=== PATIENT | female | born 2000 | race Caucasian/White ===

== ENCOUNTER 2021-09-07 11:59 | Inpatient (IN) | payer OTHER, SELFPAY ==
--- NOTE | ~2021-09-07 | US_ITS ---
EXAMINATION: US ABDOMEN LIMITED CLINICAL INFORMATION: Right upper quadrant tenderness and leukocytosis.. COMPARISON: None TECHNIQUE: Real-time imaging of the right upper quadrant abdominal viscera. FINDINGS: PANCREAS: Normal. LIVER: Normal. The liver is normal in size. The liver contour is normal. Parenchymal echogenicity is normal. No focal hepatic lesion. There is no intrahepatic biliary duct dilatation seen. GALLBLADDER: There are echogenic gallstone measuring 2.1 x 1.9 cm. No additional echogenic stones seen. There is no gallbladder wall thickening. COMMON BILE DUCT: Normal in caliber measuring 0.42 cm in diameter. RIGHT KIDNEY: Normal. No hydronephrosis. No renal calculi or focal parenchymal lesions. The kidney measures 10.5 cm in maximum dimension. FREE FLUID: None. US/US abdomen limited IMPRESSION: 2 cm gallstone without wall thickening. Unremarkable liver, right kidney, pancreas and CBD.
--- NOTE | ~2021-09-07 | CT_ITS ---
EXAMINATION: CT ABDOMEN AND PELVIS WITH CONTRAST CLINICAL INFORMATION: Ruptured appendicitis. Post abscess drainage. COMPARISON: Previous CT of the abdomen and pelvis 09/07/2020 TECHNIQUE: Multidetector volumetric images were obtained from the superior aspect of the liver through the pubic symphysis following administration 85 mL of Omnipaque 350 intravenous contrast. Sagittal and coronal reformatted images were obtained on the technologist's workstation. Oral contrast: Yes This CT examination was performed using dose optimization techniques as appropriate, variously including the following: *Automated exposure control *Adjustment of mA and/or kV according to patient size (this includes techniques or standardized protocols for targeted exams where dose is matched to indication/reason for exam; i.e. extremities or head) *Use of iterative reconstruction technique DLP: 841 mGy-cm FINDINGS: LUNG BASES: There is atelectasis of the right lung base. LIVER, GALLBLADDER, AND BILIARY TREE: The liver is normal in size, shape, and attenuation. No focal hepatic lesion or biliary ductal dilatation is present. The gallbladder is unremarkable with no evidence of radiopaque gallstones, gallbladder wall thickening, or obvious pericholecystic inflammatory changes. PANCREAS: Unremarkable. SPLEEN: The spleen is upper normal in size measuring 12.6 cm in length. ADRENAL GLANDS: Unremarkable. KIDNEYS AND URETERS: The kidneys are normal in size, shape, and attenuation. No hydronephrosis, hydroureter, or calculi seen. No perinephric stranding. BLADDER: Bladder is not optimally tendon. Bladder wall may be mildly thickened. GASTROINTESTINAL TRACT: There is a new surgical drainage catheter seen in the right lateral paracolic gutter. The right colon is dilated and fluid and contrast filled suggestive of an ileus. The appendix has been removed. There is a small fluid collection adjacent to the appendectomy site/surgical clips measuring 1 x 1 x 2 cm. There is a small amount fluid along the right lateral paracolic gutter adjacent to the drain. Maximum 1 cm in transverse dimension and 3 cm in AP dimension and extends over a length of 7 cm. There is overall interval decrease in fluid and inflammatory changes in the right lower quadrant compared to prior exam 09/07/2020. There is an increasing fluid collection in the pelvis in the posterior cul-de-sac that may have a defined enhancing wall. This measures 3.3 x 4.6 cm in transverse dimension and is questionable for developing abscess. No free air is. Small and large bowel is otherwise unremarkable. The stomach is unremarkable. There is a small amount of fluid in the lateral renal space and in the presacral space and ABDOMINAL WALL: No significant hernia is appreciated. There is edema over the right right lateral abdominal wall. LYMPH NODES: There is small bowel mesentery and retroperitoneal lymphadenopathy. This is similar to recent exam VASCULAR: Unremarkable. PELVIC VISCERA: Unremarkable. OSSEOUS STRUCTURES: Unremarkable. CT/CT abdomen pelvis w con IMPRESSION: Overall interval decrease in inflammatory changes and fluid in the right lower quadrant. There is a small 1 x 1 x 2 cm fluid collection at the appendectomy site. There is a small amount of fluid in the right lateral paracolic gutter adjacent to the surgical drain. There is question of developing abscess in the pelvis/ posterior cul-de-sac measuring 3.3 x 4.6 cm in AP and transverse dimension. Mild diffuse wall thickening of the bladder. Right colon ileus. Fleischner guidelines were followed.
--- NOTE | ~2021-09-07 | XR_ITS ---
EXAMINATION: XR CHEST CLINICAL INFORMATION: Right lower lobe pain. COMPARISON: None TECHNIQUE: Frontal view of the chest was obtained. FINDINGS: The lungs are fairly well-expanded and clear. The heart size and pulmonary vascularity is normal. No gross bony abnormality seen. XR/XR chest 1V IMPRESSION: Unremarkable chest exam.
--- NOTE | ~2021-09-07 | CT_ITS ---
EXAMINATION: CT ABDOMEN AND PELVIS WITH CONTRAST CLINICAL INFORMATION: Right upper quadrant pain, elevated white blood cells COMPARISON: Right upper quadrant ultrasound TECHNIQUE: Multidetector volumetric images were obtained from the superior aspect of the liver through the pubic symphysis following administration 85 mL of Omnipaque 350 intravenous contrast. Sagittal and coronal reformatted images were obtained on the technologist's workstation. Oral contrast: No This CT examination was performed using dose optimization techniques as appropriate, variously including the following: *Automated exposure control *Adjustment of mA and/or kV according to patient size (this includes techniques or standardized protocols for targeted exams where dose is matched to indication/reason for exam; i.e. extremities or head) *Use of iterative reconstruction technique DLP: 717 mGy-cm FINDINGS: LUNG BASES: The visualized lung bases are unremarkable. LIVER, GALLBLADDER, AND BILIARY TREE: The liver is normal in size, shape, and attenuation. No focal hepatic lesion or biliary ductal dilatation is present. The gallbladder is unremarkable with no evidence of radiopaque gallstones, gallbladder wall thickening, or obvious pericholecystic inflammatory changes. PANCREAS: Unremarkable. SPLEEN: Spleen is enlarged measured 16.7 cm. ADRENAL GLANDS: Unremarkable. KIDNEYS AND URETERS: The kidneys are normal in size, shape, and attenuation. No hydronephrosis, hydroureter, or calculi seen. No perinephric stranding. BLADDER: Unremarkable. GASTROINTESTINAL TRACT: There are extensive inflammatory changes in the right lower quadrant surrounding abnormal cecum and ascending colon. There are multiple lymph nodes and fluid, as well as trace of extraluminal air. There is most likely abscess in the appendix with ill-defined margins and there is reactive colonic wall thickening. The appendix not clearly seen being replaced by tubular structure, inflammatory reaction and lymphadenopathy, possibly abscess. ABDOMINAL WALL: No significant hernia is appreciated. LYMPH NODES: There are multiple lymph nodes in the mesentery surrounding abnormal loops of bowel. VASCULAR: Unremarkable. PELVIC VISCERA: There is fluid in the pelvis surrounding otherwise unremarkable uterus left adnexa is prominent with multiple follicles. Right adnexa revealed a deflated 1.8 cm cyst. OSSEOUS STRUCTURES: Unremarkable. CT/CT abdomen pelvis w con IMPRESSION: 1. Most likely perforated appendicitis with abscess formation and extensive inflammatory reaction. 2. Fluid in the pelvis most likely from ruptured ovarian follicle. 3. Splenomegaly This critical result was discussed with Adrianna Guo at 9:15 PM on September 07 and it was ascertained that the content and urgency of the report was understood at the time of direct communication. Fleischner guidelines were followed.
[2021-09-07 12:08] VITALS: BP 156/92; PULSE 130; RESP 18; TEMP 37.3; O2SAT 97; BMI 32.9
--- NOTE | 2021-09-07 13:36 | ED_ITS ---
HPI - Abdominal Pain General Chief Complaint: Abdominal Pain Stated Complaint: Abd pain Time Seen by Provider: 09/07/21 13:34 Source: patient Mode of arrival: ambulatory Limitations: no limitations History of Present Illness HPI narrative: 21 yo female with history of anxiety and recently diagnosed COVID-19 (09/02 - unvaccinated) who presents to the ER with right sided abdominal pain that has been going on since she was diagnosed with COVID. She reports going to [facility] on 09/02 c/o epigastric/RUQ pain, nausea, dizziness. She was diagnosed with COVID and sent home with PO antiemetics. She reports over the last 4 days she has developed increased urinary frequency/urgency, dark colored urine with worsening RUQ pain. RUQ pain is worse with food. She reports vomiting stopped 2 days ago but she has had diarrhea every day this week. She denies fevers, chest pain or SOB. MD elicited complaint: abdominal pain Pertinent past history: none Onset (ago): day(s) (5) Pain Consistency: constant Location: RUQ Severity: mild Pain scale (0-10): 3 Quality: stabbing Radiation: epigastric and R flank Exacerbating factors: eating Relieving factors: nothing Associated symptoms: nausea, vomiting, diarrhea and other (urinary frequency and urgency) Related Data Home Medications Medication Instructions Recorded Confirmed No Known Home Meds 09/07/21 09/07/21 Allergies Allergy/AdvReac Type Severity Reaction Status Date / Time No Known Allergies Allergy Verified 09/07/21 12:15 Review of Systems Review of Systems Constitutional: No Fever, + Chills ENT/Mouth: No sore throat, No Rhinorrhea, No Swallowing Difficulty Cardiovascular: No Chest Pain, No SOB Respiratory: No Cough, No Sputum, No Wheezing, No dyspnea Gastrointestinal: + Nausea, + Vomiting, + Diarrhea, + abdominal Pain, No Hematochezia, No Melena Genitourinary: No Dysuria, + Urinary Frequency/Urgency, No Hematuria Musculoskeletal: No joint pain, No Myalgias Skin: No Skin Lesions, No rash Neuro: No Weakness, No Numbness, No Dizziness, No Headache Psych: + Anxiety/Panic, No Depression Heme/Lymph: No Bruising, No Lymphadenopathy Endocrine: No Polyuria, No Polydipsia Physical Exam Vital Signs: Vital Signs: Last Vital Signs Temp 98.8 F 09/07/21 20:53 Pulse 111 H 09/07/21 20:53 Resp 17 09/07/21 20:53 BP 133/92 H 09/07/21 20:53 Pulse Ox 98 09/07/21 20:53 BMI result Body Mass Index 32.9 Appearance: Alert. Oriented X3. Anxious. Eyes: Pupils equal, round and reactive to light. ENT: Pharynx normal. Neck: Normal inspection. Neck supple. CVS: Tachycardic, regular rhythm, heart rate 130.Pulses normal. Respiratory: No respiratory distress. Breath sounds normal. Abdomen: Soft, Right upper quadrant tenderness with guarding. +BS x4 Skin: Skin warm and dry. Normal skin color. Normal skin turgor. No rashes. Extremities: No lower extremity edema. Neuro: Oriented X 3. No motor deficit. No sensory deficit. Course Course Course Narrative: 21-year-old female with history of anxiety and recent COVID- 19 diagnosis presents to the ER with worsening right upper quadrant pain along with urinary symptoms for the last 4 days. On arrival to the ER she is anxious, tachycardic to the 130s. She is afebrile and no respiratory distress. Her exam reveals a tender right upper quadrant with some guarding. she reports pain 3/10 at this time, declining need for pain medication. Will get lab workup and urinalysis. IV fluids ordered, her urine is tea-colored likely due to dehydration. Reevaluation(s) Reevaluation #1: Lab workup showing white blood cell count 23.8 With left shift and lymphopenia. Lymphopenia could be due to COVID-19. Her leukocytosis could be due to nausea, vomiting and reactive in nature. However given concern for possible urinary source with urinary symptoms will cover with IV Rocephin now. Her LFTs are within normal limits aside from very minimally elevated alk- phos. Will get right upper quadrant ultrasound to assess for cholecystitis. Doubt cholangitis. She is non-toxic appearing. Reevaluation #2: Urinalysis is negative for infection. Right upper quadrant ultrasound showing a 2 cm gallstone without any wall thickening. She could be experiencing biliary colic given her pain is after eating. Given her significant leukocytosis will get CT abd to make sure we aren't missing something. Case d/w Dr. Mueller. Reevaluation #3: Received critical result from Radiology - CT scan showing ruptured appendicitis with extensive inflammatory changes. Dr. Zarate TT who will admit. NPO possbile OR tomorrow. Patient updated on plan of care. Consultations Consultation #1: General Surgery - Dr. Zarate MDM - Abdominal Pain Lab Data Result diagrams: 09/07/21 13:53 09/07/21 13:53 Labs: Lab Results 09/07/21 09/07/21 09/07/21 Range/Units 13:53 13:53 13:53 WBC 23.8 H (4.8-10.8) X10*3/uL RBC 4.84 (4.20-5.50) X10*6/uL Hgb 14.5 (12.0-16.0) g/dl Hct 42.8 (37.0-47.0) % MCV 88.4 (80.0-98.0) fL MCH 30.0 (27.0-33.0) pg MCHC 33.9 (31.0-35.0) g/dl RDW 12.3 (11.0-16.0) % Plt Count 369 (160-400) X10*3/uL MPV 10.1 (9.4-12.3) fL Immature Gran % (Auto) 0.7 H (0.0-0.4) % Neut % (Auto) 82.0 H (45-73) % Lymph % (Auto) 10.3 L (20-40) % Ashley % (Auto) 6.5 (2-11) % Eos % (Auto) 0.3 (0-4) % Baso % (Auto) 0.2 (0-2) % Lymph # (Auto) 2.4 (1.2-4.9) X10*3/uL Ashley # (Auto) 1.6 H (0.1-1.2) X10*3/uL Eos # (Auto) 0.1 (0.0-0.4) X10*3/uL Baso # (Auto) 0.1 (0.0-0.2) X10*3/uL Abs Immat Gran (auto) 0.16 H (0.00-0.03) X10*3/uL Absolute Neuts (auto) 19.5 H (2.0-8.3) x10*3/uL Absolute Nucleated RBC 0.000 (0.0-0.012) X10*3/uL Nucleated RBC % (auto) 0.0 (0.0-0.2) /100WBC Smear Tech's Comments VERIFIED Sodium 140 (135-145) mmol/L Potassium 3.6 (3.3-5.1) mmol/L Chloride 105 (96-108) mmol/L Carbon Dioxide 21 L (22-29) mmol/L Anion Gap 18 (12-20) BUN 6 L (9-16) mg/dL Creatinine 0.66 (0.5-1.4) mg/dL Estim Creat Clear Calc 131.2 Estimated GFR > 60 Random Glucose 94 (60-115) mg/dL Lactic Acid (0.5-2.0) mmol/L Calcium 9.4 (8.4-10.2) mg/dL Magnesium 2.3 (1.6-2.6) mg/dL Total Bilirubin 0.6 (0.0-1.0) mg/dL Direct Bilirubin 0.3 (0.0-0.5) mg/dL AST 21 (5-31) U/L ALT 27 (0-31) U/L Alkaline Phosphatase 121 H (39-117) U/L Total Protein 7.8 (6.5-8.0) g/dL Albumin 4.1 (3.5-5.0) g/dL Lipase 7 L (8-78) U/L Urine Color Urine Appearance Urine pH (5.0-8.0) Ur Specific [place] (1.005-1.025) Urine Protein (NEG-TRACE) MG/DL Urine Glucose (UA) (NEG) MG/DL Urine Ketones (NEG) MG/DL Urine Blood (NEG) Urine Nitrite (NEG) Ur Leukocyte Esterase (NEG) Urine Test (NEGATIVE) COVID-19 (ERWIN) Negative (Negative) COVID-19 Clin Com See Note 09/07/21 09/07/21 09/07/21 Range/Units 13:53 13:53 15:37 WBC (4.8-10.8) X10*3/uL RBC (4.20-5.50) X10*6/uL Hgb (12.0-16.0) g/dl Hct (37.0-47.0) % MCV (80.0-98.0) fL MCH (27.0-33.0) pg MCHC (31.0-35.0) g/dl RDW (11.0-16.0) % Plt Count (160-400) X10*3/uL MPV (9.4-12.3) fL Immature Gran % (Auto) (0.0-0.4) % Neut % (Auto) (45-73) % Lymph % (Auto) (20-40) % Ashley % (Auto) (2-11) % Eos % (Auto) (0-4) % Baso % (Auto) (0-2) % Lymph # (Auto) (1.2-4.9) X10*3/uL Ashley # (Auto) (0.1-1.2) X10*3/uL Eos # (Auto) (0.0-0.4) X10*3/uL Baso # (Auto) (0.0-0.2) X10*3/uL Abs Immat Gran (auto) (0.00-0.03) X10*3/uL Absolute Neuts (auto) (2.0-8.3) x10*3/uL Absolute Nucleated RBC (0.0-0.012) X10*3/uL Nucleated RBC % (auto) (0.0-0.2) /100WBC Smear Tech's Comments Sodium (135-145) mmol/L Potassium (3.3-5.1) mmol/L Chloride (96-108) mmol/L Carbon Dioxide (22-29) mmol/L Anion Gap (12-20) BUN (9-16) mg/dL Creatinine (0.5-1.4) mg/dL Estim Creat Clear Calc Estimated GFR Random Glucose (60-115) mg/dL Lactic Acid 0.9 (0.5-2.0) mmol/L Calcium (8.4-10.2) mg/dL Magnesium (1.6-2.6) mg/dL Total Bilirubin (0.0-1.0) mg/dL Direct Bilirubin (0.0-0.5) mg/dL AST (5-31) U/L ALT (0-31) U/L Alkaline Phosphatase (39-117) U/L Total Protein (6.5-8.0) g/dL Albumin (3.5-5.0) g/dL Lipase (8-78) U/L Urine Color YELLOW Urine Appearance HAZY Urine pH 6.5 (5.0-8.0) Ur Specific [place] 1.020 (1.005-1.025) Urine Protein TRACE (NEG-TRACE) MG/DL Urine Glucose (UA) NEG (NEG) MG/DL Urine Ketones >=80 (NEG) MG/DL Urine Blood NEG (NEG) Urine Nitrite NEG (NEG) Ur Leukocyte Esterase NEG (NEG) Urine Test NEGATIVE (NEGATIVE) COVID-19 (ERWIN) (Negative) COVID-19 Clin Com Critical Care Time Critical Care Time Critical Care Time: Yes Total Critical Care Time: 42 Attestation: I have personally provided critical care time exclusive of time sp ent on separately billable procedures. Time includes review of lab data, radiology results, discussion with consultants, and monitoring for potential decompensation. Intervention performed as documented. Discharge Plan Discharge Clinical Impression: Ruptured appendicitis Sepsis Qualifiers: Sepsis type: sepsis due to unspecified organism Sepsis acute organ dysfunction status: without acute organ dysfunction Qualified Code(s): A41.9 - Sepsis, unspecified organism Patient Disposition: Admitted As Inpatient [facility] Past Medical History Medical History (Updated 09/07/21 @ 21:37 by JOSELYN Barbosa) Anxiety Depression Lactose intolerance Vaginal delivery Surgical History (Updated 09/07/21 @ 12:12 by Maia [place]) No pertinent past surgical history Social History Social History Advance Directives: Yes Advance Directives Information Provided: Yes Advance Directives on File: No Patient : No
[2021-09-07 14:16] LABS: Appearance Urine HAZY; Basophils Absolute Auto 0.1 X10*3/uL (0.0-0.2); Basophils Percent Auto 0.2 % (0-2); Color Urine YELLOW; Eosinophils Absolute Auto 0.1 X10*3/uL (0.0-0.4); Eosinophils Percent Auto 0.3 % (0-4); Glucose Urine UA NEG (NEG); Hematocrit 42.8 % (37.0-47.0); Hemoglobin 14.5 g/dl (12.0-16.0); Imm Gran Abs Auto 0.16 X10*3/uL (0.00-0.03); Imm Gran Pct Auto 0.7 % (0.0-0.4); Leukocyte Esterase Urine NEG (NEG); Lymphocytes Absolute Auto 2.4 X10*3/uL (1.2-4.9); Lymphocytes Percent Auto 10.3 % (20-40); MANUAL DIFF FLAG SCAN; Mean Corpuscular HGB Conc 33.9 g/dl (31.0-35.0); Mean Corpuscular Volume 88.4 fL (80.0-98.0); Mean Platelet Volume 10.1 fL (9.4-12.3); Monocytes Absolute Auto 1.6 X10*3/uL (0.1-1.2); Monocytes Percent Auto 6.5 % (2-11); Neutrophils Absolute Auto 19.5 x10*3/uL (2.0-8.3); Nitrite Urine NEG (NEG); PH 6.5 (5.0-8.0); Platelet Count 369 X10*3/uL (160-400); Red Blood Count 4.84 X10*6/uL (4.20-5.50); Red Cell Distribution Width 12.3 % (11.0-16.0); SCAN SMEAR FLAG 1; Urine Blood NEG (NEG); Urine Ketones >=80 MG/DL (NEG); Urine Protein TRACE MG/DL (NEG-TRACE); White Blood Count 23.8 X10*3/uL (4.8-10.8)
[2021-09-07 14:23] LABS: UPreg QC Valid YES; Urine Pregnancy NEGATIVE (NEGATIVE)
[2021-09-07 14:27] LABS: COVID-19 Test Negative (Negative)
[2021-09-07 14:29] LABS: Alanine Aminotransferase 27 U/L (0-31); Albumin Level 4.1 g/dL (3.5-5.0); Alkaline Phosphatase 121 U/L (39-117); Anion Gap 18 (12-20); Aspartate Amino Transferase 21 U/L (5-31); Bilirubin Direct 0.3 mg/dL (0.0-0.5); Bilirubin Total 0.6 mg/dL (0.0-1.0); Blood Urea Nitrogen 6 mg/dL (9-16); Calcium 9.4 mg/dL (8.4-10.2); Carbon Dioxide 21 mmol/L (22-29); Chloride 105 mmol/L (96-108); Creatinine Clr Calc Pharmacy 131.2; Estimated Glomerular Filt Rate > 60; Glucose Random 94 mg/dL (60-115); Lipase 7 U/L (8-78); Magnesium 2.3 mg/dL (1.6-2.6); Potassium 3.6 mmol/L (3.3-5.1); Sodium 140 mmol/L (135-145); Total Protein 7.8 g/dL (6.5-8.0)
[2021-09-07 14:34] LABS: SLIDE REVIEW VERIFIED
[2021-09-07 15:57] LABS: Lactic Acid 0.9 mmol/L (0.5-2.0)
[2021-09-07 16:00] VITALS: BP 116/68; PULSE 114; RESP 18; TEMP 37.1; O2SAT 99
[2021-09-07] MEDS: 0.9 % Sodium Chloride 1,000 ML 999 ML IVCONT ×2 (16:16→18:33)
[2021-09-07] MEDS: cefTRIAXone sodium 1 GM in 0.9 % Sodium Chloride 50 ML IV (16:16)
[2021-09-07 18:38] VITALS: BP 125/76; PULSE 114; RESP 16; TEMP 37.2; O2SAT 98
--- NOTE | 2021-09-07 18:54 | PC.NURSE ---
Pt resting on stretcher in NAD, breathing with ease on RA, VSS with tachycardia. Pt aaox4, reports pain 2/10, endorses intermittent nausea, denies other complaints at this time. Pt awaiting CT scan of abd, pt is aware and agreeable. Stretcher in lowest locked position, rail raised, call lucio within reach.
[2021-09-07] MEDS: iohexoL 350 MG/ML 100 ML INFUS..BTL IV (19:32)
[2021-09-07 20:53] VITALS: BP 133/92; PULSE 111; RESP 17; TEMP 37.1; O2SAT 98
--- NOTE | 2021-09-07 20:57 | PC.NURSE ---
Pt c/o nausea, Adrianna ALVES aware and to order zofran for nausea and ativan for pt's persistent reports of anxiety.
[2021-09-07] MEDS: LORazepam 2 MG/ML VIAL 1 MG IVPUSH (21:00)
[2021-09-07] MEDS: ondansetron HCL 4 MG/2 ML VIAL IVPUSH (21:00)
--- NOTE | 2021-09-07 21:20 | PC.NURSE ---
Adrianna ALVES at bedside disccussing CT results with pt regarding ruptured appendix. Pt agreeable to plan for admission, fluids, abx.
[2021-09-07 22:00] VITALS: BP 132/88; PULSE 120; RESP 17; TEMP 38; O2SAT 97
[2021-09-07] MEDS: Acetaminophen 325 MG TABLET 650 MG PO (22:17)
[2021-09-07] MEDS: Piperacillin Sodium/Tazobactam 3.375 GM in 0.9 % Sodium Chloride 50 ML IV (22:17)
[2021-09-07] MEDS: Dextrose 5 % and Lactated Ring 1,000 ML 125 ML IVCONT (22:18)
--- NOTE | 2021-09-07 22:20 | PC.NURSE ---
pt reports improvement in anxiety and nausea. pt reports minimal pain at this time. pt medicated per OCT.
[2021-09-07 23:52] VITALS: BP 126/69; PULSE 94; RESP 18; TEMP 37; O2SAT 98
[2021-09-08] VITALS (10 sets, daily range): BP systolic 108–130; BP diastolic 55–82; PULSE 95–111; RESP 16–20; TEMP 36.1–37.8; O2SAT 92–100; BMI 32.9
[2021-09-08] MEDS: Piperacillin Sodium/Tazobactam 3.375 GM in 0.9 % Sodium Chloride 50 ML IV ×3 (06:20→22:51)
[2021-09-08] MEDS: Dextrose 5 % and Lactated Ring 1,000 ML 125 ML IVCONT ×3 (06:20→22:52)
[2021-09-08 06:21] LABS: Basophils Percent Auto 0.2 % (0-2); Eosinophils Percent Auto 0.1 % (0-4); Hematocrit 36.3 % (37.0-47.0); Hemoglobin 12.3 g/dl (12.0-16.0); Imm Gran Abs Auto 0.19 X10*3/uL (0.00-0.03); Imm Gran Pct Auto 0.9 % (0.0-0.4); Lymphocytes Absolute Auto 1.6 X10*3/uL (1.2-4.9); MANUAL DIFF FLAG SCAN; Mean Corpuscular HGB Conc 33.9 g/dl (31.0-35.0); Mean Corpuscular Volume 88.5 fL (80.0-98.0); Mean Platelet Volume 9.7 fL (9.4-12.3); Monocytes Absolute Auto 1.6 X10*3/uL (0.1-1.2); Monocytes Percent Auto 7.3 % (2-11); Neutrophils Absolute Auto 18.8 x10*3/uL (2.0-8.3); Neutrophils Percent Auto 84.5 % (45-73); Red Cell Distribution Width 12.5 % (11.0-16.0); SCAN SMEAR FLAG 1; White Blood Count 22.3 X10*3/uL (4.8-10.8)
[2021-09-08 06:37] LABS: Anion Gap 11 (12-20); Blood Urea Nitrogen 3 mg/dL (9-16); Calcium 8.4 mg/dL (8.4-10.2); Carbon Dioxide 23 mmol/L (22-29); Chloride 108 mmol/L (96-108); Creatinine Clr Calc Pharmacy 131.2; Estimated Glomerular Filt Rate > 60; Glucose Random 123 mg/dL (60-115); Potassium 4.1 mmol/L (3.3-5.1); Sodium 138 mmol/L (135-145)
[2021-09-08 06:52] LABS: SLIDE REVIEW VERIFIED
--- NOTE | 2021-09-08 07:39 | P.HPGS_ITS ---
History of Present Illness History of Present Illness Date of Service: 09/08/21 Chief complaint: Abd pain Narrative: Nikki Gill is a 21 year old female presenting with complaints of right upper quadrant abdominal pain. She was previously evaluated for epigastric and right upper quadrant abdominal pain, nausea, dizziness at [facility] on 09/02/2021 and diagnosed with COVID-19 (patient was under vaccinated). The abdominal pain was felt to be associated with COVID she was subsequently discharged home. Over the next seem to increase more in the lower abdomen and was associated with urinary frequency, dark colored urine, nausea, vomiting, and diarrhea. She denies fever or chills, anorexia but did report that the pain increased after eating. She denies a previous history of similar abdominal pain or of abdominal surgeries. [facility] was noted to have tenderness in the right upper quadrant. Laboratories revealed elevated WBC of 23 K and ultrasound revealed a 2 cm gallstone within the gallbladder without evidence of wall thickening or ductal dilatation. A CT of the abdomen was therefore obtained which reveals extensive inflammatory changes in the right lower quadrant surrounding abnormal cecum and ascending colon. There are multiple lymph nodes and fluid, as well as trace of extraluminal air. There is most likely abscess in the appendix with ill-defined margins and there is reactive colonic wall thickening. The appendix not clearly seen being replaced by tubular structure, inflammatory reaction and lymphadenopathy, possibly abscess. ? Repeat COVID-19 test yesterday was n egative. Review of Systems Constitutional: Constitutional: Denies chills, Denies fever(s), Denies headache(s) and Denies poor appetite ENT: Denies dizziness and Denies headache(s) Cardiovascular: Cardiovascular: Denies chest pain, Denies rapid heart rate, Denies palpitations and Denies slow heart rate Respiratory: Respiratory: Denies chest congestion, Denies cough, Denies pain on inspiration and Denies wheezing Gastrointestinal: Gastrointestinal: Reports abdominal pain, Denies bloating, Reports change in stool character, Denies constipation, Reports diarrhea, Reports nausea, Reports vomiting and Denies hematemesis Genitourinary: Genitourinary: Reports pelvic pain Musculoskeletal: Musculoskeletal: Denies back pain, Denies arthralgias, Denies joint swelling and Denies numbness Integumentary/Breasts: Skin/Breast: Denies change in pigmentation, Denies erythema and Denies rash Neurologic: Denies dizziness, Denies headache(s) and Denies numbness Psychiatric: Psychiatric: Reports anxiety and Reports depression Endocrine: Endocrine: Denies palpitations Hematologic/Lymphatic: Hematologic/Lymphatic: Denies easy bleeding, Denies easy bruising and Denies lymphadenopathy Allergic/Immunologic: Allergic/Immunologic: Denies wheezing PMFSH Past Medical History Medical History (Updated 09/07/21 @ 21:37 by JOSELYN Barbosa) Anxiety Depression Lactose intolerance Vaginal delivery Patient : No Surgical History Surgical History (Updated 09/07/21 @ 12:12 by Maia Colorado) No pertinent past surgical history Social History Social History Advance Directives: Yes Advance Directives Information Provided: Yes Advance Directives on File: No Patient : No Meds Allergies Allergy/AdvReac Type Severity Reaction Status Date / Time No Known Allergies Allergy Verified 09/07/21 12:15 Active Medications: Current Medications Acetaminophen (Acetaminophen 325 Mg Tablet) 650 mg PO Q6H PRN PRN Reason: Pain, Mild (Pain Scale 1-3) Last Admin: 09/07/21 22:17 Dose: 650 mg Documented by: Hydromorphone HCl (Hydromorphone Hcl 0.5 Mg/0.5 Ml Syringe) 0.5 mg IVPUSH Q3H PRN; Protocol PRN Reason: Pain, Severe (Pain Scale 7-10) Dextrose/Lactated Ringer's (D5lr) 1,000 mls @ 125 mls/hr IVCONT .Q8H [facility] Last Admin: 09/08/21 06:20 Dose: 125 mls/hr Documented by: Piperacillin Sod/Tazobactam (Sod 3.375 gm/ Sodium Chloride) 50 mls @ 100 mls/hr IV Q6H [facility] Last Infusion: 09/08/21 07:35 Dose: Infused Documented by: Ondansetron HCl (Ondansetron Hcl 4 Mg/2 Ml Vial) 4 mg IVPUSH Q8H PRN PRN Reason: Nausea and Vomiting Oxycodone HCl (Oxycodone Hcl Immed Release 5 Mg Tablet) 5 mg PO Q6H PRN PRN Reason: Pain, Moderate (Pain Scale 4-6 Pharmacy Consult (Consult Rx Perform Med Rec) 1 each MISCELLANE ONCE PRN PRN Reason: Consult order Sodium Chloride (0.9 % Sodium Chloride Flush 3 Ml Syringe) 3 ml IVFLUSH QSHIFT [facility] Last Admin: 09/07/21 22:31 Dose: Not Given Documented by: Zolpidem Tartrate (Zolpidem Tartrate 5 Mg Tablet) 5 mg PO BEDTIME PRN PRN Reason: Insomnia Home Medications Medication Instructions Recorded Confirmed Last Taken Type No Known Home Meds 09/07/21 09/07/21 Unknown History Physical Exam Vital Signs: Vital Signs: Last Vital Signs Temp 98.6 F 09/07/21 23:52 Pulse 94 09/07/21 23:52 Resp 18 09/07/21 23:52 BP 126/69 09/07/21 23:52 Pulse Ox 98 09/07/21 23:52 BMI result Body Mass Index 32.9 Const: General: cooperative, comfortable, no acute distress and well developed Nutritional Appearance: well nourished Orientation/consciousness: patient oriented x3 Limitations: no limitations HENMT: Head: Yes normocephalic and Yes atraumatic Ears: hearing grossly normal bilaterally Eyes: Sclerae: sclerae normal EOM: EOMs intact bilaterally Neck: Neck: Yes normal visual inspection, Yes trachea midline and Yes supple Resp: Effort & Inspection: normal respiratory effort, no audible wheezes, no cough and no respiratory distress Cardio: Jugular venous distension: no JVD Rate: regular rate Rhythm: regular rhythm Heart sounds: S1 normal heart sound present and S2 normal heart sound present GI: Inspection: Yes normal to inspection Palpation (GI): Soft to palpation, Tenderness to palpation present (GI) in the RLQ, in the RUQ and at McBurney's point; Negative for Hidalgo's sign negative, with no rebound tenderness and Rovsing's sign negative, no guarding, not rigid and No hepatosplenomegaly present Percussion: Yes normal to percussion Auscultation: normal bowel sounds Rectal Exam - Female: deferred Skin: General skin exam: no rashes or lesions noted Neuro: General: patient oriented x3 Extrem: General: Yes normal to inspection, Yes full ROM, Yes capillary refill normal and Yes no clubbing, cyanosis or edema Results Results Labs: Short CBC 09/07/21 09/08/21 Range/Units 13:53 06:11 WBC 23.8 H 22.3 H (4.8-10.8) X10*3/uL Hgb 14.5 12.3 (12.0-16.0) g/dl Hct 42.8 36.3 L (37.0-47.0) % Plt Count 369 Not Reportable (160-400) X10*3/uL BMP 09/07/21 09/08/21 13:53 06:11 Sodium 140 138 Potassium 3.6 4.1 Chloride 105 108 Carbon Dioxide 21 L 23 BUN 6 L 3 L Creatinine 0.66 0.66 Calcium 9.4 8.4 D Liver Function 09/07/21 Range/Units 13:53 Total Bilirubin 0.6 (0.0-1.0) mg/dL Direct Bilirubin 0.3 (0.0-0.5) mg/dL AST 21 (5-31) U/L ALT 27 (0-31) U/L Alkaline Phosphatase 121 H (39-117) U/L Albumin 4.1 (3.5-5.0) g/dL Urine 09/07/21 09/07/21 Range/Units 13:53 13:53 Urine Color YELLOW Urine Appearance HAZY Urine pH 6.5 (5.0-8.0) Ur Specific Elizabeth 1.020 (1.005-1.025) Urine Protein TRACE (NEG-TRACE) MG/DL Urine Glucose (UA) NEG (NEG) MG/DL Urine Test NEGATIVE (NEGATIVE) Assessment and Plan (1) Ruptured appendicitis: Status: Acute 21-year-old female patient presenting with a prolonged history of abdominal pain associated with nausea, vomiting, and diarrhea, as well as a recent COVID-19 history. Patient was found to be tender in the right upper quadrant and right lower quadrant. Workup revealed elevated WBC of 23 K as well as findings suggestive of perforated acute appendicitis with developing abscess. The findings were discussed with the patient in detail. My concern is the prolonged nature of her abdominal symptoms and the lack of visible appendix on CT which may indicate significant amount of inflammation surrounding the appendix with developing abscess. We discussed management with laparoscopic or possible open appendectomy verses continued antibiotics. Patient wishes to proceed with a laparoscopic or possible open appendectomy. After discussion of the procedure, risks, and alternatives, she consents to the surgery. She will be added onto the operative schedule for today. She has been placed on Zosyn which will continue postoperatively if an abscess is encountered. Quality Stroke Does the patient have a stroke diagnosis?: No VTE Prior VTE?: No VTE Risk Level:: Surgical - moderate VTE Device Contraindication: N/A - Device Ordered VTE Drug Contraindication: Treatment Not Indicated Procedures Date of Service Date of Service: 09/08/21
--- NOTE | 2021-09-08 08:48 | P.CONAN_ITS ---
PMF Active Problems Active Problems: All Active Problems (Updated 09/07/21 @ 21:37 by JOSELYN Townsend) Sepsis (Acute) Ruptured appendicitis (Acute) Past Medical History Medical History (Updated 09/07/21 @ 21:37 by JOSELYN Barbosa) Anxiety Depression Lactose intolerance Vaginal delivery Family History Family history of problems with anesthesia: No Surgical History Surgical History (Updated 09/07/21 @ 12:12 by Maia [place]) No pertinent past surgical history History of Problems with Anesthesia: No Social History Social History Advance Directives: Yes Advance Directives Information Provided: Yes Advance Directives on File: No Patient : No Meds Allergies Allergy/AdvReac Type Severity Reaction Status Date / Time No Known Allergies Allergy Verified 09/07/21 12:15 Active Medications: Current Medications Acetaminophen (Acetaminophen 325 Mg Tablet) 650 mg PO Q6H PRN PRN Reason: Pain, Mild (Pain Scale 1-3) Last Admin: 09/07/21 22:17 Dose: 650 mg Documented by: Hydromorphone HCl (Hydromorphone Hcl 0.5 Mg/0.5 Ml Syringe) 0.5 mg IVPUSH Q3H PRN; Protocol PRN Reason: Pain, Severe (Pain Scale 7-10) Dextrose/Lactated Ringer's (D5lr) 1,000 mls @ 125 mls/hr IVCONT .Q8H [facility] Last Admin: 09/08/21 06:20 Dose: 125 mls/hr Documented by: Piperacillin Sod/Tazobactam (Sod 3.375 gm/ Sodium Chloride) 50 mls @ 100 mls/hr IV Q6H [facility] Last Infusion: 09/08/21 07:35 Dose: Infused Documented by: Ondansetron HCl (Ondansetron Hcl 4 Mg/2 Ml Vial) 4 mg IVPUSH Q8H PRN PRN Reason: Nausea and Vomiting Oxycodone HCl (Oxycodone Hcl Immed Release 5 Mg Tablet) 5 mg PO Q6H PRN PRN Reason: Pain, Moderate (Pain Scale 4-6 Pharmacy Consult (Consult Rx Perform Med Rec) 1 each MISCELLANE ONCE PRN PRN Reason: Consult order Sodium Chloride (0.9 % Sodium Chloride Flush 3 Ml Syringe) [facility] Admin: 09/07/21 22:31 Dose: Not Given Documented by: Zolpidem Tartrate (Zolpidem Tartrate 5 Mg Tablet) 5 mg PO BEDTIME PRN PRN Reason: Insomnia Home Medications Medication Instructions Recorded Confirmed Last Taken Type No Known Home Meds 09/07/21 09/07/21 Unknown History Exam Exam Date and Time: September 08, 2021 0848 Height,Weight and Vital Signs: Height 5 ft 2 in Weight 81.647 kg Last Vital Signs Temp 98.6 F 09/07/21 23:52 Pulse 94 09/07/21 23:52 Resp 18 09/07/21 23:52 BP 126/69 09/07/21 23:52 Pulse Ox 98 09/07/21 23:52 Pertinent Lab Results Pertinent Lab Results: Laboratory Tests 09/07/21 09/07/21 09/07/21 13:53 13:53 13:53 WBC 23.8 H RBC 4.84 Hgb 14.5 Hct 42.8 MCV 88.4 MCH 30.0 MCHC 33.9 RDW 12.3 Plt Count 369 MPV 10.1 Immature Gran % (Auto) 0.7 H Neut % (Auto) 82.0 H Lymph % (Auto) 10.3 L Cowley % (Auto) 6.5 Eos % (Auto) 0.3 Baso % (Auto) 0.2 Lymph # (Auto) 2.4 Cowley # (Auto) 1.6 H Eos # (Auto) 0.1 Baso # (Auto) 0.1 Abs Immat Gran (auto) 0.16 H Absolute Neuts (auto) 19.5 H Absolute Nucleated RBC 0.000 Nucleated RBC % (auto) 0.0 Smear Tech's Comments VERIFIED Sodium 140 Potassium 3.6 Chloride 105 Carbon Dioxide 21 L Anion Gap 18 BUN 6 L Creatinine 0.66 Estim Creat Clear Calc 131.2 Estimated GFR > 60 Random Glucose 94 Lactic Acid Calcium 9.4 Magnesium 2.3 Total Bilirubin 0.6 Direct Bilirubin 0.3 AST 21 ALT 27 Alkaline Phosphatase 121 H Total Protein 7.8 Albumin 4.1 Lipase 7 L Urine Color Urine Appearance Urine pH Ur Specific Armstrong Urine Protein Urine Glucose (UA) Urine Ketones Urine Blood Urine Nitrite Ur Leukocyte Esterase Urine Test COVID-19 ([facility]) Negative COVID-19 Clin Com See Note 01/14/22 01/14/22 01/14/22 13:53 13:53 15:37 WBC RBC Hgb Hct MCV MCH MCHC RDW Plt Count MPV Immature Gran % (Auto) Neut % (Auto) Lymph % (Auto) Cowley % (Auto) Eos % (Auto) Baso % (Auto) Lymph # (Auto) Cowley # (Auto) Eos # (Auto) Baso # (Auto) Abs Immat Gran (auto) Absolute Neuts (auto) Absolute Nucleated RBC Nucleated RBC % (auto) Smear Tech's Comments Sodium Potassium Chloride Carbon Dioxide Anion Gap BUN Creatinine Estim Creat Clear Calc Estimated GFR Random Glucose Lactic Acid 0.9 Calcium Magnesium Total Bilirubin Direct Bilirubin AST ALT Alkaline Phosphatase Total Protein Albumin Lipase Urine Color YELLOW Urine Appearance HAZY Urine pH 6.5 Ur Specific Armstrong 1.020 Urine Protein TRACE Urine Glucose (UA) NEG Urine Ketones >=80 Urine Blood NEG Urine Nitrite NEG Ur Leukocyte Esterase NEG Urine Test NEGATIVE COVID-19 ([facility]) COVID-19 Clin Com 09/08/21 09/08/21 06:11 06:11 WBC 22.3 H RBC 4.10 L Hgb 12.3 Hct 36.3 L MCV 88.5 MCH 30.0 MCHC 33.9 RDW 12.5 Plt Count Not Reportable MPV 9.7 Immature Gran % (Auto) 0.9 H Neut % (Auto) 84.5 H Lymph % (Auto) 7.0 L Cowley % (Auto) 7.3 Eos % (Auto) 0.1 Baso % (Auto) 0.2 Lymph # (Auto) 1.6 Cowley # (Auto) 1.6 H Eos # (Auto) 0.0 Baso # (Auto) 0.0 Abs Immat Gran (auto) 0.19 H Absolute Neuts (auto) 18.8 H Absolute Nucleated RBC 0.000 Nucleated RBC % (auto) 0.0 Smear Tech's Comments VERIFIED Sodium 138 Potassium 4.1 Chloride 108 Carbon Dioxide 23 Anion Gap 11 L BUN 3 L Creatinine 0.66 Estim Creat Clear Calc 131.2 Estimated GFR > 60 Random Glucose 123 H Lactic Acid Calcium 8.4 D Magnesium Total Bilirubin Direct Bilirubin AST ALT Alkaline Phosphatase Total Protein Albumin Lipase Urine Color Urine Appearance Urine pH Ur Specific Armstrong Urine Protein Urine Glucose (UA) Urine Ketones Urine Blood Urine Nitrite Ur Leukocyte Esterase Urine Test COVID-19 ([facility]) COVID-19 Clin Com Airway Mallampati Class: I TM Dist: >3cm Neck ROM: Full Loose/Missing/Broken Teeth: No Heart: RRR Lungs: CTA Assessment and Plan Assessment Anesthesia Assessment: Anesthesia Plan Discussed and Chart Reviewed Final Anesthetic Review Family History of Problems with Anesthesia: No History of Problems with Anesthesia: No NPO: Yes ASA Class: I and Emergency Final Preanesthetic Review: No Changes in Pt Med Stat, Meds/Allgs Chart Reviewed, Consent Obtained/Reviewed and Anes Risks/Benef Reviewed Patient Risk: Intermediate Procedure Risk: Intermediate Anesthetic Plan Anesthetic Plan: GA Disposition: Standard PACU
[2021-09-08] MEDS: Acetaminophen 325 MG TABLET 650 MG PO (10:19)
--- NOTE | 2021-09-08 11:00 | PC.NURSE ---
Pt to OR at this time, pain only with ambulation, declines pain medication. Medicated with Tylenol PO for low grade temp.
--- NOTE | 2021-09-08 12:56 | PC.NURSE ---
Melva Gill, patient's mother, phone number [phone]. Requesting call back when patient returns from OR.
--- NOTE | 2021-09-08 14:10 | P.OP_ITS ---
Operative Note Operative Note Date of Service: 09/08/21 Narrative: Preoperative diagnosis: Acute perforated appendicitis Postoperative diagnosis: Acute perforated appendicitis with large abscess in right upper quadrant Procedure: Exploratory laparoscopy, drainage of large appendiceal abscess, debridement of remnants of appendix Surgeon: Chapincito Zarate MD Healthcare Business Analyst: Sharonda Wilcox PA-C Anesthesia: General endotracheal Indications for procedure: 21-year-old female patient with abdominal pain previously evaluated in an outside ED on 09/02/2019 and found to have COVID-19. Patient was subsequently discharged to home however the abdominal pain continued in actually worsened associated with nausea and vomiting. She presented to the emergency departmen on 09/07/2021 and was noted to have pain in the right upper quadrant and right lower quadrant. She also was found to have markedly elevated WBC and marked inflammation on CT with probable developing abscess due to perforated appendicitis. Appendix could not be clearly identified by CT. Operative findings: Large abscess located in the right upper quadrant with inflamed cecum and terminal ileum. The abscess is in the region of the suspected appendix however appendix cannot be identified and may have been com pletely ruptured. A large abscess was drained in the wall debrided. A Edward- Castañeda drain was left in place. Specimen: Wound culture, abscess cavity wall Estimated blood loss: 20 mL Complications: None Procedure details: Patient was brought to the OR placed in a supine position. After administering general anesthesia the patient's abdomen was prepped with ChloraPrep and draped in sterile fashion. A surgical time-out was called the consent confirmed. Venodyne boots were in place in patient was administered antibiotics. The surgical procedure was performed in room 5. Local anesthesia consisting 0.5% Sensorcaine was infiltrated in a periumbilical location. A 5 mm incision was then made with scalpel. Veress needle was then inserted while elevating the abdominal cavity with towel clips. After a positive drop test the abdomen was insufflated to a pressure of 15 mmHg. Veress needle was removed and a 5 mm trocar inserted. The camera was inserted in the abdomen explored. A large amount of serous fluid was noted in the pelvis suggestive of a ruptured ovarian cyst. A 2nd 5 mm trocar was placed in the lower midline and a 12 mm trocar placed in left lower quadrant. The patient was placed in a Trendelenburg position rotated to the left. The fluid in the pelvis was aspirated and appeared to be clear fluid without abscess. The cecum was identified and was found to be densely adherent to the terminal ileum and abdominal sidewall. This was gently dissected off the sidewall. An area of dense inflammation was identified followed by a large abscess cavity containing white foul-smelling pus. The wound culture was sent of the purulence fluid. The abscess was completely evacuated. The region surrounding this abscess cavity was examined carefully which included the wall the cecum and the wall of the terminal ileum. Terminal ileum was mobilized along the abdominal sidewall as was the cecum. Cecum was able to be examined circumferentially and no remnants of the appendix could be identified. A portion of the abscess cavity was debrided and sent as a specimen. The abscess cavity was washed out thoroughly with saline solution. A Edward-Castañeda drain was less the abscess cavity. This was then connected to a bulb suction brought through 1 of the trocar incisions. Wounds were checked for hemostasis. All trocars were then removed and the CO2 evacuated. Drain was secured using a nylon suture and connected to bulb suction. Fascia was closed at the left lower quadrant incision using a 0 Polysorb suture in a [id number] fashion. Skin was closed in all incisions using a subcuticular 4-0 Polysorb suture. Steri-Strips 2 x 2 gauze and Tegaderm were then applied. The patient tolerated the procedure well. Sponge, instrument, and needle counts were reported as correct. The patient was transferred to PACU in stable condition.
[2021-09-08] MEDS: ondansetron HCL 4 MG/2 ML VIAL IVPUSH (14:29)
[2021-09-08] MEDS: HYDROmorphone HCl 0.5 MG/0.5 ML SYRINGE IVPUSH (20:01)
[2021-09-09 00:24] VITALS: BP 120/68; PULSE 115; RESP 16; TEMP 37.3; O2SAT 96
[2021-09-09] MEDS: HYDROmorphone HCl 0.5 MG/0.5 ML SYRINGE IVPUSH ×5 (01:17→23:09)
[2021-09-09] MEDS: Dextrose 5 % and Lactated Ring 1,000 ML 125 ML IVCONT ×3 (05:47→22:45)
[2021-09-09] MEDS: Piperacillin Sodium/Tazobactam 3.375 GM in 0.9 % Sodium Chloride 50 ML IV ×4 (05:47→21:09)
[2021-09-09 06:32] LABS: Basophils Percent Auto 0.1 % (0-2); Hematocrit 34.1 % (37.0-47.0); Hemoglobin 12.1 g/dl (12.0-16.0); Imm Gran Pct Auto 0.8 % (0.0-0.4); Lymphocytes Absolute Auto 1.6 X10*3/uL (1.2-4.9); Lymphocytes Percent Auto 6.4 % (20-40); MANUAL DIFF FLAG SCAN; Mean Corpuscular HGB Conc 35.5 g/dl (31.0-35.0); Mean Corpuscular Hemoglobin 32.4 pg (27.0-33.0); Mean Corpuscular Volume 91.2 fL (80.0-98.0); Mean Platelet Volume 10.3 fL (9.4-12.3); Monocytes Absolute Auto 1.4 X10*3/uL (0.1-1.2); Monocytes Percent Auto 5.8 % (2-11); Neutrophils Absolute Auto 20.9 x10*3/uL (2.0-8.3); Neutrophils Percent Auto 86.9 % (45-73); Platelet Count 409 X10*3/uL (160-400); Red Blood Count 3.74 X10*6/uL (4.20-5.50); Red Cell Distribution Width 12.7 % (11.0-16.0); SCAN SMEAR FLAG 1; White Blood Count 24.1 X10*3/uL (4.8-10.8)
[2021-09-09 06:33] LABS: Anion Gap 15 (12-20); Blood Urea Nitrogen 3 mg/dL (9-16); Calcium 8.3 mg/dL (8.4-10.2); Carbon Dioxide 22 mmol/L (22-29); Chloride 105 mmol/L (96-108); Creatinine Clr Calc Pharmacy 137.4; Estimated Glomerular Filt Rate > 60; Glucose Random 136 mg/dL (60-115); Potassium 4.2 mmol/L (3.3-5.1); Sodium 138 mmol/L (135-145)
[2021-09-09 06:57] LABS: SLIDE REVIEW VERIFIED
[2021-09-09 07:52] VITALS: BP 118/66; PULSE 120; RESP 20; TEMP 37.1; O2SAT 98
--- NOTE | 2021-09-09 09:47 | P.PNGS_ITS ---
Subjective Subjective Date of Service: 09/09/21 Interval history: Reports abdominal pain mainly in the right upper quadrant, denies significant incisional pain. Feels improved after taking pain medication. Tolerated some diet yesterday evening without nausea or vomiting. I discussed the findings at surgery with the patient the patient expressed understanding. Physical Exam Vital Signs: Vital Signs: Last Vital Signs Temp 98.7 F 09/09/21 07:52 Pulse 120 H 09/09/21 07:52 Resp 20 09/09/21 07:52 BP 118/66 09/09/21 07:52 Pulse Ox 98 09/09/21 07:52 BMI result Body Mass Index 32.9 Const: General: no acute distress and well developed Nutritional Appearance: well nourished Orientation/consciousness: patient oriented x3 Limitations: no limitations Eyes: Sclerae: sclerae normal Resp: Other: Shallow respiratory breaths, no respiratory distress, breathing comfortably on room air. Cardio: Rate: tachycardic GI: Other: Trocar incisions are clean, dry, and intact. STACY intact draining mainly serous fluid; no fecal in or purulent output. Tenderness to palpation in the right upper quadrant. No ecchymosis or erythema noted in skin. Skin: Other: Warm, dry, no rash Neuro: General: patient oriented x3 Extrem: General: Yes no pedal edema Objective Data Active Medications Acetaminophen (Acetaminophen 325 Mg Tablet) 650 mg PO Q6H PRN PRN Reason: Pain, Mild (Pain Scale 1-3) Last Admin: 09/08/21 10:19 Dose: 650 mg Documented by: TASIA Hydromorphone HCl (Hydromorphone Hcl 0.5 Mg/0.5 Ml Syringe) 0.5 mg IVPUSH Q3H PRN; Protocol PRN Reason: Pain, Severe (Pain Scale 7-10) Last Admin: 09/09/21 08:37 Dose: 0.5 mg Documented by: EASTON Dextrose/Lactated Ringer's (D5lr) 1,000 mls @ 125 mls/hr IVCONT .Q8H [facility] Last Admin: 09/09/21 05:47 Dose: 125 mls/hr Documented by: SIRENA Piperacillin Sod/Tazobactam (Sod 3.375 gm/ Sodium Chloride) 50 mls @ 100 mls/hr IV Q6H [facility] Last Infusion: 09/09/21 06:22 Dose: 0 mls/hr Documented by: SIRENA Sodium Chloride (Ns) 1,000 mls @ 999 mls/hr IV .Q1H1M ONE Stop: 09/09/21 10:46 Ondansetron HCl (Ondansetron Hcl 4 Mg/2 Ml Vial) 4 mg IVPUSH Q8H PRN PRN Reason: Nausea and Vomiting Oxycodone HCl (Oxycodone Hcl Immed Release 5 Mg Tablet) 5 mg PO Q6H PRN PRN Reason: Pain, Moderate (Pain Scale 4-6 Sodium Chloride (0.9 % Sodium Chloride Flush 3 Ml Syringe) 3 ml IVFLUSH QSHIFT [facility] Last Admin: 09/09/21 08:30 Dose: Not Given Documented by: EASTON Non-Admin Reason: IV Running Zolpidem Tartrate (Zolpidem Tartrate 5 Mg Tablet) 5 mg PO BEDTIME PRN PRN Reason: Insomnia Labs CBC & Chem 7: 09/09/21 04:56 09/09/21 04:56 Labs: Laboratory Results - last 24 hr 09/09/21 09/09/21 04:56 04:56 MCV 91.2 MCH 32.4 MCHC 35.5 H RDW 12.7 Plt Count 409 H MPV 10.3 Immature Gran % (Auto) 0.8 H Neut % (Auto) 86.9 H Lymph % (Auto) 6.4 L [place] % (Auto) 5.8 Eos % (Auto) 0.0 Baso % (Auto) 0.1 Lymph # (Auto) 1.6 [place] # (Auto) 1.4 H Eos # (Auto) 0.0 Baso # (Auto) 0.0 Abs Immat Gran (auto) 0.20 H Absolute Neuts (auto) 20.9 H Absolute Nucleated RBC 0.000 Nucleated RBC % (auto) 0.0 Smear Tech's Comments VERIFIED Anion Gap 15 Estim Creat Clear Calc 137.4 Estimated GFR > 60 Random Glucose 136 H Calcium 8.3 L Microbiology Microbiology Results: Microbiology 09/08/21 12:31 Gram Stain - Final Abscess Intra-abdominal Routine Culture - Preliminary Gram negative king 09/07/21 16:00 Blood Culture - Preliminary Blood - Venous No growth after 24 hours. 01/14/22 15:37 Blood Culture - Preliminary Blood - Venous No growth after 24 hours. Procedures Date of Service Date of Service: 09/09/21 Progress Note: A&P Assessment and plan (1) Ruptured appendicitis: Status: Acute Assessment and Plan: 21-year-old female patient with a ruptured appendicitis with a large abscess presenting approximately 1 week following apparent onset of symptoms. Patient found to have a large abscess in the right upper quadrant with apparent total disruption of appendix. Patient remains tachycardic with elevated WBC. Patient is currently on Zosyn. Wound culture showing Gram-negative king, final results pending. Blood cultures negative to date. Encourage patient to take pain medication to allow deep breathing exercises and ambulation. Bolus 1 L normal saline. Recheck CBC in a.m.. Fall Risk Details Current Medications: Current Medications Acetaminophen (Acetaminophen 325 Mg Tablet) 650 mg PO Q6H PRN PRN Reason: Pain, Mild (Pain Scale 1-3) Last Admin: 09/08/21 10:19 Dose: 650 mg Documented by: Hydromorphone HCl (Hydromorphone Hcl 0.5 Mg/0.5 Ml Syringe) 0.5 mg IVPUSH Q3H PRN; Protocol PRN Reason: Pain, Severe (Pain Scale 7-10) Last Admin: 09/09/21 08:37 Dose: 0.5 mg Documented by: Dextrose/Lactated Ringer's (D5lr) 1,000 mls @ 125 mls/hr IVCONT .Q8H [facility] Last Admin: 09/09/21 05:47 Dose: 125 mls/hr Documented by: Piperacillin Sod/Tazobactam (Sod 3.375 gm/ Sodium Chloride) 50 mls @ 100 mls/hr IV Q6H [facility] Last Infusion: 09/09/21 06:22 Dose: Infused Documented by: Sodium Chloride (Ns) 1,000 mls @ 999 mls/hr IV .Q1H1M ONE Stop: 09/09/21 10:46 Ondansetron HCl (Ondansetron Hcl 4 Mg/2 Ml Vial) 4 mg IVPUSH Q8H PRN PRN Reason: Nausea and Vomiting Oxycodone HCl (Oxycodone Hcl Immed Release 5 Mg Tablet) 5 mg PO Q6H PRN PRN Reason: Pain, Moderate (Pain Scale 4-6 Sodium Chloride (0.9 % Sodium Chloride Flush 3 Ml Syringe) 3 ml IVFLUSH QSHIFT [facility] Last Admin: 09/09/21 08:30 Dose: Not Given Documented by: Zolpidem Tartrate (Zolpidem Tartrate 5 Mg Tablet) 5 mg PO BEDTIME PRN PRN Reason: Insomnia Time Spent With Patient Time: Total time spent is greater than 50% in coordination of care (as documented) at patient's floor/unit and/or counseling patient: Time with patient: 15 - 24 minutes Quality Stroke Does the patient have a stroke diagnosis?: No VTE Prior VTE?: No VTE Risk Level:: Surgical - moderate VTE Device Contraindication: N/A - Device Ordered VTE Drug Contraindication: Treatment Not Indicated
[2021-09-09] MEDS: 0.9 % Sodium Chloride 1,000 ML 999 ML IV (10:02)
--- NOTE | 2021-09-09 11:40 | MHC.CM.PN ---
EMR REVIEWED, PT ADMITTED W/ABD PAIN AND S/P SURGERY FOR RUPTURED APPENDIX, CM MET W/PT WHO IS A&OX4, PT REPORTS SHE LIVES W/BF AND SEVERAL OF HIS FAMILY MEMBERS, PT IS INDEPENDENT W/ALL CARE, NO DME AND NO HOME SERVICES, PT REPORTS SHE WILL STAY WITH HER MOTHER WHEN SHE IS DISCHARGED SO HER MOTHER CAN ASSIST HER IF NEEDED, PT REPORTS SHE AGED OUT OF HER PCP AND HAS NOT SET UP ANOTHER PCP HOWEVER HAS ONE IN MIND AND SHE WILL CALL TO SET UP APPT THIS WEEK, PT COMPLETED HCP NAMING HER MOTHER DAYNA MANZO HER HEALTH CARE AGENT [phone]. D/C PLAN: HOME SELF-CARE W/FOLLOW-UP IN SURGEONS OFFICE, PT WILL CALL FAMILY FOR TRANSPORT.
[2021-09-09 12:00] VITALS: O2SAT 95
[2021-09-09 15:07] VITALS: BP 118/63; PULSE 119; RESP 18; TEMP 36.8; O2SAT 92
--- NOTE | 2021-09-09 18:06 | HO.POSTANES ---
Post Anesthesia Evaluation Post Anesthesia Evaluation Vital Signs: Vital Signs Temp Pulse Resp BP Pulse Ox 09/09/21 15:07 98.3 F 119 H 18 118/63 92 09/09/21 12:00 95 09/09/21 07:52 98.7 F 120 H 20 118/66 98 Anesthesia: General Endotracheal-GETA Mental Status: Awake Pain Control: Satisfactory Nausea/Vomiting: None Hydration: Adequate Anesthesia-Related Issues: No Anes. Related Issues
[2021-09-09] MEDS: ondansetron HCL 4 MG/2 ML VIAL IVPUSH (23:09)
[2021-09-10] VITALS: BP 129/64; PULSE 109; RESP 20; TEMP 37.2; O2SAT 90
[2021-09-10] MEDS: Piperacillin Sodium/Tazobactam 3.375 GM in 0.9 % Sodium Chloride 50 ML IV ×4 (04:31→23:50)
[2021-09-10] MEDS: Dextrose 5 % and Lactated Ring 1,000 ML 125 ML IVCONT ×2 (04:46→14:37)
[2021-09-10 07:09] LABS: MANUAL DIFF FLAG NO
[2021-09-10 07:13] LABS: Basophils Percent Auto 0.2 % (0-2); Eosinophils Absolute Auto 0.1 X10*3/uL (0.0-0.4); Eosinophils Percent Auto 0.5 % (0-4); Hemoglobin 11.5 g/dl (12.0-16.0); Imm Gran Abs Auto 0.13 X10*3/uL (0.00-0.03); Imm Gran Pct Auto 0.7 % (0.0-0.4); Lymphocytes Absolute Auto 1.8 X10*3/uL (1.2-4.9); Lymphocytes Percent Auto 9.1 % (20-40); Mean Corpuscular HGB Conc 33.8 g/dl (31.0-35.0); Mean Corpuscular Hemoglobin 30.3 pg (27.0-33.0); Mean Corpuscular Volume 89.7 fL (80.0-98.0); Mean Platelet Volume 10.2 fL (9.4-12.3); Monocytes Absolute Auto 1.1 X10*3/uL (0.1-1.2); Monocytes Percent Auto 5.8 % (2-11); Neutrophils Absolute Auto 16.3 x10*3/uL (2.0-8.3); Neutrophils Percent Auto 83.7 % (45-73); Platelet Count 441 X10*3/uL (160-400); Red Blood Count 3.79 X10*6/uL (4.20-5.50); Red Cell Distribution Width 12.9 % (11.0-16.0); White Blood Count 19.5 X10*3/uL (4.8-10.8)
[2021-09-10 08:00] VITALS: BP 120/68; PULSE 114; RESP 18; TEMP 36.9; O2SAT 92
[2021-09-10] MEDS: HYDROmorphone HCl 0.5 MG/0.5 ML SYRINGE IVPUSH (10:32)
[2021-09-10 12:00] VITALS: O2SAT 96
[2021-09-10] MEDS: oxyCODONE HCl Immed Release 5 MG TABLET PO ×2 (14:35→20:43)
[2021-09-10 14:39] VITALS: BP 127/73; PULSE 105; RESP 18; O2SAT 96
[2021-09-10 15:50] VITALS: BP 112/71; PULSE 112; RESP 18; TEMP 36.9; O2SAT 99
--- NOTE | 2021-09-10 16:04 | PM.PNGS ---
Subjective Subjective Date of Service: 09/10/21 Interval history: The patient reports feeling improved but still is having abdominal pain especially in the right upper quadrant. She reports working on the incentive spirometry but had not gotten out of bed other than to go to the bedside commode. Physical Exam Vital Signs: Vital Signs: Last Vital Signs Temp 98.4 F 09/10/21 15:50 Pulse 112 H 09/10/21 15:50 Resp 18 09/10/21 15:50 BP 112/71 09/10/21 15:50 Pulse Ox 99 09/10/21 15:50 BMI result Body Mass Index 32.9 Const: General: no acute distress Nutritional Appearance: well nourished Orientation/consciousness: patient oriented x3 Limitations: no limitations Resp: Other: Shallow respirations, no wheezes or cough. GI: Other: Soft but tender in the right upper quadrant. Incisions are clean, dry, and intact. No redness or discharge. Skin: Other: Warm, dry, no rash Neuro: General: patient oriented x3 Extrem: Other: No pedal edema. Objective Data Active Medications Acetaminophen (Acetaminophen 325 Mg Tablet) 650 mg PO Q6H PRN PRN Reason: Pain, Mild (Pain Scale 1-3) Last Admin: 09/08/21 10:19 Dose: 650 mg Documented by: TASIA Hydromorphone HCl (Hydromorphone Hcl 0.5 Mg/0.5 Ml Syringe) 0.5 mg IVPUSH Q3H PRN; Protocol PRN Reason: Pain, Severe (Pain Scale 7-10) Last Admin: 09/10/21 10:32 Dose: 0.5 mg Documented by: ANA Dextrose/Lactated Ringer's (D5lr) 1,000 mls @ 125 mls/hr IVCONT .Q8H [facility] Last Infusion: 09/10/21 14:37 Dose: 0 mls/hr Documented by: ANA Piperacillin Sod/Tazobactam (Sod 3.375 gm/ Sodium Chloride) 50 mls @ 100 mls/hr IV Q6H [facility] Last Infusion: 09/10/21 11:43 Dose: 0 mls/hr Documented by: ANA Ondansetron HCl (Ondansetron Hcl 4 Mg/2 Ml Vial) 4 mg IVPUSH Q8H PRN PRN Reason: Nausea and Vomiting Last Admin: 09/09/21 23:09 Dose: 4 mg Documented by: SIRENA Oxycodone HCl (Oxycodone Hcl Immed Release 5 Mg Tablet) 5 mg PO Q6H PRN PRN Reason: Pain, Moderate (Pain Scale 4-6 Last Admin: 09/10/21 14:35 Dose: 5 mg Documented by: ANA Sodium Chloride (0.9 % Sodium Chloride Flush 3 Ml Syringe) [facility] Last Admin: 09/10/21 07:49 Dose: Not Given Documented by: LUIS Non-Admin Reason: IV Running Zolpidem Tartrate (Zolpidem Tartrate 5 Mg Tablet) 5 mg PO BEDTIME PRN PRN Reason: Insomnia Labs CBC & Chem 7: 09/10/21 06:11 09/09/21 04:56 Labs: Laboratory Results - last 24 hr 09/10/21 06:11 MCV 89.7 MCH 30.3 MCHC 33.8 RDW 12.9 Plt Count 441 H MPV 10.2 Immature Gran % (Auto) 0.7 H Neut % (Auto) 83.7 H Lymph % (Auto) 9.1 L [place] % (Auto) 5.8 Eos % (Auto) 0.5 Baso % (Auto) 0.2 Lymph # (Auto) 1.8 [place] # (Auto) 1.1 Eos # (Auto) 0.1 Baso # (Auto) 0.0 Abs Immat Gran (auto) 0.13 H Absolute Neuts (auto) 16.3 H Absolute Nucleated RBC 0.000 Nucleated RBC % (auto) 0.0 Microbiology Microbiology Results: Microbiology 09/08/21 12:31 Gram Stain - Final Abscess Intra-abdominal Routine Culture - Preliminary Escherichia coli Group F Streptococcus 09/07/21 16:00 Blood Culture - Preliminary Blood - Venous No growth after 48 hours. 09/07/21 15:37 Blood Culture - Preliminary Blood - Venous No growth after 48 hours. Procedures Date of Service Date of Service: 09/10/21 Progress Note: A&P Assessment and plan (1) Ruptured appendicitis: Status: Acute Assessment and Plan: 21-year-old female patient presenting with appendiceal abscess due to perforated appendix status post abscess strain. She continues to have abdominal pain but does improve with the pain medication. He is encouraged to continue incentive spirometry. WBC is slightly improved today compared to yesterday. Labs will be repeated in a.m.. If she continues to have an elevated WBC with abdominal pain I will repeat the CT abdomen and pelvis to evaluate for recurrent abscess. Patient expressed understanding and agrees with the plan. Fall Risk Details Current Medications: Current Medications Acetaminophen (Acetaminophen 325 Mg Tablet) 650 mg PO Q6H PRN PRN Reason: Pain, Mild (Pain Scale 1-3) Last Admin: 09/08/21 10:19 Dose: 650 mg Documented by: Hydromorphone HCl (Hydromorphone Hcl 0.5 Mg/0.5 Ml Syringe) 0.5 mg IVPUSH Q3H PRN; Protocol PRN Reason: Pain, Severe (Pain Scale 7-10) Last Admin: 09/10/21 10:32 Dose: 0.5 mg Documented by: Dextrose/Lactated Ringer's (D5lr) 1,000 mls @ 125 mls/hr IVCONT .Q8H [facility] Last Infusion: 09/10/21 14:37 Dose: 0 mls/hr Documented by: Piperacillin Sod/Tazobactam (Sod 3.375 gm/ Sodium Chloride) 50 mls @ 100 mls/hr IV Q6H [facility] Last Infusion: 09/10/21 11:43 Dose: Infused Documented by: Ondansetron HCl (Ondansetron Hcl 4 Mg/2 Ml Vial) 4 mg IVPUSH Q8H PRN PRN Reason: Nausea and Vomiting Last Admin: 09/09/21 23:09 Dose: 4 mg Documented by: Oxycodone HCl (Oxycodone Hcl Immed Release 5 Mg Tablet) 5 mg PO Q6H PRN PRN Reason: Pain, Moderate (Pain Scale 4-6 Last Admin: 09/10/21 14:35 Dose: 5 mg Documented by: Sodium Chloride (0.9 % Sodium Chloride Flush 3 Ml Syringe) 3 ml IVFLUSH [facility] Last Admin: 09/10/21 07:49 Dose: Not Given Documented by: Zolpidem Tartrate (Zolpidem Tartrate 5 Mg Tablet) 5 mg PO BEDTIME PRN PRN Reason: Insomnia Time Spent With Patient Time: Total time spent is greater than 50% in coordination of care (as documented) at patient's floor/unit and/or counseling patient: Time with patient: 15 - 24 minutes Quality Stroke Does the patient have a stroke diagnosis?: No VTE Prior VTE?: No VTE Risk Level:: Surgical - moderate VTE Device Contraindication: N/A - Device Ordered VTE Drug Contraindication: Treatment Not Indicated
[2021-09-10 23:39] VITALS: BP 113/55; PULSE 109; RESP 17; TEMP 36.8; O2SAT 94
[2021-09-11] MEDS: 0.9 % Sodium Chloride Flush 3 ML SYRINGE IVFLUSH ×2 (00:35→15:43)
[2021-09-11] MEDS: Dextrose 5 % and Lactated Ring 1,000 ML 125 ML IVCONT ×2 (02:49→19:18)
[2021-09-11] MEDS: ondansetron HCL 4 MG/2 ML VIAL IVPUSH (04:26)
[2021-09-11] MEDS: Piperacillin Sodium/Tazobactam 3.375 GM in 0.9 % Sodium Chloride 50 ML IV (05:26)
[2021-09-11 05:49] LABS: MANUAL DIFF FLAG NO
[2021-09-11 06:18] LABS: Basophils Percent Auto 0.1 % (0-2); Eosinophils Absolute Auto 0.2 X10*3/uL (0.0-0.4); Hematocrit 31.5 % (37.0-47.0); Hemoglobin 11.3 g/dl (12.0-16.0); Imm Gran Abs Auto 0.15 X10*3/uL (0.00-0.03); Imm Gran Pct Auto 0.8 % (0.0-0.4); Lymphocytes Absolute Auto 1.8 X10*3/uL (1.2-4.9); Lymphocytes Percent Auto 9.8 % (20-40); Mean Corpuscular HGB Conc 35.9 g/dl (31.0-35.0); Mean Corpuscular Hemoglobin 32.8 pg (27.0-33.0); Mean Corpuscular Volume 91.3 fL (80.0-98.0); Mean Platelet Volume 9.8 fL (9.4-12.3); Monocytes Absolute Auto 0.9 X10*3/uL (0.1-1.2); Monocytes Percent Auto 4.9 % (2-11); Neutrophils Percent Auto 83.4 % (45-73); Platelet Count 433 X10*3/uL (160-400); Red Blood Count 3.45 X10*6/uL (4.20-5.50); Red Cell Distribution Width 12.9 % (11.0-16.0)
[2021-09-11 07:28] VITALS: BP 124/68; PULSE 92; RESP 18; TEMP 36.8; O2SAT 92
--- NOTE | 2021-09-11 08:05 | PM.PNGS ---
Subjective Subjective Date of Service: 09/11/21 Interval history: Nikki reports having difficulty sleeping last night, some discomfort in the right upper quadrant. Was able to get out of bed yesterday. Physical Exam Vital Signs: Vital Signs: Last Vital Signs Temp 98.2 F 09/11/21 07:28 Pulse 92 09/11/21 07:28 Resp 18 09/11/21 07:28 BP 124/68 09/11/21 07:28 Pulse Ox 92 09/11/21 07:28 BMI result Body Mass Index 32.9 Const: General: alert, awake and tired appearing Nutritional Appearance: well nourished Orientation/consciousness: patient oriented x3 Limitations: no limitations Resp: Other: breathing comfortably without distress Effort & Inspection: normal respiratory effort GI: Other: distended, tenderness in the right upper quadrant. No rebound or guarding. Incisions clean. Skin: General skin exam: no rashes or lesions noted Neuro: General: patient oriented x3 Extrem: General: Yes pedal edema Objective Data Active Medications Acetaminophen (Acetaminophen 325 Mg Tablet) 650 mg PO Q6H PRN PRN Reason: Pain, Mild (Pain Scale 1-3) Last Admin: 09/08/21 10:19 Dose: 650 mg Documented by: TASIA Hydromorphone HCl (Hydromorphone Hcl 0.5 Mg/0.5 Ml Syringe) 0.5 mg IVPUSH Q3H PRN; Protocol PRN Reason: Pain, Severe (Pain Scale 7-10) Last Admin: 09/10/21 10:32 Dose: 0.5 mg Documented by: ANA Dextrose/Lactated Ringer's (D5lr) 1,000 mls @ 125 mls/hr IVCONT .Q8H [facility] Last Infusion: 09/11/21 06:04 Dose: 125 mls/hr Documented by: AVNI Piperacillin Sod/Tazobactam (Sod 3.375 gm/ Sodium Chloride) 50 mls @ 100 mls/hr IV Q6H [facility] Last Infusion: 09/11/21 06:04 Dose: 0 mls/hr Documented by: AVNI Ondansetron HCl (Ondansetron Hcl 4 Mg/2 Ml Vial) 4 mg IVPUSH Q8H PRN PRN Reason: Nausea and Vomiting Last Admin: 09/11/21 04:26 Dose: 4 mg Documented by: AVNI Oxycodone HCl (Oxycodone Hcl Immed Release 5 Mg Tablet) 5 mg PO Q6H PRN PRN Reason: Pain, Moderate (Pain Scale 4-6 Last Admin: 09/10/21 20:43 Dose: 5 mg Documented by: ISAIAH Sodium Chloride (0.9 % Sodium Chloride Flush 3 Ml Syringe) 3 ml IVFLUSH QSHIFT [facility] Last Admin: 09/11/21 00:35 Dose: 3 ml Documented by: AVNI Zolpidem Tartrate (Zolpidem Tartrate 5 Mg Tablet) 5 mg PO BEDTIME PRN PRN Reason: Insomnia Labs CBC & Chem 7: 09/11/21 05:23 09/09/21 04:56 Labs: Laboratory Results - last 24 hr 09/11/21 05:23 MCV 91.3 MCH 32.8 MCHC 35.9 H RDW 12.9 Plt Count 433 H MPV 9.8 Immature Gran % (Auto) 0.8 H Neut % (Auto) 83.4 H Lymph % (Auto) 9.8 L [place] % (Auto) 4.9 Eos % (Auto) 1.0 Baso % (Auto) 0.1 Lymph # (Auto) 1.8 [place] # (Auto) 0.9 Eos # (Auto) 0.2 Baso # (Auto) 0.0 Abs Immat Gran (auto) 0.15 H Absolute Neuts (auto) 15.0 H Absolute Nucleated RBC 0.000 Nucleated RBC % (auto) 0.0 Microbiology Microbiology Results: Microbiology 09/08/21 12:31 Gram Stain - Final Abscess Intra-abdominal Routine Culture - Preliminary Escherichia coli Group F Streptococcus Procedures Date of Service Date of Service: 09/11/21 Progress Note: A&P Assessment and plan (1) Ruptured appendicitis: Status: Acute Assessment and Plan: WBC is slowly decreasing but very slowly and she still appears very uncomfortable. I recommended repeating the CT abd and pelvis to evaluate for a recurrent abscess. She expressed understanding and agrees with the plan. Further management based on CT findings. Wound culture results noted. Fall Risk Details Current Medications: Current Medications Acetaminophen (Acetaminophen 325 Mg Tablet) 650 mg PO Q6H PRN PRN Reason: Pain, Mild (Pain Scale 1-3) Last Admin: 09/08/21 10:19 Dose: 650 mg Documented by: Hydromorphone HCl (Hydromorphone Hcl 0.5 Mg/0.5 Ml Syringe) 0.5 mg IVPUSH Q3H PRN; Protocol PRN Reason: Pain, Severe (Pain Scale 7-10) Last Admin: 09/10/21 10:32 Dose: 0.5 mg Documented by: Dextrose/Lactated Ringer's (D5lr) 1,000 mls @ 125 mls/hr IVCONT .Q8H [facility] Last Infusion: 09/11/21 06:04 Dose: 125 mls/hr Documented by: Piperacillin Sod/Tazobactam (Sod 3.375 gm/ Sodium Chloride) 50 mls @ 100 mls/hr IV Q6H [facility] Last Infusion: 09/11/21 06:04 Dose: Infused Documented by: Ondansetron HCl (Ondansetron Hcl 4 Mg/2 Ml Vial) 4 mg IVPUSH Q8H PRN PRN Reason: Nausea and Vomiting Last Admin: 09/11/21 04:26 Dose: 4 mg Documented by: Oxycodone HCl (Oxycodone Hcl Immed Release 5 Mg Tablet) 5 mg PO Q6H PRN PRN Reason: Pain, Moderate (Pain Scale 4-6 Last Admin: 09/10/21 20:43 Dose: 5 mg Documented by: Sodium Chloride (0.9 % Sodium Chloride Flush 3 Ml Syringe) 3 ml IVFSH [facility] Last Admin: 09/11/21 00:35 Dose: 3 ml Documented by: Zolpidem Tartrate (Zolpidem Tartrate 5 Mg Tablet) 5 mg PO BEDTIME PRN PRN Reason: Insomnia Time Spent With Patient Time: Total time spent is greater than 50% in coordination of care (as documented) at patient's floor/unit and/or counseling patient: Time with patient: 15 - 24 minutes Quality Stroke Does the patient have a stroke diagnosis?: No VTE Prior VTE?: No VTE Risk Level:: Surgical - moderate VTE Device Contraindication: N/A - Device Ordered VTE Drug Contraindication: Treatment Not Indicated
[2021-09-11] MEDS: levoFLOXacin/D5W 500 MG/100 ML PIGGYBACK 100 MG IV (09:10)
[2021-09-11] MEDS: oxyCODONE HCl Immed Release 5 MG TABLET PO ×2 (09:25→15:45)
[2021-09-11] MEDS: iohexoL 350 MG/ML 100 ML INFUS..BTL IV (10:41)
[2021-09-11 12:00] VITALS: O2SAT 97
[2021-09-11 15:08] VITALS: BP 130/72; PULSE 105; RESP 18; TEMP 36.6; O2SAT 98
[2021-09-11 23:31] VITALS: BP 114/68; PULSE 104; RESP 16; TEMP 36.9; O2SAT 98
[2021-09-12] MEDS: Dextrose 5 % and Lactated Ring 1,000 ML 125 ML IVCONT (06:13)
[2021-09-12] MEDS: oxyCODONE HCl Immed Release 5 MG TABLET PO ×3 (07:18→23:42)
[2021-09-12 07:47] VITALS: BP 127/76; PULSE 89; RESP 18; TEMP 36.4; O2SAT 96
[2021-09-12 09:38] LABS: Basophils Percent Auto 0.3 % (0-2); Eosinophils Absolute Auto 0.2 X10*3/uL (0.0-0.4); Eosinophils Percent Auto 1.2 % (0-4); Hematocrit 33.7 % (37.0-47.0); Hemoglobin 10.9 g/dl (12.0-16.0); Imm Gran Pct Auto 0.7 % (0.0-0.4); Lymphocytes Absolute Auto 1.6 X10*3/uL (1.2-4.9); Lymphocytes Percent Auto 11.2 % (20-40); MANUAL DIFF FLAG SCAN; Mean Corpuscular HGB Conc 32.3 g/dl (31.0-35.0); Mean Corpuscular Hemoglobin 29.5 pg (27.0-33.0); Mean Corpuscular Volume 91.1 fL (80.0-98.0); Monocytes Absolute Auto 0.7 X10*3/uL (0.1-1.2); Monocytes Percent Auto 4.7 % (2-11); Neutrophils Absolute Auto 11.9 x10*3/uL (2.0-8.3); Neutrophils Percent Auto 81.9 % (45-73); PLT CLUMP 1; Red Cell Distribution Width 12.5 % (11.0-16.0); SCAN SMEAR FLAG 1
[2021-09-12 10:00] LABS: Platelet Count 365 X10*3/uL (160-400)
[2021-09-12 10:01] LABS: White Blood Count 14.5 X10*3/uL (4.8-10.8)
[2021-09-12 10:07] LABS: SLIDE REVIEW VERIFIED
--- NOTE | 2021-09-12 11:48 | P.PNGS_ITS ---
Subjective Subjective Date of Service: 09/12/21 Interval history: Feeling much better this morning. Pain improving. Tolerating diet with some nausea. OOB in room but is going to ambulate halls today. Passing flatus and had BM. Physical Exam Vital Signs: Vital Signs: Last Vital Signs Temp 97.6 F 09/12/21 07:47 Pulse 89 09/12/21 07:47 Resp 18 09/12/21 07:47 BP 127/76 09/12/21 07:47 Pulse Ox 96 09/12/21 07:47 BMI result Body Mass Index 32.9 Const: General: comfortable, no acute distress and alert Orientation/consciousness: patient oriented x3 Resp: Effort & Inspection: normal respiratory effort GI: Other: STACY drain with seropurulent drainage Inspection: No distended and Yes incision (dressings intact) Palpation (GI): Soft to palpation, Tenderness to palpation present (GI) (incisional, RLQ), no guarding and not rigid Percussion: Yes normal to percussion Skin: General skin exam: no rashes or lesions noted Neuro: General: patient oriented x3 Extrem: General: Yes no clubbing, cyanosis or edema Objective Data Active Medications Acetaminophen (Acetaminophen 325 Mg Tablet) 650 mg PO Q6H PRN PRN Reason: Pain, Mild (Pain Scale 1-3) Last Admin: 09/08/21 10:19 Dose: 650 mg Documented by: TASIA Hydromorphone HCl (Hydromorphone Hcl 0.5 Mg/0.5 Ml Syringe) 0.5 mg IVPUSH Q3H PRN; Protocol PRN Reason: Pain, Severe (Pain Scale 7-10) Last Admin: 09/10/21 10:32 Dose: 0.5 mg Documented by: ANA Dextrose/Lactated Ringer's (D5lr) 1,000 mls @ 80 mls/hr IVCONT .[id number] [facility] Last Admin: 09/12/21 06:13 Dose: 125 mls/hr Documented by: CRISTOPHER Levofloxacin (Levaquin) 500 mg in 100 mls @ 100 mls/hr IV Q24H [facility] Last Infusion: 09/11/21 10:15 Dose: 0 mls/hr Documented by: MILAGRO Ondansetron HCl (Ondansetron Hcl 4 Mg/2 Ml Vial) 4 mg IVPUSH Q8H PRN PRN Reason: Nausea and Vomiting Last Admin: 09/11/21 04:26 Dose: 4 mg Documented by: AVNI Oxycodone HCl (Oxycodone Hcl Immed Release 5 Mg Tablet) 5 mg PO Q6H PRN PRN Reason: Pain, Moderate (Pain Scale 4-6 Last Admin: 09/12/21 07:18 Dose: 5 mg Documented by: CRISTOPHER Sodium Chloride (0.9 % Sodium Chloride Flush 3 Ml Syringe) 3 ml IVFLUSH [facility] Last Admin: 09/11/21 19:55 Dose: Not Given Documented by: CRISTOPHER Non-Admin Reason: IV Running Zolpidem Tartrate (Zolpidem Tartrate 5 Mg Tablet) 5 mg PO BEDTIME PRN PRN Reason: Insomnia Labs CBC & Chem 7: 09/12/21 09:18 09/09/21 04:56 Labs: Laboratory Results - last 24 hr 09/12/21 09:18 MCV 91.1 MCH 29.5 MCHC 32.3 RDW 12.5 Plt Count 365 MPV Not Reportable Immature Gran % (Auto) 0.7 H Neut % (Auto) 81.9 H Lymph % (Auto) 11.2 L [place] % (Auto) 4.7 Eos % (Auto) 1.2 Baso % (Auto) 0.3 Lymph # (Auto) 1.6 [place] # (Auto) 0.7 Eos # (Auto) 0.2 Baso # (Auto) 0.0 Abs Immat Gran (auto) 0.10 H Absolute Neuts (auto) 11.9 H Absolute Nucleated RBC 0.000 Nucleated RBC % (auto) 0.0 Smear Tech's Comments VERIFIED Microbiology Microbiology Results: Microbiology 09/08/21 12:31 Gram Stain - Final Abscess Intra-abdominal Routine Culture - Final Escherichia coli Group F Streptococcus Procedures Date of Service Date of Service: 09/12/21 Progress Note: A&P Assessment and plan (1) Sepsis: Status: Acute (2) Ruptured appendicitis: Status: Acute Assessment and Plan: She is more comfortable today. Repeat CT scan yesterday showed no abscess. WBC significantly improved this morning. Cont IV abx, pain control. Likely ready for dc to home tomorrow on course of PO abx. Will remove drain prior. Patient comfortable with plan. Fall Risk Details Current Medications: Current Medications Acetaminophen (Acetaminophen 325 Mg Tablet) 650 mg PO Q6H PRN PRN Reason: Pain, Mild (Pain Scale 1-3) Last Admin: 09/08/21 10:19 Dose: 650 mg Documented by: Hydromorphone HCl (Hydromorphone Hcl 0.5 Mg/0.5 Ml Syringe) 0.5 mg IVPUSH Q3H PRN; Protocol PRN Reason: Pain, Severe (Pain Scale 7-10) Last Admin: 09/10/21 10:32 Dose: 0.5 mg Documented by: Dextrose/Lactated Ringer's (D5lr) 1,000 mls @ 80 mls/hr IVCONT .[id number] [facility] Last Admin: 09/12/21 06:13 Dose: 125 mls/hr Documented by: Levofloxacin (Levaquin) 500 mg in 100 mls @ 100 mls/hr IV Q24H [facility] Last Infusion: 09/11/21 10:15 Dose: Infused Documented by: Ondansetron HCl (Ondansetron Hcl 4 Mg/2 Ml Vial) 4 mg IVPUSH Q8H PRN PRN Reason: Nausea and Vomiting Last Admin: 09/11/21 04:26 Dose: 4 mg Documented by: Oxycodone HCl (Oxycodone Hcl Immed Release 5 Mg Tablet) 5 mg PO Q6H PRN PRN Reason: Pain, Moderate (Pain Scale 4-6 Last Admin: 09/12/21 07:18 Dose: 5 mg Documented by: Sodium Chloride (0.9 % Sodium Chloride Flush 3 Ml Syringe) [facility] Last Admin: 09/11/21 19:55 Dose: Not Given Documented by: Zolpidem Tartrate (Zolpidem Tartrate 5 Mg Tablet) 5 mg PO BEDTIME PRN PRN Reason: Insomnia Time Spent With Patient Time: Total time spent is greater than 50% in coordination of care (as documented) at patient's floor/unit and/or counseling patient: Time with patient: 15 - 24 minutes Quality Stroke Does the patient have a stroke diagnosis?: No VTE Prior VTE?: No VTE Risk Level:: Surgical - moderate VTE Device Contraindication: N/A - Device Ordered VTE Drug Contraindication: Treatment Not Indicated
[2021-09-12 12:00] VITALS: O2SAT 96
--- NOTE | 2021-09-12 12:25 | MHC.CM.PN ---
Per Medical, likely ready for dc tomorrow; CM will follow.
[2021-09-12] MEDS: levoFLOXacin/D5W 500 MG/100 ML PIGGYBACK 100 MG IV (12:28)
[2021-09-12 15:12] VITALS: BP 112/74; PULSE 92; RESP 17; TEMP 36.7; O2SAT 97
[2021-09-12] MEDS: 0.9 % Sodium Chloride Flush 3 ML SYRINGE IVFLUSH (19:58)
[2021-09-12] MEDS: Zolpidem Tartrate 5 MG TABLET PO (23:42)
[2021-09-12 23:59] VITALS: BP 121/65; PULSE 88; RESP 16; TEMP 36.8; O2SAT 97
[2021-09-13 05:37] LABS: MANUAL DIFF FLAG NO
[2021-09-13 05:43] LABS: Basophils Percent Auto 0.2 % (0-2); Eosinophils Absolute Auto 0.2 X10*3/uL (0.0-0.4); Eosinophils Percent Auto 1.9 % (0-4); Hematocrit 32.9 % (37.0-47.0); Hemoglobin 10.8 g/dl (12.0-16.0); Imm Gran Abs Auto 0.08 X10*3/uL (0.00-0.03); Imm Gran Pct Auto 0.6 % (0.0-0.4); Lymphocytes Absolute Auto 2.1 X10*3/uL (1.2-4.9); Lymphocytes Percent Auto 16.5 % (20-40); Mean Corpuscular HGB Conc 32.8 g/dl (31.0-35.0); Mean Corpuscular Hemoglobin 28.5 pg (27.0-33.0); Mean Corpuscular Volume 86.8 fL (80.0-98.0); Monocytes Absolute Auto 0.7 X10*3/uL (0.1-1.2); Neutrophils Absolute Auto 9.3 x10*3/uL (2.0-8.3); Neutrophils Percent Auto 74.8 % (45-73); Platelet Count 421 X10*3/uL (160-400); Red Blood Count 3.79 X10*6/uL (4.20-5.50); Red Cell Distribution Width 12.4 % (11.0-16.0); White Blood Count 12.4 X10*3/uL (4.8-10.8)
[2021-09-13] MEDS: Dextrose 5 % and Lactated Ring 1,000 ML 80 ML IVCONT (06:22)
[2021-09-13 07:25] VITALS: BP 115/69; PULSE 91; TEMP 36.9; O2SAT 95
--- NOTE | 2021-09-13 07:34 | PM.PNGS ---
Subjective Subjective Date of Service: 09/13/21 <Sharonda Wilcox PA-C - Last Filed: 09/13/21 07:37> 09/13/21 <Chapincito Zarate MD - Last Filed: 09/13/21 08:15> Interval history: Continues to feel better this morning. Pain improved. Tolerating diet. Some very mild occasional nausea. Wants to ambulate halls this morning prior to deciding about going home. <Sharonda Wilcox PA-C - Last Filed: 09/13/21 07:37> Physical Exam Vital Signs: Vital Signs: Last Vital Signs Temp 98.4 F 09/13/21 07:25 Pulse 91 09/13/21 07:25 Resp 16 09/12/21 23:59 BP 115/69 09/13/21 07:25 Pulse Ox 95 09/13/21 07:25 BMI result Body Mass Index 32.9 <Sharonda Wilcox PA-C - Last Filed: 09/13/21 07:37> Const: General: comfortable, no acute distress and alert <Sharonda Wilcox PA-C - Last Filed: 09/13/21 07:37> Orientation/consciousness: patient oriented x3 <DEBBI Le Last Filed: 09/13/21 07:37> Resp: Effort & Inspection: normal respiratory effort <Sharonda Wilcox PA-C - Last Filed: 09/13/21 07:37> GI: Other: STACY drain serous drainage <Sharonda Wilcox PA-C - Last Filed: 09/13/21 07:37> Inspection: No distended and Yes incision (clean) <Sharonda Wilcox PA-C - Last Filed: 09/13/21 07:37> Palpation (GI): Soft to palpation and Tenderness to palpation present (GI) (incisional) <DEBBI Le Last Filed: 09/13/21 07:37> Skin: General skin exam: no rashes or lesions noted <DEBBI Le Last Filed: 09/13/21 07:37> Neuro: General: patient oriented x3 <DEBBI Le Last Filed: 09/13/21 07:37> Extrem: General: Yes no clubbing, cyanosis or edema <Sharonda Wilcox PA-C - Last Filed: 09/13/21 07:37> Objective Data Active Medications Acetaminophen (Acetaminophen 325 Mg Tablet) 650 mg PO Q6H PRN PRN Reason: Pain, Mild (Pain Scale 1-3) Last Admin: 09/08/21 10:19 Dose: 650 mg Documented by: TASIA Hydromorphone HCl (Hydromorphone Hcl 0.5 Mg/0.5 Ml Syringe) 0.5 mg IVPUSH Q3H PRN; Protocol PRN Reason: Pain, Severe (Pain Scale 7-10) Last Admin: 09/10/21 10:32 Dose: 0.5 mg Documented by: ANA Dextrose/Lactated Ringer's (D5lr) 1,000 mls @ 80 mls/hr IVCONT .[id number] [facility] Last Admin: 09/13/21 06:22 Dose: 80 mls/hr Documented by: PIOTR Levofloxacin (Levaquin) 500 mg in 100 mls @ 100 mls/hr IV Q24H [facility] Last Infusion: 09/12/21 13:35 Dose: 0 mls/hr Documented by: MILAGRO Ondansetron HCl (Ondansetron Hcl 4 Mg/2 Ml Vial) 4 mg IVPUSH Q8H PRN PRN Reason: Nausea and Vomiting Last Admin: 09/11/21 04:26 Dose: 4 mg Documented by: AVNI Oxycodone HCl (Oxycodone Hcl Immed Release 5 Mg Tablet) 5 mg PO Q6H PRN PRN Reason: Pain, Moderate (Pain Scale 4-6 Last Admin: 09/12/21 23:42 Dose: 5 mg Documented by: PIOTR Sodium Chloride (0.9 % Sodium Chloride Flush 3 Ml Syringe) 3 ml IVFLUSH QSHIFT [facility] Last Admin: 09/12/21 19:58 Dose: 3 ml Documented by: PIOTR Zolpidem Tartrate (Zolpidem Tartrate 5 Mg Tablet) 5 mg PO BEDTIME PRN PRN Reason: Insomnia Last Admin: 09/12/21 23:42 Dose: 5 mg Documented by: PIOTR <Sharonda Wilcox PA-C - Last Filed: 09/13/21 07:37> Labs CBC & Chem 7: : 09/13/21 05:33 09/09/21 04:56 <Sharonda Wilcox PA-C - Last Filed: 09/13/21 07:37> Labs: Laboratory Results - last 24 hr 09/12/21 09/13/21 09:18 05:33 MCV 91.1 86.8 MCH 29.5 28.5 MCHC 32.3 32.8 RDW 12.5 12.4 Plt Count 365 421 H MPV Not Reportable 9.0 L Immature Gran % (Auto) 0.7 H 0.6 H Neut % (Auto) 81.9 H 74.8 H Lymph % (Auto) 11.2 L 16.5 L Maury % (Auto) 4.7 6.0 Eos % (Auto) 1.2 1.9 Baso % (Auto) 0.3 0.2 Lymph # (Auto) 1.6 2.1 Maury # (Auto) 0.7 0.7 Eos # (Auto) 0.2 0.2 Baso # (Auto) 0.0 0.0 Abs Immat Gran (auto) 0.10 H 0.08 H Absolute Neuts (auto) 11.9 H 9.3 H Absolute Nucleated RBC 0.000 0.000 Nucleated RBC % (auto) 0.0 0.0 Smear Tech's Comments VERIFIED <Sharonda Wilcox PA-C - Last Filed: 09/13/21 07:37> Microbiology Microbiology Results: Microbiology 09/07/21 16:00 Blood Culture - Final Blood - Venous No growth after 5 days. 09/07/21 15:37 Blood Culture - Final Blood - Venous No growth after 5 days. <Sharonda Wilcox PA-C - Last Filed: 09/13/21 07:37> Procedures Date of Service Date of Service: 09/13/21 <Sharonda Wilcox PA-C - Last Filed: 09/13/21 07:37> Progress Note: A&P Assessment and plan (1) Sepsis: Status: Acute <DEBBI Le Last Filed: 09/13/21 07:37> (2) Ruptured appendicitis: Status: Acute <Sharonda Wilcox PA-C - Last Filed: 09/13/21 07:37> Assessment and Plan: Doing well. VSS. ABd exam benign with appropriate post op tenderness. Incisions clean. STACY w serous output. WBC significantly improved. Will reassess later today, likely dc on course of PO abx. Will remove drain prior. Patient comfortable with plan. F/u in office with Dr. Zarate. <Sharonda Wilcox PA-C - Last Filed: 09/13/21 07:37> Doing well. VSS. ABd exam benign with appropriate post op tenderness. Incisions clean. STACY w serous output. WBC significantly improved. Will reassess later today, likely dc on course of PO abx. Will remove drain prior. Patient comfortable with plan. F/u in office with Dr. Zarate. Patient is feeling improved under by put cell count is nearly normal. She will continue on her oral antibiotics. Drain has decreased significantly and remains serous. I removed the Edward-Castañeda drain this morning and she is ready for discharge to home. She should follow up my office in approximately 1 week She was instructed to avoid lifting greater than 10 lb for the next 2 weeks. She should call the office for fever, chills, nausea, vomiting, increased abdominal pain, problem with the abdominal incisions. <Chapincito Zarate MD - Last Filed: 09/13/21 08:15> Fall Risk Details Current Medications: Current Medications Acetaminophen (Acetaminophen 325 Mg Tablet) 650 mg PO Q6H PRN PRN Reason: Pain, Mild (Pain Scale 1-3) Last Admin: 09/08/21 10:19 Dose: 650 mg Documented by: Hydromorphone HCl (Hydromorphone Hcl 0.5 Mg/0.5 Ml Syringe) 0.5 mg IVPUSH Q3H PRN; Protocol PRN Reason: Pain, Severe (Pain Scale 7-10) Last Admin: 09/10/21 10:32 Dose: 0.5 mg Documented by: Dextrose/Lactated Ringer's (D5lr) 1,000 mls @ 80 mls/hr IVCONT .[id number] [facility] Last Admin: 09/13/21 06:22 Dose: 80 mls/hr Documented by: Levofloxacin (Levaquin) 500 mg in 100 mls @ 100 mls/hr IV Q24H [facility] Last Infusion: 09/12/21 13:35 Dose: Infused Documented by: Ondansetron HCl (Ondansetron Hcl 4 Mg/2 Ml Vial) 4 mg IVPUSH Q8H PRN PRN Reason: Nausea and Vomiting Last Admin: 09/11/21 04:26 Dose: 4 mg Documented by: Oxycodone HCl (Oxycodone Hcl Immed Release 5 Mg Tablet) 5 mg PO Q6H PRN PRN Reason: Pain, Moderate (Pain Scale 4-6 Last Admin: 09/12/21 23:42 Dose: 5 mg Documented by: Sodium Chloride (0.9 % Sodium Chloride Flush 3 Ml Syringe) [facility] Last Admin: 09/12/21 19:58 Dose: 3 ml Documented by: Zolpidem Tartrate (Zolpidem Tartrate 5 Mg Tablet) 5 mg PO BEDTIME PRN PRN Reason: Insomnia Last Admin: 09/12/21 23:42 Dose: 5 mg Documented by: <Sharonda Wilcox PA-C - Last Filed: 09/13/21 07:37> Time Spent With Patient Time: Total time spent is greater than 50% in coordination of care (as documented) at patient's floor/unit and/or counseling patient: <Sharonda Wilcox PA-C - Last Filed: 09/13/21 07:37> Time with patient: 15 - 24 minutes <DEBBI Le Last Filed: 09/13/21 07:37> Quality Stroke Does the patient have a stroke diagnosis?: No <Sharonda Wilcox PA-C - Last Filed: 09/13/21 07:37> VTE Prior VTE?: No <DEBBI Le Last Filed: 09/13/21 07:37> VTE Risk Level:: Surgical - moderate <DEBBI Le Last Filed: 09/13/21 07:37> VTE Device Contraindication: N/A - Device Ordered <DEBBI Le Last Filed: 09/13/21 07:37> VTE Drug Contraindication: Treatment Not Indicated <Sharonda Wilcox PA-C - Last Filed: 09/13/21 07:37>
[2021-09-13] MEDS: oxyCODONE HCl Immed Release 5 MG TABLET PO (07:39)
--- NOTE | 2021-09-13 08:39 | MHC.CM.PN ---
PT DISCHARGING HOME SELF-CAR W/OUTPT FOLLOW-UP W/SURGEON, PT TO ARRANGE TRANSPORT.
--- NOTE | 2021-09-13 10:35 | P.DS_ITS ---
DS: Providers Provider Date of Service: 09/13/21 Date of admission: 09/07/21 21:34 Primary care physician: Unknown Physician Attending physician on admission: Chapincito Zarate DS: Diagnosis Discharge Diagnosis (1) Sepsis: Status: Acute (2) Ruptured appendicitis: Status: Acute DS: Summary Hospital Course Hospital Course: BRIEF HPI: Nikki Gill is a 21 year old female presenting with complaints of right upper quadrant abdominal pain.? She was previously evaluated for epigastric and right upper quadrant abdominal pain, nausea, dizziness at [facility] on 09/02/2021 and diagnosed with COVID-19 (patient was under vaccinated).? The abdominal pain was felt to be associated with COVID she was subsequently discharged home.? Over the next seem to increase more in the lower abdomen and was associated with urinary frequency, dark colored urine, nausea, vomiting, and diarrhea.? She denies fever or chills, anorexia but did report that the pain increased after eating.? She denies a previous history of similar abdominal pain or of abdominal surgeries.? She subsequently presented to the emergency department he was noted to have tenderness in the right upper quadrant.? Laboratories revealed elevated WBC of 23 K and ultrasound revealed a 2 cm gallstone within the gallbladder without evidence of wall thickening or ductal dilatation.? A CT of the abdomen was therefore obtained which reveals extensive inflammatory changes in the right lower quadrant surrounding abnormal cecum and ascending colon. There are multiple lymph nodes and fluid, as well as trace of extraluminal air. There is most likely abscess in the appendix with ill-defined margins and there is reactive colonic wall thickening. The appendix not clearly seen being replaced by tubular structure, inflammatory reaction and lymphadenopathy, possibly abscess. ???Repeat COVID-19 test yesterday was negative. HOSPITAL COURSE: The patient was admitted to the surgical service for treatment of the perforated acute appendicitis with possible developing abscess. Given the prolonged nature of her abdominal symptoms and the lack of visible appendix on CT, this may indicate a significant amount of inflammation surrounding the appendix with developing abscess.? We discussed management with laparoscopic or possible open appendectomy verses continued antibiotics.? Patient wishes to proceed with a laparoscopic or possible open appendectomy.? She consented to the surgery.? She was added onto the operative schedule for that day.? She was placed on Zosyn. on 09/08/21, a exploratory laparoscopy, drainage of large appendiceal abscess, debridement of remnants of appendix was performed by Dr. Chapincito Zarate without complication. Large abscess located in the right upper quadrant with inflamed cecum and terminal ileum. The abscess in the region of the suspected appendix however appendix was not identified and may have been completely ruptured. A large abscess was drained in the wall and debrided. A Edward-Castañeda drain was left in place. The patient tolerated the procedure well and was admitted post operatively for observation and IV antibiotic therapy. She had a slow recovery course. Her pain improved post operatively but had difficulty with activity and generally appeared uncomfortable with pain in the RUQ still a few days post operatively. Her WBC count also remained elevated. A repeat CT scan was therefore performed to evaluate for a possible recurrent abscess which demonstrated interval decrease in inflammatory changes and fluid in the right lower quadrant with no visible appendix. The intraabdominal cultures came back growing E coli and Group F Streptococcus. She was switched to IV levaquin. Her WBC count significantly improved. Her pain improved and her activity was increased. She was tolerating a solid diet. Her abdomen was benign with incisional tenderness, clean incisions and STACY drain had scanty serous output. This was removed. She felt ready for discharge. She was discharged to home on 09/13/21 in stable condition on a PO course of Augmentin. She is to f/u with Dr. Zarate in office in 1 week for wound check. Status at Discharge Functional status at discharge: independent ambulation Overall status at discharge: patient is progressing back to baseline Time Spent with Patient Time attestation: Total time spent providing and/or coordinating discharge services: Discharge coordination time: Less than 30 minutes Quality: Stroke Does the patient have a stroke diagnosis?: No Physical Exam Vital Signs: Vital Signs: Last Vital Signs Temp 98.4 F 09/13/21 07:25 Pulse 91 09/13/21 07:25 Resp 16 09/12/21 23:59 BP 115/69 09/13/21 07:25 Pulse Ox 95 09/13/21 07:25 BMI result Body Mass Index 32.9 Const: General: comfortable, no acute distress, well developed and alert Orientation/consciousness: patient oriented x3 Resp: Effort & Inspection: normal respiratory effort GI: Other: STACY drain with serous output, removed Inspection: No distended and Yes incision (incisions clean) Palpation (GI): Soft to palpation, Tenderness to palpation present (GI) (mild, incisional), no guarding and not rigid Percussion: Yes normal to percussion Skin: General skin exam: no rashes or lesions noted Neuro: General: patient oriented x3 Extrem: General: Yes no clubbing, cyanosis or edema DS: Data Data Completed and Pending Completed studies during hospitalization [Text1]: 09/08/21 14:04 Surgical [PTH] Routine Soft tissue, intra-abdominal cavity, excision:? Abscess material involving adipose tissue with associated granulation tissue and focal necrosis. Labs on day of discharge: Laboratory Results - last 24 hr 09/13/21 05:33 WBC 12.4 H RBC 3.79 L Hgb 10.8 L Hct 32.9 L MCV 86.8 MCH 28.5 MCHC 32.8 RDW 12.4 Plt Count 421 H MPV 9.0 L Immature Gran % (Auto) 0.6 H Neut % (Auto) 74.8 H Lymph % (Auto) 16.5 L Peach % (Auto) 6.0 Eos % (Auto) 1.9 Baso % (Auto) 0.2 Lymph # (Auto) 2.1 Peach # (Auto) 0.7 Eos # (Auto) 0.2 Baso # (Auto) 0.0 Abs Immat Gran (auto) 0.08 H Absolute Neuts (auto) 9.3 H Absolute Nucleated RBC 0.000 Nucleated RBC % (auto) 0.0 Discharge Plan Discharge Patient Disposition: Home, Self-Care Discharge Diagnosis: acute appendicitis, perforated Referrals: Chapincito Zarate MD [Physician] - 1 Week Physician,Pauly Genao [Primary Care Provider] - 1 Week Discharge Medications: New amoxicillin-pot clavulanate [Augmentin] 500-125 mg tablet 1 tab PO BID Qty: 14 RF: 0 oxycodone-acetaminophen [Endocet] 5-325 mg tablet 1 tab PO Q6H PRN (Reason: pain (scale score 7-10)) Qty: 15 RF: 0 Discharge Orders: Discharge Order (Routine); Ordered 09/13/21 Ordered By: Chapincito Zarate Diet: advance to usual diet Activity on Discharge: No heavy lifting Stand Alone Forms: Patient Portal Discharge page Activity Restrictions/Additional Instructions: If the incision area is tender, you may apply an ice pack for short intervals (No more than 20 minutes on, followed by at least 20 minutes off). Do not apply heat. Do not use creams, lotions, or topical antibiotics unless instructed to do so by your surgeon. These can cause infection or allergic reaction. Ok to shower. Remove clear dressings 3 days following your procedure. You have steri strips (small white cloth strips) covering your incision- these will fall off ~1 week. No heavy lifting (>10lbs)! Follow up in office with Dr. Zarate in 1 week. ([phone]) Call Your Doctor If: -Your temperature exceeds 101.5? F -You experience excessive pain or swelling -You have an unexpected reaction to medication -You have excessive bleeding -You experience continued vomiting/nausea -Your incision begins to separate -Your incision shows signs of infection such as increased redness, swelling , excessive pain, drainage (light blood or clear fluid is normal) or heat Care Plan Goals: Return to baseline health and gradual return to activity following recovery period. Health Concerns: perforated appendicitis Plan of Treatment: s/p appy PO antibiotics F/u in office Assessment: Doing well post op.
== END 2021-09-13 12:35 | disposition home or self-care (01) | DRG 710 ==
LOC: HO.ED 21:37 → HO.EDOVER 21:45 → HO.S3 09-08 13:46
PROVIDERS: Physician Assistant; Physician Assistant Surgical; Admitting Provider Surgery; Emergency Provider Emergency Medicine; Visit Provider Surgery
PROC: 0DTJ4ZZ Resection of Appendix, Percutaneous Endoscopic Approach (ICD-10-PCS; CPT 44970; principal; 2021-09-08 10:00)
DX: A41.9 Sepsis, unspecified organism (principal); K35.33 Acute appendicitis with perforation, localized peritonitis, and gangrene, with abscess; Z20.822 Contact with and (suspected) exposure to COVID-19; Z86.16 Personal history of COVID-19; Z87.891 Personal history of nicotine dependence
CPT/HCPCS: 36415; 71045; 74177; 76705; 80048; 80076; 81003; 81025; 83605; 83690; 83735; 85025; 87040; 87071; 87077; 87147; 87186; 87205; 87635; 88304; 96361; 96374; 96375; 99024; 99285; 99291; J0696; J1100; J1170; J1956; J2060; J2405; J2543; J3010; Q9967

== ENCOUNTER → 2021-09-21 09:25 | Outpatient (BNVA) | payer OTHER, SELFPAY | PROVIDERS: Visit Provider Surgery ==

== ENCOUNTER 2024-10-04 10:15 | Emergency (ER) | payer MEDICAID, SELFPAY ==
--- NOTE | ~2024-10-04 | US_ITS ---
CLINICAL HISTORY: RUQ GB, CBD US abdomen limited Comparison: CT abdomen 09/11/2021 Findings: The common duct is 3.0 mm in diameter. The gallbladder is normal. There is no sonographic Hidalgo sign. IMPRESSION: 1. Normal limited abdominal ultrasound. This document has been electronically signed by: Krishna Beach MD on 10/04/2024 20:15:05
--- NOTE | ~2024-10-04 | XR_ITS ---
CLINICAL HISTORY: pain 1 view abdomen Comparison: US - US ABDOMEN LIMITED - 10/04/24 19:[address]/REG/SR - CT ABDOMEN PELVIS W CON - 09/11/21 10:27 EST Findings: No pneumoperitoneum or pneumatosis. No abnormal calcifications. No acute fractures. IMPRESSION: The bowel gas pattern is normal This document has been electronically signed by: Rasheeda Patton MD on 10/04/2024 22:08:58
[2024-10-04 11:24] VITALS: BP 124/66; PULSE 80; RESP 20; TEMP 36.6; O2SAT 98; BMI 29.2
--- NOTE | 2024-10-04 11:25 | ED.GENADULT ---
HPI - General Adult General Chief complaint: Abdominal Pain Stated complaint: abd pain vomiting Time Seen by Provider: 10/04/24 18:35 Source: patient Limitations: no limitations History of Present Illness ED Provider: Nimo Garrison PA-C HPI narrative: 24-year-old female who is morbidly obese, known cholelithiasis, now status post appendectomy, presents with ongoing right upper quadrant discomfort since the beginning of the month. Patient states every time she tries to eat she has right upper quadrant discomfort which triggers nausea vomiting diarrhea. Patient states she was seen at [facility], they obtained a chest x-ray which was negative. She has not had abdominal imaging. Denies fever. Denies sick contacts with similar symptoms. Related Data Previous Rx's ?Medication ?Instructions ?Recorded amoxicillin 500 mg-potassium 1 tab PO BID #14 tabs 09/12/21 clavulanate 125 mg tablet (Augmentin) oxycodone-acetaminophen 5 mg-325 1 tab PO Q6H PRN pain (scale score 09/13/21 mg tablet (Endocet) 7-10) #15 tabs ondansetron HCl 4 mg tablet 4 mg PO Q8H PRN nausea and 10/04/24 vomiting #10 tabs sucralfate 1 gram tablet (Carafate) 1 g PO Q6H PRN abdominal 10/04/24 discomfort #20 tabs Allergies Allergy/AdvReac Type Severity Reaction Status Date / Time No Known Allergies Allergy Verified 10/04/24 11:30 Review of Systems Review of Systems: Yes all other systems are reviewed and are negative Constitutional: Constitutional: Denies fatigue and Denies fever(s) Cardiovascular: Cardiovascular: Denies chest pain and Denies dyspnea Respiratory: Respiratory: Denies cough and Denies dyspnea Gastrointestinal: Gastrointestinal: Reports abdominal pain, Reports diarrhea, Reports nausea and Reports vomiting Endocrine: Endocrine: Denies fatigue PMFSH Past Medical History Attestation statement: The following information was validated with the patient. Medical History Anxiety Depression Lactose intolerance Vaginal delivery Surgical History History of laparoscopic appendectomy (09/08/21) No pertinent past surgical history Family History Family History Maternal Grandmother Ovarian cancer Maternal Uncle Throat cancer Family/Other Skin cancer Social History Social History Household Members: Significant Other, Family and Children Housing: House Patient Tobacco Use Status: Former Tobacco user e-Cigarette/Vaping Use: Currently Using Advance Directives: Yes Advance Directives on File: Yes Advance Directives Date on File: 09/08/21 Do you have a plan to hurt others: No Plan service: No Current occupational status: unemployed Physical Exam ED Vital Signs: Vital Signs - 24 hr 10/04/24 11:24 10/04/24 21:34 Temperature 97.9 F 98.2 F Pulse Rate 80 76 Respiratory Rate 20 20 Blood Pressure 124/66 133/77 Pulse Oximetry 98 98 Oxygen Delivery Method Room Air Room Air BMI result Body Mass Index 29.2 Const Other: Alert Orientation/consciousness: patient oriented x3 Resp Effort & Inspection: normal respiratory effort Cardio Other: Normal peripheral perfusion GI Other: Abdomen is soft, nondistended, moderate tenderness epigastric and right upper quadrant without any guarding, obese abdomen Skin Other: Warm dry no rash Neuro General: patient oriented x3, gait normal, no focal motor deficits and CN's II-XI intact bilaterally Psych Other: Cooperative Course Course Course Narrative: RME, this is a rapid medical exam performed by Cal Abdi please refer to primary provider for complete H&P- 24-year-old female presents for evaluation of multiple complaints including a cough, vomiting and diarrhea starting 9 days ago. She endorses taking a plan B contraception on 09/08/2024. She reports having had 2 menstrual cycles last month which is abnormal. Explained to her that this was likely due to the Plan B medication. She reports that she went to an emergency room 5 days ago due to loss of motor function which has since resolved. The patient reports persistent vomiting and reports passing out with the day. Plan for labs, EKG and viral swabs. Medications Administered Discontinued Medications Generic Name Dose Route Start Last Admin Trade Name Freq PRN Reason Stop Dose Admin Sodium Chloride 1,000 mls @ 999 mls/hr 10/04/24 19:15 10/04/24 21:27 Ns IV 10/04/24 20:15 Infused .Q1H1M ETHAN Infusion Morphine Sulfate 4 mg 10/04/24 19:11 10/04/24 20:30 Morphine Sulfate 4 Mg/Ml Cartridge IVPUSH 10/04/24 19:12 4 mg ONCE ONE Administration Protocol Ondansetron HCl 4 mg 10/04/24 19:11 10/04/24 20:30 Ondansetron Hcl 4 Mg/2 Ml Vial IVPUSH 10/04/24 19:12 4 mg ONCE ONE Administration Medical Decision Making Medical Decision Making MDM Narrative: 24-year-old female who is morbidly obese, known cholelithiasis, now status post appendectomy, presents with ongoing right upper quadrant discomfort since the beginning of the month. Patient states every time she tries to eat she has right upper quadrant discomfort which triggers nausea vomiting diarrhea. Patient states she was seen at [facility], they obtained a chest x-ray which was negative. She has not had abdominal imaging. Denies fever. Denies sick contacts with similar symptoms. Problem: Known gallstone, obesity History: Per patient I have considered the following differential diagnoses: Biliary colic, cholecystitis, gastritis, pancreatitis, viral gastroenteritis Plan: It is suspicious the patient has been experiencing biliary colic, less likely to be viral gastro given she has no sick contacts with same symptoms and she has had ongoing symptoms for 10 days. Screening labs are in process including LFTs and lipase, we will be obtaining an ultrasound. Giving fluids Zofran and morphine for her discomfort. I have independently reviewed the following tests: Labs: Slight leukocytosis, not anemic, no electrolyte abnormality, LFTs are normal, lipase not elevated, not , viral panel negative Ultrasound right upper quadrant:[address] [address] Ultrasound Report Signed with Addenda Patient: Nikki Gill MR#: [id number] : 2000 Acct:[id number] Age/Sex: 24 / F ADM Date: 10/04/24 Loc: HO.ED Attending Dr: Ordering Physician: Nimo Garrison Date of Service: 10/04/24 Procedure(s): US abdomen limited Accession Number(s): [id number] cc: Nimo Garrison; Branden Talbert MD~ ADDENDUM10/04/2024 20:15:05 ADDENDUM: ADDENDUM: No gallstones are identified. This document has been electronically signed by: Krishna Beach MD on 10/04/2024 21:00:36 Addendum Dictated By: Krishna Beach MD Addendum Signed By: <Electronically signed by Krishna Beach MD in OV> 10/04/242100 Addendum Cosigned By: DD/ /18/2015 TD/TT: 10/04/2406/18/2100 CLINICAL HISTORY: RUQ GB, CBD US abdomen limited Comparison: CT abdomen 09/11/2021 Findings: The common duct is 3.0 mm in diameter. The gallbladder is normal. There is no sonographic Hidalgo sign. IMPRESSION: 1. Normal limited abdominal ultrasound. This document has been electronically signed by: Krishna Beach MD on 10/04/2024 20:15:05 KUB: Some degree constipation and gas, Lab Data 10/04/24 18:17 10/04/24 18:17 Labs: Lab Results 10/04/24 Range/Units 18:17 WBC 11.9 H (4.8-10.8) X10*3/uL RBC 4.61 D (4.20-5.50) X10*6/uL Hgb 14.1 D (12.0-16.0) g/dl Hct 41.0 D (37.0-47.0) % MCV 88.9 (80.0-98.0) fL MCH 30.6 (27.0-33.0) pg MCHC 34.4 (31.0-35.0) g/dl RDW 13.1 (11.0-16.0) % Plt Count 356 (160-400) X10*3/uL MPV 9.2 L (9.4-12.3) fL Immature Gran % (Auto) 0.3 (0.0-0.4) % Neut % (Auto) 71.3 (45-73) % Lymph % (Auto) 21.7 (20-40) % Waller % (Auto) 5.6 (2-11) % Eos % (Auto) 0.8 (0-4) % Baso % (Auto) 0.3 (0-2) % Lymph # (Auto) 2.6 (1.2-4.9) X10*3/uL Waller # (Auto) 0.7 (0.1-1.2) X10*3/uL Eos # (Auto) 0.1 (0.0-0.4) X10*3/uL Baso # (Auto) 0.0 (0.0-0.2) X10*3/uL Abs Immat Gran (auto) 0.04 H (0.00-0.03) X10*3/uL Absolute Neuts (auto) 8.5 H (2.0-8.3) x10*3/uL Absolute Nucleated RBC 0.000 (0.0-0.012) X10*3/uL Nucleated RBC % (auto) 0.0 (0.0-0.2) /100WBC PT 12.0 (10.9-12.4) SEC INR 1.0 (0.9-1.1) Sodium 141 (135-145) mmol/L Potassium 3.9 (3.3-5.1) mmol/L Chloride 109 H (96-108) mmol/L Carbon Dioxide 22 (22-29) mmol/L Anion Gap 14 (12-20) BUN 4 L (9-16) mg/dL Creatinine 0.66 (0.5-1.4) mg/dL Estim Creat Clear Calc 120.2 Estimated GFR > 60 Random Glucose 82 (60-115) mg/dL Calcium 9.2 D (8.4-10.2) mg/dL Magnesium 2.1 (1.6-2.6) mg/dL Total Bilirubin 0.3 (0.0-1.0) mg/dL AST 24 (5-31) U/L ALT 24 (0-31) U/L Alkaline Phosphatase 59 (39-117) U/L Troponin I High Sens < 2.7 (<3.5-17.0) ng/L Total Protein 8.1 H (6.5-8.0) g/dL Albumin 4.4 (3.5-5.0) g/dL Lipase 15 (8-78) U/L Beta HCG, Quant < 2 mIU/mL Influenza Type A (PCR) NEGATIVE (Negative) Influenza Type B (PCR) NEGATIVE (Negative) RSV RNA Qual (PCR) NEGATIVE (Negative) SARS-CoV-2 RNA (RT-PCR) NEGATIVE (Negative) Discharge Plan Discharge Clinical Impression: Constipation, Anxiety, Epigastric abdominal pain Patient Disposition: Home, Self-Care Instructions: Constipation (ED), Gastroesophageal Reflux Disease (ED), Anxiety (ED), Epigastric Pain (ED) Additional Instructions: All of your labs were normal. The ultrasound of your right upper quadrant was normal as well, you no longer have a gallstone. The x-ray revealed some degree of stool burden. See home care instructions for constipation. Given the distribution of your discomfort, it is suspect that you may have poorly controlled acid reflux, or GERD. See home care instructions. Some typical foods that can be bothersome are carbonation, alcohol, caffeine, mint, anything spicy, acidic or greasy. Eating smaller more frequent meals throughout the day can help curb symptoms. Do not eat 3 hours before bed. Use the Carafate before eating, this will help to coat your stomach. Uses Zofran as needed for nausea. I have also provided you with outpatient resources for your anxiety. Follow up with your primary care provider within the next few weeks. Prescriptions: New sucralfate [Carafate] 1 gram tablet 1 g PO Q6H PRN (Reason: abdominal discomfort) Qty: 20 0RF ondansetron HCl 4 mg tablet 4 mg PO Q8H PRN (Reason: nausea and vomiting) Qty: 10 0RF No Action amoxicillin-pot clavulanate [Augmentin] 500-125 mg tablet 1 tab PO BID Qty: 14 0RF oxycodone-acetaminophen [Endocet] 5-325 mg tablet 1 tab PO Q6H PRN (Reason: pain (scale score 7-10)) Qty: 15 0RF Stand Alone Forms: Work/School Release Print Language: Swedish
--- NOTE | 2024-10-04 11:27 | ECG_ITS ---
Test Reason : ABD PAIN Blood Pressure : */* mmHG Vent. Rate : 78 BPM Atrial Rate : 78 BPM P-R Int : 116 ms QRS Dur : 88 ms QT Int : 362 ms P-R-T Axes : 42 57 25 degrees QTcB Int : 412 ms Normal sinus rhythm Normal ECG No previous ECGs available Referred By: Wade Abdi Electronically Signed By: GENESIS MENDEZ MD
[2024-10-04 18:24] LABS: MANUAL DIFF FLAG NO
[2024-10-04 18:25] LABS: Basophils Percent Auto 0.3 % (0-2); Eosinophils Absolute Auto 0.1 X10*3/uL (0.0-0.4); Eosinophils Percent Auto 0.8 % (0-4); Hemoglobin 14.1 g/dl (12.0-16.0); Imm Gran Abs Auto 0.04 X10*3/uL (0.00-0.03); Imm Gran Pct Auto 0.3 % (0.0-0.4); Lymphocytes Absolute Auto 2.6 X10*3/uL (1.2-4.9); Lymphocytes Percent Auto 21.7 % (20-40); Mean Corpuscular HGB Conc 34.4 g/dl (31.0-35.0); Mean Corpuscular Hemoglobin 30.6 pg (27.0-33.0); Mean Corpuscular Volume 88.9 fL (80.0-98.0); Mean Platelet Volume 9.2 fL (9.4-12.3); Monocytes Absolute Auto 0.7 X10*3/uL (0.1-1.2); Monocytes Percent Auto 5.6 % (2-11); Neutrophils Absolute Auto 8.5 x10*3/uL (2.0-8.3); Neutrophils Percent Auto 71.3 % (45-73); Platelet Count 356 X10*3/uL (160-400); Red Blood Count 4.61 X10*6/uL (4.20-5.50); Red Cell Distribution Width 13.1 % (11.0-16.0); White Blood Count 11.9 X10*3/uL (4.8-10.8)
--- OUTSIDE RECORDS SUMMARY | 2024-10-04 18:28 | XMS_ITS ---
Author Organization [facility] Address [address] [address] Care Team Providers Care Strategic Partnership Specialist Name Role Phone Casper Mora Unavailable [phone] REASON FOR VISIT YELLOW FORM DONE) Encounters Encounter Location Date Provider Diagnosis [facility] [employer] [address] [address] 12/11/2023 Mora Shirley Plan Of Treatment No Information Progress Notes * CARINA MAYORGAOB:2000 (24 yo F)Acc No.[id number]:12/11/2023 PROGRESS NOTES Patient:?TIERRATHERESA Adams Appointment Provider:?Mora green M.D. :2000???Age:23 Y???Sex:Female D ate:12/11/2023 Address:[address] [place] [address], [id number] Subjective: * Chief Complaints: * ???1. YELLOW FORM DONE). * Medical History:?Stomach pro blems, Other asthma, Anxiety disorder, unspecified, Amenorrhea, unspecified, Other specified dyspareunia, Calculus of gallbladder without cholecystitis without obstruction. * Onion Tier History:?/ Para?0/0.?Sexual activity?currently sexually active, with men.?Last Pap Smear:?12/20/21, NIL.?LMP and menses?12/10/21.? Control:?condoms.?Gardasil:?series completed @ [facility].? * OB History:?Total pregnancies?0.? Objective: * Vitals:? Assessment: Plan: * Treatment: * Images: Billing Information: * Visit Code:? * Procedure Codes:? * Electronic signature of Brittney Shirley MD on 10/04/2024 at 06:28 PM EST Sign off status: Pending * Appointment Provider:?Mora Shirley M.D. Date:?12/11/2023 Generated for Emelina rodriguez/Kendrick/Renitasmitting on:?10/04/2024 06:28 PM EST
--- OUTSIDE RECORDS SUMMARY | 2024-10-04 18:28 | XMS_ITS | Encounter Summary ---
Author Organization [facility] Address [address] [place] [address] Phone Care Team Providers Care Oil Heater Operator Name Role Phone FloJessica arias KING Primary Care Provider [phone] Reason for Visit * Reason Comments Med Refill Encounter Details Date Type Department Care Team (Late st Contact Info) Description 05/03/2020 Refill [facility] [address] [place] [address] Lorraine Sanchez, DO Anxiety Social History Tobacco Use Types Packs/Day Years Used Date Smoking Tobacco: Never Comments:Never Smoker Alcohol Use Standard Drinks/Week Comments No 0 (1 standard drink = 0.6 oz pur e alcohol) Hunger/Food Answer Date Recorded No 12/23/2018 Stable Housing Answer Date Recorded No 08/26/2019 Transportation Concerns Answer Date Rec orded No 12/23/2018 Hazards in Home Answer Date Recorded No 08/02/2019 Financing Utilities Answer Date Recorde d No 12/23/2018 Safety at Home Answer Date Recorded No 12/23/2018 Outside Support Answer Date Recorded No 08/02/2019 Understanding Health Concerns Answer Da te Recorded No 12/23/2018 Financing Health Concerns Answer Date R ecorded No 12/23/2018 Missing School or Work Answer Date Hema rded No 12/23/2018 Comments Unknown Sex and Gender Information Value Date Recorded Sex Assigned at Not on file Legal Sex Female 6:22 PM EDT Gender Identity Not on file Sexual Orientation Straight 08/02/2019 3: 11 PM EST documented as of this encounter Plan of Treatment Not on file documented as of this encounter Visit Diagnoses Diagnosis Anxiety Anxiety state, unspecified documented in this encounter Care Teams Oil Heater Operator Relationship Specialty Start Date End Date Jessica Kathleen NP [facility] [place] [address] PCP - General Pediatrics 12/08/20 documented as of this encounter
--- OUTSIDE RECORDS SUMMARY | 2024-10-04 18:28 | XMS_ITS | Encounter Summary ---
Author Organization [facility] Address [address] [place] [address] Phone Care Team Providers Care Purchasing Assistant Name Role Phone Jessica Kathleen NP Primary Care Provider [phone] Encounter Details Date Type Department Care Team (Late st Contact Info) Description 04/17/2011 Conversion Encounter [facility] [address] [place] [address] Social History Tobacco Use Types Packs/Day Years Used Date Smoking Tobacco: Never Assessed Comments Unknown Sex and Gender Information Value Date Recorded Sex Assigned at Not on file Legal Sex Female 6:22 PM EDT Gender Identity Not on file Sexual Orientation Straight 08/02/2019 3: 11 PM EST documented as of this encounter Plan of Treatment Not on file documented as of this encounter Visit Diagnoses Not on filedocumented in this encounter Care Teams Purchasing Assistant Relationship Specialty Start Date End Date Jessica Kathlene NP [address] [facility] [place] [address] PCP - General Pediatrics 12/08/20 documented as of this encounter
--- OUTSIDE RECORDS SUMMARY | 2024-10-04 18:28 | XMS_ITS ---
Author Organization [facility] Address [address] [address] Care Team Providers Care Supply Chain Design Manager Name Role Phone Mora Shirley Unavailable [phone] REASON FOR VISIT left ovary pain x 1mo Encounters Encounter Location Date Provider Diagnosis [facility] [address] 05/08/2023 Mora Shirley Plan Of Treatment No Information Progress Notes * PREET MAYORGAANDREWOB:2000 (24 yo F)Acc No.[id number]:05/08/2023 PROGRESS NOTES Patient:?THERESA MAYORGA Appointment Provider:?Mora green M.D. :2000???Age:23 Y???Sex:Female D ate:05/08/2023 Address:[address] [place], [place] [id number] Subjective: * Chief Complaints: * ???1. Left ovary pain x 1mo. * Medical History:? Objective: * Vitals:? Assessment: Plan: * Treatment: * Images: Billing Information: * Visit Code:? * Procedure Codes:? * Electronic signature of Brittney Shirley MD on 10/04/2024 at 06:28 PM EST Sign off status: Pending * Appointment Provider:?Mora Shirley M.D. Date:?05/08/2023 Generated for Printi ng/Faxing/eTransmitting on:?10/04/2024 06:28 PM EST
--- OUTSIDE RECORDS SUMMARY | 2024-10-04 18:28 | XMS_ITS | Encounter Summary ---
Author Organization [facility] Address [address] [place] [address] Phone Care Team Providers Care Control Room Technician Name Role Phone FloJessica arias KING Primary Care Provider [phone] Reason for Visit * Reason Comments Med Refill Encounter Details Date Type Department Care Team (Late st Contact Info) Description 12/25/2019 Refill [facility] [address] [facility] [place] [address] Lorraine Sanchez, DO Anxiety Social History Tobacco [...] PM EST documented as of this encounter Miscellaneous Notes * Telephone Encounter - Brianda Matthews MA - 12/27/2019 8:28 AM EDT Last pe with ALP 08/02/19 MQ documented in this encounter Plan of Treatment Not on file documented as of this encounter Visit Diagnoses Diagnosis Anxiety Anxiety state, unspecified documented in this encounter Care Teams Control Room Technician Relationship Specialty Start Date End Date Jessica Kathleen NP [address] [facility] [place] [address] PCP - General Pediatrics 12/08/20 documented as of this encounter
--- OUTSIDE RECORDS SUMMARY | 2024-10-04 18:29 | XMS_ITS | Encounter Summary ---
Author Organization [facility] Address [phone] [facility] [place] [address] Care Team Providers Care Nursery Nurse Name Role Phone Branden Talbert MD Primary Care Provider [phone] Mora Shirley MD Unavailable + [phone] Reason for Visit * Reason Comments Numbness Nausea Encounter Details Date Type Department Care Team ([facility] Contact Info) Description 09/29/2024 4:31 PM EST - 09/29/2024 9:28 PM EST Emergency [facility] [address] [place] [address] Discharge Disposition: Home or Self Care Social History Tobacco Use Types Packs/Day Years Used Date Smoking Tobacco: Former Cigarettes 0.3 1 0 02/2022 - 03/08/2023 Smokeless Tobacco: Never Comments:4 cigarettes daily Alcohol Use Standard Drinks/Week Comments Never 0 (1 standard drink = 0.6 oz pur e alcohol) Child or Family Care Answer Date Record ed Do you have problems with on e of the following making it difficult for you to work, study, or receive health care? No 01/27/2024 Education Answer Date Recorded Are you interested in help w ith more adult education (for example, completing high school, GED, job training, learning the [place]kin[place] language, technical skills, or developing parenting skills)? No 01/27/2024 Are you concerned about learning? Not on file 01/27/2024 No 01/27/2024 Yes 01/27/2024 Food Answer Date Recorded Within the past 6 months we worried whether our food would run out before we got money to buy more. Never True 01/27/2024 Within the past 6 months the food we bought just didn't last and we didn't have enough money to get more. Never True Residential Stability Answer Date Recor ded What is your housing situation today? I have joseph ortega 01/27/2024 How many times have you moved in the past 12 fri ths? One time 01/27/2024 Paying for Meds Answer Date Recorded Do you have trouble paying for medicines? No 01/27/2024 Paying Utility Bills Answer Date Record ed Do you have trouble paying your heating or elect ricity bill? No 01/27/2024 Transportation Answer Date Recorded Has the lack of transportati on kept you from medical appointments or from getting medications? No 01/27/2024 Unemployment Answer Date Recorded Are you currently unemployed or working on a part-time or temporary basis, and looking for work? No 01/27/2024 Digital Access Answer Date Recorded No 01/27/2024 Yes 01/27/2024 Do you have reliable internet access at home? Ye s 01/27/2024 Do you have a device (e.g., phone, tablet, computer) with a working camera? Yes 01/27/2024 Intimate Partner Violence Answer Date R ecorded Are you denied basic needs s uch as food, clothing, or medical care? No 09/29/2024 In the past 12 months have y ou been in a relationship with a person who hurts, threatens, or tries to control you? No 09/29/2024 Are you denied basic needs s uch as food, clothing, or medical care? No 09/29/2024 In the past 12 months have y ou been in a relationship with a person who hurts, threatens, or tries to control you? No 09/29/2024 Sex and Gender Information Value Date Recorded Sex Assigned at Female 02/01/2022 11:03 AM EDT Gender Identity Female 02/01/2022 11:03 AM EDT Sexual Orientation Straight 02/01/2022 11 :03 AM EDT documented as of this encounter Last Filed Vital Signs Vital Sign Reading Time Taken Comments Blood Pressure 127/83 09/29/2024 9:23 PM EST Pulse 85 09/29/2024 9:23 PM EST Temperature 37 ??C (98.6 ??F) 09/29/2024 9:23 PM EST Respiratory Rate 16 09/29/2024 9:23 PM EST Oxygen Saturation 99% 09/29/2024 9:23 PM EST Inhaled Oxygen Concentration - - Weight 68 kg (150 lb) 09/29/2024 4:07 PM EST Height 157.5 cm (5' 2 ) 09/29/2024 4:07 PM EST Body Mass Index 27.44 09/29/2024 4:07 PM EST documented in this encounter Medications at Time of Discharge Medication Sig Dispensed Refills Start Date End Date LORazepam (ATIVAN) 0.5 MG tablet Take 1 tablet (0.5 mg total) by mouth every 6 (six) hours as needed for anxiety. 5 tablet 09/29/2024 documented as of this encounter ED Notes * Francie Schilling RN - 09/29/2024 9:25 PM EST ED Discharge Nursing Note Pt is a/o, resp even and unlabored, NAD. Pt medicated per OCT. D/C paperwork given and reviewed. Discussed medication management, follow up and s/s that would indicate need to return to ED. Pt verbalized understanding. No further questions at this time. Pt ambulated out of dept with independent steady gait * Sivan Welch RN - 09/29/2024 4:09 PM EST Pt brought in by EMS but during triage patient believed she was brought in by her brother. Patient states when coming home from an interview she started to feel weird and had tingling in both hands. Reports tingling has subsided. Patient able to answer orientation questions appropriately but reports feeling forgetful and off over past few weeks. Vague list of symptoms including nausea w/ vomiting and dizziness. * Su Duran PA-C - 09/29/2024 3:33 PM EST Chief Complaint Chief Complaint Patient presents with Numbness Nausea History of Present Illness 24 y/o F, with a history of anxiety, presents to the emergency department for evaluation of anxiety. The patient states that she was in a job interview today when she started to feel anxious. On the drive home, she felt nauseous, dizzy, and lightheaded, as though she was going to pass out, but did not syncopize. Also describes having shallow breathing, a tingling sensation to both hands, and a pounding right- sided headache. All of these symptoms have resolved. She reports that she vomited last night and several other times over the course of this month. She did have some epigastric pain earlier in the month that resolved. Notes that she has been having diarrhea, which is unusual for her. Hashad some brain fog over the past several weeks. No vertigo, vision changes, ataxia, dysarthria, focal weakness. Unless otherwise specified, I have reviewed and agree with the triage and nursing notes. ROS A ten point review of systems was negative except what was noted in the HPI. Review of Systems Past Medical History Past Medical History: Diagnosis Date Anxiety disorder Depressive disorder Past Surgical History Past Surgical History: Procedure Laterality Date APPENDECTOMY 08/2021 at [facility] Home Medications Prior to Admission medications Medication Sig LORazepam (ATIVAN) 0.5 MG tablet 0.5 mg, Oral, Every 6 hours PRN Allergies No Known Allergies Social and Family History Social History Tobacco Use Smoking status: Former Current packs/day: 0.00 Average packs/day: 0.3 packs/day for 1 year (0.3 ttl pk-yrs) Types: Cigarettes Start date: 02/2022 Quit date: 03/08/2023 Years since quittin.5 Smokeless tobacco: Never Tobacco comments: 4 cigarettes daily Substance Use Topics Alcohol use: Never Social History Substance and Sexual Activity Drug Use Not Currently Frequency: 1.0 times per week Types: Marijuana Comment: 1-2 x year Family History Problem Relation Age of Onset Diabetes Father ADD / ADHD Brother ADD / ADHD Brother Ovarian cancer Maternal Grandmother Melanoma Maternal Grandfather Alzheimer's disease Maternal Grandfather Physical Exam Vital Signs: ED Triage Vitals [09/29/24 1607] Encounter Vitals Group BP (!) 151/94 Systolic BP Percentile Diastolic BP Percentile Heart Rate 96 Respiratory Rate 20 Temperature 36.6 ??C (97.9 ??F) Temp Source Temporal SpO2 96 % Weight 150 lb Height 5' 2 Head Circumference Peak Flow Pain Score Pain Loc Pain Education Exclude from Growth Chart Physical Exam Vitals and nursing note reviewed. Constitutional: General: She is not in acute distress. HENT: Head: Normocephalic. Nose: Nose normal. Mouth/Throat: Pharynx: Oropharynx is clear. Eyes: Extraocular Movements: Extraocular movements intact. Conjunctiva/sclera: Conjunctivae normal. Pupils: Pupils are equal, round, and reactive to light. Cardiovascular: Rate and Rhythm: Normal rate. Heart sounds: Normal heart sounds. Pulmonary: Effort: Pulmonary effort is normal. No respiratory distress. Breath sounds: Normal breath sounds. Abdominal: General: Abdomen is flat. Palpations: Abdomen is soft. Tenderness: There is no abdominal tenderness. Musculoskeletal: General: Normal range of motion. Cervical back: Neck supple. Skin: General: Skin is warm and dry. Neurological: General: No focal deficit present. Mental Status: She is alert and oriented to person, place, and time. Cranial Nerves: Cranial nerves 2-12 are intact. Sensory: Sensation is intact. Motor: Motor function is intact. Coordination: Coordination is intact. Gait: Gait is intact. Laboratory Testing Results for orders placed or performed during the hospital encounter of 09/29/24 Magnesium Result Value Ref Range MAGNESIUM 2.0 1.6 - 2.6 mg/dL Troponin Specimen: Blood Result Value Ref Range Troponin-T, HS Gen5 <6 0 - 9 ng/L Basic metabolic panel Specimen: Blood Result Value Ref Range SODIUM 141 133 - 146 mmol/L CHLORIDE 103 96 - 108 mmol/L POTASSIUM 3.6 3.3 - 5.1 mmol/L CO2 24 21 - 35 mmol/L BUN 7 6 - 19 mg/dL CREATININE 0.60 0.5 - 1.5 mg/dL GLUCOSE 88 70 - 99 mg/dL CALCIUM 9.3 8.4 - 10.3 mg/dL EGFR >120 >59 mL/min/1.73m2 ANION GAP 18 10 - 20 mmol/L CBC and differential Specimen: Blood Result Value Ref Range WBC 11.78 (H) 4.00 - 11.00 K/uL RBC 4.79 4.00 - 5.20 M/uL HGB 14.3 12.0 - 16.0 g/dL HCT 42.2 36.0 - 46.0 % PLT 346 150 - 450 K/uL MCV 88.1 80.0 - 100.0 fL MCH 29.9 27.0 - 31.0 pg MCHC 33.9 32.0 - 36.0 g/dL RDW 13.1 11.5 - 14.5 % MPV 9.5 8.4 - 12.0 fL NRBC 0.00 0.00 /100 WBCs ABSOLUTE NRBC 0.00 0.00 K/uL DIFF METHOD Auto NEUTS 80.7 (H) 48.0 - 76.0 % LYMPHS 13.7 (L) 18.0 - 41.0 % MONOS 4.9 4.0 - 11.0 % EOS 0.1 0.0 - 5.0 % BASOS 0.3 0.0 - 1.5 % Granulocytes, immature (%) 0.3 0.0 - 0.9 % ABSOLUTE NEUTS 9.51 (H) 1.92 - 7.60 K/uL ABSOLUTE LYMPHS 1.61 0.72 - 4.10 K/uL ABSOLUTE MONOS 0.58 0.16 - 1.10 K/uL ABSOLUTE EOS 0.01 0.00 - 0.50 K/uL ABSOLUTE BASOS 0.03 0.00 - 0.15 K/uL Granulocytes, immature 0.04 0.00 - 0.09 K/uL Radiology Testing XR Chest (Results Pending) MDM Assessment and Plan: Patient seen and evaluated, hemodynamically stable, afebrile, presenting with a brief episode of anxiety earlier today with associated lightheadedness, nausea, shallow breathing, and a tingling sensation in her hands. Differential includes anxiety vs panic attack, complex migraine headache. Suspect these symptoms to be related to a panic attack. At this time, her symptoms have resolved. Idoubt this to be a cerebral vascular accident. The patient does not have any apparent risk factors for this and her neurologic exam is normal. In regards to the shortness of breath and sensation of lightheadedness, these symptoms were experienced while feeling anxious along with the other reported symptoms. I feel that these symptoms are also related to a panic attack. I have a low suspicion for an acute cardiopulmonary process, such as acute coronary syndrome, pulmonary embolism. Nonetheless, will obtain EKG, CXR, and troponin. The patient is PERC negative. Hemodynamically stable otherwise. Will give a dose of Ativan. Care will be signed out to my colleague pending workup and final disposition. Category 2 and 3: Independent Interpretation of Tests, Consideration of Tests, or External Discussion of Results: Labs: Laboratory studies were interpreted. Clinical Impressions as of 09/29/241948 Paresthesias Panic attack Clinical Impression Diagnosis Description Comment Final diagnoses Paresthesias Paresthesias -- Panic attack Panic attack -- Disposition: Signed out Su Duran PA-C 09/29/241948 documented in this encounter Plan of Treatment Upcoming Encounters Date Type Department Care Team (Late st Contact Info) Description 01/28/2025 9:00 AM EDT Appointment [facility] Internal Medicine [address] [place] [address] Branden Talbert MD [address] [place] [address] [email or web address] [facility] documented as of this encounter Procedures Procedure Name Priority Date/Time Associated Diagnosis Comments ECG 12-LEAD STAT 09/29/2024 7:44 PM EST TROPONIN STAT 09/29/2024 7:26 PM EST XR CHEST PA AND LATERAL 2 VIEWS Routine 09/29/2024 7:21 PM EST MAGNESIUM Routine 09/29/2024 5:47 PM EST BASIC METABOLIC PANEL STAT 09/29/2024 5:47 PM EST CBC AND DIFFERENTIAL STAT 09/29/2024 4:48 PM EST documented in this encounter Results * ECG 12-LEAD (09/29/2024 7:44 PM EST) Ventricular Rate EKG/MIN 87 BPM [facility] Atrial Rate 87 BPM [facility] RI Interval 120 ms [facility] QRS Duration 84 ms [facility] QT Interval 358 ms [facility] QTC Interval 430 ms [facility] P Odin 47 degrees [facility] R Wave Odin 65 degrees [facility] T Wave Odin 32 degrees [facility] 09/29/2024 7:44 PM EST 09/30/2024 8:15 AM EST Narrative [facility] - 09/30/2024 8:15 AM EST Normal sinus rhythm with sinus arrhythmia Normal ECG No previous ECGs available Confirmed by Alfredo Anderson ([id number]) on 09/30/2024 8:15:14 AM Su Yeimy Rouleau PA-C ECG ORDERABL ES Performing Organization Address City/State/[facility] Co de Phone Number [email or web address] * Troponin (09/29/2024 7:26 PM EST) Troponin-T, HS Gen5 <6 0 - 9 ng/L [facility] Blood 09/29/2024 7:26 PM EST 09/29/2024 7:29 PM EST [facility] LAB BLOOD OR DERABLES Performing Organization Address [facility] Co de Phone Number [address] [address] * XR CHEST PA AND LATERAL 2 VIEWS (09/29/2024 7:21 PM EST) Anatomical Region Laterality Modality Chest Computed Radiogr aphy 09/29/2024 8:15 PM EST Impressions 09/29/2024 8:35 PM EST No acute abnormality. ATTESTATION: I, Reji Santos as teaching physician, have reviewed the images for this case and if necessary edited the report originally created by Mohsen Gonzales MD. Narrative 09/29/2024 8:35 PM EST XR CHEST PA AND LATERAL 2 VIEWS Referring clinician's provided indication for this examination in [facility]: Dyspnea (Shortness of Breath) COMPARISON: None. FINDINGS: Devices/Tubes/Lines: None. Lungs: No focal consolidation or pulmonary edema. Pleura: No pleural effusion or pneumothorax. Heart/Mediastinum: Normal heart and mediastinum. Bones/Soft Tissues: No significant abnormality. Procedure Note Reji Santos MD, PhD - 09/29/2024 XR CHEST PA AND LATERAL 2 VIEWS Referring clinician's provided indication for this examination in Epic:Dyspnea (Shortness of Breath) COMPARISON: None. FINDINGS: Devices/Tubes/Lines: None. Lungs: No focal consolidation or pulmonary edema. Pleura: No pleural effusion or pneumothorax. Heart/Mediastinum: Normal heart and mediastinum. Bones/Soft Tissues: No significant abnormality. IMPRESSION: No acute abnormality. ATTESTATION: IReji as teaching physician, have reviewed theimages for this case and if necessary edited the report originally createdby Mohsen Gonzales MD. Su Duran PA-C IMG XR CHEST * Magnesium (09/29/2024 5:47 PM EST) MAGNESIUM 2.0 1.6 - 2.6 mg/dL [facility] 09/29/2024 5:47 PM EST 09/29/2024 6:07 PM EST Reji Moss PA-C LAB BLOOD ORDERABLES [address] [address] * Basic metabolic panel (09/29/2024 5:47 PM EST) SODIUM 141 133 - 146 mmol/L [facility] CHLORIDE 103 96 - 108 mmol/L [facility] POTASSIUM 3.6 3.3 - 5.1 mmol/L [facility] CO2 24 21 - 35 mmol/L [facility] BUN 7 6 - 19 mg/dL [facility] CREATININE 0.60 0.5 - 1.5 mg/dL [facility] GLUCOSE 88 70 - 99 mg/dL [facility] CALCIUM 9.3 8.4 - 10.3 mg/dL [facility] EGFR >120 >59 mL/min/1.7 3m2 [facility] Comment:Estimated glomerular filtration rate calculated using the CKD-EPI refit equation. ANION GAP 18 10 - 20 mmol/L [facility] Blood 09/29/2024 5:47 PM EST 09/29/2024 6:07 PM EST Reji Moss PA-C LAB BLOOD ORDERABLES [facility] [address] [place] [address] * (ABNORMAL) CBC and differential (09/29/2024 4:48 PM EST) WBC 11.78(H) 4.00 - 11.00 K/uL [facility] RBC 4.79 4.00 - 5.20 M/uL [facility] HGB 14.3 12.0 - 16.0 g/dL [facility] HCT 42.2 36.0 - 46.0 % [facility] PLT 346 150 - 450 K/uL [facility] MCV 88.1 80.0 - 100.0 fL [facility] MCH 29.9 27.0 - 31.0 pg [facility] MCHC 33.9 32.0 - 36.0 g/dL [facility] RDW 13.1 11.5 - 14.5 % [facility] MPV 9.5 8.4 - 12.0 fL [facility] NRBC 0.00 0.00 /100 WBCs [facility] ABSOLUTE NRBC 0.00 0.00 K/uL [facility] DIFF METHOD Auto [facility] NEUTS 80.7(H) 48.0 - 76.0 % [facility] LYMPHS 13.7(L) 18.0 - 41.0 % [facility] MONOS 4.9 4.0 - 11.0 % [facility] EOS 0.1 0.0 - 5.0 % [facility] BASOS 0.3 0.0 - 1.5 % [facility] Granulocytes, immature (%) 0.3 0.0 - 0.9 % [facility] ABSOLUTE NEUTS 9.51(H) 1.92 - 7.60 K/uL [facility] ABSOLUTE LYMPHS 1.61 0.72 - 4.10 K/uL [facility] ABSOLUTE MONOS 0.58 0.16 - 1.10 K/uL [facility] ABSOLUTE EOS 0.01 0.00 - 0.50 K/uL [facility] ABSOLUTE BASOS 0.03 0.00 - 0.15 K/uL [facility] Granulocytes, immature 0.04 0.00 - 0.09 K/uL [facility] Blood 09/29/2024 4:48 PM EST 09/29/2024 4:59 PM EST Reginald Mcdonough MD LAB BLOOD ORDERABLES [facility] [address] [place] [address] documented in this encounter Visit Diagnoses Diagnosis Paresthesias- Primary Disturbance of skin sensation Panic attack Panic disorder without agoraphobia documented in this encounter Administered Medications Inactive Administered Medications - up to 3 most recent administrations Medication Order MAR Action Action Date Dose Rate Site LORazepam (ATIVAN) tablet 0.5 mg 0.5 mg, Oral, Once, On Fri09/29/24 at 2130, For 1 dose Given 09/29/2024 9:20 PM EST 0.5 mg documented in this encounter Active and Recently Administered Medications Times are shown in EST. Scheduled Medication Order 09/27/2024 09/28/2024 09/29/2024 LORazepam (ATIVAN) tablet 0.5 mg (COMPLETED) 0.5 mg, Oral, Once, On Fri09/29/24 at 2130, For 1 dose 0 (Given - Provid er: Francie Schilling RN) documented in this encounter Additional Health Concerns Assessment Noted Time PHQ-9 Depression Total Score: 15 022 2:49 PM EDT PHQ-2 Depression Total Score: 0 01/27/20 24 9:24 AM EDT documented as of this encounter Care Teams Nursery Nurse Relationship Specialty Start Date End Date Branden Talbert MD [address] [place] [address] [email or web address] PCP - General Internal Medicine 09/21/21 Mora Shirley MD [address] [place] [address] Gynecology 12/18/21 documented as of this encounter Additional Source Comments The information contained in this document represents components of the legal health record. It is not the complete legal health record.[facility]
--- OUTSIDE RECORDS SUMMARY | 2024-10-04 18:29 | XMS_ITS ---
Author Organization [facility] Address [address] [address] Care Team Providers Care Veterans' Counselor Name Role Phone Casper Mora Unavailable [phone] REASON FOR VISIT Annual (YELLOW FORM DONE) Encounters Encounter Location Date Provider Diagnosis [facility] [email or web address] [address] [address] 08/07/2023 Mora Shirley Plan Of Treatment No Information Progress Notes * TIERRA, RENANDREWOB:2000 (24 yo F)Acc No.[id number]:08/07/2023 PROGRESS NOTES Patient:?THERESA MAYORGA Appointment Provider:?Mora green M.D. :2000???Age:23 Y???Sex:Female D ate:08/07/2023 Address:[address] [place], [place] [id number] Subjective: * Chief Complaints: * ???1. Annual (YELLOW FORM DO NE). * Medical History:?Stomach pro blems, Other asthma, Anxiety disorder, unspecified, Amenorrhea, unspecified, Other specified dyspareunia, Calculus of gallbladder without cholecystitis without obstruction. * Wringer Operator History:?/ Para?0/0.?Sexual activity?currently sexually active, with men.?Last Pap Smear:?12/20/21, NIL.?LMP and menses?12/10/21.? Control:?condoms.?Gardasil:?series completed @ [facility].? * OB History:?Total pregnancies?0.? Objective: * Vitals:? Assessment: Plan: * Treatment: * Images: Billing Information: * Visit Code:? * Procedure Codes:? * Electronic signature of Brittney Shirley MD on 10/04/2024 at 06:29 PM EST Sign off status: Pending * Appointment Provider:?Mora Shirley M.D. Date:?08/07/2023 Generated for Emelina rodriguez/Kendrick/Serenaitting on:?10/04/2024 06:29 PM EST
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
--- OUTSIDE RECORDS SUMMARY | 2024-10-04 18:29 | XMS_ITS | Encounter Summary ---
Author Organization [facility] Address [address] [place] [address] Phone Care Team Providers Care Rug Inspector Helper Name Role Phone Jessica Kathleen NP Primary Care Provider [phone] Reason for Visit * Reason Comments Med Refill Encounter Details Date Type Department Care Team (Late st Contact Info) Description 11/14/2020 Refill [facility] [address] [place] [address] Lorraine Sanchez, DO Anxiety Social History Tobacco [...] there wasn't enough money for food? No 08/07/2020 Stable Housing Answer Date Recorded Are you worried that in the next 2 months you may not have stable housing? No 08/07/2020 Transportation Concerns Answer Date Rec orded In the last 12 months, have you or your family ever had to go without healthcare because you didn't have a way to get there? No 08/07/2020 Hazards in Home Answer Date Recorded Think about the place you li ve. Do you have problems with any of the following? Pests (mice or roaches), mold, no/not working smoke detectors, water leaks, no window guards. No 2019 Financing Utilities Answer Date Recorde d In the last 12 months, has t he electric, gas, oil, or water company threatened to shut off your services in your home? No 08/07/2020 Safety at Home Answer Date Recorded Are you or your family worried about feeling saf e in your home? No 08/07/2020 Outside Support Answer Date Recorded Do you feel that you need mo re support from other people or programs to help you care for yourself or your family? No 08/07/2020 Understanding Health Concerns Answer Da te Recorded Do you need help understandi ng your or your child's healthcare needs (diagnosis, medications, plan, etc.)? Yes 08/07/2020 Financing Health Concerns Answer Date R ecorded In the last 12 months, was t here a time when your child needed to see a doctor or get medications or supplies but could not because of cost? No 08/07/2020 Missing School or Work Answer Date Hema rded Did you or your child miss s chool or work because of a health problem that could have been avoided? Yes 08/07/2020 Comments Unknown Sex and Gender Information Value Date Recorded Sex Assigned at Not on file Legal Sex Female 6:22 PM EDT Gender Identity Not on file Sexual Orientation Straight 08/02/2019 3: 11 PM EST documented as of this encounter Miscellaneous Notes * Telephone Encounter - Neelima Avila [place] - 11/14/2020 2:48 PM EDT Last [facility] 08/07/2020 Last med ck 10/11/20 documented in this encounter Plan of Treatment Not on file documented as of this encounter Visit Diagnoses Diagnosis Anxiety Anxiety state, unspecified documented in this encounter Care Teams Rug Inspector Helper Relationship Specialty Start Date End Date Jessica Kathleen NP [address] [place] [address] PCP - General Pediatrics 12/08/20 documented as of this encounter
--- OUTSIDE RECORDS SUMMARY | 2024-10-04 18:29 | XMS_ITS | Clinical Summary ---
Author Organization [facility] Address [phone] [facility] [place] [address] Care Team Providers Care Business Development Executive Name Role Phone Branden Talbert MD Primary Care Provider [phone] Mora Shirley MD Unavailable + [phone] Allergies No known active allergies Medications Medication Sig Dispensed Refills Start Date End Date Status LORazepam (ATIVAN) 0.5 MG tablet Take 1 tablet (0.5 mg total) by mouth every 6 (six) hours as needed for anxiety. 5 tablet 09/29/2024 Active Active Problems Problem Noted Date Diagnosed Date Palpitations 04/23/2023 Assessment & Plan (04/23/2023 11:51 AM EDT): EKG showed sinus arrythmia- otherwise normal No evidence of illness will do some labs today to rule that out as contributing factors She is advised to hydrate well, get daily exercise, avoid too much caffeine. If mental health care is desired- to call her insurer for names of providers In network- and contact them. Discussed challenge with getting mental health providers and ways to help get names for her to call. She has Dec follow up and will call us back if s/s persist/ worsen. She will check portal for labs Routine general medical exam ination at a health care facility 02/01/2022 Assessment & Plan (01/27/2024 10:37 AM EDT): Exam is unremarkable, good height to weight ratio and no pathology seen. I could see the patient back in 1 years time for repeat physical. She will have a lipid profile done after the visit. Assessment & Plan (02/01/2022 11:53 AM EDT): Lab work done in advance showing good thyroid function and no prediabetes or diabetes. Exam remarkable for being mildly overweight, mood is stable, assured the patient that the nodule posterior neck was benign appearing. Advised to multivitamin regarding the hair loss which I agree with the patient is stress related. I like to see her back after she had seen the psychiatrist and we will look at his recommendations and take on the recommendations as a shared decision making with the patient. Elevated glucose 12/31/2021 Assessment & Plan (12/31/2021 9:34 PM EDT): Hemoglobin A1c within normal limits at 5% those results just came in, will convey that to her that she does not need to worry about diabetes even if a blood sugar previously was slightly elevated. Paresthesia 12/18/2021 Assessment & Plan (12/18/2021 3:35 PM EDT): Paresthesia could be related to orthostasis, could be related to the calcium levels associated with hyperventilation, could be endocrine associated with thyroid or B12 deficiency. We will obtain blood counts Chem-7 TSH and B12 level to see if we can figure out why she is having the paresthesias of the perioral region and the feet especially in the morning. If she has this she should check her breathing and use a brown paper bag to breathe into maybe 5 or 10 breaths to see if she can reduce symptoms. Follow-up in 2 weeks and also follow-up on the PQ-9 score. Resolved Problems Problem Noted Date Diagnosed Date Resolved Date Anxiety and depression 12/18/202101/26 Assessment & Plan (08/27/2023 4:40 PM EST): Zoloft 25 mg after 8 weeks is working very well at the low-dose to help with her mild anxiety and depression. Lets maintain at 25 mg and follow-up in 5 months with a physical exam. Patient will do labs in advance. Assessment & Plan (06/02/2023 11:38 AM EDT): Depression and anxiety with particular attention to anxiety. Patient would like to go back on Zoloft. Start 25 mg for 7 days then double up to 50 mg and then will maintain at 50 mg until seen in about 8 weeks. She is encouraged to continue on it and do not set expectations to expect success with it within the first 4 weeks. Discussion about yoga as a pathway to help with anxiety with meditation and exercise. Assessment & Plan (05/07/2022 11:28 AM EDT): Zoloft appears to be working well at current dosing. We can follow-up again on her physical exam in 5 months. At that time she will do some labs in advance. So Zoloft maintain and will follow her at least twice a year unless were making adjustments. Patient in agreement. Assessment & Plan (02/01/2022 11:52 AM EDT): Encouraging the patient to continue with Zoloft 50 mg daily and because of the mood swings despite the Zoloft which seems to be helping her anxiety more than this mood swings, referral to [facility] psychiatry to assess for bipolar disorder. This could just be reactive to the patient's parental, monetary situation. Assessment & Plan (12/31/2021 9:34 PM EDT): This is a 15-minute visit taking 17 minutes in total of [id number] time to evaluate for depression anxiety and diabetes. The depression and anxiety appears to be held in check with the moderate dose of the sertraline so we can maintain at the current dose. We will follow-up with her in January. Assessment & Plan (12/18/2021 3:33 PM EDT): Anxiety and depression managed with Zoloft at 50 mg and that probably is adequate. But she is anxious here in the office and having enough to have morbid thoughts. We will maintain the Zoloft at 50 mg and then follow-up with her closely in a couple of weeks for 15-minute visit. The focus problem could be depression related. We might set her at that point up with a psychiatrist. She should call us up if she is starting to have morbid thoughts. Encounters Date Type Department Care Team Description 09/29/2024 4:31 PM EST - 09/29/2024 9:28 PM EST Emergency [facility] [address] [place] [address] Discharge Disposition: Home or Self Care 08/26/2024 Patient Outreach [facility] [address] [place] [address] Lawanda Cristina, RN Administration ([facility] Discharge ) 08/26/2024 Social Work [facility] [address] [place] [address] Janie Limon, [facility] Program Discharge ([facility] Social Work) 07/13/2024 Patient Outreach [facility] [address] [place] [address] Farzaneh Oleary ([facility] ) from Last 3 Months Immunizations Name Administration Dates Next Due Dtap, 5 Pertussis Antigens 03/10/2003,,1998,07/11,1998 HPV,quadrivalent 09/22/2009,06/06/2009, 9 Hepatitis A, Adult 07/21/2017 Hepatitis A, ped/adol, 2 dose 07/13/2015 Hepatitis B 1998,1998,1998 Hib,PRP-T 06/13/1999, 9,1998,05/09 IPV 03/10/2003, 0,1998,05/09 Influenza Quadrivalent Intranasal 07/13/2014,08/2012 Influenza Quadrivalent Prese rvative Free IM 06/02/2023,08/08/2021,08/07/2020,05/25,05/18/2018,07/21/2017,06/16/2015 Influenza Trivalent Preserva tive Free IM 06/06/2012 Influenza Trivalent w/ Preservative IM 1 ,04/18/2011,04/09/2010,05/17 MMR 03/10/2003,03/12/1999 Meningococcal MCV4P 07/13/2014,04/06/2009 Pneumococcal conjugate, PCV 7 09/12/2006 Tdap 05/03/2019,03/25/2019,04/06/2009 Varicella 04/06/2009,03/12/1999 Family History Medical History Relation Comments ADD / ADHD Brother 1 ADD / ADHD Brother 2 Diabetes Father Alzheimer's disease Maternal Grandfather Melanoma Maternal Grandfather Ovarian cancer Maternal Grandmother Relation Status Comments Brother 1 Alive Brother 2 Alive Father Alive Maternal Grandfather Maternal Grandmother Mother Alive Son Alive born in 2019 vag inally Social History Tobacco Use Types Packs/Day Years [...] high school, GED, job training, learning the [place] language, technical skills, or developing parenting skills)? [...] have you moved in the past 12 fri? One time 01/27/2024 Paying for Meds Answer [...] Orientation Straight 02/01/2022 11 :03 AM EDT Last Filed Vital Signs Vital Sign Reading [...] Mass Index 27.44 09/29/2024 4:07 PM EST Plan of Treatment Upcoming Encounters Date Type Department Care Team (Late st Contact Info) Description 01/28/2025 9:00 AM EDT Appointment [facility] [address] [place] [address] Branden Talbert MD [address] [place] [address] [email or web address] Health Maintenance Due Date Last Done Comments HEPATITIS B SCREENING 2016 INFLUENZA VACCINE (#1) 2024 , 08/08/2021, 08/07/2020, Additional history exists COVID-19 VACCINE ( season) 2024 12/29/2021, 10/24/2021 PAP SMEAR 12/20/2024 12/20/2021 DEPRESSION SCREENING 01/26/2025 01/27/2024, 12/19/19 22 SMOKING Hx and SMOKELESS TOBACCO SCREENING 01/26/2025 01/27/2024 Adult Td,Tdap Booster 05/03/2029 05/03/2019 , 03/25/2019, 04/06/2009 HEPATITIS B VACCINES Completed 1998, 1998, 1998 HIB VACCINES Completed 06/13/1999, 08/25, 1998, Additional history exists PNEUMOCOCCAL VACCINES (0-49 years) Aged Out 09/12/2006 No longer eligible based on patient's age to complete this topic HPV VACCINES Completed 09/22/2009, 05/25, 04/06/2009 MENINGOCOCCAL VACCINES (ACWY) Completed 07/13/2014, 04/06/2009 HEPATITIS A VACCINES Completed 07/21/2017, 07/13/20 15 HIV ONE-TIME SCREENING (18-65 YEARS) Completed 12/31/2018 HEPATITIS C SCREENING Completed 12/18/2021 Medical Devices Not on file Procedures Procedure Name Priority Date/Time Associated Diagnosis Comments ECG 12-LEAD STAT 09/29/2024 7:44 PM EST TROPONIN STAT 09/29/2024 7:26 PM EST XR CHEST PA AND LATERAL 2 VIEWS Routine 09/29/2024 7:21 PM EST MAGNESIUM Routine 09/29/2024 5:47 PM EST BASIC METABOLIC PANEL STAT 09/29/2024 5:47 PM EST CBC AND DIFFERENTIAL STAT 09/29/2024 4:48 PM EST HM PAP SMEAR FOR RESULT ENTRY ONLY Routine 12/20/2021 HEPATITIS C ANTIBODY, QUALITATIVE Routine 12/18/2021 3:32 PM EDT Need for hepatitis C screening test OUTSIDE HIV Routine 12/31/2018 from Last 3 Months or Most Recently Relevant to Health Maintenance Results * ECG 12-LEAD (09/29/2024 7:44 PM EST) Ventricular Rate EKG/MIN 87 BPM [facility] Atrial Rate 87 BPM [facility] VT Interval 120 ms [facility] QRS Duration 84 ms [facility] QT Interval 358 ms [facility] QTC Interval 430 ms [facility] P [place] 47 degrees [facility] R Wave [place] 65 degrees [facility] T Wave [place] 32 degrees [facility] 09/29/2024 7:44 PM EST 09/30/2024 8:15 AM EST Narrative [facility] - 09/30/2024 8:15 AM EST Normal sinus rhythm with sinus arrhythmia Normal ECG No previous ECGs available Confirmed by Alfredo Anderson ([id number]) on 09/30/2024 8:15:14 AM Su ALVES-Messi ECG ORDERABL ES Performing Organization Address City/[facility]/ZIP Co de Phone Number [facility] * Troponin (09/29/2024 7:26 PM EST) Troponin-T, HS Gen5 <6 0 - 9 ng/L [facility] Blood 09/29/2024 7:26 PM EST 09/29/2024 7:29 PM EST Su ALVES-C LAB BLOOD OR DERABLES [facility] [address] [place] [address] * XR CHEST PA AND LATERAL 2 VIEWS (09/29/2024 7:21 PM EST) Anatomical Region Laterality Modality Chest Computed Radiogr aphy 09/29/2024 8:15 PM EST Impressions 09/29/2024 8:35 PM EST No acute abnormality. ATTESTATION: Reji Fernandez as teaching physician, have reviewed the images for this case and if necessary edited the report originally created by Mohsen Gonzales MD. Narrative 09/29/2024 8:35 PM EST XR CHEST PA AND LATERAL 2 VIEWS Referring clinician's provided indication for this examination in Epic: Dyspnea (Shortness of Breath) COMPARISON: None. FINDINGS: [...] significant abnormality. IMPRESSION: No acute abnormality. ATTESTATION: Reji Fernandez as teaching physician, have reviewed theimages for this case and if necessary edited the report originally createdby Mohsen Gonzales MD. Su Duran PA-C IMG XR CHEST * Magnesium (09/29/2024 5:47 PM EST) MAGNESIUM 2.0 1.6 - 2.6 mg/dL [facility] 09/29/2024 5:47 PM EST 09/29/2024 6:07 PM EST Reji Moss PA-C LAB BLOOD ORDERABLES [address] [address] * Basic metabolic panel (09/29/2024 5:47 PM EST) SODIUM 141 133 - 146 mmol/L [facility] CHLORIDE 103 96 - 108 mmol/L [facility] POTASSIUM 3.6 3.3 - 5.1 mmol/L [facility] CO2 24 21 - 35 mmol/L [facility] BUN 7 6 - 19 mg/dL [facility] CREATININE 0.60 0.5 - 1.5 mg/dL [facility] GLUCOSE 88 70 - 99 mg/dL [facility] CALCIUM 9.3 8.4 - 10.3 mg/dL [facility] EGFR >120 >59 mL/min/1.7 3m2 [facility] Comment:Estimated glomerular filtration rate calculated using the CKD-EPI refit equation. ANION GAP 18 10 - 20 mmol/L [facility] Blood 09/29/2024 5:47 PM EST 09/29/2024 6:07 PM EST Reji Moss PA-C LAB BLOOD ORDERABLES [address] [address] * (ABNORMAL) CBC and differential (09/29/2024 4:48 PM EST) WBC 11.78(H) 4.00 - 11.00 K/uL [facility] RBC 4.79 4.00 - 5.20 M/uL [facility] HGB 14.3 12.0 - 16.0 g/dL [facility] HCT 42.2 36.0 - 46.0 % [facility] PLT 346 150 - 450 K/uL [facility] MCV 88.1 80.0 - 100.0 fL [facility] MCH 29.9 27.0 - 31.0 pg [facility] MCHC 33.9 32.0 - 36.0 g/dL [facility] RDW 13.1 11.5 - 14.5 % [facility] MPV 9.5 8.4 - 12.0 fL [facility] NRBC 0.00 0.00 /100 WBCs [facility] ABSOLUTE NRBC 0.00 0.00 K/uL [facility] DIFF METHOD Auto [facility] NEUTS 80.7(H) 48.0 - 76.0 % [facility] LYMPHS 13.7(L) 18.0 - 41.0 % [facility] MONOS 4.9 4.0 - 11.0 % [facility] EOS 0.1 0.0 - 5.0 % [facility] BASOS 0.3 0.0 - 1.5 % [facility] Granulocytes, immature (%) 0.3 0.0 - 0.9 % [facility] ABSOLUTE NEUTS 9.51(H) 1.92 - 7.60 K/uL [facility] ABSOLUTE LYMPHS 1.61 0.72 - 4.10 K/uL [facility] ABSOLUTE MONOS 0.58 0.16 - 1.10 K/uL [facility] ABSOLUTE EOS 0.01 0.00 - 0.50 K/uL [facility] ABSOLUTE BASOS 0.03 0.00 - 0.15 K/uL [facility] Granulocytes, immature 0.04 0.00 - 0.09 K/uL [facility] Blood 09/29/2024 4:48 PM EST 09/29/2024 4:59 PM EST Reginald Mcdonough MD LAB BLOOD ORDERABLES Performing Organization Address City/State/[facility] Co de Phone Number [address] [address] * PAP SMEAR FOR RESULT ENTRY ONLY (12/20/2021) HM Pap smear NILM Historical Provider MD BRUNA CONNOLLY E * Hepatitis C antibody, qualitative (12/18/2021 3:32 PM EDT) HCV NON-REACTIV E NON-REACTI VE [facility] Blood 12/18/2021 3:32 PM EDT 12/18/2021 3:34 PM EDT Branden Talbert MD LAB BLOOD ORDERABLES [facility] [address] [place], [place] [id number] * OUTSIDE HIV TEST (12/31/2018) HIV - External Neg Historical Provider LAB BLOOD ORDERAB LES from Last 3 Months or Most Recently Relevant to Health Maintenance Care Teams Business Development Executive Relationship Specialty Start Date End Date Branden Talbert MD [address] [place] [address] [email or web address] PCP - General Internal Medicine 09/21/21 Mora Shirley MD [address] [address] Gynecology 12/18/21 Additional Source Comments The information contained in this document represents components of the legal health record. It is not the complete legal health record.[facility]
--- OUTSIDE RECORDS SUMMARY | 2024-10-04 18:29 | XMS_ITS | Encounter Summary ---
Author Organization [facility] Address [address] [place] [address] Phone Care Team Providers Care Road Inspector Name Role Phone Jessica Kathleen NP Primary Care Provider [phone] Reason for Visit * Reason Comments Med Refill Encounter Details Date Type Department Care Team (Late st Contact Info) Description 10/28/2020 Refill [facility] [address] [facility] [place] [address] Lorraine Sanchez, DO Anxiety Social History Tobacco [...] unspecified documented in this encounter Care Teams Road Inspector Relationship Specialty Start Date End Date Jessica Kathleen NP [facility] [facility] [place] [address] PCP - General Pediatrics 12/08/20 documented as of this encounter
[2024-10-04 18:45] LABS: Alanine Aminotransferase 24 U/L (0-31); Albumin Level 4.4 g/dL (3.5-5.0); Alkaline Phosphatase 59 U/L (39-117); Anion Gap 14 (12-20); Aspartate Amino Transferase 24 U/L (5-31); Bilirubin Total 0.3 mg/dL (0.0-1.0); Blood Urea Nitrogen 4 mg/dL (9-16); Calcium 9.2 mg/dL (8.4-10.2); Carbon Dioxide 22 mmol/L (22-29); Chloride 109 mmol/L (96-108); Creatinine Clr Calc Pharmacy 120.2; Estimated Glomerular Filt Rate > 60; Glucose Random 82 mg/dL (60-115); Lipase 15 U/L (8-78); Magnesium 2.1 mg/dL (1.6-2.6); Potassium 3.9 mmol/L (3.3-5.1); Sodium 141 mmol/L (135-145); Total Protein 8.1 g/dL (6.5-8.0)
[2024-10-04 18:47] LABS: HCG Quantitative < 2 mIU/mL; Troponin-I High Sensitivity < 2.7 ng/L (<3.5-17.0)
[2024-10-04 19:00] LABS: Influenza A PCR NEGATIVE (Negative)
[2024-10-04 19:01] LABS: Influenza B PCR NEGATIVE (Negative); Resp Syncy Virus RNA Qual PCR NEGATIVE (Negative); SARS COV2 PCR INHOUSE NEGATIVE (Negative)
[2024-10-04] MEDS: 0.9 % Sodium Chloride 1,000 ML 999 ML IV (20:30)
[2024-10-04] MEDS: Morphine Sulfate 4 MG/ML CARTRIDGE IVPUSH (20:30)
[2024-10-04] MEDS: ondansetron HCL 4 MG/2 ML VIAL IVPUSH (20:30)
[2024-10-04 21:34] VITALS: BP 133/77; PULSE 76; RESP 20; TEMP 36.8; O2SAT 98
[2024-10-04 22:33] VITALS: BP 133/77; PULSE 76; RESP 20; TEMP 36.8; O2SAT 98
== END 2024-10-04 22:34 | disposition home or self-care (01) ==
PROVIDERS: Physician Assistant; Emergency Provider Emergency Medicine; PCP Internal Medicine
DX: R10.11 Right upper quadrant pain (principal); K59.00 Constipation, unspecified; F41.9 Anxiety disorder, unspecified; R10.13 Epigastric pain; Z03.818 Encounter for observation for suspected exposure to other biological agents ruled out
CPT/HCPCS: 0241U; 36415; 74018; 76705; 80053; 83690; 83735; 84484; 84702; 85025; 85610; 93005; 96361; 96374; 96375; 99284; J2270; J2405

== ENCOUNTER → 2024-10-04 11:27 | Outpatient (BNV) | payer MEDICAID, SELFPAY | PROVIDERS: Emergency Provider Emergency Medicine; PCP Internal Medicine; Visit Provider Internal Medicine Cardiovascular Disease | DX: R10.9 Unspecified abdominal pain (principal) | CPT/HCPCS: 93010 ==

== ENCOUNTER → 2024-10-04 19:11 | Outpatient (BNV) | payer MEDICAID, SELFPAY | PROVIDERS: Emergency Provider Emergency Medicine; PCP Internal Medicine; Visit Provider Specialist | DX: R10.9 Unspecified abdominal pain (principal) | CPT/HCPCS: 74018; 76705 ==

== ENCOUNTER 2024-10-06 13:01 | Emergency (ER) | payer MEDICAID, SELFPAY ==
--- NOTE | 2024-10-06 13:14 | ED.GENADULT ---
HPI - General Adult General Chief complaint: General Medical Stated complaint: weakness, dizziness, NVD, norovirus Time Seen by Provider: 10/06/24 13:13 Source: patient, EMS, RN notes reviewed and old records reviewed Mode of arrival: EMS Limitations: no limitations History of Present Illness ED Provider: Piero CHUNG narrative: Patient is a 24-year-old female with reported history of anxiety presenting to the emergency department with complaint of nausea, vomiting and diarrhea since the beginning of September. Denies fevers, abdominal pain. Emesis has been nonbloody, nonbilious. Approximately 3 loose stools per day, at times exacerbated by specific foods. Denies dysuria, frequency, hematuria or other urinary symptoms. Complains of feeling lightheaded at work. Also reporting that she has been having nightmares, specifically of angels/demons, as well as increased anxiety and self described dissociation. Denies suicidal or homicidal ideation. Has used over the counter Gas-x as well as UTI medication, with some relief. Agreeable to speaking with CARE team. Admits to cannabis use, denies any other drug or alcohol use. MD complaint: nausea, vomiting, diarrhea, visual hallucinations Onset (ago): week(s) Related Data Previous Rx's ?Medication ?Instructions ?Recorded amoxicillin 500 mg-potassium 1 tab PO BID #14 tabs 09/12/21 clavulanate 125 mg tablet (Augmentin) oxycodone-acetaminophen 5 mg-325 1 tab PO Q6H PRN pain (scale score 09/13/21 mg tablet (Endocet) 7-10) #15 tabs ondansetron HCl 4 mg tablet 4 mg PO Q8H PRN nausea and 10/04/24 vomiting #10 tabs sucralfate 1 gram tablet (Carafate) 1 g PO Q6H PRN abdominal 10/04/24 discomfort #20 tabs Allergies Allergy/AdvReac Type Severity Reaction Status Date / Time No Known Allergies Allergy Verified 10/06/24 13:24 Review of Systems Review of Systems: As per HPI Yes all other systems are reviewed and are negative Constitutional: Constitutional: Reports as per HPI [facility] Past Medical History Medical History Anxiety Depression Lactose intolerance Vaginal delivery Surgical History History of laparoscopic appendectomy (09/08/21) No pertinent past surgical history Family History Family History Maternal Grandmother Ovarian cancer Maternal Uncle Throat cancer Family/Other Skin cancer Social History Social History Household Members: Significant Other, Family and Children Housing: House Patient Tobacco Use Status: Former Tobacco user Smoked in Last 30 Days: No e-Cigarette/Vaping Use: Currently Using Use of substances other than those prescribed or required for medical reasons: Yes Substance Use Type: Marijuana Substance Use Frequency: Occasionally Advance Directives: Yes Advance Directives on File: Yes Advance Directives Date on File: 09/08/21 Do you have a plan to hurt others: No Plan Patient : No service: No Current occupational status: unemployed Physical Exam ED Vital Signs: Vital Signs - 24 hr 10/06/24 13:19 10/06/24 13:24 Temperature 98.2 F 98.2 F Pulse Rate 65 65 Respiratory Rate 16 16 Blood Pressure 136/92 H 136/92 H Pulse Oximetry 99 99 Oxygen Delivery Method Room Air Room Air BMI result Body Mass Index 28.1 Vital signs have been reviewed and appear to be correct. Blood pressure normal. Heart rate normal. Respiratory rate normal. Temperature normal. Oxygen saturation normal. Const General: cooperative, healthy appearing and no acute distress Orientation/consciousness: oriented to person, oriented to place, oriented to time and patient oriented x3 Limitations: no limitations [facility] Head: Yes normocephalic and Yes atraumatic Ears: external ears normal General nose exam: Normal external nose present Face and sinus: Yes face symmetric Mouth: oropharynx normal and moist mucous membranes Throat: Yes uvula midline Eyes Pupils: Equal, round and reactive pupils present Neck Neck: Yes normal visual inspection and Yes supple Resp Effort & Inspection: normal respiratory effort and able to speak in complete sentences Auscultation: clear to auscultation bilaterally Cardio Rate: regular rate Rhythm: regular rhythm Heart sounds: S1 normal heart sound present and S2 normal heart sound present GI Palpation (GI): Soft to palpation and nontender Auscultation: normoactive bowel sounds General: Yes no CVA tenderness Back/Spine/Pelvis Back: no CVA tenderness Skin General skin exam: elasticity normal and turgor normal Neuro General: oriented to person, oriented to place, oriented to time, patient oriented x3, moves all extremities, no focal motor deficits and CN's II-XI intact bilaterally Cranial nerves: Yes Equal, round and reactive pupils present Cognition (Neuro): normal cognition Extrem General: Yes full ROM, Yes no pedal edema and Yes no calf tenderness Psych Appearance: grossly normal Mental Status: mental status grossly normal Speech and movement: Pressured speech present Affect: normal affect Attitude: cooperative Thought process: Normal thought process present Thought content: suicidality, no homicidality and Hallucination(s) present visual Medications Administered Discontinued Medications Generic Name Dose Route Start Last Admin Trade Name Freq PRN Reason Stop Dose Admin Sodium Chloride 1,000 mls @ 999 mls/hr 10/06/24 13:15 10/06/24 13:48 Ns IV 10/06/24 14:15 999 mls/hr .Q1H1M ETHAN Administration Medical Decision Making Medical Decision Making [facility] Narrative: Patient is a 24-year-old female with reported history of anxiety presenting to the emergency department with complaint of nausea, vomiting and diarrhea since the beginning of September. On exam patient is awake, A+Ox3, VS WNL, afebrile, normal neurological exam without focal deficits, physical exam findings as above. Given reported symptoms and physical exam findings, initial differential includes but is not limited to viral illness, covid, flu, gastroenteritis, electrolyte abnormality, dehydration, orthostatic intolerance, visual hallucinations, anxiety. Plan for medical clearance then CARE team eval. Labs notable for mild leukocytosis, no significant electrolyte abnormalities, normal transaminases, no evidence of BEBO. Viral serology negative. UA without evidence of infection. Will medically clear patient at this time for CARE team evaluation and place on physician observation. Differential Diagnosis Differential Diagnoses: The differential diagnosis associated with the presentation includes As per [facility] Admission/Observation Consideration of admission/observation: Escalation of care including admission/observation considered Consult Healthcare Provider Management of the patient was discussed with: Behavioral Health Provider Lab Data [facility] Lab Attestation statement: I reviewed the patient's lab results. As per [facility] 10/06/24 13:57 10/06/24 13:57 Labs: Lab Results 10/06/24 Range/Units 13:57 WBC 12.9 H (4.8-10.8) X10*3/uL RBC 4.27 (4.20-5.50) X10*6/uL Hgb 13.2 (12.0-16.0) g/dl Hct 38.0 (37.0-47.0) % MCV 89.0 (80.0-98.0) fL MCH 30.9 (27.0-33.0) pg MCHC 34.7 (31.0-35.0) g/dl RDW 13.1 (11.0-16.0) % Plt Count 378 (160-400) X10*3/uL MPV 9.5 (9.4-12.3) fL Immature Gran % (Auto) 0.3 (0.0-0.4) % Neut % (Auto) 80.4 H (45-73) % Lymph % (Auto) 14.0 L (20-40) % [place] % (Auto) 4.8 (2-11) % Eos % (Auto) 0.2 (0-4) % Baso % (Auto) 0.3 (0-2) % Lymph # (Auto) 1.8 (1.2-4.9) X10*3/uL [place] # (Auto) 0.6 (0.1-1.2) X10*3/uL Eos # (Auto) 0.0 (0.0-0.4) X10*3/uL Baso # (Auto) 0.0 (0.0-0.2) X10*3/uL Abs Immat Gran (auto) 0.04 H (0.00-0.03) X10*3/uL Absolute Neuts (auto) 10.4 H (2.0-8.3) x10*3/uL Absolute Nucleated RBC 0.000 (0.0-0.012) X10*3/uL Nucleated RBC % (auto) 0.0 (0.0-0.2) /100WBC Sodium 139 (135-145) mmol/L Potassium 3.8 (3.3-5.1) mmol/L Chloride 110 H (96-108) mmol/L Carbon Dioxide 23 (22-29) mmol/L Anion Gap 10 L (12-20) BUN 7 L (9-16) mg/dL Creatinine 0.72 (0.5-1.4) mg/dL Estim Creat Clear Calc 108.4 Estimated GFR > 60 Random Glucose 83 (60-115) mg/dL Calcium 8.9 (8.4-10.2) mg/dL Magnesium 2.0 (1.6-2.6) mg/dL Total Bilirubin 0.3 (0.0-1.0) mg/dL AST 24 (5-31) U/L ALT 20 (0-31) U/L Alkaline Phosphatase 54 (39-117) U/L Total Protein 7.5 (6.5-8.0) g/dL Albumin 4.1 (3.5-5.0) g/dL Urine Color Yellow Urine Appearance Clear Urine pH 7.0 (5.0-9.0) Ur Specific [place] <= 1.005 (1.005-1.025) Urine Protein Negative (Neg-Trace) mg/dL Urine Glucose (UA) Negative (Negative) mg/dL Urine Ketones Trace (Negative) mg/dL Urine Blood Negative (Negative) Urine Nitrite Negative (Negative) Ur Leukocyte Esterase Negative (Negative) Urine Opiates Screen Not Detected (Not Detect) Ur Buprenorphine Scrn Not Detected (Not Detect) ng/mL Ur Oxycodone Screen Not Detected (Not Detect) ng/mL Urine Methadone Screen Not Detected (Not Detect) ng/mL Urine Fentanyl Screen Not Detected (Not Detect) Ur Barbiturates Screen Not Detected (Not Detect) Ur Phencyclidine Scrn Not Detected (Not Detect) Ur Amphetamines Screen Not Detected (Not Detect) U Benzodiazepines Scrn Not Detected (Not Detect) Urine Cocaine Screen Not Detected (Not Detect) U Marijuana (THC) Screen POSITIVE H (Not Detect) Ethyl Alcohol < 10 mg/dL Influenza Type A (PCR) NEGATIVE (Negative) Influenza Type B (PCR) NEGATIVE (Negative) RSV RNA Qual (PCR) NEGATIVE (Negative) SARS-CoV-2 RNA (RT-PCR) NEGATIVE (Negative) External Record Review External record reviewed: Inpatient record, Office record and Outpatient record Discharge Plan Discharge Clinical Impression: Nausea, vomiting, and diarrhea, Hallucination, visual Patient Disposition: Still a Patient Prescriptions: No Action amoxicillin-pot clavulanate [Augmentin] 500-125 mg tablet 1 tab PO BID Qty: 14 0RF oxycodone-acetaminophen [Endocet] 5-325 mg tablet 1 tab PO Q6H PRN (Reason: pain (scale score 7-10)) Qty: 15 0RF sucralfate [Carafate] 1 gram tablet 1 g PO Q6H PRN (Reason: abdominal discomfort) Qty: 20 0RF ondansetron HCl 4 mg tablet 4 mg PO Q8H PRN (Reason: nausea and vomiting) Qty: 10 0RF Print Language: Portuguese
[2024-10-06 13:19] VITALS: BP 136/92; BP 145/94; PULSE 65; PULSE 72; RESP 16; TEMP 36.8; O2SAT 99; BMI 28.1
[2024-10-06 13:24] VITALS: BP 136/92; PULSE 65; RESP 16; TEMP 36.8; O2SAT 99
[2024-10-06] MEDS: 0.9 % Sodium Chloride 1,000 ML 999 ML IV (13:48)
[2024-10-06 14:08] LABS: MANUAL DIFF FLAG NO
[2024-10-06 14:11] LABS: Appearance Urine Clear; Color Urine Yellow; Glucose Urine UA Negative (Negative); Leukocyte Esterase Urine Negative (Negative); Nitrite Urine Negative (Negative); Specific Gravity - Urine <= 1.005 (1.005-1.025); Urine Blood Negative (Negative); Urine Ketones Trace mg/dL (Negative); Urine Protein Negative (Neg-Trace)
[2024-10-06 14:19] LABS: Basophils Percent Auto 0.3 % (0-2); Eosinophils Percent Auto 0.2 % (0-4); Hemoglobin 13.2 g/dl (12.0-16.0); Imm Gran Abs Auto 0.04 X10*3/uL (0.00-0.03); Imm Gran Pct Auto 0.3 % (0.0-0.4); Lymphocytes Absolute Auto 1.8 X10*3/uL (1.2-4.9); Mean Corpuscular HGB Conc 34.7 g/dl (31.0-35.0); Mean Corpuscular Hemoglobin 30.9 pg (27.0-33.0); Mean Platelet Volume 9.5 fL (9.4-12.3); Monocytes Absolute Auto 0.6 X10*3/uL (0.1-1.2); Monocytes Percent Auto 4.8 % (2-11); Neutrophils Absolute Auto 10.4 x10*3/uL (2.0-8.3); Neutrophils Percent Auto 80.4 % (45-73); Platelet Count 378 X10*3/uL (160-400); Red Blood Count 4.27 X10*6/uL (4.20-5.50); Red Cell Distribution Width 13.1 % (11.0-16.0); White Blood Count 12.9 X10*3/uL (4.8-10.8)
[2024-10-06 14:24] LABS: Amphetamine Screen Urine Not Detected (Not Detect); Barbiturates, Urine Not Detected (Not Detect); Benzodiazepines Screen Urine Not Detected (Not Detect); Buprenorphine Scr Not Detected (Not Detect); Cannabinoid Screen Urine POSITIVE (Not Detect); Cocaine Screen Urine Not Detected (Not Detect); Fentanyl, urine Not Detected (Not Detect); Methadone Screen, Urine Not Detected (Not Detect); Opiate Screen Urine Not Detected (Not Detect); Oxycodone Screen Urine Not Detected (Not Detect); Phencyclidine Screen Urine Not Detected (Not Detect)
[2024-10-06 14:26] LABS: Alanine Aminotransferase 20 U/L (0-31); Albumin Level 4.1 g/dL (3.5-5.0); Alkaline Phosphatase 54 U/L (39-117); Anion Gap 10 (12-20); Aspartate Amino Transferase 24 U/L (5-31); Bilirubin Total 0.3 mg/dL (0.0-1.0); Blood Urea Nitrogen 7 mg/dL (9-16); Calcium 8.9 mg/dL (8.4-10.2); Carbon Dioxide 23 mmol/L (22-29); Chloride 110 mmol/L (96-108); Creatinine Clr Calc Pharmacy 108.4; Estimated Glomerular Filt Rate > 60; Glucose Random 83 mg/dL (60-115); Potassium 3.8 mmol/L (3.3-5.1); Sodium 139 mmol/L (135-145); Total Protein 7.5 g/dL (6.5-8.0)
[2024-10-06 14:51] LABS: Influenza A PCR NEGATIVE (Negative); Influenza B PCR NEGATIVE (Negative); Resp Syncy Virus RNA Qual PCR NEGATIVE (Negative); SARS COV2 PCR INHOUSE NEGATIVE (Negative)
--- OUTSIDE RECORDS SUMMARY | 2024-10-06 15:00 | XMS_ITS | Encounter Summary ---
Author Organization [facility] Address [address] [place] [address] Phone Care Team Providers Care Associate Drafter Name Role Phone Jessica Kathleen NP Primary Care Provider [phone] Encounter Details Date Type Department Care Team (Late st Contact Info) Description 04/17/2011 Conversion Encounter [facility] [address] [place] [address] Social History Tobacco Use Types Packs/Day Years [...] on filedocumented in this encounter Care Teams Associate Drafter Relationship Specialty Start Date End Date Jessica Kathleen NP [address] [place] [place] [address] PCP - General Pediatrics 12/08/20 documented as of this encounter
--- OUTSIDE RECORDS SUMMARY | 2024-10-06 15:00 | XMS_ITS ---
Author Organization [facility] Address [address] [address] Care Team Providers Care Digital X Ray Service Engineer Name Role Phone Mora Shriley Unavailable [phone] REASON FOR VISIT left ovary pain x 1mo Encounters Encounter Location Date Provider Diagnosis [facility] [address] 05/08/2023 Mora Shirley Plan Of Treatment No Information Progress Notes * PREET MAYORGAANDREWOB:2000 (24 yo F)Acc No.[id number]:05/08/2023 PROGRESS NOTES Patient:?THERESA MAYORGA Appointment Provider:?Mora green M.D. :2000???Age:23 Y???Sex:Female D ate:05/08/2023 Address:[address] [place], [place] [id number] Subjective: * Chief Complaints: * ???1. Left ovary pain x 1mo. * Medical History:? Objective: * Vitals:? Assessment: Plan: * Treatment: * Images: Billing Information: * Visit Code:? * Procedure Codes:? * Electronic signature of Brittney Shirley MD on 10/06/2024 at 03:00 PM EST Sign off status: Pending * Appointment Provider:?Mora Shirley M.D. Date:?05/08/2023 Generated for Printi ng/Fafátimag/eTransmitting on:?10/06/2024 03:00 PM EST
--- OUTSIDE RECORDS SUMMARY | 2024-10-06 15:00 | XMS_ITS ---
Author Organization [facility] Address [address] [address] Care Team Providers Care Business Risk Consultant Name Role Phone Casper Mora Unavailable [phone] REASON FOR VISIT YELLOW FORM DONE) Encounters Encounter Location Date Provider Diagnosis [facility] [email or web address] [address] [address] 12/11/2023 Mora Shirley Plan Of Treatment No Information Progress Notes * CARINA MAYORGAOB:2000 (24 yo F)Acc No.[id number]:12/11/2023 PROGRESS NOTES Patient:?THERESA MAYORGA Appointment Provider:?Mora green M.D. :2000???Age:23 Y???Sex:Female D ate:12/11/2023 Address:[address] [place] [address], [facility] Subjective: * Chief Complaints: * ???1. YELLOW FORM DONE). * Medical History:?Stomach pro blems, Other asthma, Anxiety disorder, unspecified, Amenorrhea, unspecified, Other specified dyspareunia, Calculus of gallbladder without cholecystitis without obstruction. * Residential Energy Auditor History:?/ Para?0/0.?Sexual activity?currently sexually active, with men.?Last [...] Shirley M.D. Date:?12/11/2023 Generated for Emelina rodriguez/Kendrick/Renitasmitting on:?10/06/2024 03:00 PM EST
--- OUTSIDE RECORDS SUMMARY | 2024-10-06 15:00 | XMS_ITS | Encounter Summary ---
Author Organization [facility] Address [address] [place] [address] Phone Care Team Providers Care Front Window Cashier Name Role Phone FloJessica arias KING Primary Care Provider [phone] Reason for Visit * Reason Comments Med Refill Encounter Details Date Type Department Care Team (Late st Contact Info) Description 05/03/2020 Refill [facility] [address] [place] [address] Lorraine Sanchez, DO Anxiety Social History Tobacco [...] unspecified documented in this encounter Care Teams Front Window Cashier Relationship Specialty Start Date End Date Jessica Kathleen NP [facility] [place] [address] PCP - General Pediatrics 12/08/20 documented as of this encounter
--- OUTSIDE RECORDS SUMMARY | 2024-10-06 15:00 | XMS_ITS | Encounter Summary ---
Author Organization [facility] Address [address] [place] [address] Phone Care Team Providers Care Blood Bank Manager Name Role Phone FloJessica arias KING Primary Care Provider [phone] Reason for Visit * Reason Comments Med Refill Encounter Details Date Type Department Care Team (Late st Contact Info) Description 12/25/2019 Refill [facility] [address] [place] [address] Lorraine Sanchez, DO Anxiety Social History Tobacco [...] unspecified documented in this encounter Care Teams Blood Bank Manager Relationship Specialty Start Date End Date Jessica Kathleen NP [address] [place] [address] PCP - General Pediatrics 12/08/20 documented as of this encounter
--- OUTSIDE RECORDS SUMMARY | 2024-10-06 15:00 | XMS_ITS | Clinical Summary ---
Author Organization [facility] Address [phone] [facility] [place] [address] Care Team Providers Care Machine Lay Out Worker Name Role Phone Branden Talbert MD Primary Care Provider [phone] Mora Shirley MD Unavailable [phone] Allergies No known active allergies Medications Medication [...] more than this mood swings, referral to [facility] psychiatry to assess for bipolar disorder. This could just be reactive to the patient's parental, monetary situation. Assessment & Plan (12/31/2021 9:34 PM EDT): This is a 15-minute visit taking 17 minutes in total of mrar-eo-odsa time to evaluate for depression anxiety and [...] Encounters Date Type Department Care Team Description 10/06/2024 Orders Only [facility] Internal Medicine [address] [place] [address] Provider, MD Quentin 09/29/2024 4:31 PM EST - 09/29/2024 9:28 PM EST Emergency [facility] [address] [place] [address] Discharge Disposition: Home or Self Care 08/26/2024 Patient Outreach [facility]GR[facility] C[facility] MANAGEMENT [address] [place] [address] Lawanda Cristina, RN Administration ([facility] Discharge ) 08/26/2024 Social Work [facility]NAGEMENT [address] [place] [address] Janie Limon, [facility] Program Discharge ([facility] Social Work) 07/13/2024 Patient Outreach [facility] INTEGRATED CARE MANAGEMENT [address] [place] [address] Farzaneh Oleary Housing ([facility] ) from Last 3 Months Immunizations [...] high school, GED, job training, learning the Lebanese language, technical skills, or developing parenting skills)? [...] have you moved in the past 12 mon ths? One time 01/27/2024 Paying for Meds [...] Care Team (Late st Contact Info) Description 10/18/2024 4:15 PM EST Appointment [facility] Internal Medicine [address] [place] [address] Branden Talbert MD [address] [place] [address] 01/28/2025 9:00 AM EDT Appointment [facility] [address] [facility] [place] [address] Branden Talbert MD [address] [place] [address] [email or web address] Health Maintenance Due Date Last Done Comments [...] Procedure Name Priority Date/Time Associated Diagnosis Comments OUTSIDE US ABDOMEN REPORT ONLY Routine 10/04/2024 12:30 PM EST OUTSIDE US ABDOMEN REPORT ONLY Routine 10/04/2024 11:24 AM EST ECG 12-LEAD STAT 09/29/2024 7:44 PM EST [...] Recently Relevant to Health Maintenance Results * Outside US Abdomen Report Only (10/04/2024 12:30 PM EST) Historical Provider MD MAI US ABDOMEN * Outside US Abdomen Report Only (10/04/2024 11:24 AM EST) Historical Provider MD MAI US ABDOMEN * ECG 12-LEAD (09/29/2024 7:44 PM EST) Ventricular Rate EKG/MIN 87 BPM [facility] Atrial Rate 87 BPM [facility] ME Interval 120 ms [facility] QRS Duration 84 ms [facility] QT Interval 358 ms [facility] QTC Interval 430 ms [facility] P [place] 47 degrees [facility] R Wave [place] 65 degrees [facility] T Wave [place] 32 degrees [facility] 09/29/2024 7:44 PM EST 09/30/2024 8:15 AM EST Narrative [facility] - 09/30/2024 8:15 AM EST Normal sinus rhythm with sinus arrhythmia Normal ECG No previous ECGs available Confirmed by Alfredo Anderson ([id number]) on 09/30/2024 8:15:14 AM Su Duran PA-C ECG ORDERABL ES [facility] * Troponin (09/29/2024 7:26 PM EST) Troponin-T, HS Gen5 <6 0 - 9 ng/L [facility] Blood 09/29/2024 7:26 PM EST 09/29/2024 7:29 PM EST Su Duran PA-C LAB BLOOD OR DERABLES Performing Organization Address City/Special Care Hospital/ZIP Co de Phone Number [address] [address] * XR CHEST PA AND LATERAL 2 VIEWS (09/29/2024 7:21 PM EST) Anatomical Region Laterality Modality Chest Computed Radiogr aphy 09/29/2024 8:15 PM EST Impressions 09/29/2024 8:35 PM EST No acute abnormality. ATTESTATION: I, Rjei Santos as teaching physician, have reviewed the images for this case and if necessary edited the report originally created by Mohsen Gonzales MD. Narrative 09/29/2024 8:35 PM EST XR CHEST PA AND LATERAL 2 VIEWS Referring clinician's provided indication for this examination in [facility]: Dyspnea (Shortness of Breath) COMPARISON: None. FINDINGS: [...] significant abnormality. IMPRESSION: No acute abnormality. ATTESTATION: I, Reji Santos as teaching physician, have reviewed theimages for this case and if necessary edited the report originally createdby Mohsen Gonzales MD. Su Duran PA-C IMG XR CHEST * Magnesium (09/29/2024 5:47 PM EST) MAGNESIUM 2.0 1.6 - 2.6 mg/dL [facility] 09/29/2024 5:47 PM EST 09/29/2024 6:07 PM EST Reji Moss PA-C LAB BLOOD ORDERABLES [facility] [address] [place] [address] * Basic metabolic panel (09/29/2024 5:47 PM EST) SODIUM 141 133 - 146 mmol/L [facility] CHLORIDE 103 96 - 108 mmol/L [facility] POTASSIUM 3.6 3.3 - 5.1 mmol/L [facility] CO2 24 21 - 35 mmol/L [facility] BUN 7 6 - 19 mg/dL [facility] CREATININE 0.60 0.5 - 1.5 mg/dL [facility] GLUCOSE 88 70 - 99 mg/dL [facility] CALCIUM 9.3 8.4 - 10.3 mg/dL [facility] EGFR >120 >59 mL/min/1.7 3m2 [facility] Comment:Estimated glomerular filtration rate calculated using the CKD-EPI refit equation. ANION GAP 18 10 - 20 mmol/L [facility] Blood 09/29/2024 5:47 PM EST 09/29/2024 6:07 PM EST Reji Moss PA-C LAB BLOOD ORDERABLES [facility] [address] [place] [address] * (ABNORMAL) CBC and differential (09/29/2024 4:48 PM EST) WBC 11.78(H) 4.00 - 11.00 K/uL [facility] RBC 4.79 4.00 - 5.20 M/uL [facility] HGB 14.3 12.0 - 16.0 g/dL [facility] HCT 42.2 36.0 - 46.0 % [facility] PLT 346 150 - 450 K/uL [facility] MCV 88.1 80.0 - 100.0 fL [facility] MCH 29.9 27.0 - 31.0 pg [facility] MCHC 33.9 32.0 - 36.0 g/dL [facility] RDW 13.1 11.5 - 14.5 % [facility] MPV 9.5 8.4 - 12.0 fL [facility] NRBC 0.00 0.00 /100 WBCs [facility] ABSOLUTE NRBC 0.00 0.00 K/uL [facility] DIFF METHOD Auto [facility] NEUTS 80.7(H) 48.0 - 76.0 % [facility] LYMPHS 13.7(L) 18.0 - 41.0 % [facility] MONOS 4.9 4.0 - 11.0 % [facility] EOS 0.1 0.0 - 5.0 % [facility] BASOS 0.3 0.0 - 1.5 % [facility] Granulocytes, immature (%) 0.3 0.0 - 0.9 % [facility] ABSOLUTE NEUTS 9.51(H) 1.92 - 7.60 K/uL [facility] ABSOLUTE LYMPHS 1.61 0.72 - 4.10 K/uL [facility] ABSOLUTE MONOS 0.58 0.16 - 1.10 K/uL [facility] ABSOLUTE EOS 0.01 0.00 - 0.50 K/uL [facility] ABSOLUTE BASOS 0.03 0.00 - 0.15 K/uL [facility] Granulocytes, immature 0.04 0.00 - 0.09 K/uL [facility] Blood 09/29/2024 4:48 PM EST 09/29/2024 4:59 PM EST Reginald Mcdonough MD LAB BLOOD ORDERABLES [address] [address] * HM PAP SMEAR FOR RESULT ENTRY ONLY (12/20/2021) HM Pap smear NILM Historical Provider MD [facility] * Hepatitis C antibody, qualitative (12/18/2021 3:32 PM EDT) HCV NON-REACTIV E NON-REACTI VE [facility] Blood 12/18/2021 3:32 PM EDT 12/18/2021 3:34 PM EDT Branden Talbert MD LAB BLOOD ORDERABLES [address] [address] * OUTSIDE HIV TEST (12/31/2018) HIV - External Neg Historical Provider LAB BLOOD ORDERAB LES from Last 3 Months or Most Recently Relevant to Health Maintenance Care Teams Machine Lay Out Worker Relationship Specialty Start Date End Date Branden Talbert MD [address] [place] [address] [email or web address] PCP - General Internal Medicine 09/21/21 Mora Shirley MD [address] [address] Gynecology 12/18/21 Additional Source Comments The information contained in this document represents components of the legal health record. It is not the complete legal health record.[facility]
--- OUTSIDE RECORDS SUMMARY | 2024-10-06 15:01 | XMS_ITS | Clinical Summary ---
Author Organization [facility] Address [address] [place] [address] Phone Care Team Providers Care Insulation Helper Name Role Phone Jessica Kathleen NP Primary Care Provider [phone] Allergies No known active allergies Medications Multiple [...] PM EST): Discussed concerns regarding weight Reviewed long-term potential health risks associated with obesity Discussed [...] resuming counseling She will reach out to [facility] Will also connect her with Medical Home for housing concerns Assessment & Plan (10/15/2020 4:57 PM EST): Worsening symptoms of anxiety and depression along with overwhelming feeling of not sure what to do with her life. She is also having trouble with focusing and concentration. Our medical school psychometrist met with patient to help her with [...] with anywhere. MQ Procedures * Due to [facility] law, this organization might not be sharing sensitive test results. Procedure Name Priority Date/Time Associated Diagnosis Comments CHLAMYDIA GC AMP PROBE Routine 08/07/2020 10:07 AM EST Well adult exam from Last 3 Months or Most Recently Relevant to Health Maintenance Results * Due to [facility] law, this organization might not be sharing sensitive test results. * CHLAMYDIA GC AMP PROBE (08/07/2020 10:07 AM EST) Chlamydia Trachomatis, Amplified NEGATIVE (NEG) [facility] Comment: No Chlamydia Trachomatis RNA detected in this patient's sample ? (REFERENCE RANGE/NORMAL VALUE: NOT DETECTED) ? Note: This test uses mail carriers supervisor- mediated amplification method to detect rRNA from C. Trachomatis N.GONORRHOEAE AMP PROBE NEGATIVE (NEG) [facility] Comment: No Neisseria Gonorrhoeae RNA detected in this patient's sample ? (REFERENCE RANGE/NORMAL VALUE: NOT DETECTED) ? NOTE: This test uses mail carriers supervisor-mediated amplification method to detect rRNA from N.Gonorrhoeae. [...] without risk of sexual abuse. Consult the [facility] if needed. Contact phone number . Therapeutic failure or success cannot be determined with the Aptima Combo2 assay since nucleic acid may persist following appropriate antimicrobial therapy. The Centers for Disease Control and Prevention (CDC) recommends confirmatory retesting using culture or a different nucleic acid amplification test when positive results occur, if indicated. CHLAM/GC AMP PROBE SPEC TYPE VAGINAL SPECIMEN [facility] Comment: Testing performed or reported by [facility], a Service of [facility], [address] [place] [address] [place] [address] Tevin Bernard MD, Commercial Lending Relationship Manager Swab (Vagina) 08/07/2020 10: 07 AM EST 08/07/2020 9:10 PM EST us Lorraine Sanchez DO LAB [facility]OLOG[facility] - [facility] Final Result [facility] from Last 3 Months or Most Recently Relevant to Health Maintenance Additional Health Concerns Active Problems Noted Date Diagnosed Date Housing is not appropriate for patient/caregiver 10/08/2021 Insurance [facility] COMMERCIAL [facility] COMMERCIAL [facility] Address: [address] [place], [place] [address] [id number] Care Teams Insulation Helper Relationship Specialty Start Date End Date Jessica Kathleen NP [facility] [facility] [place] [address] PCP - General Pediatrics 12/08/20
--- OUTSIDE RECORDS SUMMARY | 2024-10-06 15:01 | XMS_ITS | Encounter Summary ---
Author Organization [facility] Address [address] [place] [address] Phone Care Team Providers Care Information Services Consultant Name Role Phone Jessica Kathleen NP Primary Care Provider [phone] Reason for Visit * Reason Comments Med Refill Encounter Details Date Type Department Care Team (Late st Contact Info) Description 10/28/2020 Refill [facility] [address] [place] [address] Lorraine Sanchez, DO Anxiety Social History Tobacco [...] unspecified documented in this encounter Care Teams Information Services Consultant Relationship Specialty Start Date End Date Jessica Kathleen NP [facility] [place] [address] PCP - General Pediatrics 12/08/20 documented as of this encounter
--- OUTSIDE RECORDS SUMMARY | 2024-10-06 15:01 | XMS_ITS | Encounter Summary ---
Author Organization [facility] Address [phone] [facility] [place] [address] Care Team Providers Care Hook Tender Name Role Phone Branden Talbert MD Primary Care Provider [phone] Mora Shirley MD Unavailable [phone] Encounter Details Date Type Department Care Team (Late st Contact Info) Description 10/06/2024 Orders Only [facility] Internal Medicine [address] [place] [address] Provider, MD Quentin [address] [place], [place] [id number] Social History Tobacco Use Types Packs/Day Years [...] high school, GED, job training, learning the [place] language, technical skills, or developing parenting skills)? [...] AM EDT documented as of this encounter Plan of Treatment Upcoming Encounters Date Type Department Care Team (Late st Contact Info) Description 10/18/2024 4:15 PM EST Appointment [facility] Internal Medicine [address] [facility] [place] [address] Branden Talbert MD [address] [place] [address] 01/28/2025 9:00 AM EDT Appointment [facility] Internal Medicine [address] [place], [place] [phone] Branden Talbert MD [address] [place], [place] documented as of this encounter Procedures Procedure Name Priority Date/Time Associated Diagnosis Comments OUTSIDE US ABDOMEN REPORT ONLY Routine 10/04/2024 12:30 PM EST OUTSIDE US ABDOMEN REPORT ONLY Routine 10/04/2024 11:24 AM EST documented in this encounter Results * Outside US Abdomen Report Only (10/04/2024 12:30 PM EST) Historical Provider MD [facility] US ABDOMEN * Outside US Abdomen Report Only (10/04/2024 11:24 AM EST) Historical Provider MD MAI US ABDOMEN documented in this encounter Visit Diagnoses Not on filedocumented in this encounter Additional Health Concerns Assessment Noted Time PHQ-9 Depression Total Score: 15 022 2:49 PM EDT PHQ-2 Depression Total Score: 0 01/27/20 24 9:24 AM EDT documented as of this encounter Care Teams Hook Tender Relationship Specialty Start Date End Date Branden Talbert MD [address] [place] [address] PCP - General Internal Medicine 09/21/21 Mora Shirley MD [address] [place] [address] Gynecology 12/18/21 documented as of this encounter Additional Source Comments The information contained in this document represents components of the legal health record. It is not the complete legal health record.[facility]
--- OUTSIDE RECORDS SUMMARY | 2024-10-06 15:01 | XMS_ITS ---
Author Organization [facility] Address [address] [address] Care Team Providers Care Pan Greaser Name Role Phone Casper Mora Unavailable [phone] REASON FOR VISIT Annual (YELLOW FORM DONE) Encounters Encounter Location Date Provider Diagnosis [facility] [address] [address] 08/07/2023 Mora Shirley Plan Of Treatment No Information Progress Notes * TIERRA, RENANDREWOB:2000 (24 yo F)Acc No.[id number]:08/07/2023 PROGRESS NOTES Patient:?THERESA MAYORGA Appointment Provider:?Mora green M.D. :2000???Age:23 Y???Sex:Female D ate:08/07/2023 Address:[address] [place], [place] [id number] Subjective: * Chief Complaints: * ???1. Annual (YELLOW FORM DO NE). * Medical History:?Stomach pro blems, Other asthma, Anxiety disorder, unspecified, Amenorrhea, unspecified, Other specified dyspareunia, Calculus of gallbladder without cholecystitis without obstruction. * Group Care Worker History:?/ Para?0/0.?Sexual activity?currently sexually active, with men.?Last Pap Smear:?12/20/21, NIL.?LMP and menses?12/10/21.? Control:?condoms.?Gardasil:?series completed @ [facility].? * OB History:?Total pregnancies?0.? Objective: * Vitals:? Assessment: Plan: * Treatment: * Images: Billing Information: * Visit Code:? * Procedure Codes:? * Electronic signature of Brittney Shirley MD on 10/06/2024 at 03:01 PM EST Sign off status: Pending * Appointment Provider:?Mora Shirley M.D. Date:?08/07/2023 Generated for Emelina rodriguez/Kendrick/Renitasmitting on:?10/06/2024 03:01 PM EST
--- OUTSIDE RECORDS SUMMARY | 2024-10-06 15:02 | XMS_ITS | Encounter Summary ---
Author Organization [facility] Address [address] [place] [address] Phone Care Team Providers Care User Support Specialist Name Role Phone Jessica Kathleen NP Primary Care Provider [phone] Reason for Visit * Reason Comments Med Refill Encounter Details Date Type Department Care Team (Late st Contact Info) Description 11/14/2020 Refill [facility] [address] [place] [address] Lorraine Sanchez, DO Anxiety Social History Tobacco [...] [place] - 11/14/2020 2:48 PM EDT Last [facility] 08/07/2020 Last med ck 10/11/20 documented in this encounter Plan of Treatment Not on file documented as of this encounter Visit Diagnoses Diagnosis Anxiety Anxiety state, unspecified documented in this encounter Care Teams User Support Specialist Relationship Specialty Start Date End Date Jessica Kathleen NP [address] [place] [address] PCP - General Pediatrics 12/08/20 documented as of this encounter
[2024-10-06 15:31] LABS: Ethanol < 10 mg/dL
--- NOTE | 2024-10-06 21:59 | MHC.CARE ---
Plan is for patient to be referred to [facility]. Referral was faxed at 1800 hours. Referral is still currently pending review.
[2024-10-07 06:19] VITALS: BP 103/59; PULSE 69; RESP 16; TEMP 36.4; O2SAT 99
[2024-10-07] MEDS: Nicotine 21 MG PATCH.TD24 TRANSDERMA (11:38)
--- NOTE | 2024-10-07 13:48 | PHA.MEDREC ---
Addendum entered by Savannah Fernando RPh 10/07/24 13:52: Reviewed by [facility] Original Note: Pharmacy Consult ? Medication Reconciliation Pharmacy has reviewed the medication reconciliation done by nursing. No claims.
[2024-10-07 15:24] VITALS: BP 103/59; PULSE 69; RESP 16; TEMP 36.4; O2SAT 99
== END 2024-10-07 15:45 | disposition other institution (70) ==
PROVIDERS: Registered Nurse Emergency; Emergency Provider Emergency Medicine Emergency Medical Services; PCP Internal Medicine
DX: R42 Dizziness and giddiness (principal); R11.2 Nausea with vomiting, unspecified; F41.9 Anxiety disorder, unspecified; R44.1 Visual hallucinations; F12.90 Cannabis use, unspecified, uncomplicated; R19.7 Diarrhea, unspecified; Z87.891 Personal history of nicotine dependence; Z51.81 Encounter for therapeutic drug level monitoring; Z03.818 Encounter for observation for suspected exposure to other biological agents ruled out; Z79.899 Other long term (current) drug therapy
CPT/HCPCS: 0241U; 36415; 80053; 80307; 81003; 83735; 85025; 96360; 96361; 99284; S9485

== ENCOUNTER 2025-02-02 12:53 | Inpatient (IN) | payer MEDICAID, OTHER, SELFPAY ==
[2025-02-02 13:58] VITALS: BP 111/84; PULSE 87; RESP 16; TEMP 36.4; O2SAT 98; BMI 29.6
--- NOTE | 2025-02-02 14:07 | ECG_ITS ---
Test Reason : vomiting,near syncope Blood Pressure : */* mmHG Vent. Rate : 80 BPM Atrial Rate : 80 BPM P-R Int : 126 ms QRS Dur : 82 ms QT Int : 352 ms P-R-T Axes : 33 54 27 degrees QTcB Int : 405 ms Normal sinus rhythm Normal ECG When compared with ECG of 04-Oct-2024 18:12, No significant change was found Referred By: Jorge L Camacho Electronically Signed By: GENESIS MENDEZ MD
--- NOTE | 2025-02-02 14:08 | ED.GENADULT ---
HPI - General Adult General Chief complaint: General Medical Stated complaint: trouble breahting, numbness, feeling faint Time Seen by Provider: 02/02/25 21:51 Source: patient Mode of arrival: ambulatory Limitations: no limitations History of Present Illness ED Provider: HPI narrative: Patient's history of schizophrenia with frequent suicidal ideation with plans but no history of suicidal attempt was admitted as inpatient psych in 11/16 discharged after 4 weeks of stay now patient is staying in his brother's apartment as she does not feel safe and feels suicidal all the time she missed her medication palperidone 6 mg for last 2 days off her own as she thought this medicine making her mind slow till she took her pill in the morning and in the afternoon patient was having anxiety/panic attack with shortness a breath on arrival patient is calm cooperative denies any other symptoms feel like she would like to go to inpatient Related Data Home Medications ?Medication ?Instructions ?Recorded ?Confirmed paliperidone 6 mg tablet,extended 6 mg PO BEDTIME 02/02/25 02/03/25 release 24 hr Allergies Allergy/AdvReac Type Severity Reaction Status Date / Time No Known Allergies Allergy Verified 02/02/25 14:07 Review of Systems Review of Systems: Yes all other systems are reviewed and are negative [facility] Past Medical History Medical History Lactose intolerance Depression Anxiety Vaginal delivery Surgical History History of laparoscopic appendectomy (09/08/21) No pertinent past surgical history Family History Family History Maternal Grandmother Ovarian cancer Maternal Uncle Throat cancer Family/Other Skin cancer Social History Social History Household Members: Family Housing: House Do you presently have visiting nurse or other home services: No Patient Tobacco Use Status: Current everyday Tobacco user Tobacco use type: Cigarette Smoked in Last 30 Days: Yes e-Cigarette/Vaping Use: Currently Using Patient Interested in Nicotine Replacement: Yes Substance Use Type: Marijuana Advance Directives: Yes Advance Directives on File: Yes Advance Directives Date on File: 09/08/21 Do you have a plan to hurt others: No Plan Recently lost weight without trying: No Nutrition Risks: No Nutritional Risk Patient : No : No Poor oral hygiene: No service: No Current occupational status: unemployed Physical Exam ED Vital Signs: Vital Signs - 24 hr 02/02/25 22:37 02/03/25 05:44 Temperature 98.1 F 97.7 F Pulse Rate 69 58 Respiratory Rate 16 16 Blood Pressure 102/71 101/57 L Pulse Oximetry 98 99 Oxygen Delivery Method Room Air Room Air BMI result Body Mass Index 29.6 Appearance: Alert. Oriented X3. No acute distress. Eyes: PERRLA, No Nystagmus ENT: Pharynx normal. Oral Mucosa moist Neck: Normal inspection. Neck supple. CVS: Normal heart rate and rhythm. Pulses normal. Respiratory: No respiratory distress. Equal air entry bilateral, no wheezing/rales/rhonchi Abdomen: Soft and nontender. Bowel sounds are present, no mass palpable, no CVA tenderness Skin: Skin warm and dry. Normal skin color. Normal skin turgor. Extremities: No lower extremity edema. No calf tenderness Psych: Denies any hallucination or delusions feels suicidal without any plan feel depressed Neuro: Oriented X 3. No motor deficit. No sensory deficit.No cerebellar signs , cranial nerves II-XII intact Course Course Course Narrative: RME: 24-year-old female presents to the ED for a syncopal episode, vomiting for couple of days, and numbness. Physical exam negative for any signs of any neuro deficits. NIH score is 0. Labs EKG ordered Reevaluation(s) Reevaluation #1: Time: 07:28 Date: 02/03/25 Provider: Clarisse Reynolds DO Patient in physician observation for psychiatric evaluation.? No acute events reported overnight. No current complaints. VS stable.? Patient is in bed search status.. Will continue to monitor. Reevaluation #2: Time: 15:10 Date: 02/03/25 Provider: Clarisse Reynolds DO Physician observation ended at 1510. Patient to be admitted as inpatient to psychiatry. Medications Administered Generic Name Dose Route Start Last Admin Trade Name Freq PRN Reason Stop Dose Admin Benztropine Mesylate 1 mg 02/03/25 21:00 02/03/25 20:44 Benztropine Mesylate 1 Mg Tablet PO Not Given BEDTIME ETHAN Nicotine 21 mg 02/03/25 14:08 02/03/25 18:04 Nicotine 21 Mg Patch.Td24 TRANSDERMA 21 mg ONCE PRN Administration Nicotine Cravings Nicotine Polacrilex 4 mg 02/03/25 00:20 02/03/25 17:56 Nicotine Polacrilex 2 Mg Gum BUCCAL 4 mg Q2H PRN Administration Nicotine Cravings Paliperidone 6 mg 02/03/25 21:00 02/03/25 20:42 Paliperidone Er 6 Mg Tab.Er.24 PO 6 mg BEDTIME ETHAN Administration Medical Decision Making Medical Decision Making MDM Narrative: Patient's schizophrenia with chronic frequent suicidal ideation wrist with recent admission for similar reasons missed her meds for 2 days comes here for been feeling unsafe and suicidal with plan to jump from the cecilio. Patient never committed any suicidal attempt and been to the hospital multiple times Lab Data MDM Lab Attestation statement: I reviewed the patient's lab results. 02/02/25 14:37 02/02/25 14:36 Labs: Lab Results 02/02/25 02/02/25 Range/Units 14:36 14:37 WBC 13.7 H (4.8-10.8) X10*3/uL RBC 4.92 (4.20-5.50) X10*6/uL Hgb 15.0 (12.0-16.0) g/dl Hct 44.3 (37.0-47.0) % MCV 90.0 (80.0-98.0) fL MCH 30.5 (27.0-33.0) pg MCHC 33.9 (31.0-35.0) g/dl RDW 12.0 (11.0-16.0) % Plt Count 395 (160-400) X10*3/uL MPV 9.0 L (9.4-12.3) fL Immature Gran % (Auto) 0.4 (0.0-0.4) % Neut % (Auto) 81.4 H (45-73) % Lymph % (Auto) 13.0 L (20-40) % [place] % (Auto) 4.9 (2-11) % Eos % (Auto) 0.1 (0-4) % Baso % (Auto) 0.2 (0-2) % Lymph # (Auto) 1.8 (1.2-4.9) X10*3/uL [place] # (Auto) 0.7 (0.1-1.2) X10*3/uL Eos # (Auto) 0.0 (0.0-0.4) X10*3/uL Baso # (Auto) 0.0 (0.0-0.2) X10*3/uL Abs Immat Gran (auto) 0.05 H (0.00-0.03) X10*3/uL Absolute Neuts (auto) 11.2 H (2.0-8.3) x10*3/uL Absolute Nucleated RBC 0.000 (0.0-0.012) X10*3/uL Nucleated RBC % (auto) 0.0 (0.0-0.2) /100WBC Sodium 138 (135-145) mmol/L Potassium 3.9 (3.3-5.1) mmol/L Chloride 104 (96-108) mmol/L Carbon Dioxide 26 (22-29) mmol/L Anion Gap 12 (12-20) BUN 10 (9-16) mg/dL Creatinine 0.70 (0.5-1.4) mg/dL Estim Creat Clear Calc 114.2 Estimated GFR > 60 Random Glucose 83 (60-115) mg/dL Calcium 9.7 D (8.4-10.2) mg/dL Total Bilirubin 0.4 (0.0-1.0) mg/dL AST 22 (5-31) U/L ALT 24 (0-31) U/L Alkaline Phosphatase 77 (39-117) U/L Troponin I High Sens < 2.7 (<3.5-17.0) ng/L Total Protein 8.3 H (6.5-8.0) g/dL Albumin 5.0 (3.5-5.0) g/dL Lipase 16 (8-78) U/L Beta HCG, Quant < 2 mIU/mL Urine Color Yellow Urine Appearance Clear Urine pH 8.0 (5.0-9.0) Ur Specific [place] 1.010 (1.005-1.025) Urine Protein Negative (Neg-Trace) mg/dL Urine Glucose (UA) Negative (Negative) mg/dL Urine Ketones Trace (Negative) mg/dL Urine Blood Negative (Negative) Urine Nitrite Negative (Negative) Ur Leukocyte Esterase Negative (Negative) Urine Test NEGATIVE (NEGATIVE) Urine Opiates Screen Not Detected (Not Detect) Ur Buprenorphine Scrn Not Detected (Not Detect) ng/mL Ur Oxycodone Screen Not Detected (Not Detect) ng/mL Urine Methadone Screen Not Detected (Not Detect) ng/mL Urine Fentanyl Screen Not Detected (Not Detect) Ur Barbiturates Screen Not Detected (Not Detect) Ur Phencyclidine Scrn Not Detected (Not Detect) Ur Amphetamines Screen Not Detected (Not Detect) U Benzodiazepines Scrn Not Detected (Not Detect) Urine Cocaine Screen Not Detected (Not Detect) U Marijuana (THC) Screen Not Detected (Not Detect) Ethyl Alcohol 14 mg/dL Discharge Plan Discharge Clinical Impression: Depression with suicidal ideation Schizophrenia Qualifiers: Schizophrenia type: unspecified Qualified Code(s): F20.9 - Schizophrenia, unspecified Patient Disposition: Admitted As Inpatient Interventions: Admission Worksheet (ED) Last Done: 02/03/25 15:37 Discharge Date/Time: 02/03/25 15:10
[2025-02-02 14:42] LABS: MANUAL DIFF FLAG NO
[2025-02-02 14:43] LABS: Hematocrit 44.3 % (37.0-47.0); Hemoglobin 15.0 g/dl (12.0-16.0); Imm Gran Abs Auto 0.05 X10*3/uL (0.00-0.03); Imm Gran Pct Auto 0.4 % (0.0-0.4); Lymphocytes Absolute Auto 1.8 X10*3/uL (1.2-4.9); Mean Corpuscular HGB Conc 33.9 g/dl (31.0-35.0); Mean Corpuscular Hemoglobin 30.5 pg (27.0-33.0); Mean Corpuscular Volume 90.0 fL (80.0-98.0); NRBC Abs Auto 0.000 X10*3/uL (0.0-0.012); NRBC Pct Auto 0.0 /100WBC (0.0-0.2); Platelet Count 395 X10*3/uL (160-400); Red Blood Count 4.92 X10*6/uL (4.20-5.50); White Blood Count 13.7 X10*3/uL (4.8-10.8)
[2025-02-02 14:44] LABS: UPreg QC Valid YES
[2025-02-02 14:45] LABS: Appearance Urine Clear; Glucose Urine UA Negative (Negative); PH 8.0 (5.0-9.0); Specific Gravity - Urine 1.010 (1.005-1.025)
[2025-02-02 15:08] LABS: Alanine Aminotransferase 24 U/L (0-31); Albumin Level 5.0 g/dL (3.5-5.0); Alkaline Phosphatase 77 U/L (39-117); Anion Gap 12 (12-20); Aspartate Amino Transferase 22 U/L (5-31); Blood Urea Nitrogen 10 mg/dL (9-16); Calcium 9.7 mg/dL (8.4-10.2); Carbon Dioxide 26 mmol/L (22-29); Chloride 104 mmol/L (96-108); Creatinine Clr Calc Pharmacy 114.2; Estimated Glomerular Filt Rate > 60; Lipase 16 U/L (8-78); Potassium 3.9 mmol/L (3.3-5.1); Sodium 138 mmol/L (135-145); Total Protein 8.3 g/dL (6.5-8.0)
[2025-02-02 15:15] LABS: Troponin-I High Sensitivity < 2.7 ng/L (<3.5-17.0)
--- OUTSIDE RECORDS SUMMARY | 2025-02-02 21:45 | XMS_ITS | Patient Health Record ---
Author Organization [facility] Address [address] [place] [address] Care Team Providers Care Block Trader Name Role Phone Mora Shirley Unavailable [phone] Allergies No Known Allergies Reason For Referral No Information Medications Medication SIG (Take, Route, Frequency, Duration) Notes Start Date End Date Status Kariva 0.15-0.02/0.01 MG (12/01) 1 tablet Orally Once a day for 90 days 11/28/2021 Active Inhaler Decongestant as needed Not-Taking Sertraline HCl 100 MG TAKE 1 TABLET BY MOUTH EVERY DAY Orally Once a day Active Social History Tobacco Use: Social History Observation Description Date Details (start date - stop date) Never Smoker NA - NA Tobacco Use/Smoking Question Answer Notes Are you a nonsmoker Alcohol Screen (Audit-C) Question Answer Notes Did you have a drink containing alcohol in the p ast year? No Points 0 Interpretation Negative Sexual History Question Answer Notes Had sex in the past 12 months (vaginal, oral, or anal)? Yes with Men only Problems Problem Type SNOMED Code ICD Code Onset Dates Problem Status W/U Status Risk Notes Problem Encounter for gynecological examination (general) (routine) without abnormal findings (Z01.419) Active confirmed Problem Cholelithiasis without obstruction (57935192) Calculus of gallbladder without cholecystitis without obstruction (K80.20) Active confirmed Problem Dyspareunia (38966999) Other specified dyspareunia (N94.19) Active confirmed Plan Of Treatment Pending Test Test Name Order Date Urinalysis 11/28/2021 Urinalysis 12/20/2021 PELVIC ULTRASOUND W/TRANSVAGINAL 022 Insurance Providers Payer Name Payer Address Payer Phone Subscriber Number Group Number Insured Name Patient Relationship to Insured Coverage Start Date Coverage End Date [facility] [place] [address] [id number] THERESA MAYORGA Self - patient is the insured Medical (General) History Medical History History ICD Code Stomach problems Other asthma J45.998 Anxiety disorder, unspecified F41.9 Amenorrhea, unspecified N91.2 Other specified dyspareunia N94.19 Calculus of gallbladder without cholecys titis without obstruction K80.20 Surgical History Surgery Date(Month/Year) Hospitalization History Reason Date(Month/Year) 02/2018
--- NOTE | 2025-02-02 22:26 | PC.NURSE ---
pt now reporting SI
[2025-02-02 22:37] VITALS: BP 102/71; PULSE 69; RESP 16; TEMP 36.7; O2SAT 98
[2025-02-02 23:05] LABS: Cannabinoid Screen Urine Not Detected (Not Detect)
[2025-02-03 05:44] VITALS: BP 101/57; PULSE 58; RESP 16; TEMP 36.5; O2SAT 99
--- NOTE | 2025-02-03 06:08 | PC.NURSE ---
Pt understands to ask for assistance or if she needs anything. Pt sleeping on couch comfortably. Pt ambulated independently with a steady gait.
--- NOTE | 2025-02-03 11:43 | PHA.MEDREC ---
Pharmacy Consult ? Medication Reconciliation Pharmacy reviewed med rec done by nursing. Spoke with pt and she confirmed she is not taking any nicotine gum at home and vapes everyday; I took that off the med rec. Pt stated she has not been taking Benztropine 1mg tabs anymore and states she has not in months ; claims shows she got it filled with her Paliperidone, [facility] confirmed she picked [facility] the Benztropine and Paliperidone together on 01/12.
--- NOTE | 2025-02-03 11:54 | PHA.MEDREC ---
Addendum entered by Jaswinder Singh RPh 02/03/25 12:22: MED REC REVIEWED BY [facility] Original Note: Pharmacy Consult ? Medication Reconciliation Pharmacy has completed the medication reconciliation. Pharmacy reviewed med rec done by nursing. Spoke with pt and she confirmed she is not taking any nicotine gum at home and vapes everyday; I took that off the med rec. Pt stated she has not been taking Benztropine 1mg tabs anymore and states she has not in months ; claims shows she got it filled with her Paliperidone, [facility] confirmed [facility] Benztropine and Paliperidone together on 01/12. Pt states she usually takes her Paliperidone it at bedtime but last took it yesterday Am due to missing it for 3 days before that.
[2025-02-03 14:59] VITALS: BP 103/67; PULSE 88; RESP 12; TEMP 36.4; O2SAT 95
[2025-02-03 15:25] VITALS: BP 134/72; PULSE 96; RESP 18; TEMP 36.9; O2SAT 96; BMI 30.1
[2025-02-03] MEDS: Nicotine 21 MG PATCH.TD24 TRANSDERMA (18:04)
--- NOTE | 2025-02-03 18:43 | PC.ADMIT ---
Addendum entered by Hyacinth Carpio RN 02/03/25 18:46: reddened area under right breast, not left breast. Original Note: 24 y/o female admitted to on a CV at 1514 from [facility] after self presenting with her brother, to [facility] secondary to syncopal episode, shortness of breath and vomiting. Pt also endorsed SI with a plan to jump off [place]. Pt reported she struggled with depression since 8th grade. Pt lives alone in an apartment, however has recently been staying at her brother?s house due to issues with her landlord. Pt reported worsening depression, and frequent thoughts of SI. Pt reported a recent 4 week admission to [facility] in [place] in October 2024. Pt stated ?I had a psychotic break and wanted to hurt people, which is not like me.? Pt stated she was started on Paliperidone, however stopped taking it several days ago after feeling it was the cause of recent memory loss. Pt stated she then decided to restart the medication, however, after taking it reported she experienced a panic attack, shortness of breath and a syncopal episode, which prompted her brother to bring her in for evaluation. Pt also reported ongoing nausea and vomiting for the past several weeks. Pt stated that she vomited every morning upon waking up, and often after each meal d/t extreme nausea. test negative. Pt denied substance use, other than occasional marijuana use. Utox negative. BAL 14, however pt denied alcohol use. Pt is a heavy nicotine user, and reportedly vapes nicotine throughout the day. Pt requested and received NRT. On arrival to unit pt was nervous but cooperative. Skin check remarkable for small reddened open areas under left breast. Pt was oriented to unit, and signed releases for her brother and mother. Pt denied active plan to harm self, and denied HI/AVH. After dinner pt ? severe nausea and vomited a large amount. Covering provider made aware and stat hospitalist consult ordered. Pt placed on 15 minute checks.
[2025-02-03 20:00] VITALS: BP 106/61; PULSE 75; RESP 16; TEMP 36.9; O2SAT 98
--- NOTE | 2025-02-04 00:33 | PM.EVENT ---
Event Note Date of Service: 02/04/25 Event Note: This telegraphic typewriter mechanic spoke with patient's nurse on M5. Patient is currently sleeping and asymptomatic. This telegraphic typewriter mechanic has asked that the nurse tiger text if patient awakens and is symptomatic. Review of labs indicate stability other than a mild leukocytosis. UA was negative. Patient is currently not based on negative hCG. We will reorder CBC and BMP for the a.m.. Patient's lipase has been normal. According to review of patient's chart patient did have an abdominal abscess back in 2021. Patient is currently afebrile with stable vital signs.. Will hold off on ordering any diagnostic testing until patient is seen. Time Spent With Patient Time: Total time managing care of this patient today ____ minutes.
[2025-02-04 08:00] VITALS: BP 98/65; PULSE 97; RESP 16; TEMP 36.8; O2SAT 100
[2025-02-04 08:24] LABS: MANUAL DIFF FLAG NO
[2025-02-04 08:30] LABS: Hematocrit 40.3 % (37.0-47.0); Hemoglobin 13.6 g/dl (12.0-16.0); Imm Gran Abs Auto 0.02 X10*3/uL (0.00-0.03); Imm Gran Pct Auto 0.2 % (0.0-0.4); Lymphocytes Absolute Auto 1.8 X10*3/uL (1.2-4.9); Mean Corpuscular HGB Conc 33.7 g/dl (31.0-35.0); Mean Corpuscular Hemoglobin 30.4 pg (27.0-33.0); Mean Corpuscular Volume 90.2 fL (80.0-98.0); NRBC Abs Auto 0.000 X10*3/uL (0.0-0.012); NRBC Pct Auto 0.0 /100WBC (0.0-0.2); Platelet Count 343 X10*3/uL (160-400); Red Blood Count 4.47 X10*6/uL (4.20-5.50); White Blood Count 8.0 X10*3/uL (4.8-10.8)
[2025-02-04 08:35] LABS: Hemoglobin A1C 110.5187 umol/L; Total Hemoglobin (HGBA1C) 3609.9044 umol/L
[2025-02-04 08:53] LABS: Alanine Aminotransferase 25 U/L (0-31); Albumin Level 4.1 g/dL (3.5-5.0); Alkaline Phosphatase 62 U/L (39-117); Anion Gap 8 (12-20); Aspartate Amino Transferase 18 U/L (5-31); Blood Urea Nitrogen 12 mg/dL (9-16); Calcium 9.1 mg/dL (8.4-10.2); Carbon Dioxide 28 mmol/L (22-29); Chloride 107 mmol/L (96-108); Cholesterol 183 mg/dL (<200); Creatinine Clr Calc Pharmacy 115.2; Estimated Glomerular Filt Rate > 60; HDL Cholesterol 41 mg/dL (>40); Potassium 4.2 mmol/L (3.3-5.1); Sodium 139 mmol/L (135-145); Total Protein 7.1 g/dL (6.5-8.0); Triglycerides 129 mg/dL (<150)
--- NOTE | 2025-02-04 09:51 | P.HPPS_ITS ---
HPI Date of Service: 02/04/25 Chief Complaint: SI Sources of Information: patient interviewed, chart reviewed and crisis/core team assessment reviewed HPI Subjective Notes: Tolliver Warning, Conditional Voluntary and 3 Day Narrative: Pt seen on 02/04/25 Pt is a 24 yo female with hx of depression, anxiety, who presents for worsening depression with SI to hang herself. Patient reports depression since the 8th grade and explains that she has been chronically dysthymic with severe depressive episodes interspersed, that can last for weeks and during which time patient has to force herself out of bed. Patient reports chronic daily wish, wishing she could just escape from her depression and . Past August 2024, during a particularly challenging depressive episode she started intermittently hearing words such as cunt and . get a job.. In September, seemingly out of nowhere she had thoughts to harm other people and was worried she might stab someone [place] working [place] [employer]; she denies ever having desire or urges to harming anyone at all and just had this thought but it scared her and so she presented to the hospital so she could get locked up so as not to hurt anyone... Patient was started on Invega; while she was there she had a dystonic reaction to a p.r.n. medication. Patient has continued taking paliperidone however she has remained very depressed and this past week her passive SI started becoming active, with thoughts to hang herself or to jump off something high; patient started develop a plan but it did not become intent. Patient denies any discrete history of manic type episodes or behaviors however she was once tried on Prozac which quickly resulted in extreme high irritability, impulsivity even to the point of wanting to jump out of a car, which resolved once poked Truong was discontinued. Denies any drug or alcohol use; minimal cannabis and not for months; denies history of trauma. Denies any current [facility] Past Psychiatric History: October 2024 4 week admission Medical Evaluation Reviewed: Yes [facility] Medical History (Updated 02/04/25 @ 18:55 by Masoud Navas MD) Bipolar disorder, unspecified Lactose intolerance Depression Anxiety Vaginal delivery Surgical History History of laparoscopic appendectomy (09/08/21) No pertinent past surgical history Family History: Brother: Bipolar disorder Maternal aunt bipolar disorder Social History: Primarily grew up with her mother and brother Parents and her father stopped being in her life since the 6th grade Patient graduated high school and has worked various jobs Patient has a 5-year-old son who goes back and forth with her and her ex partner Substance History: Denies Trauma History: Denied Diagnostics Vital Signs (24Hr): Vital Signs - 24 hr 02/03/25 14:59 02/03/25 15:25 02/03/25 20:00 Temperature 97.5 F 98.4 F 98.5 F Pulse Rate 88 96 75 Respiratory Rate 12 18 16 Blood Pressure 103/67 134/72 106/61 Pulse Oximetry 95 96 98 Oxygen Delivery Method Room Air Room Air Room Air BMI result Body Mass Index 30.1 Labs 02/04/25 08:12 02/04/25 08:12 Labs: Laboratory Results - last 48 hr 02/02/25 02/02/25 02/04/25 14:36 14:37 08:12 WBC 13.7 H 8.0 RBC 4.92 4.47 Hgb 15.0 13.6 Hct 44.3 40.3 MCV 90.0 90.2 MCH 30.5 30.4 MCHC 33.9 33.7 RDW 12.0 12.0 Plt Count 395 343 MPV 9.0 L 9.2 L Immature Gran % (Auto) 0.4 0.2 Neut % (Auto) 81.4 H 69.8 Lymph % (Auto) 13.0 L 21.8 [place] % (Auto) 4.9 7.0 Eos % (Auto) 0.1 0.7 Baso % (Auto) 0.2 0.5 Lymph # (Auto) 1.8 1.8 [place] # (Auto) 0.7 0.6 Eos # (Auto) 0.0 0.1 Baso # (Auto) 0.0 0.0 Abs Immat Gran (auto) 0.05 H 0.02 Absolute Neuts (auto) 11.2 H 5.6 Absolute Nucleated RBC 0.000 0.000 Nucleated RBC % (auto) 0.0 0.0 Sodium 138 139 Potassium 3.9 4.2 Chloride 104 107 Carbon Dioxide 26 28 Anion Gap 12 8 L BUN 10 12 Creatinine 0.70 0.70 Estim Creat Clear Calc 114.2 115.2 Estimated GFR > 60 > 60 Random Glucose 83 89 Estimat Average Glucose 97 Hemoglobin A1c % 5.0 Calcium 9.7 D 9.1 D Total Bilirubin 0.4 0.4 AST 22 18 ALT 24 25 Alkaline Phosphatase 77 62 Troponin I High Sens < 2.7 Total Protein 8.3 H 7.1 Albumin 5.0 4.1 Triglycerides 129 Cholesterol 183 LDL Cholesterol, Calc 117 H HDL Cholesterol 41 Lipase 16 TSH 0.80 Beta HCG, Quant < 2 Urine Color Yellow Urine Appearance Clear Urine pH 8.0 Ur Specific Denio 1.010 Urine Protein Negative Urine Glucose (UA) Negative Urine Ketones Trace Urine Blood Negative Urine Nitrite Negative Ur Leukocyte Esterase Negative Urine Test NEGATIVE Urine Opiates Screen Not Detected Ur Buprenorphine Scrn Not Detected Ur Oxycodone Screen Not Detected Urine Methadone Screen Not Detected Urine Fentanyl Screen Not Detected Ur Barbiturates Screen Not Detected Ur Phencyclidine Scrn Not Detected Ur Amphetamines Screen Not Detected U Benzodiazepines Scrn Not Detected Urine Cocaine Screen Not Detected U Marijuana (THC) Screen Not Detected Ethyl Alcohol 14 Meds/Allergies Meds Home Medications ?Medication ?Instructions ?Recorded ?Confirmed ?Type paliperidone 6 mg tablet,extended 6 mg PO BEDTIME 02/02/25 02/03/25 History release 24 hr Allergies Allergies Allergy/AdvReac Type Severity Reaction Status Date / Time No Known Allergies Allergy Verified 02/02/25 14:07 Mental Status Exam Mental Status Exam Narrative: Pt is alert and oriented; behavior is cooperative, calm, quiet; patient is not in distress; dressed in casual attire; unkempt; mood is described as depressed and affect congruent, downcast; eye contact appropriate; Speech is soft and slowed; psychomotor retardation present; thought process is organized and goal directed; Thought content is on struggling with depression; otherwise pertinent to relevant topics and without any delusional content, paranoid ideations or grandiosity; ongoing SI; denies HI; Denies AVH and there is no evidence of perceptual disturbance. Patients insight and judgment impaired Assessment & Plan Assessment & Plan (1) Bipolar disorder, unspecified: Status: Acute Code(s): F31.9 - Bipolar disorder, unspecified Plan HPI: Pt is a 24 yo female with hx of depression, anxiety, who presents for worsening depression with SI to hang herself. Patient reports depression since the 8th grade and explains that she has been chronically dysthymic with severe depressive episodes interspersed, that can last for weeks and during which time patient has to force herself out of bed. Patient reports chronic daily wish, wishing she could just escape from her depression and . Past August 2024, during a particularly challenging depressive episode she started intermittently hearing words such as cunt and . get a job.. In September, seemingly out of nowhere she had thoughts to harm other people and was worried she might stab someone while working at [employer]; she denies ever having desire or urges to harming anyone at all and just had this thought but it scared her and so she presented to the hospital so she could get locked up so as not to hurt anyone... Patient was started on Invega; while she was there she had a dystonic reaction to a p.r.n. medication. Patient has continued taking paliperidone however she has remained very depressed and this past week her passive SI started becoming active, with thoughts to hang herself or to jump off something high; patient started develop a plan but it did not become intent. Patient denies any discrete history of manic type episodes or behaviors however she was once tried on Prozac which quickly resulted in extreme high irritability, impulsivity even to the point of wanting to jump out of a car, which resolved once poked Truong was discontinued. Denies any drug or alcohol use; minimal cannabis and not for months; denies history of trauma. Denies any current AVH Formulation/clinical reasoning: Patient has chronic, debilitating depression which has evolved to include active SI; very limited medication trials, Zoloft 25 mg for a couple of months and then Wellbutrin which she both discontinued at some point. Provisional diagnosis of bipolar disorder: Patient had what sounds like the beginnings of a manic episode when she started Prozac, becoming extremely irritable, impulsive, angry, wanting to jump out of a moving car with symptoms resolving as soon as she stopped taking this medication. Patient's brother has bipolar disorder with significant manic episodes. Discussed medication options and reviewed risks/side effects of lithium which patient understood and would like to try. Bylas chosen since patient has chronic SI, debilitating depression and there remains concern for this being a bipolar depression (MDD with psychotic features as a rule out; schizophrenia seems less likely given that only psychotic symptom was AH and was in the context of depression; thought to harm others seems more of a mood congruent, intrusive thought that was completely dystonic). Of note patient has about an hour of good mood when she takes caffeine and stimulant medication might be helpful as well. -regarding recent psychotic symptoms, it seems very possible that these were mood congruent; patient agrees and for now also agrees to hold Invega Plan: CV Q 15 minute checks Start lithium ER 600 mg q.h.s. Will hold Invega 6 mg q.h.s.; AH was momentary and maybe just mood congruent; will monitor Gather collateral Regarding Bylas, Risks, side-effects and benefits reviewed with pt, including, but not limited to, damage to kidneys and thyroid; pt was educated to stay hydrated, to watch for symptoms of lithium toxicity (also discussed, including but not limited to nausea, tremor, confusion) and the need to stay away from OTC NSAIDs (specifics reviewed) aside from Tylenol. Patient educated on: diagnosis, medication risk/benefits and therapeutic strategies Informed Consent: understands Reason for continued inpatient stay Substantial Risk for: inability to function Statement Statement: I have reviewed the history and physical and performed a pertinent examination on my patient. No changes have occurred unless specified. If the History and Physical was not performed prior to admission, the Hospitalist's service will be consulted for completing the admission physical. Time Spent With Patient Time: Total time managing care of this patient today ____ minutes.
[2025-02-04] MEDS: Nicotine 21 MG PATCH.TD24 TRANSDERMA (11:29)
--- NOTE | 2025-02-04 12:25 | HO.PM.IMCN ---
History of Present Illness Data of Consult Service Date: 02/04/25 Primary Care Provider: Branden Talbert MD [facility] Reason for consult: Medical consult for nausea 24-year-old female with a past medical history of depression with suicidal ideation, schizophrenia who was admitted here after presenting to medical center initially for a syncopal episode shortness of breath and coughing. She also endorsed suicidal ideation. She is seen today for reports of nausea and vomiting. Patient reports that for the past several weeks she has been vomiting when she wakes up, and has nausea with each meal. On exam she is reporting that she did eat breakfast however felt nauseous afterwards. She had a negative test on 02/02, as well as a negative urinalysis, her recent liver enzymes were normal, no leukocytosis. She reports some slight increase in clear vaginal discharge, denies any burning with urination, denies any constipation. Denies any symptoms of reflux. Denies any shortness of breath, chest pain dizziness or any other concerning symptoms Review of Systems Review of Systems: Denies any shortness of breath, chest pain, dizziness, lightheadedness, abdominal pain or discomfort, nausea vomiting or diarrhea PMFSH Medical History Lactose intolerance Depression Anxiety Vaginal delivery Family History Maternal Grandmother Ovarian cancer Maternal Uncle Throat cancer Family/Other Skin cancer Surgical History History of laparoscopic appendectomy (09/08/21) No pertinent past surgical history Social History Household Members: Family Housing: House Do you presently have visiting nurse or other home services: No Patient Tobacco Use Status: Current everyday Tobacco user Tobacco use type: Cigarette Smoked in Last 30 Days: Yes e-Cigarette/Vaping Use: Currently Using Patient Interested in Nicotine Replacement: Yes Substance Use Type: Marijuana Currently Displaying Signs/Symptoms of Drug Intoxication Withdrawal: No Advance Directives: Yes Advance Directives on File: Yes Advance Directives Date on File: 09/08/21 Do you have thoughts of harming others: None Do you have a plan to hurt others: No Plan Recently lost weight without trying: No Nutrition Risks: No Nutritional Risk Patient : No : No Poor oral hygiene: No service: No Current occupational status: unemployed Meds Allergies Allergy/AdvReac Type Severity Reaction Status Date / Time No Known Allergies Allergy Verified 02/02/25 14:07 Active Medications: Current Medications Acetaminophen (Acetaminophen 325 Mg Tablet) 650 mg PO Q6H PRN PRN Reason: Headache/Pain, Scale 1-10 Al Hydroxide/Mg Hydroxide (Magnesium Hydrox/Alum Hydrox 30 Ml Oral.Susp) 30 ml PO Q6H PRN PRN Reason: Heartburn/Nausea Benztropine Mesylate (Benztropine Mesylate 1 Mg Tablet) 1 mg PO BEDTIME [facility] Last Admin: 02/03/25 20:44 Dose: Not Given Hydroxyzine HCl (Hydroxyzine Hcl 25 Mg Tablet) 25 mg PO Q6H PRN PRN Reason: mild anxiety Magnesium Hydroxide (Milk Of Magnesia 30 Ml Oral.Susp) 30 ml PO DAILY PRN PRN Reason: Constipation Nicotine (Nicotine 21 Mg Patch.Td24) 21 mg TRANSDERMA DAILY PRN PRN Reason: smoking cessation Nicotine Polacrilex (Nicotine Polacrilex 2 Mg Gum) 4 mg BUCCAL Q2H PRN PRN Reason: Nicotine Cravings Last Admin: 02/04/25 11:29 Dose: 4 mg Nicotine Polacrilex (Nicotine Polacrilex 2 Mg Gum) 4 mg BUCCAL Q2H PRN PRN Reason: Nicotine Cravings Olanzapine (Olanzapine 5 Mg Tablet) 5 mg PO TID PRN PRN Reason: agitation Ondansetron HCl (Ondansetron Odt 4 Mg Tab.Rapdis) 4 mg TRANSLINGU Q4H PRN PRN Reason: Nausea and Vomiting Paliperidone (Paliperidone Er 6 Mg Tab.Er.24) 6 mg PO BEDTIME [facility] Last Admin: 02/03/25 20:42 Dose: 6 mg Trazodone HCl (Trazodone Hcl 50 Mg Tablet) 50 mg PO BEDTIME MRX1 PRN PRN Reason: Insomnia Home Medications ?Medication ?Instructions ?Recorded ?Confirmed ?Last Taken ?Type paliperidone 6 mg tablet,extended 6 mg PO BEDTIME 02/02/25 02/03/25 02/02/25 09:00 History release 24 hr Physical Exam Vital Signs and Narrative: Vital Signs: Last Vital Signs Temp 98.5 F 02/03/25 20:00 Pulse 75 06/12/25 20:00 Resp 16 02/03/25 20:00 BP 106/61 02/03/25 20:00 Pulse Ox 98 02/03/25 20:00 O2 Del Method Room Air 02/03/25 20:00 BMI result Body Mass Index 30.1 CONST: Alert and oriented, in NAD. Well nourished HEENT: Normocephalic, atraumatic, MMM, Eyes clear, Neck supple RESP: Lungs clear, RRR even and regular HEART:,RRR, S1, S2. No murmur, no edema GI:Abdomen Soft NT, ND. + BS times four. No CVA tenderness, no SP tenderness. :Deferred SKIN: Warm dry and intact, no visible lesions or rashes NEURO:CN II-XII Intact bilaterally, Sensation intact. Speech clear PSYCH: Normal affect Results Labs 02/04/25 08:12 02/04/25 08:12 Labs: Laboratory Results - last 24 hr 02/04/25 08:12 MCV 90.2 MCH 30.4 MCHC 33.7 RDW 12.0 Plt Count 343 MPV 9.2 L Immature Gran % (Auto) 0.2 Neut % (Auto) 69.8 Lymph % (Auto) 21.8 [place] % (Auto) 7.0 Eos % (Auto) 0.7 Baso % (Auto) 0.5 Lymph # (Auto) 1.8 [place] # (Auto) 0.6 Eos # (Auto) 0.1 Baso # (Auto) 0.0 Abs Immat Gran (auto) 0.02 Absolute Neuts (auto) 5.6 Absolute Nucleated RBC 0.000 Nucleated RBC % (auto) 0.0 Anion Gap 8 L Estim Creat Clear Calc 115.2 Estimated GFR > 60 Random Glucose 89 Estimat Average Glucose 97 Hemoglobin A1c % 5.0 Calcium 9.1 D Total Bilirubin 0.4 AST 18 ALT 25 Alkaline Phosphatase 62 Total Protein 7.1 Albumin 4.1 Triglycerides 129 Cholesterol 183 LDL Cholesterol, Calc 117 H HDL Cholesterol 41 TSH 0.80 Assessment and Plan (1) Nausea and vomiting: Status: Acute Plan Depression with suicidal ideation Treatment per psych team Nausea and vomiting Labs unremarkable We will check vaginal swab to rule out BV Due to nausea and vomiting associated with meals we will try Pepcid b.i.d. for 7 days to see if symptoms improve Continue to monitor notify provider if no relief Patient with history of ruptured appendix in 2021- No leukocytosis, abdominal exam benign. Thank you for allowing me to participate in the care of this patient. Signing off at this time. Please reconsult of any acute concerns or issues arise
[2025-02-04 20:00] VITALS: BP 126/87; PULSE 100; RESP 16; TEMP 37.2; O2SAT 99
[2025-02-05] MEDS: Nicotine 21 MG PATCH.TD24 TRANSDERMA (07:50)
[2025-02-05 08:00] VITALS: BP 110/67; PULSE 79; TEMP 37.2; O2SAT 98
--- NOTE | 2025-02-05 09:59 | HO.PSYCHPN ---
Subjective Subjective Date of Service: 02/05/25 Reason For Visit: SI Interim History: met with patient; discussed with team nausea, but no vomitting today depressed, but a little better maybe. No active SI and says she would never end herself but still wish she wer ...and still not hopeful...does not believe she'll get better. Mental Status Exam Mental Status Exam Narrative: Pt is alert and oriented; behavior is cooperative, calm, quiet; patient is not in distress; dressed in casual attire; adequate hygiene/grooming; mood is described as depressed and affect congruent, but a little brighter; eye contact appropriate; Speech is soft and slowed; psychomotor retardation present; thought process is organized and goal directed; Thought content is on struggling with depression; otherwise pertinent to relevant topics and without any delusional content, paranoid ideations or grandiosity; ongoing SI; denies HI; Denies AVH and there is no evidence of perceptual disturbance. Patients insight and judgment impaired Diagnostics Vital Signs (24Hr): Vital Signs - 24 hr 02/04/25 20:00 02/05/25 08:00 Temperature 98.9 F 98.9 F Pulse Rate 100 79 Respiratory Rate 16 Blood Pressure 126/87 110/67 Pulse Oximetry 99 98 Oxygen Delivery Method Room Air Room Air BMI result Body Mass Index 30.1 Labs 02/04/25 08:12 02/04/25 08:12 Labs: Laboratory Results - last 48 hr 02/04/25 08:12 WBC 8.0 RBC 4.47 Hgb 13.6 Hct 40.3 MCV 90.2 MCH 30.4 MCHC 33.7 RDW 12.0 Plt Count 343 MPV 9.2 L Immature Gran % (Auto) 0.2 Neut % (Auto) 69.8 Lymph % (Auto) 21.8 Weld % (Auto) 7.0 Eos % (Auto) 0.7 Baso % (Auto) 0.5 Lymph # (Auto) 1.8 Weld # (Auto) 0.6 Eos # (Auto) 0.1 Baso # (Auto) 0.0 Abs Immat Gran (auto) 0.02 Absolute Neuts (auto) 5.6 Absolute Nucleated RBC 0.000 Nucleated RBC % (auto) 0.0 Sodium 139 Potassium 4.2 Chloride 107 Carbon Dioxide 28 Anion Gap 8 L BUN 12 Creatinine 0.70 Estim Creat Clear Calc 115.2 Estimated GFR > 60 Random Glucose 89 Estimat Average Glucose 97 Hemoglobin A1c % 5.0 Calcium 9.1 D Total Bilirubin 0.4 AST 18 ALT 25 Alkaline Phosphatase 62 Total Protein 7.1 Albumin 4.1 Triglycerides 129 Cholesterol 183 LDL Cholesterol, Calc 117 H HDL Cholesterol 41 TSH 0.80 Medications Medications Current Medications Acetaminophen (Acetaminophen 325 Mg Tablet) 650 mg PO Q6H PRN PRN Reason: Headache/Pain, Scale 1-10 Al Hydroxide/Mg Hydroxide (Magnesium Hydrox/Alum Hydrox 30 Ml Oral.Susp) 30 ml PO Q6H PRN PRN Reason: Heartburn/Nausea Benztropine Mesylate (Benztropine Mesylate 1 Mg Tablet) 1 mg PO BEDTIME ETHAN Last Admin: 02/03/25 20:44 Dose: Not Given Famotidine (Famotidine 20 Mg Tablet) 20 mg PO BID COUNTS INCLUDE 234 BEDS AT THE [facility] Stop: 02/11/25 14:14 Last Admin: 02/05/25 08:38 Dose: 20 mg Hydroxyzine HCl (Hydroxyzine Hcl 25 Mg Tablet) 25 mg PO Q6H PRN PRN Reason: mild anxiety [place] Carbonate ([place] Carbonate Er 300 Mg Tablet.Er) 600 mg PO BEDTIME ETHAN Last Admin: 02/04/25 21:09 Dose: 600 mg Magnesium Hydroxide (Milk Of Magnesia 30 Ml Oral.Susp) 30 ml PO DAILY PRN PRN Reason: Constipation Nicotine (Nicotine 21 Mg Patch.Td24) 21 mg TRANSDERMA DAILY PRN PRN Reason: smoking cessation Last Admin: 02/05/25 07:50 Dose: 21 mg Nicotine Polacrilex (Nicotine Polacrilex 2 Mg Gum) 4 mg BUCCAL Q2H PRN PRN Reason: Nicotine Cravings Last Admin: 02/05/25 07:50 Dose: 4 mg Olanzapine (Olanzapine 5 Mg Tablet) 5 mg PO TID PRN PRN Reason: agitation Ondansetron HCl (Ondansetron Odt 4 Mg Tab.Rapdis) 4 mg TRANSLINGU Q4H PRN PRN Reason: Nausea and Vomiting Last Admin: 02/05/25 07:51 Dose: 4 mg Paliperidone (Paliperidone Er 6 Mg Tab.Er.24) 6 mg PO BEDTIME ETHAN Last Admin: 02/03/25 20:42 Dose: 6 mg Trazodone HCl (Trazodone Hcl 50 Mg Tablet) 50 mg PO BEDTIME MRX1 PRN PRN Reason: Insomnia Last Admin: 02/04/25 21:28 Dose: 50 mg Allergies Allergies Allergy/AdvReac Type Severity Reaction Status Date / Time No Known Allergies Allergy Verified 02/02/25 14:07 Assessment & Plan Assessment & Plan (1) Bipolar disorder, unspecified: Status: Acute Code(s): F31.9 - Bipolar disorder, unspecified Plan HPI: Pt is a 24 yo female with hx of depression, anxiety, who presents for worsening depression with SI to hang herself. Patient reports depression since the 8th grade and explains that she has been chronically dysthymic with severe depressive episodes interspersed, that can last for weeks and during which time patient has to force herself out of bed. Patient reports chronic daily wish, wishing she could just escape from her depression and . Past August 2024, during a particularly challenging depressive episode she started intermittently hearing words such as cunt and . get a job.. In September, seemingly out of nowhere she had thoughts to harm other people and was worried she might stab someone [place] [employer]; she denies ever having desire or urges to harming anyone at all and just had this thought but it scared her and so she presented to the hospital so she could get locked up so as not to hurt anyone... Patient was started on Invega; while she was there she had a dystonic reaction to a p.r.n. medication. Patient has continued taking paliperidone however she has remained very depressed and this past week her passive SI started becoming active, with thoughts to hang herself or to jump off something high; patient started develop a plan but it did not become intent. Patient denies any discrete history of manic type episodes or behaviors however she was once tried on Prozac which quickly resulted in extreme high irritability, impulsivity even to the point of wanting to jump out of a car, which resolved once poked Truong was discontinued. Denies any drug or alcohol use; minimal cannabis and not for months; denies history of trauma. Denies any current AVH Formulation/clinical reasoning: Patient has chronic, debilitating depression which has evolved to include active SI; very limited medication trials, Zoloft 25 mg for a couple of months and then Wellbutrin which she both discontinued at some point. Provisional diagnosis of bipolar disorder: Patient had what sounds like the beginnings of a manic episode when she started Prozac, becoming extremely irritable, impulsive, angry, wanting to jump out of a moving car with symptoms resolving as soon as she stopped taking this medication. Patient's brother has bipolar disorder with significant manic episodes. Discussed medication options and reviewed risks/side effects of lithium which patient understood and would like to try. [place] chosen since patient has chronic SI, debilitating depression and there remains concern for this being a bipolar depression (MDD with psychotic features as a rule out; schizophrenia seems less likely given that only psychotic symptom was AH and was in the context of depression; thought to harm others seems more of a mood congruent, intrusive thought that was completely dystonic). Of note patient has about an hour of good mood when she takes caffeine and stimulant medication might be helpful as well. -regarding recent psychotic symptoms, it seems very possible that these were mood congruent; patient agrees and for now also agrees to hold Invega Hospital course 02/05 depressed, wishing she would be but no active SI; continue tx Plan: 3day Q 15 minute checks lithium ER 600 mg q.h.s. Will hold Invega 6 mg q.h.s.; AH was momentary and maybe just mood congruent; will monitor Gather collateral Regarding [place], Risks, side-effects and benefits reviewed with pt, including, but not limited to, damage to kidneys and thyroid; pt was educated to stay hydrated, to watch for symptoms of lithium toxicity (also discussed, including but not limited to nausea, tremor, confusion) and the need to stay away from OTC NSAIDs (specifics reviewed) aside from Tylenol. Patient educated on: diagnosis and medication risk/benefits Informed Consent: understands and further education needed Reason for continued inpatient stay Substantial Risk for: rapid decompensation Time Spent With Patient Time: Total time managing care of this patient today ____ minutes.
[2025-02-05] MEDS: guanFACINE HCl ER 1 MG TAB.ER.24H PO (12:45)
[2025-02-05 13:00] LABS: Bacterial Vaginosis PCR POSITIVE (Negative); Candida Group PCR NOT DETECTED (Not Detect); Candida glab krusei PCR NOT DETECTED (Not Detect); Trichomonas vaginalis PCR NOT DETECTED (Not Detect)
[2025-02-05 20:00] VITALS: BP 112/69; PULSE 88; RESP 16; TEMP 37.3; O2SAT 97
[2025-02-05] MEDS: metroNIDAZOLE 0.75 % Vaginal Gel 70 GM TUBE VAGINAL (22:04)
[2025-02-06 07:52] VITALS: BP 99/57; PULSE 77; TEMP 36.8; O2SAT 98
--- NOTE | 2025-02-06 08:23 | P.PNPSI_ITS ---
Subjective Subjective Date of Service: 02/06/25 Reason For Visit: SI Interim History: Met with patient; discussed with team Patient remains feeling depressed, wishing she were ; no active SI but continues to feel hopeless. Patient had placed a 3 day notice. Store Detective discussed treatment and she says she is just worried about making enough money for rent, however she agrees that it may be worthwhile staying on the unit longer. Discussed medication and patient denies any side effects from lithium cerebellar slept well last night without trazodone. Agrees to increasing lithium dose Mental Status Exam Mental Status Exam Narrative: Pt is alert and oriented; behavior is cooperative, calm, quiet; patient is not in distress; dressed in casual attire; adequate hygiene/grooming; mood is described as depressed and affect congruent, remains downcast; eye contact appropriate; Speech is soft and slowed; psychomotor retardation present; thought process is organized and goal directed; Thought content is on struggling with depression, hopelessness about getting better; otherwise pertinent to relevant topics and without any delusional content, paranoid ideations or grandiosity; passive wish; no active SI; denies HI; Denies AVH and there is no evidence of perceptual disturbance. Patients insight and judgment impaired Diagnostics Vital Signs (24Hr): Vital Signs - 24 hr 02/05/25 20:00 02/06/25 07:52 Temperature 99.2 F 98.2 F Pulse Rate 88 77 Respiratory Rate 16 Blood Pressure 112/69 99/57 L Pulse Oximetry 97 98 Oxygen Delivery Method Room Air Room Air BMI result Body Mass Index 30.1 Labs 02/04/25 08:12 02/04/25 08:12 Labs: Laboratory Results - last 48 hr 02/04/25 02/05/25 02/05/25 08:12 10:20 11:44 WBC 8.0 RBC 4.47 Hgb 13.6 Hct 40.3 MCV 90.2 MCH 30.4 MCHC 33.7 RDW 12.0 Plt Count 343 MPV 9.2 L Immature Gran % (Auto) 0.2 Neut % (Auto) 69.8 Lymph % (Auto) 21.8 Todd % (Auto) 7.0 Eos % (Auto) 0.7 Baso % (Auto) 0.5 Lymph # (Auto) 1.8 Todd # (Auto) 0.6 Eos # (Auto) 0.1 Baso # (Auto) 0.0 Abs Immat Gran (auto) 0.02 Absolute Neuts (auto) 5.6 Absolute Nucleated RBC 0.000 Nucleated RBC % (auto) 0.0 Sodium 139 Potassium 4.2 Chloride 107 Carbon Dioxide 28 Anion Gap 8 L BUN 12 Creatinine 0.70 Estim Creat Clear Calc 115.2 Estimated GFR > 60 Random Glucose 89 Estimat Average Glucose 97 Hemoglobin A1c % 5.0 Calcium 9.1 D Total Bilirubin 0.4 AST 18 ALT 25 Alkaline Phosphatase 62 Total Protein 7.1 Albumin 4.1 Triglycerides 129 Cholesterol 183 LDL Cholesterol, Calc 117 H HDL Cholesterol 41 TSH 0.80 Beta HCG, Quant < 2 T. vaginalis (PCR) NOT DETECTED Bact vaginosis (PCR) POSITIVE A C. krusei/glabrata (PCR) NOT DETECTED Arelis group (PCR) NOT DETECTED Medications Medications Current Medications Acetaminophen (Acetaminophen 325 Mg Tablet) 650 mg PO Q6H PRN PRN Reason: Headache/Pain, Scale 1-10 Al Hydroxide/Mg Hydroxide (Magnesium Hydrox/Alum Hydrox 30 Ml Oral.Susp) 30 ml PO Q6H PRN PRN Reason: Heartburn/Nausea Benztropine Mesylate (Benztropine Mesylate 1 Mg Tablet) 1 mg PO BEDTIME [facility] Last Admin: 02/03/25 20:44 Dose: Not Given Famotidine (Famotidine 20 Mg Tablet) 20 mg PO BID [facility] Stop: 02/11/25 14:14 Last Admin: 02/05/25 21:41 Dose: 20 mg Guanfacine HCl (Guanfacine Hcl Er 1 Mg Tab.Er.24h) 1 mg PO DAILY ETHAN Hydroxyzine HCl (Hydroxyzine Hcl 25 Mg Tablet) 25 mg PO Q6H PRN PRN Reason: mild anxiety Last Admin: 02/05/25 18:11 Dose: 25 mg [place] Carbonate ([place] Carbonate Er 300 Mg Tablet.Er) 600 mg PO BEDTIME [facility] Last Admin: 02/05/25 21:41 Dose: 600 mg Magnesium Hydroxide (Milk Of Magnesia 30 Ml Oral.Susp) 30 ml PO DAILY PRN PRN Reason: Constipation Metronidazole (Metronidazole 0.75 % Vaginal Gel 70 Gm Tube) 1 gm VAGINAL BEDTIME ETHAN Stop: 02/09/25 21:01 Last Admin: 02/05/25 22:04 Dose: 1 gm Nicotine (Nicotine 21 Mg Patch.Td24) 21 mg TRANSDERMA DAILY PRN PRN Reason: smoking cessation Last Admin: 02/05/25 07:50 Dose: 21 mg Nicotine Polacrilex (Nicotine Polacrilex 2 Mg Gum) 4 mg BUCCAL Q2H PRN PRN Reason: Nicotine Cravings Last Admin: 02/05/25 18:10 Dose: 4 mg Ondansetron HCl (Ondansetron Odt 4 Mg Tab.Rapdis) 4 mg TRANSLINGU Q4H PRN PRN Reason: Nausea and Vomiting Last Admin: 02/05/25 07:51 Dose: 4 mg Paliperidone (Paliperidone Er 6 Mg Tab.Er.24) 6 mg PO BEDTIME ETHAN Last Admin: 02/03/25 20:42 Dose: 6 mg Allergies Allergies Allergy/AdvReac Type Severity Reaction Status Date / Time No Known Allergies Allergy Verified 02/02/25 14:07 Assessment & Plan Assessment & Plan (1) Bipolar disorder, unspecified: Status: Acute Code(s): F31.9 - Bipolar disorder, unspecified Plan HPI: Pt is a 24 yo female with hx of depression, anxiety, who presents for worsening depression with SI to hang herself. Patient reports depression since the 8th grade and explains that she has been chronically dysthymic with severe depressive episodes interspersed, that can last for weeks and during which time patient has to force herself out of bed. Patient reports chronic daily wish, wishing she could just escape from her depression and . Past August 2024, during a particularly challenging depressive episode she started intermittently hearing words such as cunt and . get a job.. In September, seemingly out of nowhere she had thoughts to harm other people and was worried she might stab someone while working [place] [employer]; she denies ever having desire or urges to harming anyone at all and just had this thought but it scared her and so she presented to the hospital so she could get locked up so as not to hurt anyone... Patient was started on Invega; while she was there she had a dystonic reaction to a p.r.n. medication. Patient has continued taking paliperidone however she has remained very depressed and this past week her passive SI started becoming active, with thoughts to hang herself or to jump off something high; patient started develop a plan but it did not become intent. Patient denies any discrete history of manic type episodes or behaviors however she was once tried on Prozac which quickly resulted in extreme high irritability, impulsivity even to the point of wanting to jump out of a car, which resolved once poked Truong was discontinued. Denies any drug or alcohol use; minimal cannabis and not for months; denies history of trauma. Denies any current AVH Formulation/clinical reasoning: Patient has chronic, debilitating depression which has evolved to include active SI; very limited medication trials, Zoloft 25 mg for a couple of months and then Wellbutrin which she both discontinued at some point. Provisional diagnosis of bipolar disorder: Patient had what sounds like the beginnings of a manic episode when she started Prozac, becoming extremely irritable, impulsive, angry, wanting to jump out of a moving car with symptoms resolving as soon as she stopped taking this medication. Patient's brother has bipolar disorder with significant manic episodes. Discussed medication options and reviewed risks/side effects of lithium which patient understood and would like to try. [place] chosen since patient has chronic SI, debilitating depression and there remains concern for this being a bipolar depression (MDD with psychotic features as a rule out; schizophrenia seems less likely given that only psychotic symptom was AH and was in the context of depression; thought to harm others seems more of a mood congruent, intrusive thought that was completely dystonic). Of note patient has about an hour of good mood when she takes caffeine and stimulant medication might be helpful as well. -regarding recent psychotic symptoms, it seems very possible that these were mood congruent; patient agrees and for now also agrees to hold Invega Hospital course 02/05 depressed, wishing she would be but no active SI; continue tx 02/06 remains depressed, hopeless; passive SI, wishing she were however no active SI. Hopeless that she will ever get better. However agrees to continue with treatment. Denies any AVH Positive for BV; treated with Flagyl gel Plan: 3day Q 15 minute checks Increase to lithium ER 900 mg q.h.s. Will hold Invega 6 mg q.h.s.; AH was momentary and maybe just mood congruent; will monitor Gather collateral Regarding [place], Risks, side-effects and benefits reviewed with pt, including, but not limited to, damage to kidneys and thyroid; pt was educated to stay hydrated, to watch for symptoms of lithium toxicity (also discussed, including but not limited to nausea, tremor, confusion) and the need to stay away from OTC NSAIDs (specifics reviewed) aside from Tylenol. Patient educated on: diagnosis, medication risk/benefits and therapeutic strategies Informed Consent: understands and further education needed Reason for continued inpatient stay Substantial Risk for: rapid decompensation Time Spent With Patient Time: Total time managing care of this patient today ____ minutes.
[2025-02-06] MEDS: guanFACINE HCl ER 1 MG TAB.ER.24H PO (08:51)
[2025-02-06] MEDS: Nicotine 21 MG PATCH.TD24 TRANSDERMA (08:51)
[2025-02-06 20:00] VITALS: BP 112/63; PULSE 86; RESP 16; TEMP 37.3; O2SAT 99
[2025-02-06] MEDS: metroNIDAZOLE 0.75 % Vaginal Gel 70 GM TUBE VAGINAL (22:15)
[2025-02-07 07:57] VITALS: BP 134/81; PULSE 95; RESP 18; TEMP 36.6; O2SAT 97
[2025-02-07] MEDS: Nicotine 21 MG PATCH.TD24 TRANSDERMA (09:18)
[2025-02-07] MEDS: guanFACINE HCl ER 1 MG TAB.ER.24H PO (09:18)
--- NOTE | 2025-02-07 09:45 | P.PNPSI_ITS ---
Subjective Subjective Date of Service: 02/07/25 Reason For Visit: SI Interim History: met with patient; discussed with team pt refused lithium last night; she explained she's worried she won't be able to follow up with blood draws in the community, however once she learned that maintenance labs are only 3-6 months. She remains very depressed and wishing she were ...Pt agrees to continue w/ lithium... Mental Status Exam Mental Status Exam Narrative: Pt is alert and oriented; behavior is cooperative, calm, quiet; patient is not in distress; dressed in casual attire; adequate hygiene/grooming; mood is described as depressed and affect congruent, remains downcast; eye contact appropriate; Speech is soft and slowed; psychomotor retardation present; thought process is organized and goal directed; Thought content is on struggling with depression, hopelessness about getting better; otherwise pertinent to relevant topics and without any delusional content, paranoid ideations or grandiosity; passive wish; no active SI; denies HI; Denies AVH and there is no evidence of perceptual disturbance. Patients insight and judgment impaired Diagnostics Vital Signs (24Hr): Vital Signs - 24 hr 02/06/25 20:00 02/07/25 07:57 Temperature 99.1 F 97.8 F Pulse Rate 86 95 Respiratory Rate 16 18 Blood Pressure 112/63 134/81 Pulse Oximetry 99 97 Oxygen Delivery Method Room Air Room Air BMI result Body Mass Index 30.1 Labs 02/04/25 08:12 02/04/25 08:12 Labs: Laboratory Results - last 48 hr 02/05/25 02/05/25 10:20 11:44 Beta HCG, Quant < 2 T. vaginalis (PCR) NOT DETECTED Bact vaginosis (PCR) POSITIVE A C. krusei/glabrata (PCR) NOT DETECTED Arelis group (PCR) NOT DETECTED Medications Medications Current Medications Acetaminophen (Acetaminophen 325 Mg Tablet) 650 mg PO Q6H PRN PRN Reason: Headache/Pain, Scale 1-10 Al Hydroxide/Mg Hydroxide (Magnesium Hydrox/Alum Hydrox 30 Ml Oral.Susp) 30 ml PO Q6H PRN PRN Reason: Heartburn/Nausea Benztropine Mesylate (Benztropine Mesylate 1 Mg Tablet) 1 mg PO BEDTIME [facility] Last Admin: 02/03/25 20:44 Dose: Not Given Famotidine (Famotidine 20 Mg Tablet) 20 mg PO BID [facility] Stop: 02/11/25 14:14 Last Admin: 02/07/25 09:18 Dose: 20 mg Guanfacine HCl (Guanfacine Hcl Er 1 Mg Tab.Er.24h) 1 mg PO DAILY [facility] Last Admin: 02/07/25 09:18 Dose: 1 mg Hydroxyzine HCl (Hydroxyzine Hcl 25 Mg Tablet) 25 mg PO Q6H PRN PRN Reason: mild anxiety Last Admin: 02/06/25 17:49 Dose: 25 mg [place] Carbonate ([place] Carbonate Er 450 Mg Tablet.Er) 900 mg PO BEDTIME [facility] Last Admin: 02/06/25 22:16 Dose: Not Given Magnesium Hydroxide (Milk Of Magnesia 30 Ml Oral.Susp) 30 ml PO DAILY PRN PRN Reason: Constipation Metronidazole (Metronidazole 0.75 % Vaginal Gel 70 Gm Tube) 1 gm VAGINAL BEDTIME [facility] Stop: 02/09/25 21:01 Last Admin: 02/06/25 22:15 Dose: 1 gm Nicotine (Nicotine 21 Mg Patch.Td24) 21 mg TRANSDERMA DAILY PRN PRN Reason: smoking cessation Last Admin: 02/07/25 09:18 Dose: 21 mg Nicotine Polacrilex (Nicotine Polacrilex 2 Mg Gum) 4 mg BUCCAL Q2H PRN PRN Reason: Nicotine Cravings Last Admin: 02/06/25 16:51 Dose: 4 mg Ondansetron HCl (Ondansetron Odt 4 Mg Tab.Rapdis) 4 mg TRANSLINGU Q4H PRN PRN Reason: Nausea and Vomiting Last Admin: 02/06/25 08:52 Dose: 4 mg Paliperidone (Paliperidone Er 6 Mg Tab.Er.24) 6 mg PO BEDTIME [facility] Last Admin: 02/03/25 20:42 Dose: 6 mg Allergies Allergies Allergy/AdvReac Type Severity Reaction Status Date / Time No Known Allergies Allergy Verified 02/02/25 14:07 Assessment & Plan Assessment & Plan (1) Bipolar disorder, unspecified: Status: Acute Code(s): F31.9 - Bipolar disorder, unspecified Plan HPI: Pt is a 24 yo female with hx of depression, anxiety, who presents for worsening depression with SI to hang herself. Patient reports depression since the 8th grade and explains that she has been chronically dysthymic with severe depressive episodes interspersed, that can last for weeks and during which time patient has to force herself out of bed. Patient reports chronic daily wish, wishing she could just escape from her depression and . Past August 2024, during a particularly challenging depressive episode she started intermittently hearing words such as cunt and . get a job.. In September, seemingly out of nowhere she had thoughts to harm other people and was worried she might stab someone [place] working [place] [employer]; she denies ever having desire or urges to harming anyone at all and just had this thought but it scared her and so she presented to the hospital so she could get locked up so as not to hurt anyone... Patient was started on Invega; while she was there she had a dystonic reaction to a p.r.n. medication. Patient has continued taking paliperidone however she has remained very depressed and this past week her passive SI started becoming active, with thoughts to hang herself or to jump off something high; patient started develop a plan but it did not become intent. Patient denies any discrete history of manic type episodes or behaviors however she was once tried on Prozac which quickly resulted in extreme high irritability, impulsivity even to the point of wanting to jump out of a car, which resolved once poked Truong was discontinued. Denies any drug or alcohol use; minimal cannabis and not for months; denies history of trauma. Denies any current AVH Formulation/clinical reasoning: Patient has chronic, debilitating depression which has evolved to include active SI; very limited medication trials, Zoloft 25 mg for a couple of months and then Wellbutrin which she both discontinued at some point. Provisional diagnosis of bipolar disorder: Patient had what sounds like the beginnings of a manic episode when she started Prozac, becoming extremely irritable, impulsive, angry, wanting to jump out of a moving car with symptoms resolving as soon as she stopped taking this medication. Patient's brother has bipolar disorder with significant manic episodes. Discussed medication options and reviewed risks/side effects of lithium which patient understood and would like to try. [place] chosen since patient has chronic SI, debilitating depression and there remains concern for this being a bipolar depression (MDD with psychotic features as a rule out; schizophrenia seems less likely given that only psychotic symptom was AH and was in the context of depression; thought to harm others seems more of a mood congruent, intrusive thought that was completely dystonic). Of note patient has about an hour of good mood when she takes caffeine and stimulant medication might be helpful as well. -regarding recent psychotic symptoms, it seems very possible that these were mood congruent; patient agrees and for now also agrees to hold [facility] Hospital course 02/05 depressed, wishing she would be but no active SI; continue tx 02/06 remains depressed, hopeless; passive SI, wishing she were however no active SI. Hopeless that she will ever get better. However agrees to continue with treatment. Denies any AVH Positive for BV; treated with Flagyl gel 02/07 very depressed; wishing she were and w/ significant psychomotor retardation. Says will continue w/ [place]. -no AVH and will dc In[facility]ga -will try adderall for considerable psychomotor retardation; will dc intuniv Plan: 3day Q 15 minute checks try Adderall ER 10mg daily for considerable psychomotor retardation Continue lithium ER 900 mg q.h.s. DC Invega 6 mg q.h.s.; AH was momentary and maybe just mood congruent; will monitor Gather collateral Zoloft 25mg Helped a little Prozac: caused highly irritable agitated state Wellbutrin: felt like in a bubble, which was helpful Regarding [place], Risks, side-effects and benefits reviewed with pt, including, but not limited to, damage to kidneys and thyroid; pt was educated to stay hydrated, to watch for symptoms of lithium toxicity (also discussed, including but not limited to nausea, tremor, confusion) and the need to stay away from OTC NSAIDs (specifics reviewed) aside from Tylenol. Patient educated on: diagnosis, medication risk/benefits and therapeutic strategies Informed Consent: understands Reason for continued inpatient stay Substantial Risk for: rapid decompensation Time Spent With Patient Time: Total time managing care of this patient today ____ minutes.
[2025-02-07] MEDS: Amphetamine Mixed Salts 10 MG TABLET PO (11:39)
[2025-02-07 20:00] VITALS: BP 111/57; PULSE 86; RESP 16; TEMP 37.3; O2SAT 98
[2025-02-07] MEDS: metroNIDAZOLE 0.75 % Vaginal Gel 70 GM TUBE VAGINAL (20:33)
[2025-02-08 08:00] VITALS: BP 109/65; PULSE 88; RESP 16; TEMP 36.8; O2SAT 96
[2025-02-08] MEDS: guanFACINE HCl ER 1 MG TAB.ER.24H PO (08:48)
[2025-02-08] MEDS: Dextroamphetamine/Amphetamine XR 10 MG CAP.ER.24H PO (08:48)
--- NOTE | 2025-02-08 10:00 | P.PNPSI_ITS ---
Subjective Subjective Date of Service: 02/08/25 Reason For Visit: SI Interim History: met with patient; discusse with team did not sleep last night, just laying in bed thinking...she remains very depressed and she says i feel no different from when i came in... However, no SI at all and she says she knows she would never...She does find Adderall helpful for energy and behavioral activation. Discussed lithium; she hopes it will prove helpful and willing to remain on unit, retract 3 day notice.. -pt needs to get back to work to make rent Mental Status Exam Mental Status Exam Narrative: Pt is alert and oriented; behavior is cooperative, calm, quiet; patient is not in distress; dressed in casual attire; adequate hygiene/grooming; mood is described as depressed and affect congruent, though a little brighter; eye contact appropriate; Speech is normal rate, volume, prosody; less psychomotor retardation present; thought process is organized and goal directed; Thought content is on struggling with depression, tx; worries about housing; otherwise pertinent to relevant topics and without any delusional content, paranoid ideations or grandiosity; passive wish; no active SI; denies HI; Denies AVH and there is no evidence of perceptual disturbance. Patients insight and judgment impaired but improved and adequate. Diagnostics Vital Signs (24Hr): Vital Signs - 24 hr 02/07/25 20:00 02/08/25 08:00 Temperature 99.1 F 98.2 F Pulse Rate 86 88 Respiratory Rate 16 16 Blood Pressure 111/57 L 109/65 Pulse Oximetry 98 96 Oxygen Delivery Method Room Air Room Air BMI result Body Mass Index 30.1 Labs 02/04/25 08:12 02/04/25 08:12 Medications Medications Current Medications Acetaminophen (Acetaminophen 325 Mg Tablet) 650 mg PO Q6H PRN PRN Reason: Headache/Pain, Scale 1-10 Al Hydroxide/Mg Hydroxide (Magnesium Hydrox/Alum Hydrox 30 Ml Oral.Susp) 30 ml PO Q6H PRN PRN Reason: Heartburn/Nausea Amphetamine/Dextroamphetamine (Dextroamphetamine/Amphetamine Xr 10 Mg Cap.Er.24h) 10 mg PO DAILY [facility] Last Admin: 02/08/25 08:48 Dose: 10 mg Famotidine (Famotidine 20 Mg Tablet) 20 mg PO BID [facility] Stop: 02/11/25 14:14 Last Admin: 02/08/25 08:48 Dose: 20 mg Guanfacine HCl (Guanfacine Hcl Er 1 Mg Tab.Er.24h) 1 mg PO DAILY [facility] Last Admin: 02/08/25 08:48 Dose: 1 mg Hydroxyzine HCl (Hydroxyzine Hcl 25 Mg Tablet) 25 mg PO Q6H PRN PRN Reason: mild anxiety Last Admin: 02/07/25 17:46 Dose: 25 mg [place] Carbonate ([place] Carbonate Er 450 Mg Tablet.Er) 900 mg PO BEDTIME [facility] Last Admin: 02/07/25 20:32 Dose: 900 mg Magnesium Hydroxide (Milk Of Magnesia 30 Ml Oral.Susp) 30 ml PO DAILY PRN PRN Reason: Constipation Metronidazole (Metronidazole 0.75 % Vaginal Gel 70 Gm Tube) 1 gm VAGINAL BEDTIME [facility] Stop: 02/09/25 21:01 Last Admin: 02/07/25 20:33 Dose: 1 gm Nicotine (Nicotine 21 Mg Patch.Td24) 21 mg TRANSDERMA DAILY PRN PRN Reason: smoking cessation Last Admin: 02/07/25 09:18 Dose: 21 mg Nicotine Polacrilex (Nicotine Polacrilex 2 Mg Gum) 4 mg BUCCAL Q2H PRN PRN Reason: Nicotine Cravings Last Admin: 02/06/25 16:51 Dose: 4 mg Ondansetron HCl (Ondansetron Odt 4 Mg Tab.Rapdis) 4 mg TRANSLINGU Q4H PRN PRN Reason: Nausea and Vomiting Last Admin: 02/08/25 08:51 Dose: 4 mg Paliperidone (Paliperidone Er 6 Mg Tab.Er.24) 6 mg PO BEDTIME [facility] Last Admin: 02/03/25 20:42 Dose: 6 mg Allergies Allergies Allergy/AdvReac Type Severity Reaction Status Date / Time No Known Allergies Allergy Verified 02/02/25 14:07 Assessment & Plan Assessment & Plan (1) Bipolar disorder, unspecified: Status: Acute Code(s): F31.9 - Bipolar disorder, unspecified Plan HPI: Pt is a 24 yo female with hx of depression, anxiety, who presents for worsening depression with SI to hang herself. Patient reports depression since the 8th grade and explains that she has been chronically dysthymic with severe depressive episodes interspersed, that can last for weeks and during which time patient has to force herself out of bed. Patient reports chronic daily wish, wishing she could just escape from her depression and . Past August 2024, during a particularly challenging depressive episode she started intermittently hearing words such as cunt and . get a job.. In September, seemingly out of nowhere she had thoughts to harm other people and was worried she might stab someone [place] working [place] [employer]; she denies ever having desire or urges to harming anyone at all and just had this thought but it scared her and so she presented to the hospital so she could get locked up so as not to hurt anyone... Patient was started on Invega; while she was there she had a dystonic reaction to a p.r.n. medication. Patient has continued taking paliperidone however she has remained very depressed and this past week her passive SI started becoming active, with thoughts to hang herself or to jump off something high; patient started develop a plan but it did not become intent. Patient denies any discrete history of manic type episodes or behaviors however she was once tried on Prozac which quickly resulted in extreme high irritability, impulsivity even to the point of wanting to jump out of a car, which resolved once poked Truong was discontinued. Denies any drug or alcohol use; minimal cannabis and not for months; denies history of trauma. Denies any current AVH Formulation/clinical reasoning: Patient has chronic, debilitating depression which has evolved to include active SI; very limited medication trials, Zoloft 25 mg for a couple of months and then Wellbutrin which she both discontinued at some point. Provisional diagnosis of bipolar disorder: Patient had what sounds like the beginnings of a manic episode when she started Prozac, becoming extremely irritable, impulsive, angry, wanting to jump out of a moving car with symptoms resolving as soon as she stopped taking this medication. Patient's brother has bipolar disorder with significant manic episodes. Discussed medication options and reviewed risks/side effects of lithium which patient understood and would like to try. [place] chosen since patient has chronic SI, debilitating depression and there remains concern for this being a bipolar depression (MDD with psychotic features as a rule out; schizophrenia seems less likely given that only psychotic symptom was AH and was in the context of depression; thought to harm others seems more of a mood congruent, intrusive thought that was completely dystonic). Of note patient has about an hour of good mood when she takes caffeine and stimulant medication might be helpful as well. -regarding recent psychotic symptoms, it seems very possible that these were mood congruent; patient agrees and for now also agrees to hold [facility] Hospital course 02/05 depressed, wishing she would be but no active SI; continue tx 02/06 remains depressed, hopeless; passive SI, wishing she were however no active SI. Hopeless that she will ever get better. However agrees to continue with treatment. Denies any AVH Positive for BV; treated with Flagyl gel 02/07 very depressed; wishing she were and w/ significant psychomotor retardation. Says will continue w/ [place]. -no AVH and will dc [facility] -will try adderall for considerable psychomotor retardation; will dc intuniv 02/08 did not sleep last night, just laying in bed thinking...she remains very depressed and she says i feel no different from when i came in... However, no SI at all and she says she knows she would never...She does find Adderall helpful for energy and behavioral activation. Discussed lithium; she hopes it will prove helpful and willing to remain on unit, retract 3 day notice.. -casualty underwriter agrees to DC patient on Friday after [place] labs although pt remains depressed but no active SI and she is overall improved. She agrees to remain on unit for continued stabilizing and labs. Health Center Assistant agrees to dc on friday, whether or not [place] has proven effective, as patient will follow up w/ outpt. Plan: CV Q 15 minute checks Adderall ER 20mg daily for considerable psychomotor retardation Continue lithium ER 900 mg q.h.s. DC Invega 6 mg q.h.s.; AH was momentary and maybe just mood congruent; will monitor D[facility] intuniv; not helpful; adderall more effective Gather collateral Past med trials: Zoloft 25mg Helped a little Prozac: caused highly irritable agitated state Wellbutrin: felt like in a bubble, which was helpful Regarding [place], Risks, side-effects and benefits reviewed with pt, including, but not limited to, damage to kidneys and thyroid; pt was educated to stay hydrated, to watch for symptoms of lithium toxicity (also discussed, including but not limited to nausea, tremor, confusion) and the need to stay away from OTC NSAIDs (specifics reviewed) aside from Tylenol. Patient educated on: diagnosis and medication risk/benefits Informed Consent: understands Reason for continued inpatient stay Substantial Risk for: stable for discharge Time Spent With Patient Time: Total time managing care of this patient today ____ minutes.
[2025-02-08] MEDS: Nicotine 21 MG PATCH.TD24 TRANSDERMA (11:20)
[2025-02-08 20:00] VITALS: BP 125/77; PULSE 100; TEMP 37.1; O2SAT 96
[2025-02-08] MEDS: metroNIDAZOLE 0.75 % Vaginal Gel 70 GM TUBE VAGINAL (21:36)
[2025-02-09] MEDS: traZODone HCL 25 MG HALFTAB PO (02:14)
[2025-02-09 08:21] VITALS: BP 124/56; PULSE 70; RESP 16; TEMP 37.3; O2SAT 98
[2025-02-09] MEDS: Dextroamphetamine/Amphetamine XR 10 MG CAP.ER.24H 20 MG PO (08:43)
--- NOTE | 2025-02-09 10:38 | P.PNPSI_ITS ---
Subjective Subjective Date of Service: 02/09/25 Reason For Visit: SI Subjective Notes: 3 Day Healthcare Proxy: No Guardianship: No Medical Problems Affecting Mental Status: No Interim History: Patient states that she is a little better today. Requests to discontinue lithium as she has not experienced any changes. She notes that she is a little bit anxious and requests medication for this. Depression has improved with no depression today. She notes that lithium has no influence with her current improved mood. She denies SI/HI/AH/VH. Medication Compliance: Yes Side effects from medications: No Attending Groups: Intermittent Review of Systems Acute medical concerns: No Review of Systems Review of Systems Yes all other systems are reviewed and are negative Mental Status Exam Mental Status Exam Narrative: Appearance: Casually dressed, adequate hygiene/grooming Behavior: Calm and cooperative throughout the interview. Eye contact is appropriate, and there are no signs of psychomotor agitation or retardation Speech: Normal volume and prosody Thought process logical and goal-directed Thought content: Future oriented no self-harming thoughts Mood: A little better Affect: Constricted SI:denies HI:denies VH/AH:none Delusions: None Insight/judgment: Fair insight and judgment Memory/cog: Alert, oriented x 4. grossly intact to conversational testing Diagnostics Vital Signs (24Hr): Vital Signs - 24 hr 02/08/25 20:00 02/09/25 08:21 Temperature 98.8 F 99.1 F Pulse Rate 100 70 Respiratory Rate 16 Blood Pressure 125/77 124/56 L Pulse Oximetry 96 98 Oxygen Delivery Method Room Air Room Air BMI result Body Mass Index 30.1 Labs 02/04/25 08:12 02/04/25 08:12 Medications Medications Current Medications Acetaminophen (Acetaminophen 325 Mg Tablet) 650 mg PO Q6H PRN PRN Reason: Headache/Pain, Scale 1-10 Al Hydroxide/Mg Hydroxide (Magnesium Hydrox/Alum Hydrox 30 Ml Oral.Susp) 30 ml PO Q6H PRN PRN Reason: Heartburn/Nausea Amphetamine/Dextroamphetamine (Dextroamphetamine/Amphetamine Xr 10 Mg Cap.Er.24h) 20 mg PO DAILY [facility] Last Admin: 02/09/25 08:43 Dose: 20 mg Famotidine (Famotidine 20 Mg Tablet) 20 mg PO BID [facility] Stop: 02/11/25 14:14 Last Admin: 02/09/25 08:16 Dose: 20 mg Hydroxyzine HCl (Hydroxyzine Hcl 25 Mg Tablet) 25 mg PO Q6H PRN PRN Reason: mild anxiety Last Admin: 02/07/25 17:46 Dose: 25 mg [place] Carbonate ([place] Carbonate Er 450 Mg Tablet.Er) 900 mg PO BEDTIME [facility] Last Admin: 02/08/25 21:03 Dose: 900 mg Magnesium Hydroxide (Milk Of Magnesia 30 Ml Oral.Susp) 30 ml PO DAILY PRN PRN Reason: Constipation Metronidazole (Metronidazole 0.75 % Vaginal Gel 70 Gm Tube) 1 gm VAGINAL BEDTIME [facility] Stop: 02/09/25 21:01 Last Admin: 02/08/25 21:36 Dose: 1 gm Nicotine (Nicotine 21 Mg Patch.Td24) 21 mg TRANSDERMA DAILY PRN PRN Reason: smoking cessation Last Admin: 02/08/25 11:20 Dose: 21 mg Nicotine Polacrilex (Nicotine Polacrilex 2 Mg Gum) 4 mg BUCCAL Q2H PRN PRN Reason: Nicotine Cravings Last Admin: 02/08/25 16:59 Dose: 4 mg Ondansetron HCl (Ondansetron Odt 4 Mg Tab.Rapdis) 4 mg TRANSLINGU Q4H PRN PRN Reason: Nausea and Vomiting Last Admin: 02/09/25 08:20 Dose: 4 mg Trazodone HCl (Trazodone Hcl 25 Mg Halftab) 25 mg PO BEDTIME MRX1 PRN PRN Reason: insomnia Last Admin: 02/09/25 02:14 Dose: 25 mg Allergies Allergies Allergy/AdvReac Type Severity Reaction Status Date / Time No Known Allergies Allergy Verified 02/02/25 14:07 Assessment & Plan Assessment & Plan (1) Bipolar disorder, unspecified: Status: Acute Code(s): F31.9 - Bipolar disorder, unspecified Plan HPI: Pt is a 24 yo female with hx of depression, anxiety, who presents for worsening depression with SI to hang herself. Patient reports depression since the 8th grade and explains that she has been chronically dysthymic with severe depressive episodes interspersed, that can last for weeks and during which time patient has to force herself out of bed. Patient reports chronic daily wish, wishing she could just escape from her depression and . Past August 2024, during a particularly challenging depressive episode she started intermittently hearing words such as cunt and . get a job.. In September, seemingly out of nowhere she had thoughts to harm other people and was worried she might stab someone [place] working [place] [employer]; she denies ever having desire or urges to harming anyone at all and just had this thought but it scared her and so she presented to the hospital so she could get locked up so as not to hurt anyone... Patient was started on Invega; while she was there she had a dystonic reaction to a p.r.n. medication. Patient has continued taking paliperidone however she has remained very depressed and this past week her passive SI started becoming active, with thoughts to hang herself or to jump off something high; patient started develop a plan but it did not become intent. Patient denies any discrete history of manic type episodes or behaviors however she was once tried on Prozac which quickly resulted in extreme high irritability, impulsivity even to the point of wanting to jump out of a car, which resolved once poked Truong was discontinued. Denies any drug or alcohol use; minimal cannabis and not for months; denies history of trauma. Denies any current AVH Formulation/clinical reasoning: Patient has chronic, debilitating depression which has evolved to include active SI; very limited medication trials, Zoloft 25 mg for a couple of months and then Wellbutrin which she both discontinued at some point. Provisional diagnosis of bipolar disorder: Patient had what sounds like the beginnings of a manic episode when she started Prozac, becoming extremely irritable, impulsive, angry, wanting to jump out of a moving car with symptoms resolving as soon as she stopped taking this medication. Patient's brother has bipolar disorder with significant manic episodes. Discussed medication options and reviewed risks/side effects of lithium which patient understood and would like to try. [place] chosen since patient has chronic SI, debilitating depression and there remains concern for this being a bipolar depression (MDD with psychotic features as a rule out; schizophrenia seems less likely given that only psychotic symptom was AH and was in the context of depression; thought to harm others seems more of a mood congruent, intrusive thought that was completely dystonic). Of note patient has about an hour of good mood when she takes caffeine and stimulant medication might be helpful as well. -regarding recent psychotic symptoms, it seems very possible that these were mood congruent; patient agrees and for now also agrees to hold [facility] Hospital course 02/05 depressed, wishing she would be but no active SI; continue tx 02/06 remains depressed, hopeless; passive SI, wishing she were however no active SI. Hopeless that she will ever get better. However agrees to continue with treatment. Denies any AVH Positive for BV; treated with Flagyl gel 02/07 very depressed; wishing she were and w/ significant psychomotor retardation. Says will continue w/ [place]. -no AVH and will dc Invega -will try adderall for considerable psychomotor retardation; will dc intuniv 02/08 did not sleep last night, just laying in bed thinking...she remains very depressed and she says i feel no different from when i came in... However, no SI at all and she says she knows she would never...She does find Adderall helpful for energy and behavioral activation. Discussed lithium; she hopes it will prove helpful and willing to remain on unit, retract 3 day notice.. -medical technical writer agrees to DC patient on Friday after [place] labs although pt remains depressed but no active SI and she is overall improved. She agrees to remain on unit for continued stabilizing and labs. Condenser Tube Tender agrees to dc on friday, whether or not [place] has proven effective, as patient will follow up w/ outpt. 02/09: Patient states that she is a little better today. Requests to discontinue lithium as she has not experienced any changes. She notes that she is a little bit anxious and requests medication for this. Depression has improved with no depression today. She notes that lithium has no influence with her current improved mood. She denies SI/HI/AH/VH. Agrees to continue [place] after this medical technical writer informed her that [place] likely contributed to her improved mood. Buspirone 5 mg twice daily ordered for anxiety; instructed on the risks, benefits, and potential adverse reactions of the medication. Plan: CV Q 15 minute checks Adderall ER 20mg daily for considerable psychomotor retardation Continue lithium ER 900 mg q.h.s. Buspirone 5 mg twice daily ordered DC Invega 6 mg q.h.s.; AH was momentary and maybe just mood congruent; will monitor Dc intuniv; not helpful; adderall more effective Gather collateral Past med trials: Zoloft 25mg Helped a little Prozac: caused highly irritable agitated state Wellbutrin: felt like in a bubble, which was helpful Regarding [place], Risks, side-effects and benefits reviewed with pt, including, but not limited to, damage to kidneys and thyroid; pt was educated to stay hydrated, to watch for symptoms of lithium toxicity (also discussed, including but not limited to nausea, tremor, confusion) and the need to stay away from OTC NSAIDs (specifics reviewed) aside from Tylenol. Patient educated on: medication risk/benefits and therapeutic strategies Reason for continued inpatient stay Substantial Risk for: rapid decompensation Time Spent With Patient Time: Total time managing care of this patient today ____ minutes.
[2025-02-09 19:42] VITALS: BP 123/75; PULSE 104; TEMP 37.9; O2SAT 99
[2025-02-09] MEDS: metroNIDAZOLE 0.75 % Vaginal Gel 70 GM TUBE VAGINAL (20:00)
[2025-02-10] MEDS: traZODone HCL 25 MG HALFTAB PO ×2 (01:28→23:37)
[2025-02-10 07:00] VITALS: BMI 30.2
[2025-02-10 08:00] VITALS: BP 108/63; PULSE 100; RESP 18; TEMP 36.9; O2SAT 98
[2025-02-10] MEDS: Dextroamphetamine/Amphetamine XR 10 MG CAP.ER.24H 20 MG PO (08:50)
[2025-02-10] MEDS: Nicotine 21 MG PATCH.TD24 TRANSDERMA (10:15)
--- NOTE | 2025-02-10 11:50 | P.DS_ITS ---
DS: Providers Provider Date of admission: 02/03/25 14:10 Primary care physician: Branden Talbert MD Consults: 02/03/25 18:15 Consult to Hospitalist Stat Comment: [place]ing [place] [facility] [place] [facility] Reason For Exam: nausea and vomiting DS: Diagnosis Discharge Diagnosis (1) Bipolar disorder, unspecified: Status: Acute DS: Medications Discharge Medications Home Medications: Home Medications ?Medication ?Instructions ?Recorded ?Confirmed paliperidone 6 mg tablet,extended 6 mg PO BEDTIME 01/2302/03/25 release 24 hr Data Data Completed and Pending Completed studies during hospitalization [Text1]: 02/04/25 02/05/25 02/05/25 08:12 10:20 11:44 WBC 8.0 RBC 4.47 Hgb 13.6 Hct 40.3 MCV 90.2 MCH 30.4 MCHC 33.7 RDW 12.0 Plt Count 343 MPV 9.2 L Immature Gran % (Auto) 0.2 Neut % (Auto) 69.8 Lymph % (Auto) 21.8 Baker % (Auto) 7.0 Eos % (Auto) 0.7 Baso % (Auto) 0.5 Lymph # (Auto) 1.8 Baker # (Auto) 0.6 Eos # (Auto) 0.1 Baso # (Auto) 0.0 Abs Immat Gran (auto) 0.02 Absolute Neuts (auto) 5.6 Absolute Nucleated RBC 0.000 Nucleated RBC % (auto) 0.0 Sodium 139 Potassium 4.2 Chloride 107 Carbon Dioxide 28 Anion Gap 8 L BUN 12 Creatinine 0.70 Estim Creat Clear Calc 115.2 Estimated GFR > 60 Random Glucose 89 Estimat Average Glucose 97 Hemoglobin A1c % 5.0 Calcium 9.1 D Total Bilirubin 0.4 AST 18 ALT 25 Alkaline Phosphatase 62 Total Protein 7.1 Albumin 4.1 Triglycerides 129 Cholesterol 183 LDL Cholesterol, Calc 117 H HDL Cholesterol 41 TSH 0.80 Beta HCG, Quant < 2 T. vaginalis (PCR) NOT DETECTED Bact vaginosis (PCR) POSITIVE A C. krusei/glabrata (PCR) NOT DETECTED Arelis group (PCR) NOT DETECTED DS: Summary Time Spent with Patient Time attestation: Total time managing care of this patient today ____ minutes. Discharge Plan Discharge Referrals: Branden Talbert MD [Primary Care Provider, Internal Medicine] - 1 Week Discharge Medications: No Action paliperidone 6 mg tablet extended release 24 hr 6 mg PO BEDTIME Print Language: Bulgarian
--- NOTE | 2025-02-10 11:50 | P.PNPSI_ITS ---
Subjective Subjective Date of Service: 02/10/25 Reason For Visit: SI Subjective Notes: Conditional Voluntary and 3 Day Healthcare Proxy: No Guardianship: No Medical Problems Affecting Mental Status: No Interim History: Patient notes that she woke up with panic attack this morning and vomited. Her symptoms improved shortly after taking buspirone. She recalls that her vomiting precedes feeling anxious and having racing thoughts that are foggy. She denies anxiety or depression at this time. She is worried about her current housing situation - she has been living with strangers for the past year and a half. She currently works part-time and intends to get a full-time job so she can moved to her new place. She states that her anxiety is related to external factors, including not been taught how to go about daily life's activities. She refused lithium last night; she thinks the medication is not effective as she does not have bipolar symptoms and also concerned about severe side effects of lithium, that she learned from other patients; she request for lithium to be discontinued. She will like for buspirone to be increased. She currently denies SI/HI/AH/VH. Her 3-day is up on Friday, but notes that she wants to go home tomorrow to resume work. Medication Compliance: Intermittent Side effects from medications: No Attending Groups: Intermittent Review of Systems Acute medical concerns: No Review of Systems Review of Systems Yes all other systems are reviewed and are negative Diagnostics Vital Signs (24Hr): Vital Signs - 24 hr 02/09/25 19:42 02/10/25 08:00 Temperature 100.2 F 98.5 F Pulse Rate 104 H 100 Respiratory Rate 18 Blood Pressure 123/75 108/63 Pulse Oximetry 99 98 Oxygen Delivery Method Room Air Room Air BMI result Body Mass Index 30.2 Labs 02/04/25 08:12 02/04/25 08:12 Medications Medications Current Medications Acetaminophen (Acetaminophen 325 Mg Tablet) 650 mg PO Q6H PRN PRN Reason: Headache/Pain, Scale 1-10 Al Hydroxide/Mg Hydroxide (Magnesium Hydrox/Alum Hydrox 30 Ml Oral.Susp) 30 ml PO Q6H PRN PRN Reason: Heartburn/Nausea Amphetamine/Dextroamphetamine (Dextroamphetamine/Amphetamine Xr 10 Mg Cap.Er.24h) 20 mg PO DAILY [facility] Last Admin: 02/10/25 08:50 Dose: 20 mg Buspirone HCl (Buspirone Hcl 5 Mg Tablet) 5 mg PO BID [facility] Last Admin: 02/10/25 08:51 Dose: 5 mg Famotidine (Famotidine 20 Mg Tablet) 20 mg PO BID [facility] Stop: 02/11/25 14:14 Last Admin: 02/10/25 08:51 Dose: 20 mg Hydroxyzine HCl (Hydroxyzine Hcl 25 Mg Tablet) 25 mg PO Q6H PRN PRN Reason: mild anxiety Last Admin: 02/10/25 01:28 Dose: 25 mg [place] Carbonate ([place] Carbonate Er 450 Mg Tablet.Er) 900 mg PO BEDTIME [facility] Last Admin: 02/09/25 19:45 Dose: Not Given Magnesium Hydroxide (Milk Of Magnesia 30 Ml Oral.Susp) 30 ml PO DAILY PRN PRN Reason: Constipation Nicotine (Nicotine 21 Mg Patch.Td24) 21 mg TRANSDERMA DAILY PRN PRN Reason: smoking cessation Last Admin: 02/10/25 10:15 Dose: 21 mg Nicotine Polacrilex (Nicotine Polacrilex 2 Mg Gum) 4 mg BUCCAL Q2H PRN PRN Reason: Nicotine Cravings Last Admin: 02/09/25 19:10 Dose: 4 mg Ondansetron HCl (Ondansetron Odt 4 Mg Tab.Rapdis) 4 mg TRANSLINGU Q4H PRN PRN Reason: Nausea and Vomiting Last Admin: 02/10/25 08:27 Dose: 4 mg Trazodone HCl (Trazodone Hcl 25 Mg Halftab) 25 mg PO BEDTIME MRX1 PRN PRN Reason: insomnia Last Admin: 02/10/25 01:28 Dose: 25 mg Allergies Allergies Allergy/AdvReac Type Severity Reaction Status Date / Time No Known Allergies Allergy Verified 02/02/25 14:07 Assessment & Plan Assessment & Plan (1) Bipolar disorder, unspecified: Status: Acute Code(s): F31.9 - Bipolar disorder, unspecified Plan HPI: Pt is a 24 yo female with hx of depression, anxiety, who presents for worsening depression with SI to hang herself. Patient reports depression since the 8th grade and explains that she has been chronically dysthymic with severe depressive episodes interspersed, that can last for weeks and during which time patient has to force herself out of bed. Patient reports chronic daily wish, wishing she could just escape from her depression and . Past August 2024, during a particularly challenging depressive episode she started intermittently hearing words such as cunt and . get a job.. In September, seemingly out of nowhere she had thoughts to harm other people and was worried she might stab someone while working [place] [employer]; she denies ever having desire or urges to harming anyone at all and just had this thought but it scared her and so she presented to the hospital so she could get locked up so as not to hurt anyone... Patient was started on Invega; while she was there she had a dystonic reaction to a p.r.n. medication. Patient has continued taking paliperidone however she has remained very depressed and this past week her passive SI started becoming active, with thoughts to hang herself or to jump off something high; patient started develop a plan but it did not become intent. Patient denies any discrete history of manic type episodes or behaviors however she was once tried on Prozac which quickly resulted in extreme high irritability, impulsivity even to the point of wanting to jump out of a car, which resolved once poked Truong was discontinued. Denies any drug or alcohol use; minimal cannabis and not for months; denies history of trauma. Denies any current AVH Formulation/clinical reasoning: Patient has chronic, debilitating depression which has evolved to include active SI; very limited medication trials, Zoloft 25 mg for a couple of months and then Wellbutrin which she both discontinued at some point. Provisional diagnosis of bipolar disorder: Patient had what sounds like the beginnings of a manic episode when she started Prozac, becoming extremely irritable, impulsive, angry, wanting to jump out of a moving car with symptoms resolving as soon as she stopped taking this medication. Patient's brother has bipolar disorder with significant manic episodes. Discussed medication options and reviewed risks/side effects of lithium which patient understood and would like to try. [place] chosen since patient has chronic SI, debilitating depression and there remains concern for this being a bipolar depression (MDD with psychotic features as a rule out; schizophrenia seems less likely given that only psychotic symptom was AH and was in the context of depression; thought to harm others seems more of a mood congruent, intrusive thought that was completely dystonic). Of note patient has about an hour of good mood when she takes caffeine and stimulant medication might be helpful as well. -regarding recent psychotic symptoms, it seems very possible that these were mood congruent; patient agrees and for now also agrees to hold [facility] course 02/05 depressed, wishing she would be but no active SI; continue tx 02/06 remains depressed, hopeless; passive SI, wishing she were however no active SI. Hopeless that she will ever get better. However agrees to continue with treatment. Denies any AVH Positive for BV; treated with Flagyl gel 02/07 very depressed; wishing she were and w/ significant psychomotor retardation. Says will continue w/ [place]. -no AVH and will dc Invega -will try adderall for considerable psychomotor retardation; will dc intuniv 02/08 did not sleep last night, just laying in bed thinking...she remains very depressed and she says i feel no different from when i came in... However, no SI at all and she says she knows she would never...She does find Adderall helpful for energy and behavioral activation. Discussed lithium; she hopes it will prove helpful and willing to remain on unit, retract 3 day notice.. -tech writer agrees to DC patient on Friday after [place] labs although pt remains depressed but no active SI and she is overall improved. She agrees to remain on unit for continued stabilizing and labs. Grocery Deliverer agrees to dc on friday, whether or not [place] has proven effective, as patient will follow up w/ outpt. 02/09: Patient states that she is a little better today. Requests to discontinue lithium as she has not experienced any changes. She notes that she is a little bit anxious and requests medication for this. Depression has improved with no depression today. She notes that lithium has no influence with her current improved mood. She denies SI/HI/AH/VH. Agrees to continue [place] after this tech writer informed her that [place] likely contributed to her improved mood. Buspirone 5 mg twice daily ordered for anxiety; instructed on the risks, benefits, and potential adverse reactions of the medication. 02/10: Patient notes that she woke up with panic attack this morning and vomited. Her symptoms improved shortly after taking buspirone. She recalls that her vomiting precedes feeling anxious and having racing thoughts that are foggy. She denies anxiety or depression at this time. She is worried about her current housing situation - she has been living with strangers for the past year and a half. She currently works part-time and intends to get a full-time job so she can moved to her new place. She states that her anxiety is related to external factors, including not been taught how to go about daily life's activities. She refused lithium last night; she thinks the medication is not effective as she does not have bipolar symptoms and also concerned about severe side effects of lithium, that she learned from other patients; she request for lithium to be discontinued. She will like for buspirone to be increased. She currently denies SI/HI/AH/VH. Her 3-day notice is up on Friday, but notes that she wants to go home tomorrow to resume work. Buspirone increased to 10 mg twice daily. [place] ER 900 mg q.h.s. discontinued. Continue current treatment regimen Plan: CV Q 15 minute checks Adderall ER 20mg daily for considerable psychomotor retardation DC lithium ER 900 mg q.h.s. Buspirone increased to 10 mg twice daily DC Invega 6 mg q.h.s.; AH was momentary and maybe just mood congruent; will monitor Dc intuniv; not helpful; adderall more effective Gather collateral Past med trials: Zoloft 25mg Helped a little Prozac: caused highly irritable agitated state Wellbutrin: felt like in a bubble, which was helpful Regarding [place], Risks, side-effects and benefits reviewed with pt, including, but not limited to, damage to kidneys and thyroid; pt was educated to stay hydrated, to watch for symptoms of lithium toxicity (also discussed, including but not limited to nausea, tremor, confusion) and the need to stay away from OTC NSAIDs (specifics reviewed) aside from Tylenol. Patient educated on: therapeutic strategies Reason for continued inpatient stay Substantial Risk for: rapid decompensation Time Spent With Patient Time: Total time managing care of this patient today ____ minutes.
[2025-02-10 19:54] VITALS: BP 128/86; PULSE 133; RESP 16; TEMP 37.6; O2SAT 97
[2025-02-11 08:00] VITALS: BP 99/62; PULSE 87; RESP 16; TEMP 37.1; O2SAT 99
[2025-02-11 08:39] LABS: Lithium 0.15 mmol/L (0.60-1.20)
[2025-02-11 08:49] LABS: Anion Gap 11 (12-20); Blood Urea Nitrogen 10 mg/dL (9-16); Calcium 9.6 mg/dL (8.4-10.2); Carbon Dioxide 26 mmol/L (22-29); Chloride 106 mmol/L (96-108); Creatinine Clr Calc Pharmacy 93.8; Estimated Glomerular Filt Rate > 60; Potassium 4.4 mmol/L (3.3-5.1); Sodium 139 mmol/L (135-145)
--- NOTE | 2025-02-11 14:28 | HO.PSYCHPN ---
Subjective Subjective Date of Service: 02/11/25 Reason For Visit: SI Subjective Notes: [place] Warning and 3 Day Healthcare Proxy: No Guardianship: No Medical Problems Affecting Mental Status: No Interim History: Medical record and nursing notes reviewed; case discussed during rounds with team, and met with patient for supportive therapy/psychoeducation, as well as medication management. Inherited patient today, per nursing patient refused Adderall this morning. The lithium was stopped 2 days ago the patient request as she does not feel it is effective. However her mood is declining in the past day 2 after stopped taking lithium. She agrees to restart at night 600 mg at bedtime plan to titrate up to 900 meds and get a late lithium level next week. Back and forth between passive and active suicidal thoughts to work different staff. Changed from 15 minute checks to 5 for safety. Staff reports she has very weird/ odd behavior. ? She psychotic, component with borderline personality disorder. This a lot in her my she have a lot of racing thoughts. Deny HI/SIB/AVH. He is on as 3 day notice but she is aware that if she wanted to retract it, she can do. Lots of racing thoughts, severe anxiety and depression. I do think she needs more time and be benefit for beyond next Friday to get mood stabilizer Medication Compliance: No Side effects from medications: No Attending Groups: Intermittent Review of Systems Acute medical concerns: No Medical Review of Systems: unchanged Review of Systems Review of Systems Constitutional: Denies fatigue and Denies fever(s) Cardiovascular: Denies chest pain and Denies dyspnea Respiratory: Denies dyspnea Gastrointestinal: Denies abdominal pain Psychiatric: denies suicidal ideation Endocrine: Denies fatigue Mental Status Exam Mental Status Exam Narrative: Pt is alert and oriented; behavior is cooperative patient is not in distress; dressed in casual attire; adequate hygiene/grooming; mood is described as anxous , she is overwhelmed with racing thoughts, and affect congruent. Mood declined since lithium is not on board; eye contact appropriate; Speech is soft to normal rate, volume, prosody; no psychomotor retardation present; thought process is disorganized and not goal directed; Thought content is on struggling with depression and anixety, tx; worries about housing; otherwise pertinent to relevant topics and without any delusional content, paranoid ideations or grandiosity; passive wish; as some point she says she can not handle this anymore; denies HI; Denies AVH and there is no evidence of perceptual disturbance. ? Psychotic paranoid, with racing thoughts Patients insight and judgment impaired Diagnostics Vital Signs (24Hr): Vital Signs - 24 hr 02/10/25 19:54 02/11/25 08:00 Temperature 99.6 F 98.7 F Pulse Rate 133 H 87 Respiratory Rate 16 16 Blood Pressure 128/86 99/62 Pulse Oximetry 97 99 Oxygen Delivery Method Room Air Room Air BMI result Body Mass Index 30.2 Labs 02/04/25 08:12 02/11/25 07:55 Labs: Laboratory Results - last 48 hr 02/11/25 07:55 Sodium 139 Potassium 4.4 Chloride 106 Carbon Dioxide 26 Anion Gap 11 L BUN 10 Creatinine 0.86 Estim Creat Clear Calc 93.8 Estimated GFR > 60 Random Glucose 92 Calcium 9.6 TSH 1.52 [place] 0.15 L Medications Medications Current Medications Acetaminophen (Acetaminophen 325 Mg Tablet) 650 mg PO Q6H PRN PRN Reason: Headache/Pain, Scale 1-10 Al Hydroxide/Mg Hydroxide (Magnesium Hydrox/Alum Hydrox 30 Ml Oral.Susp) 30 ml PO Q6H PRN PRN Reason: Heartburn/Nausea Amphetamine/Dextroamphetamine (Dextroamphetamine/Amphetamine Xr 10 Mg Cap.Er.24h) 20 mg PO DAILY ETHAN Last Admin: 02/11/25 08:48 Dose: Not Given Buspirone HCl (Buspirone Hcl 10 Mg Tablet) 10 mg PO BID ETHAN Last Admin: 02/11/25 08:26 Dose: 10 mg Hydroxyzine HCl (Hydroxyzine Hcl 50 Mg Tablet) 50 mg PO Q6H PRN PRN Reason: mild anxiety [place] Carbonate ([place] Carbonate 300 Mg Capsule) [address] [facility] Magnesium Hydroxide (Milk Of Magnesia 30 Ml Oral.Susp) 30 ml PO DAILY PRN PRN Reason: Constipation Nicotine (Nicotine 21 Mg Patch.Td24) 21 mg TRANSDERMA DAILY PRN PRN Reason: smoking cessation Last Admin: 02/10/25 10:15 Dose: 21 mg Nicotine Polacrilex (Nicotine Polacrilex 2 Mg Gum) 4 mg BUCCAL Q2H PRN PRN Reason: Nicotine Cravings Last Admin: 02/09/25 19:10 Dose: 4 mg Olanzapine (Olanzapine 5 Mg Tablet) 5 mg PO Q4H PRN PRN Reason: racing thougts Ondansetron HCl (Ondansetron Odt 4 Mg Tab.Rapdis) 4 mg TRANSLINGU Q4H PRN PRN Reason: Nausea and Vomiting Last Admin: 02/11/25 08:31 Dose: 4 mg Trazodone HCl (Trazodone Hcl 25 Mg Halftab) 25 mg PO BEDTIME MRX1 PRN PRN Reason: insomnia Last Admin: 02/10/25 23:37 Dose: 25 mg Allergies Allergies Allergy/AdvReac Type Severity Reaction Status Date / Time No Known Allergies Allergy Verified 02/02/25 14:07 Assessment & Plan Assessment & Plan (1) Bipolar disorder, unspecified: Status: Acute Code(s): F31.9 - Bipolar disorder, unspecified Plan HPI: Pt is a 24 yo female with hx of depression, anxiety, who presents for worsening depression with SI to hang herself. Patient reports depression since the 8th grade and explains that she has been chronically dysthymic with severe depressive episodes interspersed, that can last for weeks and during which time patient has to force herself out of bed. Patient reports chronic daily wish, wishing she could just escape from her depression and . Past August 2024, during a particularly challenging depressive episode she started intermittently hearing words such as cunt and . get a job.. In September, seemingly out of nowhere she had thoughts to harm other people and was worried she might stab someone while working [place] [employer]; she denies ever having desire or urges to harming anyone at all and just had this thought but it scared her and so she presented to the hospital so she could get locked up so as not to hurt anyone... Patient was started on Invega; while she was there she had a dystonic reaction to a p.r.n. medication. Patient has continued taking paliperidone however she has remained very depressed and this past week her passive SI started becoming active, with thoughts to hang herself or to jump off something high; patient started develop a plan but it did not become intent. Patient denies any discrete history of manic type episodes or behaviors however she was once tried on Prozac which quickly resulted in extreme high irritability, impulsivity even to the point of wanting to jump out of a car, which resolved once poked [place] was discontinued. Denies any drug or alcohol use; minimal cannabis and not for months; denies history of trauma. Denies any current AVH Formulation/clinical reasoning: Patient has chronic, debilitating depression which has evolved to include active SI; very limited medication trials, Zoloft 25 mg for a couple of months and then Wellbutrin which she both discontinued at some point. Provisional diagnosis of bipolar disorder: Patient had what sounds like the beginnings of a manic episode when she started Prozac, becoming extremely irritable, impulsive, angry, wanting to jump out of a moving car with symptoms resolving as soon as she stopped taking this medication. Patient's brother has bipolar disorder with significant manic episodes. Discussed medication options and reviewed risks/side effects of lithium which patient understood and would like to try. [place] chosen since patient has chronic SI, debilitating depression and there remains concern for this being a bipolar depression (MDD with psychotic features as a rule out; schizophrenia seems less likely given that only psychotic symptom was AH and was in the context of depression; thought to harm others seems more of a mood congruent, intrusive thought that was completely dystonic). Of note patient has about an hour of good mood when she takes caffeine and stimulant medication might be helpful as well. -regarding recent psychotic symptoms, it seems very possible that these were mood congruent; patient agrees and for now also agrees to hold [facility] course 02/05 depressed, wishing she would be but no active SI; continue tx 02/06 remains depressed, hopeless; passive SI, wishing she were however no active SI. Hopeless that she will ever get better. However agrees to continue with treatment. Denies any AVH Positive for BV; treated with Flagyl gel 02/07 very depressed; wishing she were and w/ significant psychomotor retardation. Says will continue w/ [place]. -no AVH and will dc [facility] -will try adderall for considerable psychomotor retardation; will dc [facility] 02/08 did not sleep last night, just laying in bed thinking...she remains very depressed and she says i feel no different from when i came in... However, no SI at all and she says she knows she would never...She does find Adderall helpful for energy and behavioral activation. Discussed lithium; she hopes it will prove helpful and willing to remain on unit, retract 3 day notice.. -blog writer agrees to DC patient on Friday after [place] labs although pt remains depressed but no active SI and she is overall improved. She agrees to remain on unit for continued stabilizing and labs. [employer] agrees to dc on friday, whether or not [place] has proven effective, as patient will follow up w/ outpt. 02/09: Patient states that she is a little better today. Requests to discontinue lithium as she has not experienced any changes. She notes that she is a little bit anxious and requests medication for this. Depression has improved with no depression today. She notes that lithium has no influence with her current improved mood. She denies SI/HI/AH/VH. Agrees to continue [place] after this blog writer informed her that [place] likely contributed to her improved mood. Buspirone 5 mg twice daily ordered for anxiety; instructed on the risks, benefits, and potential adverse reactions of the medication. 02/10: Patient notes that she woke up with panic attack this morning and vomited. Her symptoms improved shortly after taking buspirone. She recalls that her vomiting precedes feeling anxious and having racing thoughts that are foggy. She denies anxiety or depression at this time. She is worried about her current housing situation - she has been living with strangers for the past year and a half. She currently works part-time and intends to get a full-time job so she can moved to her new place. She states that her anxiety is related to external factors, including not been taught how to go about daily life's activities. She refused lithium last night; she thinks the medication is not effective as she does not have bipolar symptoms and also concerned about severe side effects of lithium, that she learned from other patients; she request for lithium to be discontinued. She will like for buspirone to be increased. She currently denies SI/HI/AH/VH. Her 3-day notice is up on Friday, but notes that she wants to go home tomorrow to resume work. Buspirone increased to 10 mg twice daily. [place] ER 900 mg q.h.s. discontinued. Continue current treatment regimen 02/11/25: Patient refused Adderall this morning, talking to medical student and this provider. Explained the lithium how it works and indication. She agreed that her mood is declined since the lithium is taken away. She has not having lithium for 2 nights. Seem she is having a lot more anxiety, more depressed, with a lot of racing thoughts. She was unsure what she is doing and worry about the future when she gets out from here. She reports passive SI deny plans or intention. However she reports severe suicidal thoughts to the other disciplines. She said she will have plan to like get herself off the bridge after discharge. Therefore I changed it from 15 minute checks 5. Please racing thoughts, ? If she have any psychotic behavior. Deny HI/AVH/SIB. She reports feeling some kind of sedation on PRNs which is incongruent. She is visible in and out of her room to common areas auto long. Due to severe anxiety with unsafe thoughts and racing thoughts eye increase hydroxyzine up to 50 PRNs and Zyprexa 5 mg every 4 hours. Nursing offer medication at this time with pending effect Hydroxyzine 50 mg q.6 hours as needed for anxiety. Zyprexa started 5 mg q.4 hours as needed for racing thoughts. Restart lithium 600 mg at bedtime. If she tolerates well we can increase up to 900 over the weekends and rechecked the lithium level next week. [place] level on the 20 is 0.15 very low after too nice not taking. Plan: CV Change from 15 to 5 minute checks due to between passive and active SI. Adderall ER 20mg daily for considerable psychomotor retardation DC lithium ER 900 mg q.h.s. restart at 600 after to nice refusing. Mood decline after stopped taking lithium. Over the weekend we can go up to 900 if tolerate well. Buspirone increased to 10 mg twice daily DC Invega 6 mg q.h.s.; AH was momentary and maybe just mood congruent; will monitor Dc intuniv; not helpful; adderall more effective [facility] Labs work order yesterday was within normal limit. 02/11/25: [place] level 0.15 Past med trials: Zoloft 25mg Helped a little Prozac: caused highly irritable agitated state Wellbutrin: felt like in a bubble, which was helpful Regarding [place], Risks, side-effects and benefits reviewed with pt, including, but not limited to, damage to kidneys and thyroid; pt was educated to stay hydrated, to watch for symptoms of lithium toxicity (also discussed, including but not limited to nausea, tremor, confusion) and the need to stay away from OTC NSAIDs (specifics reviewed) aside from Tylenol. Continued to reinforce education regarding indication and side effects from lithium. Patient educated on: diagnosis and medication risk/benefits Informed Consent: further education needed Reason for continued inpatient stay Substantial Risk for: harm to self and med/psych decompensation Time Spent With Patient Time: Total time managing care of this patient today ____ minutes.
[2025-02-11 20:00] VITALS: BP 108/67; PULSE 97; RESP 15; TEMP 37.1; O2SAT 97
[2025-02-11] MEDS: traZODone HCL 25 MG HALFTAB PO (21:36)
--- NOTE | 2025-02-12 05:55 | P.PNPSI_ITS ---
Subjective Subjective Date of Service: 02/12/25 Reason For Visit: SI Interim History: Increase in anxiety regarding discharge, finances to support herself and possible med SE, wonders if Adderall is making her more anxious. Discussed with team, checks changed to 5 minutes for added support. Medication Compliance: Yes Side effects from medications: No Attending Groups: Intermittent Review of Systems Acute medical concerns: No Medical Review of Systems: unchanged Review of Systems Review of Systems Yes all other systems are reviewed and are negative Mental Status Exam Mental Status Exam Patient Appearance: Appropriate Patient Orientation: Person, Place, Time and Situation Level of Consciousness: Alert Patient Behavior: Talkative and Good Eye Contact Mood Description: Anxious and Apprehensive Affect Description: Anxious and Apprehensive Patient Cognition Impaired: No Ability to Follow Directions: Good Speech Pattern: Spontaneous Speech Memory Description: Intact Thought Process: Distracted Thought Content: positive for Circumstantial Depressive Symptoms: Increased Anxiety Judgement: Good Diagnostics Vital Signs (24Hr): Vital Signs - 24 hr 02/11/25 08:00 02/11/25 20:00 Temperature 98.7 F 98.8 F Pulse Rate 87 97 Respiratory Rate 16 15 Blood Pressure 99/62 108/67 Pulse Oximetry 99 97 Oxygen Delivery Method Room Air BMI result Body Mass Index 30.2 Labs 02/04/25 08:12 02/11/25 07:55 Labs: Laboratory Results - last 48 hr 02/11/25 07:55 Sodium 139 Potassium 4.4 Chloride 106 Carbon Dioxide 26 Anion Gap 11 L BUN 10 Creatinine 0.86 Estim Creat Clear Calc 93.8 Estimated GFR > 60 Random Glucose 92 Calcium 9.6 TSH 1.52 [place] 0.15 L Medications Medications Current Medications Acetaminophen (Acetaminophen 325 Mg Tablet) 650 mg PO Q6H PRN PRN Reason: Headache/Pain, Scale 1-10 Al Hydroxide/Mg Hydroxide (Magnesium Hydrox/Alum Hydrox 30 Ml Oral.Susp) 30 ml PO Q6H PRN PRN Reason: Heartburn/Nausea Amphetamine/Dextroamphetamine (Dextroamphetamine/Amphetamine Xr 10 Mg Cap.Er.24h) 20 mg PO DAILY [facility] Last Admin: 02/11/25 08:48 Dose: Not Given Buspirone HCl (Buspirone Hcl 10 Mg Tablet) 10 mg PO BID [facility] Last Admin: 02/11/25 21:36 Dose: 10 mg Hydroxyzine HCl (Hydroxyzine Hcl 50 Mg Tablet) 50 mg PO Q6H PRN PRN Reason: mild anxiety Last Admin: 02/11/25 14:36 Dose: 50 mg [place] Carbonate ([place] Carbonate 300 Mg Capsule) 600 mg PO BEDTIME [facility]AN Last Admin: 02/11/25 21:36 Dose: 600 mg Magnesium Hydroxide (Milk Of Magnesia 30 Ml Oral.Susp) 30 ml PO DAILY PRN PRN Reason: Constipation Nicotine (Nicotine 21 Mg Patch.Td24) 21 mg TRANSDERMA DAILY PRN PRN Reason: smoking cessation Last Admin: 02/10/25 10:15 Dose: 21 mg Nicotine Polacrilex (Nicotine Polacrilex 2 Mg Gum) 4 mg BUCCAL Q2H PRN PRN Reason: Nicotine Cravings Last Admin: 02/09/25 19:10 Dose: 4 mg Olanzapine (Olanzapine 5 Mg Tablet) 5 mg PO Q4H PRN PRN Reason: racing thougts Last Admin: 02/11/25 14:36 Dose: 5 mg Ondansetron HCl (Ondansetron Odt 4 Mg Tab.Rapdis) 4 mg TRANSLINGU Q4H PRN PRN Reason: Nausea and Vomiting Last Admin: 02/11/25 08:31 Dose: 4 mg Trazodone HCl (Trazodone Hcl 25 Mg Halftab) 25 mg PO BEDTIME MRX1 PRN PRN Reason: insomnia Last Admin: 02/11/25 21:36 Dose: 25 mg Allergies Allergies Allergy/AdvReac Type Severity Reaction Status Date / Time No Known Allergies Allergy Verified 02/02/25 14:07 Assessment & Plan Assessment & Plan (1) Bipolar disorder, unspecified: Status: Acute Code(s): F31.9 - Bipolar disorder, unspecified Plan HPI: Pt is a 24 yo female with hx of depression, anxiety, who presents for worsening depression with SI to hang herself. Patient reports depression since the 8th grade and explains that she has been chronically dysthymic with severe depressive episodes interspersed, that can last for weeks and during which time patient has to force herself out of bed. Patient reports chronic daily wish, wishing she could just escape from her depression and . Past August 2024, during a particularly challenging depressive episode she started intermittently hearing words such as cunt and . get a job.. In September, seemingly out of nowhere she had thoughts to harm other people and was worried she might stab someone while working at [employer]; she denies ever having desire or urges to harming anyone at all and just had this thought but it scared her and so she presented to the hospital so she could get locked up so as not to hurt anyone... Patient was started on Invega; while she was there she had a dystonic reaction to a p.r.n. medication. Patient has continued taking paliperidone however she has remained very depressed and this past week her passive SI started becoming active, with thoughts to hang herself or to jump off something high; patient started develop a plan but it did not become intent. Patient denies any discrete history of manic type episodes or behaviors however she was once tried on Prozac which quickly resulted in extreme high irritability, impulsivity even to the point of wanting to jump out of a car, which resolved once poked Truong was discontinued. Denies any drug or alcohol use; minimal cannabis and not for months; denies history of trauma. Denies any current AVH Formulation/clinical reasoning: Patient has chronic, debilitating depression which has evolved to include active SI; very limited medication trials, Zoloft 25 mg for a couple of months and then Wellbutrin which she both discontinued at some point. Provisional diagnosis of bipolar disorder: Patient had what sounds like the beginnings of a manic episode when she started Prozac, becoming extremely irritable, impulsive, angry, wanting to jump out of a moving car with symptoms resolving as soon as she stopped taking this medication. Patient's brother has bipolar disorder with significant manic episodes. Discussed medication options and reviewed risks/side effects of lithium which patient understood and would like to try. [place] chosen since patient has chronic SI, debilitating depression and there remains concern for this being a bipolar depression (MDD with psychotic features as a rule out; schizophrenia seems less likely given that only psychotic symptom was AH and was in the context of depression; thought to harm others seems more of a mood congruent, intrusive thought that was completely dystonic). Of note patient has about an hour of good mood when she takes caffeine and stimulant medication might be helpful as well. -regarding recent psychotic symptoms, it seems very possible that these were mood congruent; patient agrees and for now also agrees to hold [facility] Hospital course 02/05 depressed, wishing she would be but no active SI; continue tx 02/06 remains depressed, hopeless; passive SI, wishing she were however no active SI. Hopeless that she will ever get better. However agrees to continue with treatment. Denies any AVH Positive for BV; treated with Flagyl gel 02/07 very depressed; wishing she were and w/ significant psychomotor retardation. Says will continue w/ [place]. -no AVH and will dc Invega -will try adderall for considerable psychomotor retardation; will dc intuniv 02/08 did not sleep last night, just laying in bed thinking...she remains very depressed and she says i feel no different from when i came in... However, no SI at all and she says she knows she would never...She does find Adderall helpful for energy and behavioral activation. Discussed lithium; she hopes it will prove helpful and willing to remain on unit, retract 3 day notice.. -blurb writer agrees to DC patient on Friday after [place] labs although pt remains depressed but no active SI and she is overall improved. She agrees to remain on unit for continued stabilizing and labs. Family Advocate agrees to dc on friday, whether or not [place] has proven effective, as patient will follow up w/ outpt. 02/09: Patient states that she is a little better today. Requests to discontinue lithium as she has not experienced any changes. She notes that she is a little bit anxious and requests medication for this. Depression has improved with no depression today. She notes that lithium has no influence with her current improved mood. She denies SI/HI/AH/VH. Agrees to continue [place] after this blurb writer informed her that [place] likely contributed to her improved mood. Buspirone 5 mg twice daily ordered for anxiety; instructed on the risks, benefits, and potential adverse reactions of the medication. 02/10: Patient notes that she woke up with panic attack this morning and vomited. Her symptoms improved shortly after taking buspirone. She recalls that her vomiting precedes feeling anxious and having racing thoughts that are foggy. She denies anxiety or depression at this time. She is worried about her current housing situation - she has been living with strangers for the past year and a half. She currently works part-time and intends to get a full-time job so she can moved to her new place. She states that her anxiety is related to external factors, including not been taught how to go about daily life's activities. She refused lithium last night; she thinks the medication is not effective as she does not have bipolar symptoms and also concerned about severe side effects of lithium, that she learned from other patients; she request for lithium to be discontinued. She will like for buspirone to be increased. She currently denies SI/HI/AH/VH. Her 3-day notice is up on Friday, but notes that she wants to go home tomorrow to resume work. Buspirone increased to 10 mg twice daily. [place] ER 900 mg q.h.s. discontinued. Continue current treatment regimen 02/11/25: Patient refused Adderall this morning, talking to medical student and this provider. Explained the lithium how it works and indication. She agreed that her mood is declined since the lithium is taken away. She has not having lithium for 2 nights. Seem she is having a lot more anxiety, more depressed, with a lot of racing thoughts. She was unsure what she is doing and worry about the future when she gets out from here. She reports passive SI deny plans or intention. However she reports severe suicidal thoughts to the other disciplines. She said she will have plan to like get herself off the bridge after discharge. Therefore I changed it from 15 minute checks 5. Please racing thoughts, ? If she have any psychotic behavior. Deny HI/AVH/SIB. She reports feeling some kind of sedation on PRNs which is incongruent. She is visible in and out of her room to common areas auto long. Due to severe anxiety with unsafe thoughts and racing thoughts eye increase hydroxyzine up to 50 PRNs and Zyprexa 5 mg every 4 hours. Nursing offer medication at this time with pending effect Hydroxyzine 50 mg q.6 hours as needed for anxiety. Zyprexa started 5 mg q.4 hours as needed for racing thoughts. Restart lithium 600 mg at bedtime. If she tolerates well we can increase up to 900 over the weekends and rechecked the lithium level next week. [place] level on the 20 is 0.15 very low after too nice not taking. 02/12: Continue regime, no changes today, pt is struggling, believes possibly med SE. Plan: CV Change from 15 to 5 minute checks due to between passive and active SI. Adderall ER 20mg daily for considerable psychomotor retardation DC lithium ER 900 mg q.h.s. restart at 600 after to nice refusing. Mood decline after stopped taking lithium. Over the weekend we can go up to 900 if tolerate well. Buspirone increased to 10 mg twice daily DC Invega 6 mg q.h.s.; AH was momentary and maybe just mood congruent; will monitor Dc intuniv; not helpful; adderall more effective [facility] Labs work order yesterday was within normal limit. 02/11/25: [place] level 0.15 Past med trials: Zoloft 25mg Helped a little Prozac: caused highly irritable agitated state Wellbutrin: felt like in a bubble, which was helpful Regarding [place], Risks, side-effects and benefits reviewed with pt, including, but not limited to, damage to kidneys and thyroid; pt was educated to stay hydrated, to watch for symptoms of lithium toxicity (also discussed, including but not limited to nausea, tremor, confusion) and the need to stay away from OTC NSAIDs (specifics reviewed) aside from Tylenol. Continued to reinforce education regarding indication and side effects from lithium. Reason for continued inpatient stay Substantial Risk for: rapid decompensation Time Spent With Patient Time: Total time managing care of this patient today ____ minutes.
[2025-02-12 08:00] VITALS: BP 109/59; PULSE 75; RESP 18; TEMP 37.2; O2SAT 96
[2025-02-12] MEDS: Dextroamphetamine/Amphetamine XR 10 MG CAP.ER.24H 20 MG PO (08:24)
[2025-02-12 19:51] VITALS: BP 154/98; PULSE 112; RESP 15; TEMP 36.9; O2SAT 99
[2025-02-12 20:18] VITALS: BP 110/80
--- NOTE | 2025-02-13 05:35 | HO.PSYCHPN ---
Subjective Subjective Date of Service: 02/13/25 Reason For Visit: SI Subjective Notes: Conditional Voluntary Interim History: Pt with sore throat, URI sx today, not feeling well. Diagnostics are negative. Continues with SI as she fears homelessness upon discharge Medication Compliance: Yes Side effects from medications: No Attending Groups: Intermittent Review of Systems URI, Sore throat Medical Review of Systems: unchanged Review of Systems Review of Systems URI, Sore Throat Mental Status Exam Mental Status Exam Patient Appearance: Appropriate Patient Orientation: Person, Place, Time and Situation Level of Consciousness: Alert Patient Behavior: Talkative and Good Eye Contact Mood Description: Depressed, Anxious and Apprehensive Affect Description: Depressed, Anxious and Apprehensive Patient Cognition Impaired: No Ability to Follow Directions: Good Speech Pattern: Spontaneous Speech Memory Description: Intact Thought Process: Distracted Thought Content: positive for Circumstantial and positive for Suicidal Ideation Depressive Symptoms: Increased Anxiety and Thoughts of /Suicide Judgement: Fair Diagnostics Vital Signs (24Hr): Vital Signs - 24 hr 02/12/25 08:00 02/12/25 19:51 02/12/25 20:18 Temperature 98.9 F 98.4 F Pulse Rate 75 112 H Respiratory Rate 18 15 Blood Pressure 109/59 L 154/98 H 110/80 Pulse Oximetry 96 99 Oxygen Delivery Method Room Air BMI result Body Mass Index 30.2 Labs 02/04/25 08:12 02/11/25 07:55 Labs: Laboratory Results - last 48 hr 02/11/25 07:55 Sodium 139 Potassium 4.4 Chloride 106 Carbon Dioxide 26 Anion Gap 11 L BUN 10 Creatinine 0.86 Estim Creat Clear Calc 93.8 Estimated GFR > 60 Random Glucose 92 Calcium 9.6 TSH 1.52 Bricelyn 0.15 L Medications Medications Current Medications Acetaminophen (Acetaminophen 325 Mg Tablet) 650 mg PO Q6H PRN PRN Reason: Headache/Pain, Scale 1-10 Al Hydroxide/Mg Hydroxide (Magnesium Hydrox/Alum Hydrox 30 Ml Oral.Susp) 30 ml PO Q6H PRN PRN Reason: Heartburn/Nausea Amphetamine/Dextroamphetamine (Dextroamphetamine/Amphetamine Xr 10 Mg Cap.Er.24h) 20 mg PO DAILY [facility] Last Admin: 02/12/25 08:24 Dose: 20 mg Buspirone HCl (Buspirone Hcl 10 Mg Tablet) 10 mg PO BID [facility] Last Admin: 02/12/25 20:51 Dose: 10 mg Hydroxyzine HCl (Hydroxyzine Hcl 50 Mg Tablet) 50 mg PO Q6H PRN PRN Reason: mild anxiety Last Admin: 02/11/25 14:36 Dose: 50 mg Bricelyn Carbonate (Bricelyn Carbonate 300 Mg Capsule) 600 mg PO BEDTIME ETHAN Last Admin: 02/12/25 20:51 Dose: 600 mg Magnesium Hydroxide (Milk Of Magnesia 30 Ml Oral.Susp) 30 ml PO DAILY PRN PRN Reason: Constipation Nicotine (Nicotine 21 Mg Patch.Td24) 21 mg TRANSDERMA DAILY PRN PRN Reason: smoking cessation Last Admin: 02/10/25 10:15 Dose: 21 mg Nicotine Polacrilex (Nicotine Polacrilex 2 Mg Gum) 4 mg BUCCAL Q2H PRN PRN Reason: Nicotine Cravings Last Admin: 02/12/25 16:39 Dose: 4 mg Olanzapine (Olanzapine 5 Mg Tablet) 5 mg PO Q4H PRN PRN Reason: racing thougts Last Admin: 02/11/25 14:36 Dose: 5 mg Ondansetron HCl (Ondansetron Odt 4 Mg Tab.Rapdis) 4 mg TRANSLINGU Q4H PRN PRN Reason: Nausea and Vomiting Last Admin: 02/12/25 08:25 Dose: 4 mg Trazodone HCl (Trazodone Hcl 25 Mg Halftab) 25 mg PO BEDTIME MRX1 PRN PRN Reason: insomnia Last Admin: 02/11/25 21:36 Dose: 25 mg Allergies Allergies Allergy/AdvReac Type Severity Reaction Status Date / Time No Known Allergies Allergy Verified 02/02/25 14:07 Assessment & Plan Assessment & Plan (1) Bipolar disorder, unspecified: Status: Acute Code(s): F31.9 - Bipolar disorder, unspecified Plan HPI: Pt is a 24 yo female with hx of depression, anxiety, who presents for worsening depression with SI to hang herself. Patient reports depression since the 8th grade and explains that she has been chronically dysthymic with severe depressive episodes interspersed, that can last for weeks and during which time patient has to force herself out of bed. Patient reports chronic daily wish, wishing she could just escape from her depression and . Past August 2024, during a particularly challenging depressive episode she started intermittently hearing words such as cunt and . get a job.. In September, seemingly out of nowhere she had thoughts to harm other people and was worried she might stab someone while working [place] [employer]; she denies ever having desire or urges to harming anyone at all and just had this thought but it scared her and so she presented to the hospital so she could get locked up so as not to hurt anyone... Patient was started on Invega; while she was there she had a dystonic reaction to a p.r.n. medication. Patient has continued taking paliperidone however she has remained very depressed and this past week her passive SI started becoming active, with thoughts to hang herself or to jump off something high; patient started develop a plan but it did not become intent. Patient denies any discrete history of manic type episodes or behaviors however she was once tried on Prozac which quickly resulted in extreme high irritability, impulsivity even to the point of wanting to jump out of a car, which resolved once poked Truong was discontinued. Denies any drug or alcohol use; minimal cannabis and not for months; denies history of trauma. Denies any current AVH Formulation/clinical reasoning: Patient has chronic, debilitating depression which has evolved to include active SI; very limited medication trials, Zoloft 25 mg for a couple of months and then Wellbutrin which she both discontinued at some point. Provisional diagnosis of bipolar disorder: Patient had what sounds like the beginnings of a manic episode when she started Prozac, becoming extremely irritable, impulsive, angry, wanting to jump out of a moving car with symptoms resolving as soon as she stopped taking this medication. Patient's brother has bipolar disorder with significant manic episodes. Discussed medication options and reviewed risks/side effects of lithium which patient understood and would like to try. Bricelyn chosen since patient has chronic SI, debilitating depression and there remains concern for this being a bipolar depression (MDD with psychotic features as a rule out; schizophrenia seems less likely given that only psychotic symptom was AH and was in the context of depression; thought to harm others seems more of a mood congruent, intrusive thought that was completely dystonic). Of note patient has about an hour of good mood when she takes caffeine and stimulant medication might be helpful as well. -regarding recent psychotic symptoms, it seems very possible that these were mood congruent; patient agrees and for now also agrees to hold [facility] course 02/05 depressed, wishing she would be but no active SI; continue tx 02/06 remains depressed, hopeless; passive SI, wishing she were however no active SI. Hopeless that she will ever get better. However agrees to continue with treatment. Denies any AVH Positive for BV; treated with Flagyl gel 02/07 very depressed; wishing she were and w/ significant psychomotor retardation. Says will continue w/ Bricelyn. -no AVH and will dc Invega -will try adderall for considerable psychomotor retardation; will dc intuniv 02/08 did not sleep last night, just laying in bed thinking...she remains very depressed and she says i feel no different from when i came in... However, no SI at all and she says she knows she would never...She does find Adderall helpful for energy and behavioral activation. Discussed lithium; she hopes it will prove helpful and willing to remain on unit, retract 3 day notice.. -global technical writer agrees to DC patient on Friday after Bricelyn labs although pt remains depressed but no active SI and she is overall improved. She agrees to remain on unit for continued stabilizing and labs. Aqua Ammonia Operator agrees to dc on friday, whether or not Bricelyn has proven effective, as patient will follow up w/ outpt. 02/09: Patient states that she is a little better today. Requests to discontinue lithium as she has not experienced any changes. She notes that she is a little bit anxious and requests medication for this. Depression has improved with no depression today. She notes that lithium has no influence with her current improved mood. She denies SI/HI/AH/VH. Agrees to continue Bricelyn after this global technical writer informed her that Bricelyn likely contributed to her improved mood. Buspirone 5 mg twice daily ordered for anxiety; instructed on the risks, benefits, and potential adverse reactions of the medication. 02/10: Patient notes that she woke up with panic attack this morning and vomited. Her symptoms improved shortly after taking buspirone. She recalls that her vomiting precedes feeling anxious and having racing thoughts that are foggy. She denies anxiety or depression at this time. She is worried about her current housing situation - she has been living with strangers for the past year and a half. She currently works part-time and intends to get a full-time job so she can moved to her new place. She states that her anxiety is related to external factors, including not been taught how to go about daily life's activities. She refused lithium last night; she thinks the medication is not effective as she does not have bipolar symptoms and also concerned about severe side effects of lithium, that she learned from other patients; she request for lithium to be discontinued. She will like for buspirone to be increased. She currently denies SI/HI/AH/VH. Her 3-day notice is up on Friday, but notes that she wants to go home tomorrow to resume work. Buspirone increased to 10 mg twice daily. Bricelyn ER 900 mg q.h.s. discontinued. Continue current treatment regimen 02/11/25: Patient refused Adderall this morning, talking to medical student and this provider. Explained the lithium how it works and indication. She agreed that her mood is declined since the lithium is taken away. She has not having lithium for 2 nights. Seem she is having a lot more anxiety, more depressed, with a lot of racing thoughts. She was unsure what she is doing and worry about the future when she gets out from here. She reports passive SI deny plans or intention. However she reports severe suicidal thoughts to the other disciplines. She said she will have plan to like get herself off the bridge after discharge. Therefore I changed it from 15 minute checks 5. Please racing thoughts, ? If she have any psychotic behavior. Deny HI/AVH/SIB. She reports feeling some kind of sedation on PRNs which is incongruent. She is visible in and out of her room to common areas auto long. Due to severe anxiety with unsafe thoughts and racing thoughts eye increase hydroxyzine up to 50 PRNs and Zyprexa 5 mg every 4 hours. Nursing offer medication at this time with pending effect Hydroxyzine 50 mg q.6 hours as needed for anxiety. Zyprexa started 5 mg q.4 hours as needed for racing thoughts. Restart lithium 600 mg at bedtime. If she tolerates well we can increase up to 900 over the weekends and rechecked the lithium level next week. Bricelyn level on the 20 is 0.15 very low after too nice not taking. 02/13: Increase Bricelyn to 900 mg HS Plan: CV Change from 15 to 5 minute checks due to between passive and active SI. Adderall ER 20mg daily for considerable psychomotor retardation DC lithium ER 900 mg q.h.s. restart at 600 after to nice refusing. Mood decline after stopped taking lithium. Over the weekend we can go up to 900 if tolerate well. Buspirone increased to 10 mg twice daily DC Invega 6 mg q.h.s.; AH was momentary and maybe just mood congruent; will monitor Dc intuniv; not helpful; adderall more effective [employer] Labs work order yesterday was within normal limit. 02/11/25: Bricelyn level 0.15 Past med trials: Zoloft 25mg Helped a little Prozac: caused highly irritable agitated state Wellbutrin: felt like in a bubble, which was helpful Regarding Bricelyn, Risks, side-effects and benefits reviewed with pt, including, but not limited to, damage to kidneys and thyroid; pt was educated to stay hydrated, to watch for symptoms of lithium toxicity (also discussed, including but not limited to nausea, tremor, confusion) and the need to stay away from OTC NSAIDs (specifics reviewed) aside from Tylenol. Continued to reinforce education regarding indication and side effects from lithium. Reason for continued inpatient stay Substantial Risk for: rapid decompensation Time Spent With Patient Time: Total time managing care of this patient today ____ minutes.
[2025-02-13 08:00] VITALS: BP 114/56; PULSE 86; RESP 18; TEMP 37.2; O2SAT 96
[2025-02-13] MEDS: Dextroamphetamine/Amphetamine XR 10 MG CAP.ER.24H 20 MG PO (08:26)
[2025-02-13 12:27] LABS: IDNOW Serial# 58CA691E
[2025-02-13 12:28] LABS: Strep A Nucleic Acid Negative (Negative)
[2025-02-13] MEDS: Nicotine 21 MG PATCH.TD24 TRANSDERMA (12:35)
[2025-02-13 12:53] LABS: Resp Syncy Virus RNA Qual PCR NEGATIVE (Negative); SARS COV2 PCR INHOUSE NEGATIVE (Negative)
[2025-02-13] MEDS: guaiFENesin DM 600/30 1 TAB TAB.ER.12H PO (18:08)
[2025-02-13 20:00] VITALS: BP 141/72; PULSE 88; RESP 15; TEMP 37.9; O2SAT 96
[2025-02-13] MEDS: traZODone HCL 25 MG HALFTAB PO (22:27)
[2025-02-14 07:54] VITALS: BP 104/63; PULSE 126; TEMP 37.1; O2SAT 99
[2025-02-14] MEDS: Dextroamphetamine/Amphetamine XR 10 MG CAP.ER.24H 20 MG PO (09:28)
[2025-02-14] MEDS: guaiFENesin DM 600/30 1 TAB TAB.ER.12H PO (11:21)
[2025-02-14] MEDS: Nicotine 21 MG PATCH.TD24 TRANSDERMA (11:35)
--- NOTE | 2025-02-14 14:06 | P.PNPSI_ITS ---
Subjective Subjective Date of Service: 02/14/25 Reason For Visit: SI Interim History: Patient reports feeling anxious and depressed ; pt stated, I feel like I want to commit suicide. I don't know how to function outside of here. I feel scare. I can't manage my rent. I'm losing my memory . Pt reports suicidal ideation with no plan. She reports feeling safe on the unit. denies HI/VH/AH. Encouraged to leave room and attend groups. Continue current tx plan. Medication Compliance: Yes Side effects from medications: No Mental Status Exam Mental Status Exam Patient Appearance: Appropriate Patient Orientation: Person, Place, Time and Situation Level of Consciousness: Awake and Alert Patient Behavior: Appropriate and Cooperative Mood Description: Depressed and Anxious Affect Description: Blunted Ability to Follow Directions: Good Speech Pattern: Clear Memory Description: Intact Hallucinations: None Delusions: Not Present Thought Process: Intact Thought Content: positive for Intact Judgement: Poor Diagnostics Vital Signs (24Hr): Vital Signs - 24 hr 02/13/25 20:00 02/14/25 07:54 Temperature 100.3 F 98.7 F Pulse Rate 88 126 H Respiratory Rate 15 Blood Pressure 141/72 H 104/63 Pulse Oximetry 96 99 Oxygen Delivery Method Room Air BMI result Body Mass Index 30.2 Labs 02/04/25 08:12 02/11/25 07:55 Labs: Laboratory Results - last 48 hr 02/13/25 11:59 Influenza Type A (PCR) NEGATIVE Influenza Type B (PCR) NEGATIVE RSV RNA Qual (PCR) NEGATIVE SARS-CoV-2 RNA (RT-PCR) NEGATIVE S. pyogenes GrpA DAIJA Negative Medications Medications Current Medications Acetaminophen (Acetaminophen 325 Mg Tablet) 650 mg PO Q6H PRN PRN Reason: Headache/Pain, Scale 1-10 Last Admin: 02/13/25 18:08 Dose: 650 mg Al Hydroxide/Mg Hydroxide (Magnesium Hydrox/Alum Hydrox 30 Ml Oral.Susp) 30 ml PO Q6H PRN PRN Reason: Heartburn/Nausea Amphetamine/Dextroamphetamine (Dextroamphetamine/Amphetamine Xr 10 Mg Cap.Er.24h) 20 mg PO DAILY [facility] Last Admin: 02/14/25 09:28 Dose: 20 mg Buspirone HCl (Buspirone Hcl 10 Mg Tablet) 10 mg PO BID [facility] Last Admin: 02/14/25 09:29 Dose: 10 mg Guaifenesin/Dextromethorphan (Guaifenesin Dm 600/30 1 Tab Tab.Er.12h) 1 tab PO BID PRN PRN Reason: Cough, congestion Last Admin: 02/14/25 11:21 Dose: 1 tab Hydroxyzine HCl (Hydroxyzine Hcl 50 Mg Tablet) 50 mg PO Q6H PRN PRN Reason: mild anxiety Last Admin: 02/13/25 22:28 Dose: 50 mg [place] Carbonate ([place] Carbonate 300 Mg Capsule) 900 mg PO BEDTIME ETHAN Last Admin: 02/13/25 22:23 Dose: 900 mg Magnesium Hydroxide (Milk Of Magnesia 30 Ml Oral.Susp) 30 ml PO DAILY PRN PRN Reason: Constipation Nicotine (Nicotine 21 Mg Patch.Td24) 21 mg TRANSDERMA DAILY PRN PRN Reason: smoking cessation Last Admin: 02/14/25 11:35 Dose: 21 mg Nicotine Polacrilex (Nicotine Polacrilex 2 Mg Gum) 4 mg BUCCAL Q2H PRN PRN Reason: Nicotine Cravings Last Admin: 02/14/25 13:17 Dose: 4 mg Olanzapine (Olanzapine 5 Mg Tablet) 5 mg PO Q4H PRN PRN Reason: racing thougts Last Admin: 02/11/25 14:36 Dose: 5 mg Ondansetron HCl (Ondansetron Odt 4 Mg Tab.Rapdis) 4 mg TRANSLINGU Q4H PRN PRN Reason: Nausea and Vomiting Last Admin: 02/12/25 08:25 Dose: 4 mg Trazodone HCl (Trazodone Hcl 25 Mg Halftab) 25 mg PO BEDTIME MRX1 PRN PRN Reason: insomnia Last Admin: 02/13/25 22:27 Dose: 25 mg Allergies Allergies Allergy/AdvReac Type Severity Reaction Status Date / Time No Known Allergies Allergy Verified 02/02/25 14:07 Assessment & Plan Assessment & Plan (1) Bipolar disorder, unspecified: Status: Acute Code(s): F31.9 - Bipolar disorder, unspecified Plan HPI: Pt is a 24 yo female with hx of depression, anxiety, who presents for worsening depression with SI to hang herself. Patient reports depression since the 8th grade and explains that she has been chronically dysthymic with severe depressive episodes interspersed, that can last for weeks and during which time patient has to force herself out of bed. Patient reports chronic daily wish, wishing she could just escape from her depression and . Past August 2024, during a particularly challenging depressive episode she started intermittently hearing words such as cunt and . get a job.. In September, seemingly out of nowhere she had thoughts to harm other people and was worried she might stab someone while working at [employer]; she denies ever having desire or urges to harming anyone at all and just had this thought but it scared her and so she presented to the hospital so she could get locked up so as not to hurt anyone... Patient was started on Invega; while she was there she had a dystonic reaction to a p.r.n. medication. Patient has continued taking paliperidone however she has remained very depressed and this past week her passive SI started becoming active, with thoughts to hang herself or to jump off something high; patient started develop a plan but it did not become intent. Patient denies any discrete history of manic type episodes or behaviors however she was once tried on Prozac which quickly resulted in extreme high irritability, impulsivity even to the point of wanting to jump out of a car, which resolved once poked [place] was discontinued. Denies any drug or alcohol use; minimal cannabis and not for months; denies history of trauma. Denies any current AVH Formulation/clinical reasoning: Patient has chronic, debilitating depression which has evolved to include active SI; very limited medication trials, Zoloft 25 mg for a couple of months and then Wellbutrin which she both discontinued at some point. Provisional diagnosis of bipolar disorder: Patient had what sounds like the beginnings of a manic episode when she started Prozac, becoming extremely irritable, impulsive, angry, wanting to jump out of a moving car with symptoms resolving as soon as she stopped taking this medication. Patient's brother has bipolar disorder with significant manic episodes. Discussed medication options and reviewed risks/side effects of lithium which patient understood and would like to try. [place] chosen since patient has chronic SI, debilitating depression and there remains concern for this being a bipolar depression (MDD with psychotic features as a rule out; schizophrenia seems less likely given that only psychotic symptom was AH and was in the context of depression; thought to harm others seems more of a mood congruent, intrusive thought that was completely dystonic). Of note patient has about an hour of good mood when she takes caffeine and stimulant medication might be helpful as well. -regarding recent psychotic symptoms, it seems very possible that these were mood congruent; patient agrees and for now also agrees to hold [facility] 02/05 depressed, wishing she would be but no active SI; continue tx 02/06 remains depressed, hopeless; passive SI, wishing she were however no active SI. Hopeless that she will ever get better. However agrees to continue with treatment. Denies any AVH Positive for BV; treated with Flagyl gel 02/07 very depressed; wishing she were and w/ significant psychomotor retardation. Says will continue w/ [place]. -no AVH and will dc Invega -will try adderall for considerable psychomotor retardation; will dc intuniv 02/08 did not sleep last night, just laying in bed thinking...she remains very depressed and she says i feel no different from when i came in... However, no SI at all and she says she knows she would never...She does find Adderall helpful for energy and behavioral activation. Discussed lithium; she hopes it will prove helpful and willing to remain on unit, retract 3 day notice.. -database report writer agrees to DC patient on Friday after [place] labs although pt remains depressed but no active SI and she is overall improved. She agrees to remain on unit for continued stabilizing and labs. [facility] Drummer agrees to dc on friday, whether or not [place] has proven effective, as patient will follow up w/ outpt. 02/09: Patient states that she is a little better today. Requests to discontinue lithium as she has not experienced any changes. She notes that she is a little bit anxious and requests medication for this. Depression has improved with no depression today. She notes that lithium has no influence with her current improved mood. She denies SI/HI/AH/VH. Agrees to continue [place] after this database report writer informed her that [place] likely contributed to her improved mood. Buspirone 5 mg twice daily ordered for anxiety; instructed on the risks, benefits, and potential adverse reactions of the medication. 02/10: Patient notes that she woke up with panic attack this morning and vomited. Her symptoms improved shortly after taking buspirone. She recalls that her vomiting precedes feeling anxious and having racing thoughts that are foggy. She denies anxiety or depression at this time. She is worried about her current housing situation - she has been living with strangers for the past year and a half. She currently works part-time and intends to get a full-time job so she can moved to her new place. She states that her anxiety is related to external factors, including not been taught how to go about daily life's activities. She refused lithium last night; she thinks the medication is not effective as she does not have bipolar symptoms and also concerned about severe side effects of lithium, that she learned from other patients; she request for lithium to be discontinued. She will like for buspirone to be increased. She currently denies SI/HI/AH/VH. Her 3-day notice is up on Friday, but notes that she wants to go home tomorrow to resume work. Buspirone increased to 10 mg twice daily. [place] ER 900 mg q.h.s. discontinued. Continue current treatment regimen 02/11/25: Patient refused Adderall this morning, talking to medical student and this provider. Explained the lithium how it works and indication. She agreed that her mood is declined since the lithium is taken away. She has not having lithium for 2 nights. Seem she is having a lot more anxiety, more depressed, with a lot of racing thoughts. She was unsure what she is doing and worry about the future when she gets out from here. She reports passive SI deny plans or intention. However she reports severe suicidal thoughts to the other disciplines. She said she will have plan to like get herself off the bridge after discharge. Therefore I changed it from 15 minute checks 5. Please racing thoughts, ? If she have any psychotic behavior. Deny HI/AVH/SIB. She reports feeling some kind of sedation on PRNs which is incongruent. She is visible in and out of her room to common areas auto long. Due to severe anxiety with unsafe thoughts and racing thoughts eye increase hydroxyzine up to 50 PRNs and Zyprexa 5 mg every 4 hours. Nursing offer medication at this time with pending effect Hydroxyzine 50 mg q.6 hours as needed for anxiety. Zyprexa started 5 mg q.4 hours as needed for racing thoughts. Restart lithium 600 mg at bedtime. If she tolerates well we can increase up to 900 over the weekends and rechecked the lithium level next week. [place] level on the 20 is 0.15 very low after too nice not taking. 02/13: Increase [place] to 900 mg HS 02/14: Patient reports feeling anxious and depressed ; pt stated, I feel like I want to commit suicide. I don't know how to function outside of here. I feel scare. I can't manage my rent. I'm losing my memory . Pt reports suicidal ideation with no plan. She reports feeling safe on the unit. denies HI/VH/AH. Encouraged to leave room and attend groups. Continue current tx plan. Plan: CV Change from 15 to 5 minute checks due to between passive and active SI. Adderall ER 20mg daily for considerable psychomotor retardation DC lithium ER 900 mg q.h.s. restart at 600 after to nice refusing. Mood decline after stopped taking lithium. Over the weekend we can go up to 900 if tolerate well. Buspirone increased to 10 mg twice daily DC Invega 6 mg q.h.s.; AH was momentary and maybe just mood congruent; will monitor Dc intuniv; not helpful; adderall more effective [facility] Labs work order yesterday was within normal limit. 02/11/25: [place] level 0.15 Past med trials: Zoloft 25mg Helped a little Prozac: caused highly irritable agitated state Wellbutrin: felt like in a bubble, which was helpful Regarding [place], Risks, side-effects and benefits reviewed with pt, including, but not limited to, damage to kidneys and thyroid; pt was educated to stay hydrated, to watch for symptoms of lithium toxicity (also discussed, including but not limited to nausea, tremor, confusion) and the need to stay away from OTC NSAIDs (specifics reviewed) aside from Tylenol. Continued to reinforce education regarding indication and side effects from lithium. Patient educated on: diagnosis, medication risk/benefits and therapeutic strategies Reason for continued inpatient stay Substantial Risk for: harm to self and med/psych decompensation Time Spent With Patient Time: Total time managing care of this patient today _20___ minutes.
[2025-02-14 19:49] LABS: IDNOW Serial# 55D5AD1C; Strep A Nucleic Acid Negative (Negative)
[2025-02-14 20:00] VITALS: BP 152/90; PULSE 129; RESP 18; TEMP 38.4; O2SAT 97
[2025-02-14] MEDS: traZODone HCL 25 MG HALFTAB PO (23:02)
--- NOTE | 2025-02-15 01:08 | PC.NURSE ---
Patient refused 9pm medications [place] and Buspar, and stated that Lithoum caused her nausea, and she did not need the Buspar.
[2025-02-15 07:56] VITALS: BP 104/56; PULSE 74; TEMP 36.4; O2SAT 98
[2025-02-15] MEDS: Dextroamphetamine/Amphetamine XR 10 MG CAP.ER.24H 20 MG PO (08:32)
[2025-02-15] MEDS: Nicotine 21 MG PATCH.TD24 TRANSDERMA (08:33)
[2025-02-15 09:41] LABS: Chlamydia pneumoniae PCR Not Detected (Not Detect.); Coronavirus 229E PCR Not Detected (Not Detect.); Coronavirus HKU1 PCR Not Detected (Not Detect.); Coronavirus NL63 PCR Not Detected (Not Detect.); Coronavirus OC43 PCR Not Detected (Not Detect.); RSV PCR Not Detected (Not Detect.); Rhino/Enterovirus PCR Detected (Not Detect.)
[2025-02-15 10:14] LABS: Influenza A H1 PCR Not Detected (Not Detect.); Influenza A H1-2009 PCR Not Detected (Not Detect.); Influenza A H3 PCR Not Detected (Not Detect.); SARS-CoV-2 PCR Not Detected (Not Detect.)
[2025-02-15] MEDS: guaiFENesin DM 600/30 1 TAB TAB.ER.12H PO (14:22)
--- NOTE | 2025-02-15 17:55 | HO.PSYCHPN ---
Subjective Subjective Date of Service: 02/15/25 Reason For Visit: SI Subjective Notes: Conditional Voluntary Healthcare Proxy: No Guardianship: No Medical Problems Affecting Mental Status: No Interim History: Medical record and nursing notes reviewed; case discussed during rounds with team, and met with patient for supportive therapy/psychoeducation, as well as medication management. Meet with patient a couple of times a day. She did not take medication last night for lithium and BuSpar. Which she has been doing that back and forth. Planning to take medication today as prescribed. However told the assigned nurse that she will not taking lithium tonight. She appears very overwhelmed and anxious, racing thoughts, with disorganized thoughts. She appears to be paranoid especially on medications. Reports Adderall not working and wanted to go back to guanfacine. She also agrees to with the Zyprexa on both on scheduled tonight. Reports not shower for a period of time and that she is only showers twice since she admitted here. Staff able to get her to shower and she appears to relax after taking Zyprexa and shower as well. Continues reports passive SI with no plan intention why she is in the hospital but will have plan to do harm to herself once she is discharged. She even [place] on suicidal thoughts. Medication Compliance: Intermittent Side effects from medications: No Attending Groups: Yes Review of Systems Acute medical concerns: No Medical Review of Systems: unchanged Review of Systems Review of Systems Constitutional: Denies fatigue and Denies fever(s) Cardiovascular: Denies chest pain and Denies dyspnea Respiratory: Denies dyspnea Gastrointestinal: Denies abdominal pain Psychiatric: denies suicidal ideation Endocrine: Denies fatigue Yes all other systems are reviewed and are negative Mental Status Exam Mental Status Exam Narrative: Pt is alert and oriented; behavior is cooperative patient is not in distress; dressed in casual attire; adequate hygiene/grooming as she showered today mood is described as anxous , she is overwhelmed with racing thoughts, and affect congruent.; eye contact appropriate; Speech is soft to normal rate, volume, prosody; no psychomotor retardation present; thought process is disorganized and not goal directed; Thought content is disoriented, forgetful, tx; worries about housing; worry about not able to function in society, otherwise pertinent to relevant topics and without any delusional content. She does not make paranoid ideations or grandiosity statements ; passive wish; denies HI; Denies AVH and there is no evidence of perceptual disturbance. ? Psychotic paranoid, with racing thoughts. Patients insight and judgment impaired Diagnostics Vital Signs (24Hr): Vital Signs - 24 hr 02/14/25 20:00 02/15/25 07:56 Temperature 101.2 F H 97.6 F Pulse Rate 129 H 74 Respiratory Rate 18 Blood Pressure 152/90 H 104/56 L Pulse Oximetry 97 98 Oxygen Delivery Method Room Air Room Air BMI result Body Mass Index 30.2 Labs 02/04/25 08:12 02/11/25 07:55 Labs: Laboratory Results - last 48 hr 02/14/25 02/14/25 19:10 19:30 Respiratory Panel Stoll See Note Adenovirus (Rapid PCR) Not Detected B.pert (TEM-PCR) Not Detected B.parapertussis DNA PCR Not Detected C. pneumoniae DNA (PCR) Not Detected Coronavirus OC43 (PCR) Not Detected Coronavirus HKU1 (PCR) Not Detected Coronavirus 229E (PCR) Not Detected Coronavirus NL63 (PCR) Not Detected Human Metapneumovir PCR Not Detected Influenza A (RT-PCR) Not Detected Influenza A (H1) PCR Not Detected Influ A (H1/09) PCR Not Detected Influenza A (H3) PCR Not Detected Influenza B (RT-PCR) Not Detected M. pneumoniae (PCR) Not Detected Parainfluenza 1 (PCR) Not Detected Parainfluenza 2 (PCR) Not Detected Parainfluenza 3 (PCR) Not Detected Parainfluenza 4 (PCR) Not Detected RSV (PCR) Not Detected Entero/Rhino (PCR) Detected A SARS-CoV-2 RNA (RT-PCR) Not Detected S. pyogenes GrpA DAIJA Negative Medications Medications Current Medications Acetaminophen (Acetaminophen 325 Mg Tablet) 650 mg PO Q6H PRN PRN Reason: Headache/Pain, Scale 1-10 Last Admin: 02/13/25 18:08 Dose: 650 mg Al Hydroxide/Mg Hydroxide (Magnesium Hydrox/Alum Hydrox 30 Ml Oral.Susp) 30 ml PO Q6H PRN PRN Reason: Heartburn/Nausea Buspirone HCl (Buspirone Hcl 10 Mg Tablet) 10 mg PO BID ETHAN Last Admin: 02/15/25 08:33 Dose: 10 mg Guaifenesin/Dextromethorphan (Guaifenesin Dm 600/30 1 Tab Tab.Er.12h) 1 tab PO BID PRN PRN Reason: Cough, congestion Last Admin: 02/15/25 14:22 Dose: 1 tab Guanfacine HCl (Guanfacine Hcl Er 1 Mg Tab.Er.24h) 1 mg PO BEDTIME ETHAN Hydroxyzine HCl (Hydroxyzine Hcl 50 Mg Tablet) 50 mg PO Q6H PRN PRN Reason: mild anxiety Last Admin: 02/14/25 23:01 Dose: 50 mg [place] Carbonate ([place] Carbonate 300 Mg Capsule) 900 mg PO BEDTIME ETHAN Last Admin: 02/14/25 21:51 Dose: Not Given Magnesium Hydroxide (Milk Of Magnesia 30 Ml Oral.Susp) 30 ml PO DAILY PRN PRN Reason: Constipation Nicotine (Nicotine 21 Mg Patch.Td24) 21 mg TRANSDERMA DAILY PRN PRN Reason: smoking cessation Last Admin: 02/15/25 08:33 Dose: 21 mg Nicotine Polacrilex (Nicotine Polacrilex 2 Mg Gum) 4 mg BUCCAL Q2H PRN PRN Reason: Nicotine Cravings Last Admin: 02/15/25 14:49 Dose: 4 mg Olanzapine (Olanzapine 5 Mg Tablet) 5 mg PO Q4H PRN PRN Reason: racing thougts Last Admin: 02/15/25 14:25 Dose: 5 mg Olanzapine (Olanzapine 5 Mg Tablet) 5 mg PO BEDTIME ETHAN Ondansetron HCl (Ondansetron Odt 4 Mg Tab.Rapdis) 4 mg TRANSLINGU Q4H PRN PRN Reason: Nausea and Vomiting Last Admin: 02/15/25 13:32 Dose: 4 mg Trazodone HCl (Trazodone Hcl 25 Mg Halftab) 25 mg PO BEDTIME MRX1 PRN PRN Reason: insomnia Last Admin: 02/14/25 23:02 Dose: 25 mg Allergies Allergies Allergy/AdvReac Type Severity Reaction Status Date / Time No Known Allergies Allergy Verified 02/02/25 14:07 Assessment & Plan Assessment & Plan (1) Bipolar disorder, unspecified: Status: Acute Code(s): F31.9 - Bipolar disorder, unspecified Plan HPI: Pt is a 24 yo female with hx of depression, anxiety, who presents for worsening depression with SI to hang herself. Patient reports depression since the 8th grade and explains that she has been chronically dysthymic with severe depressive episodes interspersed, that can last for weeks and during which time patient has to force herself out of bed. Patient reports chronic daily wish, wishing she could just escape from her depression and . Past August 2024, during a particularly challenging depressive episode she started intermittently hearing words such as cunt and . get a job.. In September, seemingly out of nowhere she had thoughts to harm other people and was worried she might stab someone while working at [employer]; she denies ever having desire or urges to harming anyone at all and just had this thought but it scared her and so she presented to the hospital so she could get locked up so as not to hurt anyone... Patient was started on Invega; while she was there she had a dystonic reaction to a p.r.n. medication. Patient has continued taking paliperidone however she has remained very depressed and this past week her passive SI started becoming active, with thoughts to hang herself or to jump off something high; patient started develop a plan but it did not become intent. Patient denies any discrete history of manic type episodes or behaviors however she was once tried on Prozac which quickly resulted in extreme high irritability, impulsivity even to the point of wanting to jump out of a car, which resolved once poked Truong was discontinued. Denies any drug or alcohol use; minimal cannabis and not for months; denies history of trauma. Denies any current AVH Formulation/clinical reasoning: Patient has chronic, debilitating depression which has evolved to include active SI; very limited medication trials, Zoloft 25 mg for a couple of months and then Wellbutrin which she both discontinued at some point. Provisional diagnosis of bipolar disorder: Patient had what sounds like the beginnings of a manic episode when she started Prozac, becoming extremely irritable, impulsive, angry, wanting to jump out of a moving car with symptoms resolving as soon as she stopped taking this medication. Patient's brother has bipolar disorder with significant manic episodes. Discussed medication options and reviewed risks/side effects of lithium which patient understood and would like to try. [place] chosen since patient has chronic SI, debilitating depression and there remains concern for this being a bipolar depression (MDD with psychotic features as a rule out; schizophrenia seems less likely given that only psychotic symptom was AH and was in the context of depression; thought to harm others seems more of a mood congruent, intrusive thought that was completely dystonic). Of note patient has about an hour of good mood when she takes caffeine and stimulant medication might be helpful as well. -regarding recent psychotic symptoms, it seems very possible that these were mood congruent; patient agrees and for now also agrees to hold [facility] course 02/05 depressed, wishing she would be but no active SI; continue tx 02/06 remains depressed, hopeless; passive SI, wishing she were however no active SI. Hopeless that she will ever get better. However agrees to continue with treatment. Denies any AVH Positive for BV; treated with Flagyl gel 02/07 very depressed; wishing she were and w/ significant psychomotor retardation. Says will continue w/ [place]. -no AVH and will [facility] -will try adderall for considerable psychomotor retardation; will dc intuniv 02/08 did not sleep last night, just laying in bed thinking...she remains very depressed and she says i feel no different from when i came in... However, no SI at all and she says she knows she would never...She does find Adderall helpful for energy and behavioral activation. Discussed lithium; she hopes it will prove helpful and willing to remain on unit, retract 3 day notice.. -automobile and property underwriter agrees to DC patient on Friday after [place] labs although pt remains depressed but no active SI and she is overall improved. She agrees to remain on unit for continued stabilizing and labs. Order Entry Clerk agrees to dc on friday, whether or not [place] has proven effective, as patient will follow up w/ outpt. 02/09: Patient states that she is a little better today. Requests to discontinue lithium as she has not experienced any changes. She notes that she is a little bit anxious and requests medication for this. Depression has improved with no depression today. She notes that lithium has no influence with her current improved mood. She denies SI/HI/AH/VH. Agrees to continue [place] after this automobile and property underwriter informed her that [place] likely contributed to her improved mood. Buspirone 5 mg twice daily ordered for anxiety; instructed on the risks, benefits, and potential adverse reactions of the medication. 02/10: Patient notes that she woke up with panic attack this morning and vomited. Her symptoms improved shortly after taking buspirone. She recalls that her vomiting precedes feeling anxious and having racing thoughts that are foggy. She denies anxiety or depression at this time. She is worried about her current housing situation - she has been living with strangers for the past year and a half. She currently works part-time and intends to get a full-time job so she can moved to her new place. She states that her anxiety is related to external factors, including not been taught how to go about daily life's activities. She refused lithium last night; she thinks the medication is not effective as she does not have bipolar symptoms and also concerned about severe side effects of lithium, that she learned from other patients; she request for lithium to be discontinued. She will like for buspirone to be increased. She currently denies SI/HI/AH/VH. Her 3-day notice is up on Friday, but notes that she wants to go home tomorrow to resume work. Buspirone increased to 10 mg twice daily. [place] ER 900 mg q.h.s. discontinued. Continue current treatment regimen 02/11/25: Patient refused Adderall this morning, talking to medical student and this provider. Explained the lithium how it works and indication. She agreed that her mood is declined since the lithium is taken away. She has not having lithium for 2 nights. Seem she is having a lot more anxiety, more depressed, with a lot of racing thoughts. She was unsure what she is doing and worry about the future when she gets out from here. She reports passive SI deny plans or intention. However she reports severe suicidal thoughts to the other disciplines. She said she will have plan to like get herself off the bridge after discharge. Therefore I changed it from 15 minute checks 5. Please racing thoughts, ? If she have any psychotic behavior. Deny HI/AVH/SIB. She reports feeling some kind of sedation on PRNs which is incongruent. She is visible in and out of her room to common areas auto long. Due to severe anxiety with unsafe thoughts and racing thoughts eye increase hydroxyzine up to 50 PRNs and Zyprexa 5 mg every 4 hours. Nursing offer medication at this time with pending effect Hydroxyzine 50 mg q.6 hours as needed for anxiety. Zyprexa started 5 mg q.4 hours as needed for racing thoughts. Restart lithium 600 mg at bedtime. If she tolerates well we can increase up to 900 over the weekends and rechecked the lithium level next week. [place] level on the 20 is 0.15 very low after too nice not taking. 02/13: Increase [place] to 900 mg HS. 02/15/25: Resume care. Passive SI. Question about paranoia and racing thoughts. Explained house olanzapine is working and its indication. Lost of education regarding medication compliant inconsistently taking to help with mental health. Patient's go back and for with medication. Hopefully she will taking medication as prescribed tonight and moving forward. Continue with lithium 900 at bedtime for depression and suicidal thoughts. If she consistently taking medication will withdrawal level the end of the week. Schedule Zyprexa 5 mg at bedtime with PRNs for psychosis. Discontinue Adderall which is not helpful. Restart on guanfacine extended release 1 mg daily in the morning. Plan: CV Continue with 5 minute checks due to between passive and active SI. Continue with lithium 900 at bedtime Continue with Buspirone 10 mg twice daily for anxiety. Zyprexa take over the extremely anxiety with the racing thoughts and psychosis I plan to take her off from BuSpar. DC Invega 6 mg q.h.s.; AH was momentary and maybe just mood congruent; will monitor Dc intuniv; not helpful; adderall more effective. We discontinued Adderall and put her back Intuniv 1 mg daily. Labs work order yesterday was within normal limit. 02/11/25: [place] level 0.15 Past med trials: Zoloft 25mg Helped a little Prozac: caused highly irritable agitated state Wellbutrin: felt like in a bubble, which was helpful Regarding [place], Risks, side-effects and benefits reviewed with pt, including, but not limited to, damage to kidneys and thyroid; pt was educated to stay hydrated, to watch for symptoms of lithium toxicity (also discussed, including but not limited to nausea, tremor, confusion) and the need to stay away from OTC NSAIDs (specifics reviewed) aside from Tylenol. Continued to reinforce education regarding indication and side effects from lithium. Patient educated on: medication risk/benefits and therapeutic strategies Informed Consent: further education needed Reason for continued inpatient stay Substantial Risk for: harm to self and med/psych decompensation Time Spent With Patient Time: Total time managing care of this patient today ____ minutes.
[2025-02-15 20:00] VITALS: BP 126/80; PULSE 96; RESP 16; TEMP 37.4; O2SAT 99
[2025-02-16] MEDS: guanFACINE HCl ER 1 MG TAB.ER.24H PO (09:10)
[2025-02-16 09:16] VITALS: BP 95/52; PULSE 66; RESP 16; TEMP 36.7; O2SAT 97
--- NOTE | 2025-02-16 09:27 | P.PNPSI_ITS ---
Subjective Subjective Date of Service: 02/16/25 Reason For Visit: SI Subjective Notes: Conditional Voluntary Healthcare Proxy: No Guardianship: No Medical Problems Affecting Mental Status: No Interim History: Medical record and nursing notes reviewed; case discussed during rounds with team, and met with patient for supportive therapy/psychoeducation, as well as medication management. Patient was medication compliant slept for about 8 hours last night. Meet with her in her room while she is lying down in bed resting. Reports decrease in racing thoughts this morning. Anxiety is pretty low rated 2 to 3/10. Depressions 8/10. Denies suicidal thoughts I do not have 1 now . Denies HI, self-harm thoughts or hallucinations. Assigned nurse reported earlier that patient reports passive SI. Review the medication plans with patient. Confirmed with patient that no medication changes today. Remind patient with grounding technique and focus on present moment. She is more isolated herself in bed. However appeared to be less anxious, less racing thoughts compared to yesterday Medication Compliance: Yes Side effects from medications: Yes Attending Groups: Intermittent Review of Systems Acute medical concerns: No Medical Review of Systems: unchanged Review of Systems Review of Systems Constitutional: Denies fatigue and Denies fever(s) Cardiovascular: Denies chest pain and Denies dyspnea Respiratory: Denies dyspnea Gastrointestinal: Denies abdominal pain Psychiatric: denies suicidal ideation but report to RN she has passive SI Endocrine: Denies fatigue Yes all other systems are reviewed and are negative Mental Status Exam Mental Status Exam Narrative: Pt is alert and oriented; behavior is cooperative patient is not in distress; dressed in casual attire; adequate hygiene/grooming. Mood is not too anxious and no racing thoughts , she is less overwhelmed with less racing thoughts, and affect congruent.; eye contact appropriate; Speech is soft to normal rate, volume, prosody; no psychomotor retardation present; thought process is disorganized and goal directed; Thought content is disoriented, forgetful, ; worries about housing; worry about not able to function in society with less intense, otherwise pertinent to relevant topics and without any delusional content. She does not make paranoid ideations or grandiosity statements ; no SI but can be change any time, denies HI; Denies AVH and there is no evidence of perceptual disturbance. ? Psychotic paranoid/psychotic. Patients insight and judgment impaired Diagnostics Vital Signs (24Hr): Vital Signs - 24 hr 02/15/25 20:00 02/16/25 09:16 Temperature 99.4 F 98.1 F Pulse Rate 96 66 Respiratory Rate 16 16 Blood Pressure 126/80 95/52 L Pulse Oximetry 99 97 Oxygen Delivery Method Room Air Room Air BMI result Body Mass Index 30.2 Labs 02/04/25 08:12 02/11/25 07:55 Labs: Laboratory Results - last 48 hr 02/14/25 02/14/25 19:10 19:30 Respiratory Panel Stoll See Note Adenovirus (Rapid PCR) Not Detected B.pert (TEM-PCR) Not Detected B.parapertussis DNA PCR Not Detected C. pneumoniae DNA (PCR) Not Detected Coronavirus OC43 (PCR) Not Detected Coronavirus HKU1 (PCR) Not Detected Coronavirus 229E (PCR) Not Detected Coronavirus NL63 (PCR) Not Detected Human Metapneumovir PCR Not Detected Influenza A (RT-PCR) Not Detected Influenza A (H1) PCR Not Detected Influ A (H1/09) PCR Not Detected Influenza A (H3) PCR Not Detected Influenza B (RT-PCR) Not Detected M. pneumoniae (PCR) Not Detected Parainfluenza 1 (PCR) Not Detected Parainfluenza 2 (PCR) Not Detected Parainfluenza 3 (PCR) Not Detected Parainfluenza 4 (PCR) Not Detected RSV (PCR) Not Detected Entero/Rhino (PCR) Detected A SARS-CoV-2 RNA (RT-PCR) Not Detected S. pyogenes GrpA DAIJA Negative Medications Medications Current Medications Acetaminophen (Acetaminophen 325 Mg Tablet) 650 mg PO Q6H PRN PRN Reason: Headache/Pain, Scale 1-10 Last Admin: 02/13/25 18:08 Dose: 650 mg Al Hydroxide/Mg Hydroxide (Magnesium Hydrox/Alum Hydrox 30 Ml Oral.Susp) 30 ml PO Q6H PRN PRN Reason: Heartburn/Nausea Buspirone HCl (Buspirone Hcl 10 Mg Tablet) 10 mg PO BID ETHAN Last Admin: 02/16/25 09:10 Dose: 10 mg Guaifenesin/Dextromethorphan (Guaifenesin Dm 600/30 1 Tab Tab.Er.12h) 1 tab PO BID PRN PRN Reason: Cough, congestion Last Admin: 02/15/25 14:22 Dose: 1 tab Guanfacine HCl (Guanfacine Hcl Er 1 Mg Tab.Er.24h) 1 mg PO DAILY ETHAN Last Admin: 02/16/25 09:10 Dose: 1 mg Hydroxyzine HCl (Hydroxyzine Hcl 50 Mg Tablet) 50 mg PO Q6H PRN PRN Reason: mild anxiety Last Admin: 02/14/25 23:01 Dose: 50 mg [place] Carbonate ([place] Carbonate 300 Mg Capsule) 900 mg PO BEDTIME ETHAN Last Admin: 02/15/25 21:01 Dose: 900 mg Magnesium Hydroxide (Milk Of Magnesia 30 Ml Oral.Susp) 30 ml PO DAILY PRN PRN Reason: Constipation Nicotine (Nicotine 21 Mg Patch.Td24) 21 mg TRANSDERMA DAILY PRN PRN Reason: smoking cessation Last Admin: 02/15/25 08:33 Dose: 21 mg Nicotine Polacrilex (Nicotine Polacrilex 2 Mg Gum) 4 mg BUCCAL Q2H PRN PRN Reason: Nicotine Cravings Last Admin: 02/15/25 14:49 Dose: 4 mg Olanzapine (Olanzapine 5 Mg Tablet) 5 mg PO Q4H PRN PRN Reason: racing thougts Last Admin: 02/15/25 14:25 Dose: 5 mg Olanzapine (Olanzapine 5 Mg Tablet) 5 mg PO BEDTIME EHTAN Last Admin: 02/15/25 21:00 Dose: 5 mg Ondansetron HCl (Ondansetron Odt 4 Mg Tab.Rapdis) 4 mg TRANSLINGU Q4H PRN PRN Reason: Nausea and Vomiting Last Admin: 02/16/25 08:32 Dose: 4 mg Trazodone HCl (Trazodone Hcl 25 Mg Halftab) 25 mg PO BEDTIME MRX1 PRN PRN Reason: insomnia Last Admin: 02/14/25 23:02 Dose: 25 mg Allergies Allergies Allergy/AdvReac Type Severity Reaction Status Date / Time No Known Allergies Allergy Verified 02/02/25 14:07 Assessment & Plan Assessment & Plan (1) Bipolar disorder, unspecified: Status: Acute Code(s): F31.9 - Bipolar disorder, unspecified Plan HPI: Pt is a 24 yo female with hx of depression, anxiety, who presents for worsening depression with SI to hang herself. Patient reports depression since the 8th grade and explains that she has been chronically dysthymic with severe depressive episodes interspersed, that can last for weeks and during which time patient has to force herself out of bed. Patient reports chronic daily wish, wishing she could just escape from her depression and . Past August 2024, during a particularly challenging depressive episode she started intermittently hearing words such as cunt and . get a job.. In September, seemingly out of nowhere she had thoughts to harm other people and was worried she might stab someone while working at [employer]; she denies ever having desire or urges to harming anyone at all and just had this thought but it scared her and so she presented to the hospital so she could get locked up so as not to hurt anyone... Patient was started on Invega; while she was there she had a dystonic reaction to a p.r.n. medication. Patient has continued taking paliperidone however she has remained very depressed and this past week her passive SI started becoming active, with thoughts to hang herself or to jump off something high; patient started develop a plan but it did not become intent. Patient denies any discrete history of manic type episodes or behaviors however she was once tried on Prozac which quickly resulted in extreme high irritability, impulsivity even to the point of wanting to jump out of a car, which resolved once poked [place] was discontinued. Denies any drug or alcohol use; minimal cannabis and not for months; denies history of trauma. Denies any current AVH Formulation/clinical reasoning: Patient has chronic, debilitating depression which has evolved to include active SI; very limited medication trials, Zoloft 25 mg for a couple of months and then Wellbutrin which she both discontinued at some point. Provisional diagnosis of bipolar disorder: Patient had what sounds like the beginnings of a manic episode when she started Prozac, becoming extremely irritable, impulsive, angry, wanting to jump out of a moving car with symptoms resolving as soon as she stopped taking this medication. Patient's brother has bipolar disorder with significant manic episodes. Discussed medication options and reviewed risks/side effects of lithium which patient understood and would like to try. [place] chosen since patient has chronic SI, debilitating depression and there remains concern for this being a bipolar depression (MDD with psychotic features as a rule out; schizophrenia seems less likely given that only psychotic symptom was AH and was in the context of depression; thought to harm others seems more of a mood congruent, intrusive thought that was completely dystonic). Of note patient has about an hour of good mood when she takes caffeine and stimulant medication might be helpful as well. -regarding recent psychotic symptoms, it seems very possible that these were mood congruent; patient agrees and for now also agrees to hold [facility] Hospital course 02/05 depressed, wishing she would be but no active SI; continue tx 02/06 remains depressed, hopeless; passive SI, wishing she were however no active SI. Hopeless that she will ever get better. However agrees to continue with treatment. Denies any AVH Positive for BV; treated with Flagyl gel 02/07 very depressed; wishing she were and w/ significant psychomotor retardation. Says will continue w/ [place]. -no AVH and will dc Invega -will try adderall for considerable psychomotor retardation; will dc intuniv 02/08 did not sleep last night, just laying in bed thinking...she remains very depressed and she says i feel no different from when i came in... However, no SI at all and she says she knows she would never...She does find Adderall helpful for energy and behavioral activation. Discussed lithium; she hopes it will prove helpful and willing to remain on unit, retract 3 day notice.. -expert medical writer agrees to DC patient on Friday after [place] labs although pt remains depressed but no active SI and she is overall improved. She agrees to remain on unit for continued stabilizing and labs. Vertical Mill Operator agrees to dc on friday, whether or not [place] has proven effective, as patient will follow up w/ outpt. 02/09: Patient states that she is a little better today. Requests to discontinue lithium as she has not experienced any changes. She notes that she is a little bit anxious and requests medication for this. Depression has improved with no depression today. She notes that lithium has no influence with her current improved mood. She denies SI/HI/AH/VH. Agrees to continue [place] after this expert medical writer informed her that [place] likely contributed to her improved mood. Buspirone 5 mg twice daily ordered for anxiety; instructed on the risks, benefits, and potential adverse reactions of the medication. 02/10: Patient notes that she woke up with panic attack this morning and vomited. Her symptoms improved shortly after taking buspirone. She recalls that her vomiting precedes feeling anxious and having racing thoughts that are foggy. She denies anxiety or depression at this time. She is worried about her current housing situation - she has been living with strangers for the past year and a half. She currently works part-time and intends to get a full-time job so she can moved to her new place. She states that her anxiety is related to external factors, including not been taught how to go about daily life's activities. She refused lithium last night; she thinks the medication is not effective as she does not have bipolar symptoms and also concerned about severe side effects of lithium, that she learned from other patients; she request for lithium to be discontinued. She will like for buspirone to be increased. She currently denies SI/HI/AH/VH. Her 3-day notice is up on Friday, but notes that she wants to go home tomorrow to resume work. Buspirone increased to 10 mg twice daily. [place] ER 900 mg q.h.s. discontinued. Continue current treatment regimen 02/11/25: Patient refused Adderall this morning, talking to medical student and this provider. Explained the lithium how it works and indication. She agreed that her mood is declined since the lithium is taken away. She has not having lithium for 2 nights. Seem she is having a lot more anxiety, more depressed, with a lot of racing thoughts. She was unsure what she is doing and worry about the future when she gets out from here. She reports passive SI deny plans or intention. However she reports severe suicidal thoughts to the other disciplines. She said she will have plan to like get herself off the bridge after discharge. Therefore I changed it from 15 minute checks 5. Please racing thoughts, ? If she have any psychotic behavior. Deny HI/AVH/SIB. She reports feeling some kind of sedation on PRNs which is incongruent. She is visible in and out of her room to common areas auto long. Due to severe anxiety with unsafe thoughts and racing thoughts eye increase hydroxyzine up to 50 PRNs and Zyprexa 5 mg every 4 hours. Nursing offer medication at this time with pending effect Hydroxyzine 50 mg q.6 hours as needed for anxiety. Zyprexa started 5 mg q.4 hours as needed for racing thoughts. Restart lithium 600 mg at bedtime. If she tolerates well we can increase up to 900 over the weekends and rechecked the lithium level next week. [place] level on the 20 is 0.15 very low after too nice not taking. 02/13: Increase [place] to 900 mg HS. 02/15/25: Resume care. Passive SI. Question about paranoia and racing thoughts. Explained house olanzapine is working and its indication. Lost of education regarding medication compliant inconsistently taking to help with mental health. Patient's go back and for with medication. Hopefully she will taking medication as prescribed tonight and moving forward. Continue with lithium 900 at bedtime for depression and suicidal thoughts. If she consistently taking medication will withdrawal level the end of the week. Schedule Zyprexa 5 mg at bedtime with PRNs for psychosis. Discontinue Adderall which is not helpful. Restart on guanfacine extended release 1 mg daily in the morning. 02/16/25: Slightly improved compared to yesterday in mood and racing thoughts. Compliant with medications. Educate patient on grounding technique for anxiety. Focused on the present moment so she does not get too overwhelmed thinking about for future. Review with patient medication changes made yesterday and confirmed that does nothing change today. Continued to encourage patient to compliant with medication. Denies safety concerns however reports that to the nurse that she has passive SI Plan: CV Continue with 5 minute checks due to between passive and active SI. Continue with lithium 900 at bedtime. Possible check the level by Friday Continue with Buspirone 10 mg twice daily for anxiety. Zyprexa take over the extremely anxiety with the racing thoughts and psychosis I plan to take her off from BuSpar. DC Invega 6 mg q.h.s.; AH was momentary and maybe just mood congruent; will monitor Dc intuniv; not helpful; adderall more effective. We discontinued Adderall and put her back Intuniv 1 mg daily. Labs work order yesterday was within normal limit. 02/11/25: [place] level 0.15 Past med trials: Zoloft 25mg Helped a little Prozac: caused highly irritable agitated state Wellbutrin: felt like in a bubble, which was helpful Regarding [place], Risks, side-effects and benefits reviewed with pt, including, but not limited to, damage to kidneys and thyroid; pt was educated to stay hydrated, to watch for symptoms of lithium toxicity (also discussed, including but not limited to nausea, tremor, confusion) and the need to stay away from OTC NSAIDs (specifics reviewed) aside from Tylenol. Continued to reinforce education regarding indication and side effects from lithium. Patient educated on: medication risk/benefits and therapeutic strategies Informed Consent: further education needed Reason for continued inpatient stay Substantial Risk for: med/psych decompensation Time Spent With Patient Time: Total time managing care of this patient today ____ minutes.
[2025-02-16 19:49] VITALS: BP 115/63; PULSE 87; TEMP 37.2; O2SAT 99
[2025-02-17 07:00] VITALS: BMI 30.4
[2025-02-17 08:00] VITALS: BP 101/56; PULSE 60; RESP 16; TEMP 36.8; O2SAT 99
[2025-02-17] MEDS: guanFACINE HCl ER 1 MG TAB.ER.24H PO (09:32)
--- NOTE | 2025-02-17 17:09 | P.PNPSI_ITS ---
Subjective Subjective Date of Service: 02/17/25 Reason For Visit: SI Subjective Notes: Conditional Voluntary Healthcare Proxy: No Guardianship: No Medical Problems Affecting Mental Status: No Interim History: Medical record and nursing notes reviewed; case discussed during rounds with team, and met with patient for supportive therapy/psychoeducation, as well as medication management. Patient slept well no appetite issues. Compliant with medications. Denies side effects but reports feeling sedated on medications. However she has been and reasonable. Attended to groups. Less anxious but reports depressed. Less racing thoughts but also reports empty- no thoughts . Denies homicidal thoughts of hallucination voices, reports passive SI but we will have plan when go outside but not sure what the plan is as I can not even think . On the way walking from her room to the kitchen, she said I pray to God to to let me . I wish I would not here . Remind patient on grounding technique. Focused on the moment and working on paucity thoughts. Remind patient that no medication changes today until her body adapt to changes make the past couple of days. Medication Compliance: Yes Side effects from medications: No (report tired ) Attending Groups: Intermittent Review of Systems Acute medical concerns: No Medical Review of Systems: unchanged Review of Systems Review of Systems Constitutional: Denies fatigue and Denies fever(s) Cardiovascular: Denies chest pain and Denies dyspnea Respiratory: Denies dyspnea Gastrointestinal: Denies abdominal pain Psychiatric: denies suicidal ideation but report to RN she has passive SI Endocrine: Denies fatigue Yes all other systems are reviewed and are negative Mental Status Exam Mental Status Exam Narrative: Pt is alert and oriented; behavior is cooperative patient is not in distress; dressed in casual attire; adequate hygiene/grooming. Mood is less anxious but depressed and no racing thoughts. , she is less overwhelmed with less racing thoughts, and affect congruent.; eye contact appropriate; Speech is soft to normal rate, volume, prosody; no psychomotor retardation present; thought process is disorganized and not goal directed, negative; Thought content is disoriented, forgetful, ; worries about housing; worry about not able to function in society with less intense, otherwise pertinent to relevant topics and without any delusional content. She does not make paranoid ideations or grandiosity statements ; report passive SI :wish I am not here . but can be change any time, denies HI; Denies AVH and there is no evidence of perceptual disturbance. ? Psychotic paranoid/psychotic. Patients insight and judgment impaired Diagnostics Vital Signs (24Hr): Vital Signs - 24 hr 02/16/25 19:49 02/17/25 08:00 Temperature 98.9 F 98.2 F Pulse Rate 87 60 Respiratory Rate 16 Blood Pressure 115/63 101/56 L Pulse Oximetry 99 99 Oxygen Delivery Method Room Air Room Air BMI result Body Mass Index 30.4 Labs 02/04/25 08:12 02/11/25 07:55 Medications Medications Current Medications Acetaminophen (Acetaminophen 325 Mg Tablet) 650 mg PO Q6H PRN PRN Reason: Headache/Pain, Scale 1-10 Last Admin: 02/13/25 18:08 Dose: 650 mg Al Hydroxide/Mg Hydroxide (Magnesium Hydrox/Alum Hydrox 30 Ml Oral.Susp) 30 ml PO Q6H PRN PRN Reason: Heartburn/Nausea Buspirone HCl (Buspirone Hcl 10 Mg Tablet) 10 mg PO BID [facility] Last Admin: 02/17/25 09:31 Dose: 10 mg Guaifenesin/Dextromethorphan (Guaifenesin Dm 600/30 1 Tab Tab.Er.12h) 1 tab PO BID PRN PRN Reason: Cough, congestion Last Admin: 02/15/25 14:22 Dose: 1 tab Guanfacine HCl (Guanfacine Hcl Er 1 Mg Tab.Er.24h) 1 mg PO DAILY [facility] Last Admin: 02/17/25 09:32 Dose: 1 mg Hydroxyzine HCl (Hydroxyzine Hcl 50 Mg Tablet) 50 mg PO Q6H PRN PRN Reason: mild anxiety Last Admin: 02/14/25 23:01 Dose: 50 mg Island Walk Carbonate (Is[place] Walk Carbonate 300 Mg Capsule) 900 mg PO BEDTIME [facility] Last Admin: 02/16/25 21:21 Dose: 900 mg Magnesium Hydroxide (Milk Of Magnesia 30 Ml Oral.Susp) 30 ml PO DAILY PRN PRN Reason: Constipation Nicotine (Nicotine 21 Mg Patch.Td24) 21 mg TRANSDERMA DAILY PRN PRN Reason: smoking cessation Last Admin: 02/15/25 08:33 Dose: 21 mg Nicotine Polacrilex (Nicotine Polacrilex 2 Mg Gum) 4 mg BUCCAL Q2H PRN PRN Reason: Nicotine Cravings Last Admin: 02/17/25 16:37 Dose: 4 mg Olanzapine (Olanzapine 5 Mg Tablet) 5 mg PO Q4H PRN PRN Reason: racing thougts Last Admin: 02/15/25 14:25 Dose: 5 mg Olanzapine (Olanzapine 5 Mg Tablet) 5 mg PO BEDTIME [facility] Last Admin: 02/16/25 21:21 Dose: 5 mg Ondansetron HCl (Ondansetron Odt 4 Mg Tab.Rapdis) 4 mg TRANSLINGU Q4H PRN PRN Reason: Nausea and Vomiting Last Admin: 02/17/25 08:36 Dose: 4 mg Trazodone HCl (Trazodone Hcl 25 Mg Halftab) 25 mg PO BEDTIME MRX1 PRN PRN Reason: insomnia Last Admin: 02/14/25 23:02 Dose: 25 mg Allergies Allergies Allergy/AdvReac Type Severity Reaction Status Date / Time No Known Allergies Allergy Verified 02/02/25 14:07 Assessment & Plan Assessment & Plan (1) Bipolar disorder, unspecified: Status: Acute Code(s): F31.9 - Bipolar disorder, unspecified Plan HPI: Pt is a 24 yo female with hx of depression, anxiety, who presents for worsening depression with SI to hang herself. Patient reports depression since the 8th grade and explains that she has been chronically dysthymic with severe depressive episodes interspersed, that can last for weeks and during which time patient has to force herself out of bed. Patient reports chronic daily wish, wishing she could just escape from her depression and . Past August 2024, during a particularly challenging depressive episode she started intermittently hearing words such as cunt and . get a job.. In September, seemingly out of nowhere she had thoughts to harm other people and was worried she might stab someone while working [place] [employer]; she denies ever having desire or urges to harming anyone at all and just had this thought but it scared her and so she presented to the hospital so she could get locked up so as not to hurt anyone... Patient was started on Invega; while she was there she had a dystonic reaction to a p.r.n. medication. Patient has continued taking paliperidone however she has remained very depressed and this past week her passive SI started becoming active, with thoughts to hang herself or to jump off something high; patient started develop a plan but it did not become intent. Patient denies any discrete history of manic type episodes or behaviors however she was once tried on Prozac which quickly resulted in extreme high irritability, impulsivity even to the point of wanting to jump out of a car, which resolved once poked Truong was discontinued. Denies any drug or alcohol use; minimal cannabis and not for months; denies history of trauma. Denies any current AVH Formulation/clinical reasoning: Patient has chronic, debilitating depression which has evolved to include active SI; very limited medication trials, Zoloft 25 mg for a couple of months and then Wellbutrin which she both discontinued at some point. Provisional diagnosis of bipolar disorder: Patient had what sounds like the beginnings of a manic episode when she started Prozac, becoming extremely irritable, impulsive, angry, wanting to jump out of a moving car with symptoms resolving as soon as she stopped taking this medication. Patient's brother has bipolar disorder with significant manic episodes. Discussed medication options and reviewed risks/side effects of lithium which patient understood and would like to try. Island Walk chosen since patient has chronic SI, debilitating depression and there remains concern for this being a bipolar depression (MDD with psychotic features as a rule out; schizophrenia seems less likely given that only psychotic symptom was AH and was in the context of depression; thought to harm others seems more of a mood congruent, intrusive thought that was completely dystonic). Of note patient has about an hour of good mood when she takes caffeine and stimulant medication might be helpful as well. -regarding recent psychotic symptoms, it seems very possible that these were mood congruent; patient agrees and for now also agrees to hold [facility] course 02/05 depressed, wishing she would be but no active SI; continue tx 02/06 remains depressed, hopeless; passive SI, wishing she were however no active SI. Hopeless that she will ever get better. However agrees to continue with treatment. Denies any AVH Positive for BV; treated with Flagyl gel 02/07 very depressed; wishing she were and w/ significant psychomotor retardation. Says will continue w/ Island Walk. -no AVH and will dc Invega -will try adderall for considerable psychomotor retardation; will dc intuniv 02/08 did not sleep last night, just laying in bed thinking...she remains very depressed and she says i feel no different from when i came in... However, no SI at all and she says she knows she would never...She does find Adderall helpful for energy and behavioral activation. Discussed lithium; she hopes it will prove helpful and willing to remain on unit, retract 3 day notice.. -video game script writer agrees to DC patient on Friday after Island Walk labs although pt remains depressed but no active SI and she is overall improved. She agrees to remain on unit for continued stabilizing and labs. Composite Bond Worker agrees to dc on friday, whether or not Island Walk has proven effective, as patient will follow up w/ outpt. 02/09: Patient states that she is a little better today. Requests to discontinue lithium as she has not experienced any changes. She notes that she is a little bit anxious and requests medication for this. Depression has improved with no depression today. She notes that lithium has no influence with her current improved mood. She denies SI/HI/AH/VH. Agrees to continue Island Walk after this video game script writer informed her that Island Walk likely contributed to her improved mood. Buspirone 5 mg twice daily ordered for anxiety; instructed on the risks, benefits, and potential adverse reactions of the medication. 02/10: Patient notes that she woke up with panic attack this morning and vomited. Her symptoms improved shortly after taking buspirone. She recalls that her vomiting precedes feeling anxious and having racing thoughts that are foggy. She denies anxiety or depression at this time. She is worried about her current housing situation - she has been living with strangers for the past year and a half. She currently works part-time and intends to get a full-time job so she can moved to her new place. She states that her anxiety is related to external factors, including not been taught how to go about daily life's activities. She refused lithium last night; she thinks the medication is not effective as she does not have bipolar symptoms and also concerned about severe side effects of lithium, that she learned from other patients; she request for lithium to be discontinued. She will like for buspirone to be increased. She currently denies SI/HI/AH/VH. Her 3-day notice is up on Friday, but notes that she wants to go home tomorrow to resume work. Buspirone increased to 10 mg twice daily. Island Walk ER 900 mg q.h.s. discontinued. Continue current treatment regimen 02/11/25: Patient refused Adderall this morning, talking to medical student and this provider. Explained the lithium how it works and indication. She agreed that her mood is declined since the lithium is taken away. She has not having lithium for 2 nights. Seem she is having a lot more anxiety, more depressed, with a lot of racing thoughts. She was unsure what she is doing and worry about the future when she gets out from here. She reports passive SI deny plans or intention. However she reports severe suicidal thoughts to the other disciplines. She said she will have plan to like get herself off the bridge after discharge. Therefore I changed it from 15 minute checks 5. Please racing thoughts, ? If she have any psychotic behavior. Deny HI/AVH/SIB. She reports feeling some kind of sedation on PRNs which is incongruent. She is visible in and out of her room to common areas auto long. Due to severe anxiety with unsafe thoughts and racing thoughts eye increase hydroxyzine up to 50 PRNs and Zyprexa 5 mg every 4 hours. Nursing offer medication at this time with pending effect Hydroxyzine 50 mg q.6 hours as needed for anxiety. Zyprexa started 5 mg q.4 hours as needed for racing thoughts. Restart lithium 600 mg at bedtime. If she tolerates well we can increase up to 900 over the weekends and rechecked the lithium level next week. Island Walk level on the 20 is 0.15 very low after too nice not taking. 02/13: Increase Island Walk to 900 mg HS. 02/15/25: Resume care. Passive SI. Question about paranoia and racing thoughts. Explained house olanzapine is working and its indication. Lost of education regarding medication compliant inconsistently taking to help with mental health. Patient's go back and for with medication. Hopefully she will taking medication as prescribed tonight and moving forward. Continue with lithium 900 at bedtime for depression and suicidal thoughts. If she consistently taking medication will withdrawal level the end of the week. Schedule Zyprexa 5 mg at bedtime with PRNs for psychosis. Discontinue Adderall which is not helpful. Restart on guanfacine extended release 1 mg daily in the morning. 02/16/25: Slightly improved compared to yesterday in mood and racing thoughts. Compliant with medications. Educate patient on grounding technique for anxiety. Focused on the present moment so she does not get too overwhelmed thinking about for future. Review with patient medication changes made yesterday and confirmed that does nothing change today. Continued to encourage patient to compliant with medication. Denies safety concerns however reports that to the nurse that she has passive SI. 02/17/25: No sleeping or appetite issues. Compliant with medications. Been compliant with lithium. Could be have level checked on Friday. Reports feeling sedated on medications. However be alert and awake visible at times attempted to groups with less racing thoughts, less anxious, moderate to severe depression. She seems less preoccupied. Zyprexa seems helpful. However I could not going higher dose today as she complained about feeling so tired. Blood pressure running in the low end. Encourage fluids p.o. intake. We will continue to monitor. Plan: CV Continue with 5 minute checks due to between passive and active SI. Continue with lithium 900 at bedtime. Possible check the level by Friday Continue with Buspirone 10 mg twice daily for anxiety. Zyprexa take over the extremely anxiety with the racing thoughts and psychosis I plan to take her off from BuSpar. DC Invega 6 mg q.h.s.; AH was momentary and maybe just mood congruent; will monitor Dc intuniv; not helpful; adderall more effective. We discontinued Adderall and put her back Intuniv 1 mg daily. Labs work order yesterday was within normal limit. 02/11/25: Island Walk level 0.15 Past med trials: Zoloft 25mg Helped a little Prozac: caused highly irritable agitated state Wellbutrin: felt like in a bubble, which was helpful Regarding Island Walk, Risks, side-effects and benefits reviewed with pt, including, but not limited to, damage to kidneys and thyroid; pt was educated to stay hydrated, to watch for symptoms of lithium toxicity (also discussed, including but not limited to nausea, tremor, confusion) and the need to stay away from OTC NSAIDs (specifics reviewed) aside from Tylenol. Continued to reinforce education regarding indication and side effects from lithium. Reason for continued inpatient stay Substantial Risk for: med/psych decompensation Time Spent With Patient Time: Total time managing care of this patient today ____ minutes.
[2025-02-17 20:00] VITALS: BP 112/70; PULSE 89; TEMP 37.7; O2SAT 98
[2025-02-18 08:07] VITALS: BP 95/55; PULSE 60; TEMP 37.2; O2SAT 96
[2025-02-18] MEDS: guanFACINE HCl ER 1 MG TAB.ER.24H PO (09:25)
--- NOTE | 2025-02-18 17:34 | P.PNPSI_ITS ---
Subjective Subjective Date of Service: 02/18/25 Reason For Visit: SI Subjective Notes: Conditional Voluntary Healthcare Proxy: No Guardianship: No Medical Problems Affecting Mental Status: No Interim History: Medical record and nursing notes reviewed; case discussed during rounds with team, and met with patient for supportive therapy/psychoeducation, as well as medication management. Patient slept for 8 hours last night, was medication compliant and intermittently attended to groups. Met with her in the OT room this afternoon, reports anxiety is out , but reports depression, reports less racing thoughts, less preoccupied with tasks that she needs to be done that overwhelmed her usually in the past. She said that she sometimes talk to her son who is 5 years old and have severe autistic that he has not talk. Remind patient that she needs to focus to getting better herself 1st before having other people. Reviewed with patient regarding medication. She states that I feel regret switching back from Guanfacine to Adderall stating that the Adderall is working better. She also saying that Zoloft was helpful in the past as well when she was in high school. Remind patient that we not going back to Adderall as current medication plan is helpful and has been helpful. She agrees to stay with the same plan. Reports suicidal thoughts x1 now when she was in group when other people was talking about paying rent. She feels like why we have to pay rent entire life. Started being negative but redirectable. Denies homicidal thoughts and voices or hallucinations. Continued to remind patient on grounding technique and focused on the moment. Also remind her to shower as she has not shower for couple of days. She is receptive. She also felt that suicidal thoughts has been down less frequency Medication Compliance: Yes Side effects from medications: No (mild sedation observed ) Attending Groups: Yes Review of Systems Acute medical concerns: No Medical Review of Systems: unchanged Review of Systems Review of Systems Constitutional: Denies fatigue and Denies fever(s) Cardiovascular: Denies chest pain and Denies dyspnea Respiratory: Denies dyspnea Gastrointestinal: Denies abdominal pain Psychiatric: Reduce on suicidal thoughts. Have passive SI x1 Endocrine: Denies fatigue Yes all other systems are reviewed and are negative Mental Status Exam Mental Status Exam Narrative: Pt is alert and oriented; behavior is cooperative patient is not in distress; dressed in casual attire; adequate hygiene/grooming. Mood is no anxiety but depressed and no racing thoughts. , she is less overwhelmed with less racing thoughts, and affect congruent.; eye contact appropriate; Speech is soft to normal rate, volume, prosody; no psychomotor retardation present; thought process is disorganized and not goal directed, negative; Thought content is disoriented, forgetful, ; worries about housing; worry about not able to function in society with less intense, otherwise pertinent to relevant topics and without any delusional content. She does not make paranoid ideations or grandiosity statements ; report passive SI x1 only during group. but can be change any time, denies HI; Denies AVH and there is no evidence of perceptual disturbance. ? Psychotic paranoid/psychotic. Patients insight and judgment impaired with some improvement Diagnostics Vital Signs (24Hr): Vital Signs - 24 hr 02/17/25 20:00 02/18/25 08:07 Temperature 100 F 98.9 F Pulse Rate 89 60 Blood Pressure 112/70 95/55 L Pulse Oximetry 98 96 Oxygen Delivery Method Room Air Room Air BMI result Body Mass Index 30.4 Labs 02/04/25 08:12 02/11/25 07:55 Medications Medications Current Medications Acetaminophen (Acetaminophen 325 Mg Tablet) 650 mg PO Q6H PRN PRN Reason: Headache/Pain, Scale 1-10 Last Admin: 02/13/25 18:08 Dose: 650 mg Al Hydroxide/Mg Hydroxide (Magnesium Hydrox/Alum Hydrox 30 Ml Oral.Susp) 30 ml PO Q6H PRN PRN Reason: Heartburn/Nausea Buspirone HCl (Buspirone Hcl 10 Mg Tablet) 10 mg PO BID [facility] Last Admin: 02/18/25 09:25 Dose: 10 mg Guaifenesin/Dextromethorphan (Guaifenesin Dm 600/30 1 Tab Tab.Er.12h) 1 tab PO BID PRN PRN Reason: Cough, congestion Last Admin: 02/15/25 14:22 Dose: 1 tab Guanfacine HCl (Guanfacine Hcl Er 1 Mg Tab.Er.24h) 1 mg PO DAILY [facility] Last Admin: 02/18/25 09:25 Dose: 1 mg Hydroxyzine HCl (Hydroxyzine Hcl 50 Mg Tablet) 50 mg PO Q6H PRN PRN Reason: mild anxiety Last Admin: 02/14/25 23:01 Dose: 50 mg Uniopolis Carbonate (Uniopolis Carbonate 300 Mg Capsule) 900 mg PO BEDTIME ETHAN Last Admin: 02/17/25 21:33 Dose: 900 mg Magnesium Hydroxide (Milk Of Magnesia 30 Ml Oral.Susp) 30 ml PO DAILY PRN PRN Reason: Constipation Nicotine (Nicotine 21 Mg Patch.Td24) 21 mg TRANSDERMA DAILY PRN PRN Reason: smoking cessation Last Admin: 02/15/25 08:33 Dose: 21 mg Nicotine Polacrilex (Nicotine Polacrilex 2 Mg Gum) 4 mg BUCCAL Q2H PRN PRN Reason: Nicotine Cravings Last Admin: 02/18/25 14:40 Dose: 4 mg Olanzapine (Olanzapine 5 Mg Tablet) 5 mg PO Q4H PRN PRN Reason: racing thougts Last Admin: 02/15/25 14:25 Dose: 5 mg Olanzapine (Olanzapine 5 Mg Tablet) 5 mg PO BEDTIME ETHAN Last Admin: 02/17/25 21:33 Dose: 5 mg Ondansetron HCl (Ondansetron Odt 4 Mg Tab.Rapdis) 4 mg TRANSLINGU Q4H PRN PRN Reason: Nausea and Vomiting Last Admin: 02/17/25 08:36 Dose: 4 mg Trazodone HCl (Trazodone Hcl 25 Mg Halftab) 25 mg PO BEDTIME MRX1 PRN PRN Reason: insomnia Last Admin: 02/14/25 23:02 Dose: 25 mg Allergies Allergies Allergy/AdvReac Type Severity Reaction Status Date / Time No Known Allergies Allergy Verified 02/02/25 14:07 Assessment & Plan Assessment & Plan (1) Bipolar disorder, unspecified: Status: Acute Code(s): F31.9 - Bipolar disorder, unspecified Plan HPI: Pt is a 24 yo female with hx of depression, anxiety, who presents for worsening depression with SI to hang herself. Patient reports depression since the 8th grade and explains that she has been chronically dysthymic with severe depressive episodes interspersed, that can last for weeks and during which time patient has to force herself out of bed. Patient reports chronic daily wish, wishing she could just escape from her depression and . Past August 2024, during a particularly challenging depressive episode she started intermittently hearing words such as cunt and . get a job.. In September, seemingly out of nowhere she had thoughts to harm other people and was worried she might stab someone while working at [employer]; she denies ever having desire or urges to harming anyone at all and just had this thought but it scared her and so she presented to the hospital so she could get locked up so as not to hurt anyone... Patient was started on Invega; while she was there she had a dystonic reaction to a p.r.n. medication. Patient has continued taking paliperidone however she has remained very depressed and this past week her passive SI started becoming active, with thoughts to hang herself or to jump off something high; patient started develop a plan but it did not become intent. Patient denies any discrete history of manic type episodes or behaviors however she was once tried on Prozac which quickly resulted in extreme high irritability, impulsivity even to the point of wanting to jump out of a car, which resolved once poked Truong was discontinued. Denies any drug or alcohol use; minimal cannabis and not for months; denies history of trauma. Denies any current AVH Formulation/clinical reasoning: Patient has chronic, debilitating depression which has evolved to include active SI; very limited medication trials, Zoloft 25 mg for a couple of months and then Wellbutrin which she both discontinued at some point. Provisional diagnosis of bipolar disorder: Patient had what sounds like the beginnings of a manic episode when she started Prozac, becoming extremely irritable, impulsive, angry, wanting to jump out of a moving car with symptoms resolving as soon as she stopped taking this medication. Patient's brother has bipolar disorder with significant manic episodes. Discussed medication options and reviewed risks/side effects of lithium which patient understood and would like to try. Uniopolis chosen since patient has chronic SI, debilitating depression and there remains concern for this being a bipolar depression (MDD with psychotic features as a rule out; schizophrenia seems less likely given that only psychotic symptom was AH and was in the context of depression; thought to harm others seems more of a mood congruent, intrusive thought that was completely dystonic). Of note patient has about an hour of good mood when she takes caffeine and stimulant medication might be helpful as well. -regarding recent psychotic symptoms, it seems very possible that these were mood congruent; patient agrees and for now also agrees to hold In[facility] Hospital course 02/05 depressed, wishing she would be but no active SI; continue tx 02/06 remains depressed, hopeless; passive SI, wishing she were however no active SI. Hopeless that she will ever get better. However agrees to continue with treatment. Denies any AVH Positive for BV; treated with Flagyl gel 02/07 very depressed; wishing she were and w/ significant psychomotor retardation. Says will continue w/ Uniopolis. -no AVH and will dc Invega -will try adderall for considerable psychomotor retardation; will dc intuniv 02/08 did not sleep last night, just laying in bed thinking...she remains very depressed and she says i feel no different from when i came in... However, no SI at all and she says she knows she would never...She does find Adderall helpful for energy and behavioral activation. Discussed lithium; she hopes it will prove helpful and willing to remain on unit, retract 3 day notice.. -auto service writer agrees to DC patient on Friday after Uniopolis labs although pt remains depressed but no active SI and she is overall improved. She agrees to remain on unit for continued stabilizing and labs. Court Administrator agrees to dc on friday, whether or not Uniopolis has proven effective, as patient will follow up w/ outpt. 02/09: Patient states that she is a little better today. Requests to discontinue lithium as she has not experienced any changes. She notes that she is a little bit anxious and requests medication for this. Depression has improved with no depression today. She notes that lithium has no influence with her current improved mood. She denies SI/HI/AH/VH. Agrees to continue Uniopolis after this auto service writer informed her that Uniopolis likely contributed to her improved mood. Buspirone 5 mg twice daily ordered for anxiety; instructed on the risks, benefits, and potential adverse reactions of the medication. 02/10: Patient notes that she woke up with panic attack this morning and vomited. Her symptoms improved shortly after taking buspirone. She recalls that her vomiting precedes feeling anxious and having racing thoughts that are foggy. She denies anxiety or depression at this time. She is worried about her current housing situation - she has been living with strangers for the past year and a half. She currently works part-time and intends to get a full-time job so she can moved to her new place. She states that her anxiety is related to external factors, including not been taught how to go about daily life's activities. She refused lithium last night; she thinks the medication is not effective as she does not have bipolar symptoms and also concerned about severe side effects of lithium, that she learned from other patients; she request for lithium to be discontinued. She will like for buspirone to be increased. She currently denies SI/HI/AH/VH. Her 3-day notice is up on Friday, but notes that she wants to go home tomorrow to resume work. Buspirone increased to 10 mg twice daily. Uniopolis ER 900 mg q.h.s. discontinued. Continue current treatment regimen 02/11/25: Patient refused Adderall this morning, talking to medical student and this provider. Explained the lithium how it works and indication. She agreed that her mood is declined since the lithium is taken away. She has not having lithium for 2 nights. Seem she is having a lot more anxiety, more depressed, with a lot of racing thoughts. She was unsure what she is doing and worry about the future when she gets out from here. She reports passive SI deny plans or intention. However she reports severe suicidal thoughts to the other disciplines. She said she will have plan to like get herself off the bridge after discharge. Therefore I changed it from 15 minute checks 5. Please racing thoughts, ? If she have any psychotic behavior. Deny HI/AVH/SIB. She reports feeling some kind of sedation on PRNs which is incongruent. She is visible in and out of her room to common areas auto long. Due to severe anxiety with unsafe thoughts and racing thoughts eye increase hydroxyzine up to 50 PRNs and Zyprexa 5 mg every 4 hours. Nursing offer medication at this time with pending effect Hydroxyzine 50 mg q.6 hours as needed for anxiety. Zyprexa started 5 mg q.4 hours as needed for racing thoughts. Restart lithium 600 mg at bedtime. If she tolerates well we can increase up to 900 over the weekends and rechecked the lithium level next week. Uniopolis level on the 20 is 0.15 very low after too nice not taking. 02/13: Increase Uniopolis to 900 mg HS. 02/15/25: Resume care. Passive SI. Question about paranoia and racing thoughts. Explained house olanzapine is working and its indication. Lost of education regarding medication compliant inconsistently taking to help with mental health. Patient's go back and for with medication. Hopefully she will taking medication as prescribed tonight and moving forward. Continue with lithium 900 at bedtime for depression and suicidal thoughts. If she consistently taking medication will withdrawal level the end of the week. Schedule Zyprexa 5 mg at bedtime with PRNs for psychosis. Discontinue Adderall which is not helpful. Restart on guanfacine extended release 1 mg daily in the morning. 02/16/25: Slightly improved compared to yesterday in mood and racing thoughts. Compliant with medications. Educate patient on grounding technique for anxiety. Focused on the present moment so she does not get too overwhelmed thinking about for future. Review with patient medication changes made yesterday and confirmed that does nothing change today. Continued to encourage patient to compliant with medication. Denies safety concerns however reports that to the nurse that she has passive SI. 02/17/25: No sleeping or appetite issues. Compliant with medications. Been compliant with lithium. Could be have level checked on Friday. Reports feeling sedated on medications. However be alert and awake visible at times attempted to groups with less racing thoughts, less anxious, moderate to severe depression. She seems less preoccupied. Zyprexa seems helpful. However I could not going higher dose today as she complained about feeling so tired. Blood pressure running in the low end. Encourage fluids p.o. intake. We will continue to monitor. 02/18/25: Slept for 8 hours, improve in appetite, is medication compliant. She agreed not to switching back and forth between medications as the current plans working very well. Less overwhelmed. No anxiety but high on depression. No racing thoughts. Poor ADL. Encouraged to shower daily. Receptive with continue the current plan with lithium level will be scheduled on Friday. Educate on taking medication only at night on Friday to get the accurate blood level. Passive Suicidal thoughts x1. No other safety concerns. She is mildly sedated on medication. We will not increase Zyprexa due to sedation. We will change to 15 minute checks. Plan: CV. Change to 15 minute checks Continue with lithium 900 at bedtime. Uniopolis level ordered for Friday morning Continue with Buspirone 10 mg twice daily for anxiety. Zyprexa take over the extremely anxiety with the racing thoughts and psychosis I plan to take her off from BuSpar. DC Invega 6 mg q.h.s.; AH was momentary and maybe just mood congruent; will monitor Dc intuniv; not helpful; adderall more effective. We discontinued Adderall and put her back Intuniv 1 mg daily. Labs work order yesterday was within normal limit. 02/11/25: Uniopolis level 0.15 Past med trials: Zoloft 25mg Helped a little Prozac: caused highly irritable agitated state Wellbutrin: felt like in a bubble, which was helpful Regarding Uniopolis, Risks, side-effects and benefits reviewed with pt, including, but not limited to, damage to kidneys and thyroid; pt was educated to stay hydrated, to watch for symptoms of lithium toxicity (also discussed, including but not limited to nausea, tremor, confusion) and the need to stay away from OTC NSAIDs (specifics reviewed) aside from Tylenol. Continued to reinforce education regarding indication and side effects from lithium. Patient educated on: diagnosis, medication risk/benefits and therapeutic strategies Informed Consent: further education needed Reason for continued inpatient stay Substantial Risk for: med/psych decompensation Time Spent With Patient Time: Total time managing care of this patient today ____ minutes.
[2025-02-18 20:00] VITALS: BP 102/56; PULSE 90; RESP 16; TEMP 37; O2SAT 97
[2025-02-19 08:00] VITALS: BP 110/62; PULSE 64; TEMP 36.9; O2SAT 97
[2025-02-19] MEDS: guaiFENesin DM 600/30 1 TAB TAB.ER.12H PO (14:45)
[2025-02-19] MEDS: Nicotine 21 MG PATCH.TD24 TRANSDERMA (14:45)
--- NOTE | 2025-02-19 17:23 | P.PNPSI_ITS ---
Subjective Subjective Date of Service: 02/19/25 Reason For Visit: SI Interim History: Reports she is still depressed. Sedated on Guanfacine in the day time and requested change to HS again. She has passive SI. Denies hallucinations. Denies homicidal thoughts and voices or hallucinations. Review of Systems Review of Systems Constitutional: Denies fatigue and Denies fever(s) Cardiovascular: Denies chest pain and Denies dyspnea Respiratory: Denies dyspnea Gastrointestinal: Denies abdominal pain Psychiatric: Reduce on suicidal thoughts. Have passive SI x1 Endocrine: Denies fatigue Yes all other systems are reviewed and are negative Mental Status Exam Mental Status Exam Narrative: Pt is alert and oriented; behavior is cooperative patient is not in distress; dressed in casual attire; adequate hygiene/grooming. Mood is no anxiety but depressed and no racing thoughts. , she is less overwhelmed with less racing thoughts, and affect congruent.; eye contact appropriate; Speech is soft to normal rate, volume, prosody; no psychomotor retardation present; thought process is disorganized and not goal directed, negative; Thought content is disoriented, forgetful, ; worries about housing; worry about not able to function in society with less intense, otherwise pertinent to relevant topics and without any delusional content. She does not make paranoid ideations or grandiosity statements ; report passive SI x1 only during group. but can be change any time, denies HI; Denies AVH and there is no evidence of perceptual disturbance. ? Psychotic paranoid/psychotic. Patients insight and judgment impaired with some improvement Patient Appearance: Appropriate Patient Orientation: Person, Place, Time and Situation Level of Consciousness: Awake and Alert Patient Behavior: Appropriate and Cooperative Mood Description: Depressed and Anxious Affect Description: Blunted Patient Cognition Impaired: No Ability to Follow Directions: Good Speech Pattern: Clear Memory Description: Intact Diagnostics Vital Signs (24Hr): Vital Signs - 24 hr 02/18/25 20:00 02/19/25 08:00 Temperature 98.6 F 98.4 F Pulse Rate 90 64 Respiratory Rate 16 Blood Pressure 102/56 L 110/62 Pulse Oximetry 97 97 Oxygen Delivery Method Room Air Room Air BMI result Body Mass Index 30.4 Labs 02/04/25 08:12 02/11/25 07:55 Medications Medications Current Medications Acetaminophen (Acetaminophen 325 Mg Tablet) 650 mg PO Q6H PRN PRN Reason: Headache/Pain, Scale 1-10 Last Admin: 02/13/25 18:08 Dose: 650 mg Al Hydroxide/Mg Hydroxide (Magnesium Hydrox/Alum Hydrox 30 Ml Oral.Susp) 30 ml PO Q6H PRN PRN Reason: Heartburn/Nausea Buspirone HCl (Buspirone Hcl 10 Mg Tablet) 10 mg PO BID ETHAN Last Admin: 02/19/25 08:51 Dose: 10 mg Guaifenesin/Dextromethorphan (Guaifenesin Dm 600/30 1 Tab Tab.Er.12h) 1 tab PO BID PRN PRN Reason: Cough, congestion Last Admin: 02/19/25 14:45 Dose: 1 tab Guanfacine HCl (Guanfacine Hcl Er 1 Mg Tab.Er.24h) 1 mg PO BEDTIME ETHAN Hydroxyzine HCl (Hydroxyzine Hcl 50 Mg Tablet) 50 mg PO Q6H PRN PRN Reason: mild anxiety Last Admin: 02/14/25 23:01 Dose: 50 mg [place] Carbonate ([place] Carbonate 300 Mg Capsule) 900 mg PO BEDTIME ETHAN Last Admin: 02/18/25 21:53 Dose: 900 mg Magnesium Hydroxide (Milk Of Magnesia 30 Ml Oral.Susp) 30 ml PO DAILY PRN PRN Reason: Constipation Nicotine (Nicotine 21 Mg Patch.Td24) 21 mg TRANSDERMA DAILY PRN PRN Reason: smoking cessation Last Admin: 02/19/25 14:45 Dose: 21 mg Nicotine Polacrilex (Nicotine Polacrilex 2 Mg Gum) 4 mg BUCCAL Q2H PRN PRN Reason: Nicotine Cravings Last Admin: 02/19/25 14:47 Dose: 4 mg Olanzapine (Olanzapine 5 Mg Tablet) 5 mg PO Q4H PRN PRN Reason: racing thougts Last Admin: 02/15/25 14:25 Dose: 5 mg Olanzapine (Olanzapine 5 Mg Tablet) 5 mg PO BEDTIME [facility] Last Admin: 02/18/25 21:53 Dose: 5 mg Ondansetron HCl (Ondansetron Odt 4 Mg Tab.Rapdis) 4 mg TRANSLINGU Q4H PRN PRN Reason: Nausea and Vomiting Last Admin: 02/17/25 08:36 Dose: 4 mg Trazodone HCl (Trazodone Hcl 25 Mg Halftab) 25 mg PO BEDTIME MRX1 PRN PRN Reason: insomnia Last Admin: 02/14/25 23:02 Dose: 25 mg Allergies Allergies Allergy/AdvReac Type Severity Reaction Status Date / Time No Known Allergies Allergy Verified 02/02/25 14:07 Assessment & Plan Assessment & Plan (1) Bipolar disorder, unspecified: Status: Acute Code(s): F31.9 - Bipolar disorder, unspecified Plan HPI: Pt is a 24 yo female with hx of depression, anxiety, who presents for worsening depression with SI to hang herself. Patient reports depression since the 8th grade and explains that she has been chronically dysthymic with severe depressive episodes interspersed, that can last for weeks and during which time patient has to force herself out of bed. Patient reports chronic daily wish, wishing she could just escape from her depression and . Past August 2024, during a particularly challenging depressive episode she started intermittently hearing words such as cunt and . get a job.. In September, seemingly out of nowhere she had thoughts to harm other people and was worried she might stab someone while working at [employer]; she denies ever having desire or urges to harming anyone at all and just had this thought but it scared her and so she presented to the hospital so she could get locked up so as not to hurt anyone... Patient was started on Invega; while she was there she had a dystonic reaction to a p.r.n. medication. Patient has continued taking paliperidone however she has remained very depressed and this past week her passive SI started becoming active, with thoughts to hang herself or to jump off something high; patient started develop a plan but it did not become intent. Patient denies any discrete history of manic type episodes or behaviors however she was once tried on Prozac which quickly resulted in extreme high irritability, impulsivity even to the point of wanting to jump out of a car, which resolved once poked Truong was discontinued. Denies any drug or alcohol use; minimal cannabis and not for months; denies history of trauma. Denies any current AVH Formulation/clinical reasoning: Patient has chronic, debilitating depression which has evolved to include active SI; very limited medication trials, Zoloft 25 mg for a couple of months and then Wellbutrin which she both discontinued at some point. Provisional diagnosis of bipolar disorder: Patient had what sounds like the beginnings of a manic episode when she started Prozac, becoming extremely irritable, impulsive, angry, wanting to jump out of a moving car with symptoms resolving as soon as she stopped taking this medication. Patient's brother has bipolar disorder with significant manic episodes. Discussed medication options and reviewed risks/side effects of lithium which patient understood and would like to try. [place] chosen since patient has chronic SI, debilitating depression and there remains concern for this being a bipolar depression (MDD with psychotic features as a rule out; schizophrenia seems less likely given that only psychotic symptom was AH and was in the context of depression; thought to harm others seems more of a mood congruent, intrusive thought that was completely dystonic). Of note patient has about an hour of good mood when she takes caffeine and stimulant medication might be helpful as well. -regarding recent psychotic symptoms, it seems very possible that these were mood congruent; patient agrees and for now also agrees to hold [facility] course 02/05 depressed, wishing she would be but no active SI; continue tx 02/06 remains depressed, hopeless; passive SI, wishing she were however no active SI. Hopeless that she will ever get better. However agrees to continue with treatment. Denies any AVH Positive for BV; treated with Flagyl gel 02/07 very depressed; wishing she were and w/ significant psychomotor retardation. Says will continue w/ [place]. -no AVH and will dc Invega -will try adderall for considerable psychomotor retardation; will dc intuniv 02/08 did not sleep last night, just laying in bed thinking...she remains very depressed and she says i feel no different from when i came in... However, no SI at all and she says she knows she would never...She does find Adderall helpful for energy and behavioral activation. Discussed lithium; she hopes it will prove helpful and willing to remain on unit, retract 3 day notice.. -marketing writer agrees to DC patient on Friday after [place] labs although pt remains depressed but no active SI and she is overall improved. She agrees to remain on unit for continued stabilizing and labs. Access Services Assistant agrees to dc on friday, whether or not [place] has proven effective, as patient will follow up w/ outpt. 02/09: Patient states that she is a little better today. Requests to discontinue lithium as she has not experienced any changes. She notes that she is a little bit anxious and requests medication for this. Depression has improved with no depression today. She notes that lithium has no influence with her current improved mood. She denies SI/HI/AH/VH. Agrees to continue [place] after this marketing writer informed her that [place] likely contributed to her improved mood. Buspirone 5 mg twice daily ordered for anxiety; instructed on the risks, benefits, and potential adverse reactions of the medication. 02/10: Patient notes that she woke up with panic attack this morning and vomited. Her symptoms improved shortly after taking buspirone. She recalls that her vomiting precedes feeling anxious and having racing thoughts that are foggy. She denies anxiety or depression at this time. She is worried about her current housing situation - she has been living with strangers for the past year and a half. She currently works part-time and intends to get a full-time job so she can moved to her new place. She states that her anxiety is related to external factors, including not been taught how to go about daily life's activities. She refused lithium last night; she thinks the medication is not effective as she does not have bipolar symptoms and also concerned about severe side effects of lithium, that she learned from other patients; she request for lithium to be discontinued. She will like for buspirone to be increased. She currently denies SI/HI/AH/VH. Her 3-day notice is up on Friday, but notes that she wants to go home tomorrow to resume work. Buspirone increased to 10 mg twice daily. [place] ER 900 mg q.h.s. discontinued. Continue current treatment regimen 02/11/25: Patient refused Adderall this morning, talking to medical student and this provider. Explained the lithium how it works and indication. She agreed that her mood is declined since the lithium is taken away. She has not having lithium for 2 nights. Seem she is having a lot more anxiety, more depressed, with a lot of racing thoughts. She was unsure what she is doing and worry about the future when she gets out from here. She reports passive SI deny plans or intention. However she reports severe suicidal thoughts to the other disciplines. She said she will have plan to like get herself off the bridge after discharge. Therefore I changed it from 15 minute checks 5. Please racing thoughts, ? If she have any psychotic behavior. Deny HI/AVH/SIB. She reports feeling some kind of sedation on PRNs which is incongruent. She is visible in and out of her room to common areas auto long. Due to severe anxiety with unsafe thoughts and racing thoughts eye increase hydroxyzine up to 50 PRNs and Zyprexa 5 mg every 4 hours. Nursing offer medication at this time with pending effect Hydroxyzine 50 mg q.6 hours as needed for anxiety. Zyprexa started 5 mg q.4 hours as needed for racing thoughts. Restart lithium 600 mg at bedtime. If she tolerates well we can increase up to 900 over the weekends and rechecked the lithium level next week. [place] level on the 20 is 0.15 very low after too nice not taking. 02/13: Increase [place] to 900 mg HS. 02/15/25: Resume care. Passive SI. Question about paranoia and racing thoughts. Explained house olanzapine is working and its indication. Lost of education regarding medication compliant inconsistently taking to help with mental health. Patient's go back and for with medication. Hopefully she will taking medication as prescribed tonight and moving forward. Continue with lithium 900 at bedtime for depression and suicidal thoughts. If she consistently taking medication will withdrawal level the end of the week. Schedule Zyprexa 5 mg at bedtime with PRNs for psychosis. Discontinue Adderall which is not helpful. Restart on guanfacine extended release 1 mg daily in the morning. 02/16/25: Slightly improved compared to yesterday in mood and racing thoughts. Compliant with medications. Educate patient on grounding technique for anxiety. Focused on the present moment so she does not get too overwhelmed thinking about for future. Review with patient medication changes made yesterday and confirmed that does nothing change today. Continued to encourage patient to compliant with medication. Denies safety concerns however reports that to the nurse that she has passive SI. 02/17/25: No sleeping or appetite issues. Compliant with medications. Been compliant with lithium. Could be have level checked on Friday. Reports feeling sedated on medications. However be alert and awake visible at times attempted to groups with less racing thoughts, less anxious, moderate to severe depression. She seems less preoccupied. Zyprexa seems helpful. However I could not going higher dose today as she complained about feeling so tired. Blood pressure running in the low end. Encourage fluids p.o. intake. We will continue to monitor. 02/18/25: Slept for 8 hours, improve in appetite, is medication compliant. She agreed not to switching back and forth between medications as the current plans working very well. Less overwhelmed. No anxiety but high on depression. No racing thoughts. Poor ADL. Encouraged to shower daily. Receptive with continue the current plan with lithium level will be scheduled on Friday. Educate on taking medication only at night on Friday to get the accurate blood level. Passive Suicidal thoughts x1. No other safety concerns. She is mildly sedated on medication. We will not increase Zyprexa due to sedation. We will change to 15 minute checks. 02/19: continue current management and treatment plan. Plan: CV. Change to 15 minute checks Continue with lithium 900 at bedtime. [place] level ordered for Friday morning Continue with Buspirone 10 mg twice daily for anxiety. Zyprexa take over the extremely anxiety with the racing thoughts and psychosis I plan to take her off from BuSpar. DC Invega 6 mg q.h.s.; AH was momentary and maybe just mood congruent; will monitor Dc intuniv; not helpful; adderall more effective. We discontinued Adderall and put her back Intuniv 1 mg daily. Labs work order yesterday was within normal limit. 02/11/25: [place] level 0.15 Past med trials: Zoloft 25mg Helped a little Prozac: caused highly irritable agitated state Wellbutrin: felt like in a bubble, which was helpful Regarding [place], Risks, side-effects and benefits reviewed with pt, including, but not limited to, damage to kidneys and thyroid; pt was educated to stay hydrated, to watch for symptoms of lithium toxicity (also discussed, including but not limited to nausea, tremor, confusion) and the need to stay away from OTC NSAIDs (specifics reviewed) aside from Tylenol. Continued to reinforce education regarding indication and side effects from lithium. Reason for continued inpatient stay Substantial Risk for: harm to self, inability to function and rapid decompensation Time Spent With Patient Time: Total time managing care of this patient today ____ minutes.
[2025-02-19 20:00] VITALS: BP 125/77; PULSE 90; RESP 16; TEMP 37.7; O2SAT 96
[2025-02-19] MEDS: guanFACINE HCl ER 1 MG TAB.ER.24H PO (20:58)
[2025-02-20 08:00] VITALS: BP 105/57; PULSE 60; TEMP 36.7; O2SAT 97
--- NOTE | 2025-02-20 09:44 | HO.PSYCHPN ---
Subjective Subjective Date of Service: 02/20/25 Reason For Visit: SI Interim History: Reports she is still depressed. Refused [place] yesterday. Said she feels sedated with it. Doesnt want to continue the trial. Also told RN she would not be able to manage doing labs and monitor when discharged. She remains depressed and says she continues with suicidal thoughts. I just want to . She states she would not hurt herself in the hospital as she has no means and has some hope. She was educated briefly about ECT and TMS if she is not interested in Li. Asked for educational material that was provided. Another option would be Es or Ketamine if this is a possibility within the hospital setting. Denies hallucinations. Denies homicidal thoughts. Review of Systems Review of Systems Constitutional: Denies fatigue and Denies fever(s) Cardiovascular: Denies chest pain and Denies dyspnea Respiratory: Denies dyspnea Gastrointestinal: Denies abdominal pain Psychiatric: Reduce on suicidal thoughts. Have passive SI x1 Endocrine: Denies fatigue Yes all other systems are reviewed and are negative Mental Status Exam Mental Status Exam Narrative: Pt is alert and oriented; behavior is cooperative patient is not in distress; dressed in casual attire; adequate hygiene/grooming. Mood is no anxiety but depressed and no racing thoughts. , she is less overwhelmed with less racing thoughts, and affect congruent.; eye contact appropriate; Speech is soft to normal rate, volume, prosody; no psychomotor retardation present; thought process is disorganized and not goal directed, negative; Thought content is disoriented, forgetful, ; worries about housing; worry about not able to function in society with less intense, otherwise pertinent to relevant topics and without any delusional content. She does not make paranoid ideations or grandiosity statements ; report passive SI x1 only during group. but can be change any time, denies HI; Denies AVH and there is no evidence of perceptual disturbance. ? Psychotic paranoid/psychotic. Patients insight and judgment impaired with some improvement Patient Appearance: Appropriate Patient Orientation: Person, Place, Time and Situation Level of Consciousness: Awake and Alert Patient Behavior: Appropriate and Cooperative Mood Description: Depressed and Anxious Affect Description: Blunted Patient Cognition Impaired: No Ability to Follow Directions: Good Speech Pattern: Clear Memory Description: Intact Diagnostics Vital Signs (24Hr): Vital Signs - 24 hr 02/19/25 20:00 02/20/25 08:00 Temperature 99.8 F 98.1 F Pulse Rate 90 60 Respiratory Rate 16 Blood Pressure 125/77 105/57 L Pulse Oximetry 96 97 Oxygen Delivery Method Room Air Room Air BMI result Body Mass Index 30.4 Labs 02/04/25 08:12 02/11/25 07:55 Medications Medications Current Medications Acetaminophen (Acetaminophen 325 Mg Tablet) 650 mg PO Q6H PRN PRN Reason: Headache/Pain, Scale 1-10 Last Admin: 02/13/25 18:08 Dose: 650 mg Al Hydroxide/Mg Hydroxide (Magnesium Hydrox/Alum Hydrox 30 Ml Oral.Susp) 30 ml PO Q6H PRN PRN Reason: Heartburn/Nausea Buspirone HCl (Buspirone Hcl 10 Mg Tablet) 10 mg PO BID [facility] Last Admin: 02/20/25 08:40 Dose: 10 mg Guaifenesin/Dextromethorphan (Guaifenesin Dm 600/30 1 Tab Tab.Er.12h) 1 tab PO BID PRN PRN Reason: Cough, congestion Last Admin: 02/19/25 14:45 Dose: 1 tab Guanfacine HCl (Guanfacine Hcl Er 1 Mg Tab.Er.24h) 1 mg PO BEDTIME ETHAN Last Admin: 02/19/25 20:58 Dose: 1 mg Hydroxyzine HCl (Hydroxyzine Hcl 50 Mg Tablet) 50 mg PO Q6H PRN PRN Reason: mild anxiety Last Admin: 02/14/25 23:01 Dose: 50 mg [place] Carbonate ([place] Carbonate 300 Mg Capsule) 900 mg PO BEDTIME ETHAN Last Admin: 02/19/25 21:00 Dose: Not Given Magnesium Hydroxide (Milk Of Magnesia 30 Ml Oral.Susp) 30 ml PO DAILY PRN PRN Reason: Constipation Nicotine (Nicotine 21 Mg Patch.Td24) 21 mg TRANSDERMA DAILY PRN PRN Reason: smoking cessation Last Admin: 02/19/25 14:45 Dose: 21 mg Nicotine Polacrilex (Nicotine Polacrilex 2 Mg Gum) 4 mg BUCCAL Q2H PRN PRN Reason: Nicotine Cravings Last Admin: 02/19/25 19:25 Dose: 4 mg Olanzapine (Olanzapine 5 Mg Tablet) 5 mg PO Q4H PRN PRN Reason: racing thougts Last Admin: 02/15/25 14:25 Dose: 5 mg Olanzapine (Olanzapine 5 Mg Tablet) 5 mg PO BEDTIME ETAHN Last Admin: 02/19/25 21:01 Dose: Not Given Ondansetron HCl (Ondansetron Odt 4 Mg Tab.Rapdis) 4 mg TRANSLINGU Q4H PRN PRN Reason: Nausea and Vomiting Last Admin: 02/17/25 08:36 Dose: 4 mg Trazodone HCl (Trazodone Hcl 25 Mg Halftab) 25 mg PO BEDTIME MRX1 PRN PRN Reason: insomnia Last Admin: 02/14/25 23:02 Dose: 25 mg Allergies Allergies Allergy/AdvReac Type Severity Reaction Status Date / Time No Known Allergies Allergy Verified 02/02/25 14:07 Assessment & Plan Assessment & Plan (1) Bipolar disorder, unspecified: Status: Acute Code(s): F31.9 - Bipolar disorder, unspecified Plan HPI: Pt is a 24 yo female with hx of depression, anxiety, who presents for worsening depression with SI to hang herself. Patient reports depression since the 8th grade and explains that she has been chronically dysthymic with severe depressive episodes interspersed, that can last for weeks and during which time patient has to force herself out of bed. Patient reports chronic daily wish, wishing she could just escape from her depression and . Past August 2024, during a particularly challenging depressive episode she started intermittently hearing words such as cunt and . get a job.. In September, seemingly out of nowhere she had thoughts to harm other people and was worried she might stab someone while working at [employer]; she denies ever having desire or urges to harming anyone at all and just had this thought but it scared her and so she presented to the hospital so she could get locked up so as not to hurt anyone... Patient was started on Invega; while she was there she had a dystonic reaction to a p.r.n. medication. Patient has continued taking paliperidone however she has remained very depressed and this past week her passive SI started becoming active, with thoughts to hang herself or to jump off something high; patient started develop a plan but it did not become intent. Patient denies any discrete history of manic type episodes or behaviors however she was once tried on Prozac which quickly resulted in extreme high irritability, impulsivity even to the point of wanting to jump out of a car, which resolved once poked Truong was discontinued. Denies any drug or alcohol use; minimal cannabis and not for months; denies history of trauma. Denies any current AVH Formulation/clinical reasoning: Patient has chronic, debilitating depression which has evolved to include active SI; very limited medication trials, Zoloft 25 mg for a couple of months and then Wellbutrin which she both discontinued at some point. Provisional diagnosis of bipolar disorder: Patient had what sounds like the beginnings of a manic episode when she started Prozac, becoming extremely irritable, impulsive, angry, wanting to jump out of a moving car with symptoms resolving as soon as she stopped taking this medication. Patient's brother has bipolar disorder with significant manic episodes. Discussed medication options and reviewed risks/side effects of lithium which patient understood and would like to try. [place] chosen since patient has chronic SI, debilitating depression and there remains concern for this being a bipolar depression (MDD with psychotic features as a rule out; schizophrenia seems less likely given that only psychotic symptom was AH and was in the context of depression; thought to harm others seems more of a mood congruent, intrusive thought that was completely dystonic). Of note patient has about an hour of good mood when she takes caffeine and stimulant medication might be helpful as well. -regarding recent psychotic symptoms, it seems very possible that these were mood congruent; patient agrees and for now also agrees to hold [facility] course 02/05 depressed, wishing she would be but no active SI; continue tx 02/06 remains depressed, hopeless; passive SI, wishing she were however no active SI. Hopeless that she will ever get better. However agrees to continue with treatment. Denies any AVH Positive for BV; treated with Flagyl gel 02/07 very depressed; wishing she were and w/ significant psychomotor retardation. Says will continue w/ [place]. -no AVH and will dc Invega -will try adderall for considerable psychomotor retardation; will dc intuniv 02/08 did not sleep last night, just laying in bed thinking...she remains very depressed and she says i feel no different from when i came in... However, no SI at all and she says she knows she would never...She does find Adderall helpful for energy and behavioral activation. Discussed lithium; she hopes it will prove helpful and willing to remain on unit, retract 3 day notice.. -manual writer agrees to DC patient on Friday after [place] labs although pt remains depressed but no active SI and she is overall improved. She agrees to remain on unit for continued stabilizing and labs. Vein Access Technician agrees to dc on friday, whether or not [place] has proven effective, as patient will follow up w/ outpt. 02/09: Patient states that she is a little better today. Requests to discontinue lithium as she has not experienced any changes. She notes that she is a little bit anxious and requests medication for this. Depression has improved with no depression today. She notes that lithium has no influence with her current improved mood. She denies SI/HI/AH/VH. Agrees to continue [place] after this manual writer informed her that [place] likely contributed to her improved mood. Buspirone 5 mg twice daily ordered for anxiety; instructed on the risks, benefits, and potential adverse reactions of the medication. 02/10: Patient notes that she woke up with panic attack this morning and vomited. Her symptoms improved shortly after taking buspirone. She recalls that her vomiting precedes feeling anxious and having racing thoughts that are foggy. She denies anxiety or depression at this time. She is worried about her current housing situation - she has been living with strangers for the past year and a half. She currently works part-time and intends to get a full-time job so she can moved to her new place. She states that her anxiety is related to external factors, including not been taught how to go about daily life's activities. She refused lithium last night; she thinks the medication is not effective as she does not have bipolar symptoms and also concerned about severe side effects of lithium, that she learned from other patients; she request for lithium to be discontinued. She will like for buspirone to be increased. She currently denies SI/HI/AH/VH. Her 3-day notice is up on Friday, but notes that she wants to go home tomorrow to resume work. Buspirone increased to 10 mg twice daily. [place] ER 900 mg q.h.s. discontinued. Continue current treatment regimen 02/11/25: Patient refused Adderall this morning, talking to medical student and this provider. Explained the lithium how it works and indication. She agreed that her mood is declined since the lithium is taken away. She has not having lithium for 2 nights. Seem she is having a lot more anxiety, more depressed, with a lot of racing thoughts. She was unsure what she is doing and worry about the future when she gets out from here. She reports passive SI deny plans or intention. However she reports severe suicidal thoughts to the other disciplines. She said she will have plan to like get herself off the bridge after discharge. Therefore I changed it from 15 minute checks 5. Please racing thoughts, ? If she have any psychotic behavior. Deny HI/AVH/SIB. She reports feeling some kind of sedation on PRNs which is incongruent. She is visible in and out of her room to common areas auto long. Due to severe anxiety with unsafe thoughts and racing thoughts eye increase hydroxyzine up to 50 PRNs and Zyprexa 5 mg every 4 hours. Nursing offer medication at this time with pending effect Hydroxyzine 50 mg q.6 hours as needed for anxiety. Zyprexa started 5 mg q.4 hours as needed for racing thoughts. Restart lithium 600 mg at bedtime. If she tolerates well we can increase up to 900 over the weekends and rechecked the lithium level next week. [place] level on the 20 is 0.15 very low after too nice not taking. 02/13: Increase [place] to 900 mg HS. 02/15/25: Resume care. Passive SI. Question about paranoia and racing thoughts. Explained house olanzapine is working and its indication. Lost of education regarding medication compliant inconsistently taking to help with mental health. Patient's go back and for with medication. Hopefully she will taking medication as prescribed tonight and moving forward. Continue with lithium 900 at bedtime for depression and suicidal thoughts. If she consistently taking medication will withdrawal level the end of the week. Schedule Zyprexa 5 mg at bedtime with PRNs for psychosis. Discontinue Adderall which is not helpful. Restart on guanfacine extended release 1 mg daily in the morning. 02/16/25: Slightly improved compared to yesterday in mood and racing thoughts. Compliant with medications. Educate patient on grounding technique for anxiety. Focused on the present moment so she does not get too overwhelmed thinking about for future. Review with patient medication changes made yesterday and confirmed that does nothing change today. Continued to encourage patient to compliant with medication. Denies safety concerns however reports that to the nurse that she has passive SI. 02/17/25: No sleeping or appetite issues. Compliant with medications. Been compliant with lithium. Could be have level checked on Friday. Reports feeling sedated on medications. However be alert and awake visible at times attempted to groups with less racing thoughts, less anxious, moderate to severe depression. She seems less preoccupied. Zyprexa seems helpful. However I could not going higher dose today as she complained about feeling so tired. Blood pressure running in the low end. Encourage fluids p.o. intake. We will continue to monitor. 02/18/25: Slept for 8 hours, improve in appetite, is medication compliant. She agreed not to switching back and forth between medications as the current plans working very well. Less overwhelmed. No anxiety but high on depression. No racing thoughts. Poor ADL. Encouraged to shower daily. Receptive with continue the current plan with lithium level will be scheduled on Friday. Educate on taking medication only at night on Friday to get the accurate blood level. Passive Suicidal thoughts x1. No other safety concerns. She is mildly sedated on medication. We will not increase Zyprexa due to sedation. We will change to 15 minute checks. 02/19: continue current management and treatment plan. 02/20: Educational material about ECT and TMS provided. Continue current management and treatment plan. Plan: CV. Change to 15 minute checks Continue with lithium 900 at bedtime. [place] level ordered for Friday morning Continue with Buspirone 10 mg twice daily for anxiety. Zyprexa take over the extremely anxiety with the racing thoughts and psychosis I plan to take her off from BuSpar. DC Invega 6 mg q.h.s.; AH was momentary and maybe just mood congruent; will monitor Dc intuniv; not helpful; adderall more effective. We discontinued Adderall and put her back Intuniv 1 mg daily. Labs work order yesterday was within normal limit. 02/11/25: [place] level 0.15 Past med trials: Zoloft 25mg Helped a little Prozac: caused highly irritable agitated state Wellbutrin: felt like in a bubble, which was helpful Regarding [place], Risks, side-effects and benefits reviewed with pt, including, but not limited to, damage to kidneys and thyroid; pt was educated to stay hydrated, to watch for symptoms of lithium toxicity (also discussed, including but not limited to nausea, tremor, confusion) and the need to stay away from OTC NSAIDs (specifics reviewed) aside from Tylenol. Continued to reinforce education regarding indication and side effects from lithium. Reason for continued inpatient stay Substantial Risk for: harm to self, inability to function and rapid decompensation Time Spent With Patient Time: Total time managing care of this patient today ____ minutes.
[2025-02-20] MEDS: Nicotine 21 MG PATCH.TD24 TRANSDERMA (12:08)
[2025-02-20 19:55] VITALS: BP 137/80; PULSE 104; RESP 16; TEMP 37.6; O2SAT 99
[2025-02-20] MEDS: guanFACINE HCl ER 1 MG TAB.ER.24H PO (20:58)
[2025-02-21 08:00] VITALS: BP 113/57; PULSE 75; RESP 16; TEMP 37.2; O2SAT 96
[2025-02-21] MEDS: Nicotine 21 MG PATCH.TD24 TRANSDERMA (08:51)
--- NOTE | 2025-02-21 13:13 | P.PNPSI_ITS ---
Subjective Subjective Date of Service: 02/21/25 Reason For Visit: SI Interim History: Laying in bed. keeping to self. continues to report feeling depressed. She reports less anxiety with buspar. pt stated, I'm terrified of where to go after the hospital. I want to . I'm not thinking of ways to do it . focused on discharge and how she will function outside of hospital. Refused [place] and zyprexa. denies HI/VH/AH. Encouraged to leave bed/room. Medication Compliance: Intermittent Attending Groups: No Mental Status Exam Mental Status Exam Patient Appearance: Disheveled Patient Orientation: Person, Place, Time and Situation Level of Consciousness: Awake Patient Behavior: Appropriate and Cooperative Mood Description: Depressed Affect Description: Flat Ability to Follow Directions: Good Speech Pattern: Clear Memory Description: Intact Hallucinations: None Delusions: Not Present Thought Process: Intact Thought Content: positive for Intact Judgement: Poor Diagnostics Vital Signs (24Hr): Vital Signs - 24 hr 02/20/25 19:55 02/21/25 08:00 Temperature 99.6 F 98.9 F Pulse Rate 104 H 75 Respiratory Rate 16 16 Blood Pressure 137/80 113/57 L Pulse Oximetry 99 96 Oxygen Delivery Method Room Air BMI result Body Mass Index 30.4 Labs 02/04/25 08:12 02/11/25 07:55 Medications Medications Current Medications Acetaminophen (Acetaminophen 325 Mg Tablet) 650 mg PO Q6H PRN PRN Reason: Headache/Pain, Scale 1-10 Last Admin: 02/13/25 18:08 Dose: 650 mg Al Hydroxide/Mg Hydroxide (Magnesium Hydrox/Alum Hydrox 30 Ml Oral.Susp) 30 ml PO Q6H PRN PRN Reason: Heartburn/Nausea Buspirone HCl (Buspirone Hcl 10 Mg Tablet) 10 mg PO BID ETHAN Last Admin: 02/21/25 08:45 Dose: 10 mg Guaifenesin/Dextromethorphan (Guaifenesin Dm 600/30 1 Tab Tab.Er.12h) 1 tab PO BID PRN PRN Reason: Cough, congestion Last Admin: 02/19/25 14:45 Dose: 1 tab Guanfacine HCl (Guanfacine Hcl Er 1 Mg Tab.Er.24h) 1 mg PO BEDTIME ETHAN Last Admin: 02/20/25 20:58 Dose: 1 mg Hydroxyzine HCl (Hydroxyzine Hcl 50 Mg Tablet) 50 mg PO Q6H PRN PRN Reason: mild anxiety Last Admin: 02/20/25 21:02 Dose: 50 mg [place] Carbonate ([place] Carbonate 300 Mg Capsule) 900 mg PO BEDTIME ETHAN Last Admin: 02/20/25 21:04 Dose: Not Given Magnesium Hydroxide (Milk Of Magnesia 30 Ml Oral.Susp) 30 ml PO DAILY PRN PRN Reason: Constipation Nicotine (Nicotine 21 Mg Patch.Td24) 21 mg TRANSDERMA DAILY PRN PRN Reason: smoking cessation Last Admin: 02/21/25 08:51 Dose: 21 mg Nicotine Polacrilex (Nicotine Polacrilex 2 Mg Gum) 4 mg BUCCAL Q2H PRN PRN Reason: Nicotine Cravings Last Admin: 02/21/25 12:40 Dose: 4 mg Olanzapine (Olanzapine 5 Mg Tablet) 5 mg PO Q4H PRN PRN Reason: racing thougts Last Admin: 02/15/25 14:25 Dose: 5 mg Olanzapine (Olanzapine 5 Mg Tablet) 5 mg PO BEDTIME ETHAN Last Admin: 02/20/25 21:04 Dose: Not Given Ondansetron HCl (Ondansetron Odt 4 Mg Tab.Rapdis) 4 mg TRANSLINGU Q4H PRN PRN Reason: Nausea and Vomiting Last Admin: 02/17/25 08:36 Dose: 4 mg Trazodone HCl (Trazodone Hcl 25 Mg Halftab) 25 mg PO BEDTIME MRX1 PRN PRN Reason: insomnia Last Admin: 02/14/25 23:02 Dose: 25 mg Allergies Allergies Allergy/AdvReac Type Severity Reaction Status Date / Time No Known Allergies Allergy Verified 02/02/25 14:07 Assessment & Plan Assessment & Plan (1) Bipolar disorder, unspecified: Status: Acute Code(s): F31.9 - Bipolar disorder, unspecified Plan HPI: Pt is a 24 yo female with hx of depression, anxiety, who presents for worsening depression with SI to hang herself. Patient reports depression since the 8th grade and explains that she has been chronically dysthymic with severe depressive episodes interspersed, that can last for weeks and during which time patient has to force herself out of bed. Patient reports chronic daily wish, wishing she could just escape from her depression and . Past August 2024, during a particularly challenging depressive episode she started intermittently hearing words such as cunt and . get a job.. In September, seemingly out of nowhere she had thoughts to harm other people and was worried she might stab someone while working at [employer]; she denies ever having desire or urges to harming anyone at all and just had this thought but it scared her and so she presented to the hospital so she could get locked up so as not to hurt anyone... Patient was started on Invega; while she was there she had a dystonic reaction to a p.r.n. medication. Patient has continued taking paliperidone however she has remained very depressed and this past week her passive SI started becoming active, with thoughts to hang herself or to jump off something high; patient started develop a plan but it did not become intent. Patient denies any discrete history of manic type episodes or behaviors however she was once tried on Prozac which quickly resulted in extreme high irritability, impulsivity even to the point of wanting to jump out of a car, which resolved once poked Truong was discontinued. Denies any drug or alcohol use; minimal cannabis and not for months; denies history of trauma. Denies any current AVH Formulation/clinical reasoning: Patient has chronic, debilitating depression which has evolved to include active SI; very limited medication trials, Zoloft 25 mg for a couple of months and then Wellbutrin which she both discontinued at some point. Provisional diagnosis of bipolar disorder: Patient had what sounds like the beginnings of a manic episode when she started Prozac, becoming extremely irritable, impulsive, angry, wanting to jump out of a moving car with symptoms resolving as soon as she stopped taking this medication. Patient's brother has bipolar disorder with significant manic episodes. Discussed medication options and reviewed risks/side effects of lithium which patient understood and would like to try. [place] chosen since patient has chronic SI, debilitating depression and there remains concern for this being a bipolar depression (MDD with psychotic features as a rule out; schizophrenia seems less likely given that only psychotic symptom was AH and was in the context of depression; thought to harm others seems more of a mood congruent, intrusive thought that was completely dystonic). Of note patient has about an hour of good mood when she takes caffeine and stimulant medication might be helpful as well. -regarding recent psychotic symptoms, it seems very possible that these were mood congruent; patient agrees and for now also agrees to hold [facility] Hospital course 02/05 depressed, wishing she would be but no active SI; continue tx 02/06 remains depressed, hopeless; passive SI, wishing she were however no active SI. Hopeless that she will ever get better. However agrees to continue with treatment. Denies any AVH Positive for BV; treated with Flagyl gel 02/07 very depressed; wishing she were and w/ significant psychomotor retardation. Says will continue w/ [place]. -no AVH and will dc Invega -will try adderall for considerable psychomotor retardation; will dc intuniv 02/08 did not sleep last night, just laying in bed thinking...she remains very depressed and she says i feel no different from when i came in... However, no SI at all and she says she knows she would never...She does find Adderall helpful for energy and behavioral activation. Discussed lithium; she hopes it will prove helpful and willing to remain on unit, retract 3 day notice.. -health technical writer agrees to DC patient on Friday after [place] labs although pt remains depressed but no active SI and she is overall improved. She agrees to remain on unit for continued stabilizing and labs. Adult Secondary Education Instructor agrees to dc on friday, whether or not [place] has proven effective, as patient will follow up w/ outpt. 02/09: Patient states that she is a little better today. Requests to discontinue lithium as she has not experienced any changes. She notes that she is a little bit anxious and requests medication for this. Depression has improved with no depression today. She notes that lithium has no influence with her current improved mood. She denies SI/HI/AH/VH. Agrees to continue [place] after this health technical writer informed her that [place] likely contributed to her improved mood. Buspirone 5 mg twice daily ordered for anxiety; instructed on the risks, benefits, and potential adverse reactions of the medication. 02/10: Patient notes that she woke up with panic attack this morning and vomited. Her symptoms improved shortly after taking buspirone. She recalls that her vomiting precedes feeling anxious and having racing thoughts that are foggy. She denies anxiety or depression at this time. She is worried about her current housing situation - she has been living with strangers for the past year and a half. She currently works part-time and intends to get a full-time job so she can moved to her new place. She states that her anxiety is related to external factors, including not been taught how to go about daily life's activities. She refused lithium last night; she thinks the medication is not effective as she does not have bipolar symptoms and also concerned about severe side effects of lithium, that she learned from other patients; she request for lithium to be discontinued. She will like for buspirone to be increased. She currently denies SI/HI/AH/VH. Her 3-day notice is up on Friday, but notes that she wants to go home tomorrow to resume work. Buspirone increased to 10 mg twice daily. [place] ER 900 mg q.h.s. discontinued. Continue current treatment regimen 02/11/25: Patient refused Adderall this morning, talking to medical student and this provider. Explained the lithium how it works and indication. She agreed that her mood is declined since the lithium is taken away. She has not having lithium for 2 nights. Seem she is having a lot more anxiety, more depressed, with a lot of racing thoughts. She was unsure what she is doing and worry about the future when she gets out from here. She reports passive SI deny plans or intention. However she reports severe suicidal thoughts to the other disciplines. She said she will have plan to like get herself off the bridge after discharge. Therefore I changed it from 15 minute checks 5. Please racing thoughts, ? If she have any psychotic behavior. Deny HI/AVH/SIB. She reports feeling some kind of sedation on PRNs which is incongruent. She is visible in and out of her room to common areas auto long. Due to severe anxiety with unsafe thoughts and racing thoughts eye increase hydroxyzine up to 50 PRNs and Zyprexa 5 mg every 4 hours. Nursing offer medication at this time with pending effect Hydroxyzine 50 mg q.6 hours as needed for anxiety. Zyprexa started 5 mg q.4 hours as needed for racing thoughts. Restart lithium 600 mg at bedtime. If she tolerates well we can increase up to 900 over the weekends and rechecked the lithium level next week. [place] level on the 20 is 0.15 very low after too nice not taking. 02/13: Increase [place] to 900 mg HS. 02/15/25: Resume care. Passive SI. Question about paranoia and racing thoughts. Explained house olanzapine is working and its indication. Lost of education regarding medication compliant inconsistently taking to help with mental health. Patient's go back and for with medication. Hopefully she will taking medication as prescribed tonight and moving forward. Continue with lithium 900 at bedtime for depression and suicidal thoughts. If she consistently taking medication will withdrawal level the end of the week. Schedule Zyprexa 5 mg at bedtime with PRNs for psychosis. Discontinue Adderall which is not helpful. Restart on guanfacine extended release 1 mg daily in the morning. 02/16/25: Slightly improved compared to yesterday in mood and racing thoughts. Compliant with medications. Educate patient on grounding technique for anxiety. Focused on the present moment so she does not get too overwhelmed thinking about for future. Review with patient medication changes made yesterday and confirmed that does nothing change today. Continued to encourage patient to compliant with medication. Denies safety concerns however reports that to the nurse that she has passive SI. 02/17/25: No sleeping or appetite issues. Compliant with medications. Been compliant with lithium. Could be have level checked on Friday. Reports feeling sedated on medications. However be alert and awake visible at times attempted to groups with less racing thoughts, less anxious, moderate to severe depression. She seems less preoccupied. Zyprexa seems helpful. However I could not going higher dose today as she complained about feeling so tired. Blood pressure running in the low end. Encourage fluids p.o. intake. We will continue to monitor. 02/18/25: Slept for 8 hours, improve in appetite, is medication compliant. She agreed not to switching back and forth between medications as the current plans working very well. Less overwhelmed. No anxiety but high on depression. No racing thoughts. Poor ADL. Encouraged to shower daily. Receptive with continue the current plan with lithium level will be scheduled on Friday. Educate on taking medication only at night on Friday to get the accurate blood level. Passive Suicidal thoughts x1. No other safety concerns. She is mildly sedated on medication. We will not increase Zyprexa due to sedation. We will change to 15 minute checks. 02/19: continue current management and treatment plan. 6/29: Educational material about ECT and TMS provided. Continue current management and treatment plan. 02/21: Laying in bed. keeping to self. continues to report feeling depressed. She reports less anxiety with buspar. pt stated, I'm terrified of where to go after the hospital. I want to . I'm not thinking of ways to do it . focused on discharge and how she will function outside of hospital. Refused [place] and zyprexa. denies HI/VH/AH. Encouraged to leave bed/room. Plan: CV. Change to 15 minute checks Continue with lithium 900 at bedtime. [place] level ordered for Friday Continue with Buspirone 10 mg twice daily for anxiety. Zyprexa take over the extremely anxiety with the racing thoughts and psychosis I plan to take her off from BuSpar. DC Invega 6 mg q.h.s.; AH was momentary and maybe just mood congruent; will monitor Dc intuniv; not helpful; adderall more effective. We discontinued Adderall and put her back Intuniv 1 mg daily. Labs work order yesterday was within normal limit. 02/11/25: [place] level 0.15 Past med trials: Zoloft 25mg Helped a little Prozac: caused highly irritable agitated state Wellbutrin: felt like in a bubble, which was helpful Regarding [place], Risks, side-effects and benefits reviewed with pt, including, but not limited to, damage to kidneys and thyroid; pt was educated to stay hydrated, to watch for symptoms of lithium toxicity (also discussed, including but not limited to nausea, tremor, confusion) and the need to stay away from OTC NSAIDs (specifics reviewed) aside from Tylenol. Continued to reinforce education regarding indication and side effects from lithium. Patient educated on: diagnosis, medication risk/benefits and therapeutic strategies Reason for continued inpatient stay Substantial Risk for: harm to self and med/psych decompensation Time Spent With Patient Time: Total time managing care of this patient today _20___ minutes.
[2025-02-21 20:00] VITALS: BP 135/60; PULSE 117; RESP 16; TEMP 37.1; O2SAT 96
[2025-02-21] MEDS: guaiFENesin DM 600/30 1 TAB TAB.ER.12H PO (23:20)
[2025-02-21] MEDS: guanFACINE HCl ER 1 MG TAB.ER.24H PO (23:23)
--- NOTE | 2025-02-22 05:26 | PC.NURSE ---
Patient signed 3 day notice 02/21/25 up 02/24/25. Dr. Masoud Gibson, Jeronimo Daugherty notified via telephone.
[2025-02-22 08:00] VITALS: BP 102/62; PULSE 72; RESP 18; TEMP 36.4; O2SAT 97
[2025-02-22] MEDS: Nicotine 21 MG PATCH.TD24 TRANSDERMA (08:51)
--- NOTE | 2025-02-22 14:22 | HO.PSYCHPN ---
Subjective Subjective Date of Service: 02/22/25 Reason For Visit: SI Subjective Notes: Conditional Voluntary Interim History: Laying in bed. keeping to self. continues to report feeling depressed. Refused [place] and zyprexa last night; pt reports she does not want to continue taking these d/t making me feel sedated . DC Zyprexa 5mg PO bedtime and [place] 900mg PO bedtime. Discussed starting Depakote; risks/benefits reviewed. Pt agreed to trial. Start: Depakote ER 500mg PO bedtime. denies HI/VH/AH. Continue to report suicidal ideation. Medication Compliance: Intermittent Attending Groups: No Mental Status Exam Mental Status Exam Patient Appearance: Disheveled Patient Orientation: Person, Place, Time and Situation Level of Consciousness: Awake Patient Behavior: Appropriate and Cooperative Mood Description: Depressed Affect Description: Flat Patient Cognition Impaired: No Ability to Follow Directions: Good Speech Pattern: Clear Memory Description: Intact Hallucinations: None Delusions: Not Present Thought Process: Intact Thought Content: positive for Intact and positive for Suicidal Ideation Diagnostics Vital Signs (24Hr): Vital Signs - 24 hr 02/21/25 20:00 02/22/25 08:00 Temperature 98.8 F 97.6 F Pulse Rate 117 H 72 Respiratory Rate 16 18 Blood Pressure 135/60 102/62 Pulse Oximetry 96 97 Oxygen Delivery Method Room Air Room Air BMI result Body Mass Index 30.4 Labs 02/04/25 08:12 02/11/25 07:55 Medications Medications Current Medications Acetaminophen (Acetaminophen 325 Mg Tablet) 650 mg PO Q6H PRN PRN Reason: Headache/Pain, Scale 1-10 Last Admin: 02/21/25 23:23 Dose: 650 mg Al Hydroxide/Mg Hydroxide (Magnesium Hydrox/Alum Hydrox 30 Ml Oral.Susp) 30 ml PO Q6H PRN PRN Reason: Heartburn/Nausea Buspirone HCl (Buspirone Hcl 10 Mg Tablet) 10 mg PO BID ETHAN Last Admin: 02/22/25 08:46 Dose: 10 mg Guaifenesin/Dextromethorphan (Guaifenesin Dm 600/30 1 Tab Tab.Er.12h) 1 tab PO BID PRN PRN Reason: Cough, congestion Last Admin: 02/21/25 23:20 Dose: 1 tab Guanfacine HCl (Guanfacine Hcl Er 1 Mg Tab.Er.24h) 1 mg PO BEDTIME ETHAN Last Admin: 02/21/25 23:23 Dose: 1 mg Hydroxyzine HCl (Hydroxyzine Hcl 50 Mg Tablet) 50 mg PO Q6H PRN PRN Reason: mild anxiety Last Admin: 02/20/25 21:02 Dose: 50 mg [place] Carbonate ([place] Carbonate 300 Mg Capsule) 900 mg PO BEDTIME [facility] Last Admin: 02/21/25 23:16 Dose: Not Given Magnesium Hydroxide (Milk Of Magnesia 30 Ml Oral.Susp) 30 ml PO DAILY PRN PRN Reason: Constipation Nicotine (Nicotine 21 Mg Patch.Td24) 21 mg TRANSDERMA DAILY PRN PRN Reason: smoking cessation Last Admin: 02/22/25 08:51 Dose: 21 mg Nicotine Polacrilex (Nicotine Polacrilex 2 Mg Gum) 4 mg BUCCAL Q2H PRN PRN Reason: Nicotine Cravings Last Admin: 02/22/25 13:14 Dose: 4 mg Olanzapine (Olanzapine 5 Mg Tablet) 5 mg PO Q4H PRN PRN Reason: racing thougts Last Admin: 02/15/25 14:25 Dose: 5 mg Olanzapine (Olanzapine 5 Mg Tablet) 5 mg PO BEDTIME [facility] Last Admin: 02/21/25 23:16 Dose: Not Given Ondansetron HCl (Ondansetron Odt 4 Mg Tab.Rapdis) 4 mg TRANSLINGU Q4H PRN PRN Reason: Nausea and Vomiting Last Admin: 02/17/25 08:36 Dose: 4 mg Trazodone HCl (Trazodone Hcl 25 Mg Halftab) 25 mg PO BEDTIME MRX1 PRN PRN Reason: insomnia Last Admin: 02/14/25 23:02 Dose: 25 mg Allergies Allergies Allergy/AdvReac Type Severity Reaction Status Date / Time No Known Allergies Allergy Verified 02/02/25 14:07 Assessment & Plan Assessment & Plan (1) Bipolar disorder, unspecified: Status: Acute Code(s): F31.9 - Bipolar disorder, unspecified Plan HPI: Pt is a 24 yo female with hx of depression, anxiety, who presents for worsening depression with SI to hang herself. Patient reports depression since the 8th grade and explains that she has been chronically dysthymic with severe depressive episodes interspersed, that can last for weeks and during which time patient has to force herself out of bed. Patient reports chronic daily wish, wishing she could just escape from her depression and . Past August 2024, during a particularly challenging depressive episode she started intermittently hearing words such as cunt and . get a job.. In September, seemingly out of nowhere she had thoughts to harm other people and was worried she might stab someone while working at [employer]; she denies ever having desire or urges to harming anyone at all and just had this thought but it scared her and so she presented to the hospital so she could get locked up so as not to hurt anyone... Patient was started on Invega; while she was there she had a dystonic reaction to a p.r.n. medication. Patient has continued taking paliperidone however she has remained very depressed and this past week her passive SI started becoming active, with thoughts to hang herself or to jump off something high; patient started develop a plan but it did not become intent. Patient denies any discrete history of manic type episodes or behaviors however she was once tried on Prozac which quickly resulted in extreme high irritability, impulsivity even to the point of wanting to jump out of a car, which resolved once poked Tru[place] was discontinued. Denies any drug or alcohol use; minimal cannabis and not for months; denies history of trauma. Denies any current AVH Formulation/clinical reasoning: Patient has chronic, debilitating depression which has evolved to include active SI; very limited medication trials, Zoloft 25 mg for a couple of months and then Wellbutrin which she both discontinued at some point. Provisional diagnosis of bipolar disorder: Patient had what sounds like the beginnings of a manic episode when she started Prozac, becoming extremely irritable, impulsive, angry, wanting to jump out of a moving car with symptoms resolving as soon as she stopped taking this medication. Patient's brother has bipolar disorder with significant manic episodes. Discussed medication options and reviewed risks/side effects of lithium which patient understood and would like to try. [place] chosen since patient has chronic SI, debilitating depression and there remains concern for this being a bipolar depression (MDD with psychotic features as a rule out; schizophrenia seems less likely given that only psychotic symptom was AH and was in the context of depression; thought to harm others seems more of a mood congruent, intrusive thought that was completely dystonic). Of note patient has about an hour of good mood when she takes caffeine and stimulant medication might be helpful as well. -regarding recent psychotic symptoms, it seems very possible that these were mood congruent; patient agrees and for now also agrees to hold [facility] course 02/05 depressed, wishing she would be but no active SI; continue tx 02/06 remains depressed, hopeless; passive SI, wishing she were however no active SI. Hopeless that she will ever get better. However agrees to continue with treatment. Denies any AVH Positive for BV; treated with Flagyl gel 02/07 very depressed; wishing she were and w/ significant psychomotor retardation. Says will continue w/ [place]. -no AVH and will dc Invega -will try adderall for considerable psychomotor retardation; will dc intuniv 02/08 did not sleep last night, just laying in bed thinking...she remains very depressed and she says i feel no different from when i came in... However, no SI at all and she says she knows she would never...She does find Adderall helpful for energy and behavioral activation. Discussed lithium; she hopes it will prove helpful and willing to remain on unit, retract 3 day notice.. -investigative writer agrees to DC patient on Friday after [place] labs although pt remains depressed but no active SI and she is overall improved. She agrees to remain on unit for continued stabilizing and labs. Media Producer agrees to dc on friday, whether or not [place] has proven effective, as patient will follow up w/ outpt. 02/09: Patient states that she is a little better today. Requests to discontinue lithium as she has not experienced any changes. She notes that she is a little bit anxious and requests medication for this. Depression has improved with no depression today. She notes that lithium has no influence with her current improved mood. She denies SI/HI/AH/VH. Agrees to continue [place] after this investigative writer informed her that [place] likely contributed to her improved mood. Buspirone 5 mg twice daily ordered for anxiety; instructed on the risks, benefits, and potential adverse reactions of the medication. 02/10: Patient notes that she woke up with panic attack this morning and vomited. Her symptoms improved shortly after taking buspirone. She recalls that her vomiting precedes feeling anxious and having racing thoughts that are foggy. She denies anxiety or depression at this time. She is worried about her current housing situation - she has been living with strangers for the past year and a half. She currently works part-time and intends to get a full-time job so she can moved to her new place. She states that her anxiety is related to external factors, including not been taught how to go about daily life's activities. She refused lithium last night; she thinks the medication is not effective as she does not have bipolar symptoms and also concerned about severe side effects of lithium, that she learned from other patients; she request for lithium to be discontinued. She will like for buspirone to be increased. She currently denies SI/HI/AH/VH. Her 3-day notice is up on Friday, but notes that she wants to go home tomorrow to resume work. Buspirone increased to 10 mg twice daily. [place] ER 900 mg q.h.s. discontinued. Continue current treatment regimen 02/11/25: Patient refused Adderall this morning, talking to medical student and this provider. Explained the lithium how it works and indication. She agreed that her mood is declined since the lithium is taken away. She has not having lithium for 2 nights. Seem she is having a lot more anxiety, more depressed, with a lot of racing thoughts. She was unsure what she is doing and worry about the future when she gets out from here. She reports passive SI deny plans or intention. However she reports severe suicidal thoughts to the other disciplines. She said she will have plan to like get herself off the bridge after discharge. Therefore I changed it from 15 minute checks 5. Please racing thoughts, ? If she have any psychotic behavior. Deny HI/AVH/SIB. She reports feeling some kind of sedation on PRNs which is incongruent. She is visible in and out of her room to common areas auto long. Due to severe anxiety with unsafe thoughts and racing thoughts eye increase hydroxyzine up to 50 PRNs and Zyprexa 5 mg every 4 hours. Nursing offer medication at this time with pending effect Hydroxyzine 50 mg q.6 hours as needed for anxiety. Zyprexa started 5 mg q.4 hours as needed for racing thoughts. Restart lithium 600 mg at bedtime. If she tolerates well we can increase up to 900 over the weekends and rechecked the lithium level next week. [place] level on the 20 is 0.15 very low after too nice not taking. 02/13: Increase [place] to 900 mg HS. 02/15/25: Resume care. Passive SI. Question about paranoia and racing thoughts. Explained house olanzapine is working and its indication. Lost of education regarding medication compliant inconsistently taking to help with mental health. Patient's go back and for with medication. Hopefully she will taking medication as prescribed tonight and moving forward. Continue with lithium 900 at bedtime for depression and suicidal thoughts. If she consistently taking medication will withdrawal level the end of the week. Schedule Zyprexa 5 mg at bedtime with PRNs for psychosis. Discontinue Adderall which is not helpful. Restart on guanfacine extended release 1 mg daily in the morning. 02/16/25: Slightly improved compared to yesterday in mood and racing thoughts. Compliant with medications. Educate patient on grounding technique for anxiety. Focused on the present moment so she does not get too overwhelmed thinking about for future. Review with patient medication changes made yesterday and confirmed that does nothing change today. Continued to encourage patient to compliant with medication. Denies safety concerns however reports that to the nurse that she has passive SI. 02/17/25: No sleeping or appetite issues. Compliant with medications. Been compliant with lithium. Could be have level checked on Friday. Reports feeling sedated on medications. However be alert and awake visible at times attempted to groups with less racing thoughts, less anxious, moderate to severe depression. She seems less preoccupied. Zyprexa seems helpful. However I could not going higher dose today as she complained about feeling so tired. Blood pressure running in the low end. Encourage fluids p.o. intake. We will continue to monitor. 02/18/25: Slept for 8 hours, improve in appetite, is medication compliant. She agreed not to switching back and forth between medications as the current plans working very well. Less overwhelmed. No anxiety but high on depression. No racing thoughts. Poor ADL. Encouraged to shower daily. Receptive with continue the current plan with lithium level will be scheduled on Friday. Educate on taking medication only at night on Friday to get the accurate blood level. Passive Suicidal thoughts x1. No other safety concerns. She is mildly sedated on medication. We will not increase Zyprexa due to sedation. We will change to 15 minute checks. 02/19: continue current management and treatment plan. 02/20: Educational material about ECT and TMS provided. Continue current management and treatment plan. 02/21: Laying in bed. keeping to self. continues to report feeling depressed. She reports less anxiety with buspar. pt stated, I'm terrified of where to go after the hospital. I want to . I'm not thinking of ways to do it . focused on discharge and how she will function outside of hospital. Refused [place] and zyprexa. denies HI/VH/AH. Encouraged to leave bed/room. 02/22: Laying in bed. keeping to self. continues to report feeling depressed. Refused [place] and zyprexa last night; pt reports she does not want to continue taking these d/t making me feel sedated . DC Zyprexa 5mg PO bedtime and [place] 900mg PO bedtime. Discussed starting Depakote; risks/benefits reviewed. Pt agreed to trial. Start: Depakote ER 500mg PO bedtime. denies HI/VH/AH. Continue to report suicidal ideation. Plan: CV. Change to 15 minute checks Continue with lithium 900 at bedtime. [place] level ordered for Friday Continue with Buspirone 10 mg twice daily for anxiety. Zyprexa take over the extremely anxiety with the racing thoughts and psychosis I plan to take her off from BuSpar. DC Invega 6 mg q.h.s.; AH was momentary and maybe just mood congruent; will monitor Dc intuniv; not helpful; adderall more effective. We discontinued Adderall and put her back Intuniv 1 mg daily. Labs work order yesterday was within normal limit. 02/11/25: [place] level 0.15 Past med trials: Zoloft 25mg Helped a little Prozac: caused highly irritable agitated state Wellbutrin: felt like in a bubble, which was helpful Regarding [place], Risks, side-effects and benefits reviewed with pt, including, but not limited to, damage to kidneys and thyroid; pt was educated to stay hydrated, to watch for symptoms of lithium toxicity (also discussed, including but not limited to nausea, tremor, confusion) and the need to stay away from OTC NSAIDs (specifics reviewed) aside from Tylenol. Continued to reinforce education regarding indication and side effects from lithium. Patient educated on: diagnosis and medication risk/benefits Reason for continued inpatient stay Substantial Risk for: harm to self and med/psych decompensation Time Spent With Patient Time: Total time managing care of this patient today _20___ minutes.
[2025-02-22 20:00] VITALS: BP 123/77; PULSE 95; RESP 16; TEMP 37.4; O2SAT 98
[2025-02-22] MEDS: guanFACINE HCl ER 1 MG TAB.ER.24H PO (21:06)
[2025-02-23 08:44] VITALS: BP 106/56; PULSE 75; RESP 18; TEMP 36.9; O2SAT 97
--- NOTE | 2025-02-23 09:46 | P.PNPSI_ITS ---
Subjective Subjective Date of Service: 02/23/25 Reason For Visit: SI Subjective Notes: Conditional Voluntary Interim History: Patient notes that she feels normal. Not happy or sad. She reports 3/10 anxiety and 7/10 depression. She states that she felt good after taking her first dose of depakote yesterday. She denies SI at this times and states it is possibly because she just woke up. She notes that she has been experiencing SI daily, during this admission and attributes her SI to worry about surviving in the community. She denies HI/AH/VH. Medication Compliance: Yes Side effects from medications: No Attending Groups: Intermittent Review of Systems Acute medical concerns: No Mental Status Exam Mental Status Exam Narrative: Appearance: Casually dressed, adequate hygiene Behavior: Calm and cooperative throughout the interview. Eye contact is appropriate, and there are no signs of psychomotor agitation or retardation Speech: Normal volume and prosody Thought process logical and goal-directed Thought content: Worry about surviving in the community Mood: Normal Affect: Flat SI:denies HI:denies VH/AH:none Delusions: None Insight/judgment: Fair insight and judgment Memory/cog: Alert, oriented x 4. grossly intact to conversational testing Diagnostics Vital Signs (24Hr): Vital Signs - 24 hr 02/22/25 20:00 02/23/25 08:44 Temperature 99.3 F 98.5 F Pulse Rate 95 75 Respiratory Rate 16 18 Blood Pressure 123/77 106/56 L Pulse Oximetry 98 97 Oxygen Delivery Method Room Air Room Air BMI result Body Mass Index 30.4 Labs 02/04/25 08:12 02/11/25 07:55 Medications Medications Current Medications Acetaminophen (Acetaminophen 325 Mg Tablet) 650 mg PO Q6H PRN PRN Reason: Headache/Pain, Scale 1-10 Last Admin: 02/21/25 23:23 Dose: 650 mg Al Hydroxide/Mg Hydroxide (Magnesium Hydrox/Alum Hydrox 30 Ml Oral.Susp) 30 ml PO Q6H PRN PRN Reason: Heartburn/Nausea Buspirone HCl (Buspirone Hcl 10 Mg Tablet) 10 mg PO BID [facility] Last Admin: 02/23/25 08:40 Dose: 10 mg Divalproex Sodium (Divalproex Sodium Er 500 Mg Tab.Er.24h) 500 mg PO BEDTIME [facility] Last Admin: 02/22/25 21:05 Dose: 500 mg Guaifenesin/Dextromethorphan (Guaifenesin Dm 600/30 1 Tab Tab.Er.12h) 1 tab PO BID PRN PRN Reason: Cough, congestion Last Admin: 02/21/25 23:20 Dose: 1 tab Guanfacine HCl (Guanfacine Hcl Er 1 Mg Tab.Er.24h) 1 mg PO BEDTIME [facility] Last Admin: 02/22/25 21:06 Dose: 1 mg Hydroxyzine HCl (Hydroxyzine Hcl 50 Mg Tablet) 50 mg PO Q6H PRN PRN Reason: mild anxiety Last Admin: 02/20/25 21:02 Dose: 50 mg Magnesium Hydroxide (Milk Of Magnesia 30 Ml Oral.Susp) 30 ml PO DAILY PRN PRN Reason: Constipation Nicotine (Nicotine 21 Mg Patch.Td24) 21 mg TRANSDERMA DAILY PRN PRN Reason: smoking cessation Last Admin: 02/22/25 08:51 Dose: 21 mg Nicotine Polacrilex (Nicotine Polacrilex 2 Mg Gum) 4 mg BUCCAL Q2H PRN PRN Reason: Nicotine Cravings Last Admin: 02/22/25 19:31 Dose: 4 mg Olanzapine (Olanzapine 5 Mg Tablet) 5 mg PO Q4H PRN PRN Reason: racing thougts Last Admin: 02/15/25 14:25 Dose: 5 mg Ondansetron HCl (Ondansetron Odt 4 Mg Tab.Rapdis) 4 mg TRANSLINGU Q4H PRN PRN Reason: Nausea and Vomiting Last Admin: 02/17/25 08:36 Dose: 4 mg Trazodone HCl (Trazodone Hcl 25 Mg Halftab) 25 mg PO BEDTIME MRX1 PRN PRN Reason: insomnia Last Admin: 02/14/25 23:02 Dose: 25 mg Allergies Allergies Allergy/AdvReac Type Severity Reaction Status Date / Time No Known Allergies Allergy Verified 02/02/25 14:07 Assessment & Plan Assessment & Plan (1) Bipolar disorder, unspecified: Status: Acute Code(s): F31.9 - Bipolar disorder, unspecified Plan HPI: Pt is a 24 yo female with hx of depression, anxiety, who presents for worsening depression with SI to hang herself. Patient reports depression since the 8th grade and explains that she has been chronically dysthymic with severe depressive episodes interspersed, that can last for weeks and during which time patient has to force herself out of bed. Patient reports chronic daily wish, wishing she could just escape from her depression and . Past August 2024, during a particularly challenging depressive episode she started intermittently hearing words such as cunt and . get a job.. In September, seemingly out of nowhere she had thoughts to harm other people and was worried she might stab someone while working at [employer]; she denies ever having desire or urges to harming anyone at all and just had this thought but it scared her and so she presented to the hospital so she could get locked up so as not to hurt anyone... Patient was started on Invega; while she was there she had a dystonic reaction to a p.r.n. medication. Patient has continued taking paliperidone however she has remained very depressed and this past week her passive SI started becoming active, with thoughts to hang herself or to jump off something high; patient started develop a plan but it did not become intent. Patient denies any discrete history of manic type episodes or behaviors however she was once tried on Prozac which quickly resulted in extreme high irritability, impulsivity even to the point of wanting to jump out of a car, which resolved once poked [place] was discontinued. Denies any drug or alcohol use; minimal cannabis and not for months; denies history of trauma. Denies any current AVH Formulation/clinical reasoning: Patient has chronic, debilitating depression which has evolved to include active SI; very limited medication trials, Zoloft 25 mg for a couple of months and then Wellbutrin which she both discontinued at some point. Provisional diagnosis of bipolar disorder: Patient had what sounds like the beginnings of a manic episode when she started Prozac, becoming extremely irritable, impulsive, angry, wanting to jump out of a moving car with symptoms resolving as soon as she stopped taking this medication. Patient's brother has bipolar disorder with significant manic episodes. Discussed medication options and reviewed risks/side effects of lithium which patient understood and would like to try. [place] chosen since patient has chronic SI, debilitating depression and there remains concern for this being a bipolar depression (MDD with psychotic features as a rule out; schizophrenia seems less likely given that only psychotic symptom was AH and was in the context of depression; thought to harm others seems more of a mood congruent, intrusive thought that was completely dystonic). Of note patient has about an hour of good mood when she takes caffeine and stimulant medication might be helpful as well. -regarding recent psychotic symptoms, it seems very possible that these were mood congruent; patient agrees and for now also agrees [facility] 02/05 depressed, wishing she would be but no active SI; continue tx 02/06 remains depressed, hopeless; passive SI, wishing she were however no active SI. Hopeless that she will ever get better. However agrees to continue with treatment. Denies any AVH Positive for BV; treated with Flagyl gel 02/07 very depressed; wishing she were and w/ significant psychomotor retardation. Says will continue w/ [place]. -no AVH and will dc Invega -will try adderall for considerable psychomotor retardation; will dc intuniv 02/08 did not sleep last night, just laying in bed thinking...she remains very depressed and she says i feel no different from when i came in... However, no SI at all and she says she knows she would never...She does find Adderall helpful for energy and behavioral activation. Discussed lithium; she hopes it will prove helpful and willing to remain on unit, retract 3 day notice.. -typewriter assembler agrees to DC patient on Friday after [place] labs although pt remains depressed but no active SI and she is overall improved. She agrees to remain on unit for continued stabilizing and labs. [employer] Technician agrees to dc on friday, whether or not [place] has proven effective, as patient will follow up w/ outpt. 02/09: Patient states that she is a little better today. Requests to discontinue lithium as she has not experienced any changes. She notes that she is a little bit anxious and requests medication for this. Depression has improved with no depression today. She notes that lithium has no influence with her current improved mood. She denies SI/HI/AH/VH. Agrees to continue [place] after this typewriter assembler informed her that [place] likely contributed to her improved mood. Buspirone 5 mg twice daily ordered for anxiety; instructed on the risks, benefits, and potential adverse reactions of the medication. 02/10: Patient notes that she woke up with panic attack this morning and vomited. Her symptoms improved shortly after taking buspirone. She recalls that her vomiting precedes feeling anxious and having racing thoughts that are foggy. She denies anxiety or depression at this time. She is worried about her current housing situation - she has been living with strangers for the past year and a half. She currently works part-time and intends to get a full-time job so she can moved to her new place. She states that her anxiety is related to external factors, including not been taught how to go about daily life's activities. She refused lithium last night; she thinks the medication is not effective as she does not have bipolar symptoms and also concerned about severe side effects of lithium, that she learned from other patients; she request for lithium to be discontinued. She will like for buspirone to be increased. She currently denies SI/HI/AH/VH. Her 3-day notice is up on Friday, but notes that she wants to go home tomorrow to resume work. Buspirone increased to 10 mg twice daily. [place] ER 900 mg q.h.s. discontinued. Continue current treatment regimen 02/11/25: Patient refused Adderall this morning, talking to medical student and this provider. Explained the lithium how it works and indication. She agreed that her mood is declined since the lithium is taken away. She has not having lithium for 2 nights. Seem she is having a lot more anxiety, more depressed, with a lot of racing thoughts. She was unsure what she is doing and worry about the future when she gets out from here. She reports passive SI deny plans or intention. However she reports severe suicidal thoughts to the other disciplines. She said she will have plan to like get herself off the bridge after discharge. Therefore I changed it from 15 minute checks 5. Please racing thoughts, ? If she have any psychotic behavior. Deny HI/AVH/SIB. She reports feeling some kind of sedation on PRNs which is incongruent. She is visible in and out of her room to common areas auto long. Due to severe anxiety with unsafe thoughts and racing thoughts eye increase hydroxyzine up to 50 PRNs and Zyprexa 5 mg every 4 hours. Nursing offer medication at this time with pending effect Hydroxyzine 50 mg q.6 hours as needed for anxiety. Zyprexa started 5 mg q.4 hours as needed for racing thoughts. Restart lithium 600 mg at bedtime. If she tolerates well we can increase up to 900 over the weekends and rechecked the lithium level next week. [place] level on the 20 is 0.15 very low after too nice not taking. 02/13: Increase [place] to 900 mg HS. 02/15/25: Resume care. Passive SI. Question about paranoia and racing thoughts. Explained house olanzapine is working and its indication. Lost of education regarding medication compliant inconsistently taking to help with mental health. Patient's go back and for with medication. Hopefully she will taking medication as prescribed tonight and moving forward. Continue with lithium 900 at bedtime for depression and suicidal thoughts. If she consistently taking medication will withdrawal level the end of the week. Schedule Zyprexa 5 mg at bedtime with PRNs for psychosis. Discontinue Adderall which is not helpful. Restart on guanfacine extended release 1 mg daily in the morning. 02/16/25: Slightly improved compared to yesterday in mood and racing thoughts. Compliant with medications. Educate patient on grounding technique for anxiety. Focused on the present moment so she does not get too overwhelmed thinking about for future. Review with patient medication changes made yesterday and confirmed that does nothing change today. Continued to encourage patient to compliant with medication. Denies safety concerns however reports that to the nurse that she has passive SI. 02/17/25: No sleeping or appetite issues. Compliant with medications. Been compliant with lithium. Could be have level checked on Friday. Reports feeling sedated on medications. However be alert and awake visible at times attempted to groups with less racing thoughts, less anxious, moderate to severe depression. She seems less preoccupied. Zyprexa seems helpful. However I could not going higher dose today as she complained about feeling so tired. Blood pressure running in the low end. Encourage fluids p.o. intake. We will continue to monitor. 02/18/25: Slept for 8 hours, improve in appetite, is medication compliant. She agreed not to switching back and forth between medications as the current plans working very well. Less overwhelmed. No anxiety but high on depression. No racing thoughts. Poor ADL. Encouraged to shower daily. Receptive with continue the current plan with lithium level will be scheduled on Friday. Educate on taking medication only at night on Friday to get the accurate blood level. Passive Suicidal thoughts x1. No other safety concerns. She is mildly sedated on medication. We will not increase Zyprexa due to sedation. We will change to 15 minute checks. 02/19: continue current management and treatment plan. 02/20: Educational material about ECT and TMS provided. Continue current management and treatment plan. 02/21: Laying in bed. keeping to self. continues to report feeling depressed. She reports less anxiety with buspar. pt stated, I'm terrified of where to go after the hospital. I want to . I'm not thinking of ways to do it . focused on discharge and how she will function outside of hospital. Refused [place] and zyprexa. denies HI/VH/AH. Encouraged to leave bed/room. 02/22: Laying in bed. keeping to self. continues to report feeling depressed. Refused [place] and zyprexa last night; pt reports she does not want to continue taking these d/t making me feel sedated . DC Zyprexa 5mg PO bedtime and [place] 900mg PO bedtime. Discussed starting Depakote; risks/benefits reviewed. Pt agreed to trial. Start: Depakote ER 500mg PO bedtime. denies HI/VH/AH. Continue to report suicidal ideation. 02/23: Patient notes that she feels normal. Not happy or sad. She reports 3/10 anxiety and 7/10 depression. She states that she felt good after taking her first dose of depakote yesterday. She denies SI at this times and states it is possibly because she just woke up. She notes that she has been experiencing SI daily, during this admission and attributes her SI to worry about surviving in the community. She denies HI/AH/VH. Continue current treatment regimen. Plan: CV. Change to 15 minute checks Continue with lithium 900 at bedtime. [place] level ordered for Friday morning Continue with Buspirone 10 mg twice daily for anxiety. Zyprexa take over the extremely anxiety with the racing thoughts and psychosis I plan to take her off from BuSpar. DC Invega 6 mg q.h.s.; AH was momentary and maybe just mood congruent; will monitor Dc intuniv; not helpful; adderall more effective. We discontinued Adderall and put her back Intuniv 1 mg daily. Labs work order yesterday was within normal limit. 06/20/25: [place] level 0.15 Past med trials: Zoloft 25mg Helped a little Prozac: caused highly irritable agitated state Wellbutrin: felt like in a bubble, which was helpful Regarding [place], Risks, side-effects and benefits reviewed with pt, including, but not limited to, damage to kidneys and thyroid; pt was educated to stay hydrated, to watch for symptoms of lithium toxicity (also discussed, including but not limited to nausea, tremor, confusion) and the need to stay away from OTC NSAIDs (specifics reviewed) aside from Tylenol. Continued to reinforce education regarding indication and side effects from lithium. Patient educated on: therapeutic strategies Reason for continued inpatient stay Substantial Risk for: rapid decompensation Time Spent With Patient Time: Total time managing care of this patient today ____ minutes.
[2025-02-23] MEDS: Nicotine 21 MG PATCH.TD24 TRANSDERMA (13:19)
[2025-02-23 19:49] VITALS: BP 126/61; PULSE 107; RESP 16; TEMP 37.8; O2SAT 99
[2025-02-23 21:45] VITALS: TEMP 36.9
[2025-02-23] MEDS: guanFACINE HCl ER 1 MG TAB.ER.24H PO (21:46)
[2025-02-24 07:00] VITALS: BMI 50.2
[2025-02-24 08:07] VITALS: BP 93/54; PULSE 70; RESP 18; TEMP 37.1; O2SAT 97
--- NOTE | 2025-02-24 10:19 | HO.PSYCHPN ---
Subjective Subjective Date of Service: 02/24/25 Reason For Visit: SI Subjective Notes: Conditional Voluntary Medical Problems Affecting Mental Status: No Interim History: Patient states that she feels depressed. She reports severe depression and moderate anxiety. She states that Buspirone helps with her anxiety. She notes that she is not looking forward to the future; she thinks that she will be lonely, may not be able to take care of herself, and will ultimately be homeless. She notes SI earlier this morning with plan to jump off a building or cecilio. She currently denies SI/HI/AH/VH. She is willing to trial Wellbutrin, which she was previously on, for her depression. Medication Compliance: Yes Side effects from medications: No Attending Groups: Intermittent Review of Systems Acute medical concerns: No Review of Systems Review of Systems Yes all other systems are reviewed and are negative Mental Status Exam Mental Status Exam Narrative: Appearance: Casually dressed, adequate hygiene Behavior: Calm and cooperative throughout the interview. Eye contact is appropriate, and there are no signs of psychomotor agitation or retardation Speech: Normal volume and prosody Thought process logical and goal-directed Thought content: Worry about surviving in the community Mood: Depressed Affect: Flat SI:denies HI:denies VH/AH: None Delusions: None Insight/judgment: Fair insight and judgment Memory/cog: Alert, oriented x 4. grossly intact to conversational testing Diagnostics Vital Signs (24Hr): Vital Signs - 24 hr 02/23/25 19:49 02/23/25 21:45 02/24/25 08:07 Temperature 100.0 F 98.5 F 98.7 F Pulse Rate 107 H 70 Respiratory Rate 16 18 Blood Pressure 126/61 93/54 L Pulse Oximetry 99 97 Oxygen Delivery Method Room Air Room Air BMI result Body Mass Index 30.4 Labs 02/04/25 08:12 02/11/25 07:55 Medications Medications Current Medications Acetaminophen (Acetaminophen 325 Mg Tablet) 650 mg PO Q6H PRN PRN Reason: Headache/Pain, Scale 1-10 Last Admin: 02/21/25 23:23 Dose: 650 mg Al Hydroxide/Mg Hydroxide (Magnesium Hydrox/Alum Hydrox 30 Ml Oral.Susp) 30 ml PO Q6H PRN PRN Reason: Heartburn/Nausea Buspirone HCl (Buspirone Hcl 10 Mg Tablet) 10 mg PO BID [facility] Last Admin: 02/24/25 08:06 Dose: 10 mg Divalproex Sodium (Divalproex Sodium Er 500 Mg Tab.Er.24h) 500 mg PO BEDTIME ETHAN Last Admin: 02/23/25 21:46 Dose: 500 mg Guaifenesin/Dextromethorphan (Guaifenesin Dm 600/30 1 Tab Tab.Er.12h) 1 tab PO BID PRN PRN Reason: Cough, congestion Last Admin: 02/21/25 23:20 Dose: 1 tab Guanfacine HCl (Guanfacine Hcl Er 1 Mg Tab.Er.24h) 1 mg PO BEDTIME ETHAN Last Admin: 02/23/25 21:46 Dose: 1 mg Hydroxyzine HCl (Hydroxyzine Hcl 50 Mg Tablet) 50 mg PO Q6H PRN PRN Reason: mild anxiety Last Admin: 02/23/25 21:46 Dose: 50 mg Magnesium Hydroxide (Milk Of Magnesia 30 Ml Oral.Susp) 30 ml PO DAILY PRN PRN Reason: Constipation Nicotine (Nicotine 21 Mg Patch.Td24) 21 mg TRANSDERMA DAILY PRN PRN Reason: smoking cessation Last Admin: 02/23/25 13:19 Dose: 21 mg Nicotine Polacrilex (Nicotine Polacrilex 2 Mg Gum) 4 mg BUCCAL Q2H PRN PRN Reason: Nicotine Cravings Last Admin: 02/23/25 17:50 Dose: 4 mg Olanzapine (Olanzapine 5 Mg Tablet) 5 mg PO Q4H PRN PRN Reason: racing thougts Last Admin: 02/15/25 14:25 Dose: 5 mg Ondansetron HCl (Ondansetron Odt 4 Mg Tab.Rapdis) 4 mg TRANSLINGU Q4H PRN PRN Reason: Nausea and Vomiting Last Admin: 02/23/25 13:38 Dose: 4 mg Trazodone HCl (Trazodone Hcl 25 Mg Halftab) 25 mg PO BEDTIME MRX1 PRN PRN Reason: insomnia Last Admin: 02/14/25 23:02 Dose: 25 mg Allergies Allergies Allergy/AdvReac Type Severity Reaction Status Date / Time No Known Allergies Allergy Verified 02/02/25 14:07 Assessment & Plan Assessment & Plan (1) Bipolar disorder, unspecified: Status: Acute Code(s): F31.9 - Bipolar disorder, unspecified Plan HPI: Pt is a 24 yo female with hx of depression, anxiety, who presents for worsening depression with SI to hang herself. Patient reports depression since the 8th grade and explains that she has been chronically dysthymic with severe depressive episodes interspersed, that can last for weeks and during which time patient has to force herself out of bed. Patient reports chronic daily wish, wishing she could just escape from her depression and . Past August 2024, during a particularly challenging depressive episode she started intermittently hearing words such as cunt and . get a job.. In September, seemingly out of nowhere she had thoughts to harm other people and was worried she might stab someone while working at [employer]; she denies ever having desire or urges to harming anyone at all and just had this thought but it scared her and so she presented to the hospital so she could get locked up so as not to hurt anyone... Patient was started on Invega; while she was there she had a dystonic reaction to a p.r.n. medication. Patient has continued taking paliperidone however she has remained very depressed and this past week her passive SI started becoming active, with thoughts to hang herself or to jump off something high; patient started develop a plan but it did not become intent. Patient denies any discrete history of manic type episodes or behaviors however she was once tried on Prozac which quickly resulted in extreme high irritability, impulsivity even to the point of wanting to jump out of a car, which resolved once poked Truong was discontinued. Denies any drug or alcohol use; minimal cannabis and not for months; denies history of trauma. Denies any current AVH Formulation/clinical reasoning: Patient has chronic, debilitating depression which has evolved to include active SI; very limited medication trials, Zoloft 25 mg for a couple of months and then Wellbutrin which she both discontinued at some point. Provisional diagnosis of bipolar disorder: Patient had what sounds like the beginnings of a manic episode when she started Prozac, becoming extremely irritable, impulsive, angry, wanting to jump out of a moving car with symptoms resolving as soon as she stopped taking this medication. Patient's brother has bipolar disorder with significant manic episodes. Discussed medication options and reviewed risks/side effects of lithium which patient understood and would like to try. Maish Vaya chosen since patient has chronic SI, debilitating depression and there remains concern for this being a bipolar depression (MDD with psychotic features as a rule out; schizophrenia seems less likely given that only psychotic symptom was AH and was in the context of depression; thought to harm others seems more of a mood congruent, intrusive thought that was completely dystonic). Of note patient has about an hour of good mood when she takes caffeine and stimulant medication might be helpful as well. -regarding recent psychotic symptoms, it seems very possible that these were mood congruent; patient agrees and for now also agrees [facility] 02/05 depressed, wishing she would be but no active SI; continue tx 02/06 remains depressed, hopeless; passive SI, wishing she were however no active SI. Hopeless that she will ever get better. However agrees to continue with treatment. Denies any AVH Positive for BV; treated with Flagyl gel 02/07 very depressed; wishing she were and w/ significant psychomotor retardation. Says will continue w/ Maish Vaya. -no AVH and will dc Invega -will try adderall for considerable psychomotor retardation; will dc intuniv 02/08 did not sleep last night, just laying in bed thinking...she remains very depressed and she says i feel no different from when i came in... However, no SI at all and she says she knows she would never...She does find Adderall helpful for energy and behavioral activation. Discussed lithium; she hopes it will prove helpful and willing to remain on unit, retract 3 day notice.. -science writer agrees to DC patient on Friday after Maish Vaya labs although pt remains depressed but no active SI and she is overall improved. She agrees to remain on unit for continued stabilizing and labs. Hand Flatwork Finisher agrees to dc on friday, whether or not Maish Vaya has proven effective, as patient will follow up w/ outpt. 02/09: Patient states that she is a little better today. Requests to discontinue lithium as she has not experienced any changes. She notes that she is a little bit anxious and requests medication for this. Depression has improved with no depression today. She notes that lithium has no influence with her current improved mood. She denies SI/HI/AH/VH. Agrees to continue Maish Vaya after this science writer informed her that Maish Vaya likely contributed to her improved mood. Buspirone 5 mg twice daily ordered for anxiety; instructed on the risks, benefits, and potential adverse reactions of the medication. 02/10: Patient notes that she woke up with panic attack this morning and vomited. Her symptoms improved shortly after taking buspirone. She recalls that her vomiting precedes feeling anxious and having racing thoughts that are foggy. She denies anxiety or depression at this time. She is worried about her current housing situation - she has been living with strangers for the past year and a half. She currently works part-time and intends to get a full-time job so she can moved to her new place. She states that her anxiety is related to external factors, including not been taught how to go about daily life's activities. She refused lithium last night; she thinks the medication is not effective as she does not have bipolar symptoms and also concerned about severe side effects of lithium, that she learned from other patients; she request for lithium to be discontinued. She will like for buspirone to be increased. She currently denies SI/HI/AH/VH. Her 3-day notice is up on Friday, but notes that she wants to go home tomorrow to resume work. Buspirone increased to 10 mg twice daily. Maish Vaya ER 900 mg q.h.s. discontinued. Continue current treatment regimen 02/11/25: Patient refused Adderall this morning, talking to medical student and this provider. Explained the lithium how it works and indication. She agreed that her mood is declined since the lithium is taken away. She has not having lithium for 2 nights. Seem she is having a lot more anxiety, more depressed, with a lot of racing thoughts. She was unsure what she is doing and worry about the future when she gets out from here. She reports passive SI deny plans or intention. However she reports severe suicidal thoughts to the other disciplines. She said she will have plan to like get herself off the bridge after discharge. Therefore I changed it from 15 minute checks 5. Please racing thoughts, ? If she have any psychotic behavior. Deny HI/AVH/SIB. She reports feeling some kind of sedation on PRNs which is incongruent. She is visible in and out of her room to common areas auto long. Due to severe anxiety with unsafe thoughts and racing thoughts eye increase hydroxyzine up to 50 PRNs and Zyprexa 5 mg every 4 hours. Nursing offer medication at this time with pending effect Hydroxyzine 50 mg q.6 hours as needed for anxiety. Zyprexa started 5 mg q.4 hours as needed for racing thoughts. Restart lithium 600 mg at bedtime. If she tolerates well we can increase up to 900 over the weekends and rechecked the lithium level next week. Maish Vaya level on the 20 is 0.15 very low after too nice not taking. 02/13: Increase Maish Vaya to 900 mg HS. 02/15/25: Resume care. Passive SI. Question about paranoia and racing thoughts. Explained house olanzapine is working and its indication. Lost of education regarding medication compliant inconsistently taking to help with mental health. Patient's go back and for with medication. Hopefully she will taking medication as prescribed tonight and moving forward. Continue with lithium 900 at bedtime for depression and suicidal thoughts. If she consistently taking medication will withdrawal level the end of the week. Schedule Zyprexa 5 mg at bedtime with PRNs for psychosis. Discontinue Adderall which is not helpful. Restart on guanfacine extended release 1 mg daily in the morning. 02/16/25: Slightly improved compared to yesterday in mood and racing thoughts. Compliant with medications. Educate patient on grounding technique for anxiety. Focused on the present moment so she does not get too overwhelmed thinking about for future. Review with patient medication changes made yesterday and confirmed that does nothing change today. Continued to encourage patient to compliant with medication. Denies safety concerns however reports that to the nurse that she has passive SI. 02/17/25: No sleeping or appetite issues. Compliant with medications. Been compliant with lithium. Could be have level checked on Friday. Reports feeling sedated on medications. However be alert and awake visible at times attempted to groups with less racing thoughts, less anxious, moderate to severe depression. She seems less preoccupied. Zyprexa seems helpful. However I could not going higher dose today as she complained about feeling so tired. Blood pressure running in the low end. Encourage fluids p.o. intake. We will continue to monitor. 02/18/25: Slept for 8 hours, improve in appetite, is medication compliant. She agreed not to switching back and forth between medications as the current plans working very well. Less overwhelmed. No anxiety but high on depression. No racing thoughts. Poor ADL. Encouraged to shower daily. Receptive with continue the current plan with lithium level will be scheduled on Friday. Educate on taking medication only at night on Friday to get the accurate blood level. Passive Suicidal thoughts x1. No other safety concerns. She is mildly sedated on medication. We will not increase Zyprexa due to sedation. We will change to 15 minute checks. 02/19: continue current management and treatment plan. 02/20: Educational material about ECT and TMS provided. Continue current management and treatment plan. 02/21: Laying in bed. keeping to self. continues to report feeling depressed. She reports less anxiety with buspar. pt stated, I'm terrified of where to go after the hospital. I want to . I'm not thinking of ways to do it . focused on discharge and how she will function outside of hospital. Refused Maish Vaya and zyprexa. denies HI/VH/AH. Encouraged to leave bed/room. 02/22: Laying in bed. keeping to self. continues to report feeling depressed. Refused Maish Vaya and zyprexa last night; pt reports she does not want to continue taking these d/t making me feel sedated . DC Zyprexa 5mg PO bedtime and Maish Vaya 900mg PO bedtime. Discussed starting Depakote; risks/benefits reviewed. Pt agreed to trial. Start: Depakote ER 500mg PO bedtime. denies HI/VH/AH. Continue to report suicidal ideation. 02/23: Patient notes that she feels normal. Not happy or sad. She reports 3/10 anxiety and 7/10 depression. She states that she felt good after taking her first dose of depakote yesterday. She denies SI at this times and states it is possibly because she just woke up. She notes that she has been experiencing SI daily, during this admission and attributes her SI to worry about surviving in the community. She denies HI/AH/VH. Continue current treatment regimen. 02/24: Patient states that she feels depressed. She reports severe depression and moderate anxiety. She states that Buspirone helps with her anxiety. She notes that she is not looking forward to the future; she thinks that she will be lonely, may not be able to take care of herself, and will ultimately be homeless. She notes SI earlier this morning with plan to jump off a building or cecilio. She currently denies SI/HI/AH/VH. She is willing to trial Wellbutrin, which she was previously on, for her depression. Wellbutrin XL 150 mg daily ordered; advised to take as prescribed; instructed on the risks, benefits, and potential adverse reactions of the medication; verbalized understanding and agreed with the plan. Continue current treatment regimen. Plan: CV. Change to 15 minute checks Continue with lithium 900 at bedtime. Maish Vaya level ordered for Friday Continue with Buspirone 10 mg twice daily for anxiety. Zyprexa take over the extremely anxiety with the racing thoughts and psychosis I plan to take her off from BuSpar. DC Invega 6 mg q.h.s.; AH was momentary and maybe just mood congruent; will monitor Dc intuniv; not helpful; adderall more effective. We discontinued Adderall and put her back Intuniv 1 mg daily. Labs work order yesterday was within normal limit. 02/11/25: Maish Vaya level 0.15 Past med trials: Zoloft 25mg Helped a little Prozac: caused highly irritable agitated state Wellbutrin: felt like in a bubble, which was helpful Regarding Maish Vaya, Risks, side-effects and benefits reviewed with pt, including, but not limited to, damage to kidneys and thyroid; pt was educated to stay hydrated, to watch for symptoms of lithium toxicity (also discussed, including but not limited to nausea, tremor, confusion) and the need to stay away from OTC NSAIDs (specifics reviewed) aside from Tylenol. Continued to reinforce education regarding indication and side effects from lithium. Patient educated on: therapeutic strategies Reason for continued inpatient stay Substantial Risk for: rapid decompensation Time Spent With Patient Time: Total time managing care of this patient today ____ minutes.
[2025-02-24] MEDS: buPROPion HCl XL 150 MG TAB.ER.24H PO (14:06)
[2025-02-24 20:00] VITALS: BP 126/70; PULSE 103; RESP 18; TEMP 36.8; O2SAT 100
[2025-02-24] MEDS: guanFACINE HCl ER 1 MG TAB.ER.24H PO (21:04)
[2025-02-25 08:00] VITALS: BP 93/53; PULSE 69; RESP 18; TEMP 37.4; O2SAT 96
--- NOTE | 2025-02-25 08:23 | HO.PSYCHPN ---
Subjective Subjective Date of Service: 02/25/25 Reason For Visit: SI Interim History: met with patient. Discussed with nursing. Patient reports still feeling depressed and suicidal. Reports feeling safe in the hospital. Believes they will kill himself if discharged as the world is overwhelming and she finds it very difficult to navigate. Does feel that BuSpar is helping with anxiety symptoms. Sleep okay. Intermittently in the milieu. Reported feeling more irritable later in the daytime. Will continue to observe. Just started Wellbutrin yesterday Medication Compliance: Yes Side effects from medications: No Attending Groups: Intermittent Review of Systems Acute medical concerns: No Review of Systems Review of Systems unremarkable Mental Status Exam Mental Status Exam Narrative: Appearance: Casually dressed, adequate hygiene Behavior: Calm and cooperative throughout the interview. Eye contact is appropriate, and there are no signs of psychomotor agitation or retardation Speech: Normal volume and prosody Thought process logical and goal-directed Thought content: Worry about surviving in the community Mood: Depressed Affect: Flat SI:denies in-hospital setting, but reports things have suicide in context of community and being discharged HI:denies VH/AH: None Delusions: None Insight/judgment: Fair insight and judgment Memory/cog: Alert, oriented x 4. grossly intact to conversational testing Diagnostics Vital Signs (24Hr): Vital Signs - 24 hr 02/24/25 20:00 02/25/25 08:00 Temperature 98.3 F 99.4 F Pulse Rate 103 H 69 Respiratory Rate 18 18 Blood Pressure 126/70 93/53 L Pulse Oximetry 100 96 Oxygen Delivery Method Room Air Room Air BMI result Body Mass Index 50.2 Labs 02/04/25 08:12 02/11/25 07:55 Medications Medications Current Medications Acetaminophen (Acetaminophen 325 Mg Tablet) 650 mg PO Q6H PRN PRN Reason: Headache/Pain, Scale 1-10 Last Admin: 02/21/25 23:23 Dose: 650 mg Al Hydroxide/Mg Hydroxide (Magnesium Hydrox/Alum Hydrox 30 Ml Oral.Susp) 30 ml PO Q6H PRN PRN Reason: Heartburn/Nausea Bupropion HCl (Bupropion Hcl Xl 150 Mg Tab.Er.24h) 150 mg PO DAILY ETHAN Buspirone HCl (Buspirone Hcl 10 Mg Tablet) 10 mg PO BID ETHAN Last Admin: 02/24/25 21:04 Dose: 10 mg Divalproex Sodium (Divalproex Sodium Er 500 Mg Tab.Er.24h) 500 mg PO BEDTIME ETHAN Last Admin: 02/24/25 21:04 Dose: 500 mg Guaifenesin/Dextromethorphan (Guaifenesin Dm 600/30 1 Tab Tab.Er.12h) 1 tab PO BID PRN PRN Reason: Cough, congestion Last Admin: 02/21/25 23:20 Dose: 1 tab Guanfacine HCl (Guanfacine Hcl Er 1 Mg Tab.Er.24h) 1 mg PO BEDTIME ETHAN Last Admin: 02/24/25 21:04 Dose: 1 mg Hydroxyzine HCl (Hydroxyzine Hcl 50 Mg Tablet) 50 mg PO Q6H PRN PRN Reason: mild anxiety Last Admin: 02/23/25 21:46 Dose: 50 mg Magnesium Hydroxide (Milk Of Magnesia 30 Ml Oral.Susp) 30 ml PO DAILY PRN PRN Reason: Constipation Nicotine (Nicotine 21 Mg Patch.Td24) 21 mg TRANSDERMA DAILY PRN PRN Reason: smoking cessation Last Admin: 02/23/25 13:19 Dose: 21 mg Nicotine Polacrilex (Nicotine Polacrilex 2 Mg Gum) 4 mg BUCCAL Q2H PRN PRN Reason: Nicotine Cravings Last Admin: 02/24/25 21:11 Dose: 4 mg Olanzapine (Olanzapine 5 Mg Tablet) 5 mg PO Q4H PRN PRN Reason: racing thougts Last Admin: 02/15/25 14:25 Dose: 5 mg Ondansetron HCl (Ondansetron Odt 4 Mg Tab.Rapdis) 4 mg TRANSLINGU Q4H PRN PRN Reason: Nausea and Vomiting Last Admin: 02/23/25 13:38 Dose: 4 mg Trazodone HCl (Trazodone Hcl 25 Mg Halftab) 25 mg PO BEDTIME MRX1 PRN PRN Reason: insomnia Last Admin: 02/14/25 23:02 Dose: 25 mg Allergies Allergies Allergy/AdvReac Type Severity Reaction Status Date / Time No Known Allergies Allergy Verified 02/02/25 14:07 Assessment & Plan Assessment & Plan (1) Bipolar disorder, unspecified: Status: Acute Code(s): F31.9 - Bipolar disorder, unspecified Plan HPI: Pt is a 24 yo female with hx of depression, anxiety, who presents for worsening depression with SI to hang herself. Patient reports depression since the 8th grade and explains that she has been chronically dysthymic with severe depressive episodes interspersed, that can last for weeks and during which time patient has to force herself out of bed. Patient reports chronic daily wish, wishing she could just escape from her depression and . Past August 2024, during a particularly challenging depressive episode she started intermittently hearing words such as cunt and . get a job.. In September, seemingly out of nowhere she had thoughts to harm other people and was worried she might stab someone while working at [employer]; she denies ever having desire or urges to harming anyone at all and just had this thought but it scared her and so she presented to the hospital so she could get locked up so as not to hurt anyone... Patient was started on Invega; while she was there she had a dystonic reaction to a p.r.n. medication. Patient has continued taking paliperidone however she has remained very depressed and this past week her passive SI started becoming active, with thoughts to hang herself or to jump off something high; patient started develop a plan but it did not become intent. Patient denies any discrete history of manic type episodes or behaviors however she was once tried on Prozac which quickly resulted in extreme high irritability, impulsivity even to the point of wanting to jump out of a car, which resolved once poked Truong was discontinued. Denies any drug or alcohol use; minimal cannabis and not for months; denies history of trauma. Denies any current AVH Formulation/clinical reasoning: Patient has chronic, debilitating depression which has evolved to include active SI; very limited medication trials, Zoloft 25 mg for a couple of months and then Wellbutrin which she both discontinued at some point. Provisional diagnosis of bipolar disorder: Patient had what sounds like the beginnings of a manic episode when she started Prozac, becoming extremely irritable, impulsive, angry, wanting to jump out of a moving car with symptoms resolving as soon as she stopped taking this medication. Patient's brother has bipolar disorder with significant manic episodes. Discussed medication options and reviewed risks/side effects of lithium which patient understood and would like to try. [facility] chosen since patient has chronic SI, debilitating depression and there remains concern for this being a bipolar depression (MDD with psychotic features as a rule out; schizophrenia seems less likely given that only psychotic symptom was AH and was in the context of depression; thought to harm others seems more of a mood congruent, intrusive thought that was completely dystonic). Of note patient has about an hour of good mood when she takes caffeine and stimulant medication might be helpful as well. -regarding recent psychotic symptoms, it seems very possible that these were mood congruent; patient agrees and for now also agrees to hold [facility] Hospital course 02/05 depressed, wishing she would be but no active SI; continue tx 02/06 remains depressed, hopeless; passive SI, wishing she were however no active SI. Hopeless that she will ever get better. However agrees to continue with treatment. Denies any AVH Positive for BV; treated with Flagyl gel 02/07 very depressed; wishing she were and w/ significant psychomotor retardation. Says will continue w/ [facility]. -no AVH and will dc Invega -will try adderall for considerable psychomotor retardation; will dc intuniv 02/08 did not sleep last night, just laying in bed thinking...she remains very depressed and she says i feel no different from when i came in... However, no SI at all and she says she knows she would never...She does find Adderall helpful for energy and behavioral activation. Discussed lithium; she hopes it will prove helpful and willing to remain on unit, retract 3 day notice.. -television script writer agrees to DC patient on Friday after [facility] labs although pt remains depressed but no active SI and she is overall improved. She agrees to remain on unit for continued stabilizing and labs. Sewer Cleaner agrees to dc on friday, whether or not Green[facility] has proven effective, as patient will follow up w/ outpt. 02/09: Patient states that she is a little better today. Requests to discontinue lithium as she has not experienced any changes. She notes that she is a little bit anxious and requests medication for this. Depression has improved with no depression today. She notes that lithium has no influence with her current improved mood. She denies SI/HI/AH/VH. Agrees to continue [facility] after this television script writer informed her that [facility] likely contributed to her improved mood. Buspirone 5 mg twice daily ordered for anxiety; instructed on the risks, benefits, and potential adverse reactions of the medication. 02/10: Patient notes that she woke up with panic attack this morning and vomited. Her symptoms improved shortly after taking buspirone. She recalls that her vomiting precedes feeling anxious and having racing thoughts that are foggy. She denies anxiety or depression at this time. She is worried about her current housing situation - she has been living with strangers for the past year and a half. She currently works part-time and intends to get a full-time job so she can moved to her new place. She states that her anxiety is related to external factors, including not been taught how to go about daily life's activities. She refused lithium last night; she thinks the medication is not effective as she does not have bipolar symptoms and also concerned about severe side effects of lithium, that she learned from other patients; she request for lithium to be discontinued. She will like for buspirone to be increased. She currently denies SI/HI/AH/VH. Her 3-day notice is up on Friday, but notes that she wants to go home tomorrow to resume work. Buspirone increased to 10 mg twice daily. [facility] ER 900 mg q.h.s. discontinued. Continue current treatment regimen 02/11/25: Patient refused Adderall this morning, talking to medical student and this provider. Explained the lithium how it works and indication. She agreed that her mood is declined since the lithium is taken away. She has not having lithium for 2 nights. Seem she is having a lot more anxiety, more depressed, with a lot of racing thoughts. She was unsure what she is doing and worry about the future when she gets out from here. She reports passive SI deny plans or intention. However she reports severe suicidal thoughts to the other disciplines. She said she will have plan to like get herself off the bridge after discharge. Therefore I changed it from 15 minute checks 5. Please racing thoughts, ? If she have any psychotic behavior. Deny HI/AVH/SIB. She reports feeling some kind of sedation on PRNs which is incongruent. She is visible in and out of her room to common areas auto long. Due to severe anxiety with unsafe thoughts and racing thoughts eye increase hydroxyzine up to 50 PRNs and Zyprexa 5 mg every 4 hours. Nursing offer medication at this time with pending effect Hydroxyzine 50 mg q.6 hours as needed for anxiety. Zyprexa started 5 mg q.4 hours as needed for racing thoughts. Restart lithium 600 mg at bedtime. If she tolerates well we can increase up to 900 over the weekends and rechecked the lithium level next week. [facility] level on the 20 is 0.15 very low after too nice not taking. 02/13: Increase Green[facility] to 900 mg HS. 02/15/25: Resume care. Passive SI. Question about paranoia and racing thoughts. Explained house olanzapine is working and its indication. Lost of education regarding medication compliant inconsistently taking to help with mental health. Patient's go back and for with medication. Hopefully she will taking medication as prescribed tonight and moving forward. Continue with lithium 900 at bedtime for depression and suicidal thoughts. If she consistently taking medication will withdrawal level the end of the week. Schedule Zyprexa 5 mg at bedtime with PRNs for psychosis. Discontinue Adderall which is not helpful. Restart on guanfacine extended release 1 mg daily in the morning. 02/16/25: Slightly improved compared to yesterday in mood and racing thoughts. Compliant with medications. Educate patient on grounding technique for anxiety. Focused on the present moment so she does not get too overwhelmed thinking about for future. Review with patient medication changes made yesterday and confirmed that does nothing change today. Continued to encourage patient to compliant with medication. Denies safety concerns however reports that to the nurse that she has passive SI. 02/17/25: No sleeping or appetite issues. Compliant with medications. Been compliant with lithium. Could be have level checked on Friday. Reports feeling sedated on medications. However be alert and awake visible at times attempted to groups with less racing thoughts, less anxious, moderate to severe depression. She seems less preoccupied. Zyprexa seems helpful. However I could not going higher dose today as she complained about feeling so tired. Blood pressure running in the low end. Encourage fluids p.o. intake. We will continue to monitor. 02/18/25: Slept for 8 hours, improve in appetite, is medication compliant. She agreed not to switching back and forth between medications as the current plans working very well. Less overwhelmed. No anxiety but high on depression. No racing thoughts. Poor ADL. Encouraged to shower daily. Receptive with continue the current plan with lithium level will be scheduled on Friday. Educate on taking medication only at night on Friday to get the accurate blood level. Passive Suicidal thoughts x1. No other safety concerns. She is mildly sedated on medication. We will not increase Zyprexa due to sedation. We will change to 15 minute checks. 02/19: continue current management and treatment plan. 02/20: Educational material about ECT and TMS provided. Continue current management and treatment plan. 02/21: Laying in bed. keeping to self. continues to report feeling depressed. She reports less anxiety with buspar. pt stated, I'm terrified of where to go after the hospital. I want to . I'm not thinking of ways to do it . focused on discharge and how she will function outside of hospital. Refused Green[facility] and zyprexa. denies HI/VH/AH. Encouraged to leave bed/room. 02/22: Laying in bed. keeping to self. continues to report feeling depressed. Refused [facility] and zyprexa last night; pt reports she does not want to continue taking these d/t making me feel sedated . DC Zyprexa 5mg PO bedtime and [facility] 900mg PO bedtime. Discussed starting Depakote; risks/benefits reviewed. Pt agreed to trial. Start: Depakote ER 500mg PO bedtime. denies HI/VH/AH. Continue to report suicidal ideation. 02/23: Patient notes that she feels normal. Not happy or sad. She reports 3/10 anxiety and 7/10 depression. She states that she felt good after taking her first dose of depakote yesterday. She denies SI at this times and states it is possibly because she just woke up. She notes that she has been experiencing SI daily, during this admission and attributes her SI to worry about surviving in the community. She denies HI/AH/VH. Continue current treatment regimen. 02/24: Patient states that she feels depressed. She reports severe depression and moderate anxiety. She states that Buspirone helps with her anxiety. She notes that she is not looking forward to the future; she thinks that she will be lonely, may not be able to take care of herself, and will ultimately be homeless. She notes SI earlier this morning with plan to jump off a building or cecilio. She currently denies SI/HI/AH/VH. She is willing to trial Wellbutrin, which she was previously on, for her depression. Wellbutrin XL 150 mg daily ordered; advised to take as prescribed; instructed on the risks, benefits, and potential adverse reactions of the medication; verbalized understanding and agreed with the plan. Continue current treatment regimen. 02/25/2025: Does feel that BuSpar is helping with anxiety symptoms. Sleep okay. Intermittently in the milieu. Reported feeling more irritable later in the daytime. Will continue to observe. Just started Wellbutrin yesterday Plan: CV. Change to 15 minute checks Continue with lithium 900 at bedtime. [facility] level ordered for Friday Continue with Buspirone 10 mg twice daily for anxiety. Zyprexa take over the extremely anxiety with the racing thoughts and psychosis I plan to take her off from BuSpar. DC Invega 6 mg q.h.s.; AH was momentary and maybe just mood congruent; will monitor Dc intuniv; not helpful; adderall more effective. We discontinued Adderall and put her back Intuniv 1 mg daily. Labs work order yesterday was within normal limit. 02/11/25: [facility] level 0.15 Past med trials: Zoloft 25mg Helped a little Prozac: caused highly irritable agitated state Wellbutrin: felt like in a bubble, which was helpful Regarding [facility], Risks, side-effects and benefits reviewed with pt, including, but not limited to, damage to kidneys and thyroid; pt was educated to stay hydrated, to watch for symptoms of lithium toxicity (also discussed, including but not limited to nausea, tremor, confusion) and the need to stay away from OTC NSAIDs (specifics reviewed) aside from Tylenol. Continued to reinforce education regarding indication and side effects from lithium. Reason for continued inpatient stay Substantial Risk for: harm to self Time Spent With Patient Time: Total time managing care of this patient today ____ minutes.
[2025-02-25] MEDS: buPROPion HCl XL 150 MG TAB.ER.24H PO (08:38)
[2025-02-25] MEDS: Nicotine 21 MG PATCH.TD24 TRANSDERMA (08:38)
[2025-02-25 19:54] VITALS: BP 116/68; PULSE 99; RESP 15; TEMP 37.1; O2SAT 100
[2025-02-25] MEDS: guanFACINE HCl ER 1 MG TAB.ER.24H PO (20:40)
--- NOTE | 2025-02-26 07:30 | P.PNPSI_ITS ---
Subjective Subjective Date of Service: 02/26/25 Reason For Visit: SI Interim History: met with patient. Discussed with nursing. Patient reports still feeling depressed and suicidal. Reports feeling safe in the hospital. still believes they will kill himself if discharged as the world is overwhelming and she finds it very difficult to navigate, however feels that partial hospital program could be very beneficial after education on same. Does feel that BuSpar is helping with anxiety symptoms. patient did feel angry for around 3-4 hours yesterday and we discussed ongoing monitoring of same in the context of recently starting Wellbutrin. Sleep okay. Intermittently in the milieu. Medication Compliance: Yes Side effects from medications: No Attending Groups: No Review of Systems Acute medical concerns: No Review of Systems Review of Systems unremarkable Mental Status Exam Mental Status Exam Narrative: Appearance: Casually dressed, adequate hygiene Behavior: Calm and cooperative throughout the interview. Eye contact is appropriate, and there are no signs of psychomotor agitation or retardation Speech: Normal volume and prosody Thought process logical and goal-directed Thought content: Worry about surviving in the community Mood: Depressed Affect: Flat SI:denies in-hospital setting, but reports things have suicide in context of community and being discharged HI:denies VH/AH: None Delusions: None Insight/judgment: Fair insight and judgment Memory/cog: Alert, oriented x 4. grossly intact to conversational testing Diagnostics Vital Signs (24Hr): Vital Signs - 24 hr 02/25/25 08:00 02/25/25 19:54 Temperature 99.4 F 98.7 F Pulse Rate 69 99 Respiratory Rate 18 15 Blood Pressure 93/53 L 116/68 Pulse Oximetry 96 100 Oxygen Delivery Method Room Air BMI result Body Mass Index 50.2 Labs 02/04/25 08:12 02/11/25 07:55 Medications Medications Current Medications Acetaminophen (Acetaminophen 325 Mg Tablet) 650 mg PO Q6H PRN PRN Reason: Headache/Pain, Scale 1-10 Last Admin: 02/21/25 23:23 Dose: 650 mg Al Hydroxide/Mg Hydroxide (Magnesium Hydrox/Alum Hydrox 30 Ml Oral.Susp) 30 ml PO Q6H PRN PRN Reason: Heartburn/Nausea Bupropion HCl (Bupropion Hcl Xl 150 Mg Tab.Er.24h) 150 mg PO DAILY ETHAN Last Admin: 02/25/25 08:38 Dose: 150 mg Buspirone HCl (Buspirone Hcl 10 Mg Tablet) 10 mg PO BID ETHAN Last Admin: 02/25/25 20:40 Dose: 10 mg Divalproex Sodium (Divalproex Sodium Er 500 Mg Tab.Er.24h) 500 mg PO BEDTIME ETHAN Last Admin: 02/25/25 20:40 Dose: 500 mg Guaifenesin/Dextromethorphan (Guaifenesin Dm 600/30 1 Tab Tab.Er.12h) 1 tab PO BID PRN PRN Reason: Cough, congestion Last Admin: 02/21/25 23:20 Dose: 1 tab Guanfacine HCl (Guanfacine Hcl Er 1 Mg Tab.Er.24h) 1 mg PO BEDTIME ETHAN Last Admin: 02/25/25 20:40 Dose: 1 mg Hydroxyzine HCl (Hydroxyzine Hcl 50 Mg Tablet) 50 mg PO Q6H PRN PRN Reason: mild anxiety Last Admin: 02/23/25 21:46 Dose: 50 mg Magnesium Hydroxide (Milk Of Magnesia 30 Ml Oral.Susp) 30 ml PO DAILY PRN PRN Reason: Constipation Nicotine (Nicotine 21 Mg Patch.Td24) 21 mg TRANSDERMA DAILY PRN PRN Reason: smoking cessation Last Admin: 02/25/25 08:38 Dose: 21 mg Nicotine Polacrilex (Nicotine Polacrilex 2 Mg Gum) 4 mg BUCCAL Q2H PRN PRN Reason: Nicotine Cravings Last Admin: 02/25/25 20:40 Dose: 4 mg Olanzapine (Olanzapine 5 Mg Tablet) 5 mg PO Q4H PRN PRN Reason: racing thougts Last Admin: 02/15/25 14:25 Dose: 5 mg Ondansetron HCl (Ondansetron Odt 4 Mg Tab.Rapdis) 4 mg TRANSLINGU Q4H PRN PRN Reason: Nausea and Vomiting Last Admin: 02/23/25 13:38 Dose: 4 mg Trazodone HCl (Trazodone Hcl 25 Mg Halftab) 25 mg PO BEDTIME MRX1 PRN PRN Reason: insomnia Last Admin: 02/14/25 23:02 Dose: 25 mg Allergies Allergies Allergy/AdvReac Type Severity Reaction Status Date / Time No Known Allergies Allergy Verified 02/02/25 14:07 Assessment & Plan Assessment & Plan (1) Bipolar disorder, unspecified: Status: Acute Code(s): F31.9 - Bipolar disorder, unspecified Plan HPI: Pt is a 24 yo female with hx of depression, anxiety, who presents for worsening depression with SI to hang herself. Patient reports depression since the 8th grade and explains that she has been chronically dysthymic with severe depressive episodes interspersed, that can last for weeks and during which time patient has to force herself out of bed. Patient reports chronic daily wish, wishing she could just escape from her depression and . Past August 2024, during a particularly challenging depressive episode she started intermittently hearing words such as cunt and . get a job.. In September, seemingly out of nowhere she had thoughts to harm other people and was worried she might stab someone while working at [employer]; she denies ever having desire or urges to harming anyone at all and just had this thought but it scared her and so she presented to the hospital so she could get locked up so as not to hurt anyone... Patient was started on Invega; while she was there she had a dystonic reaction to a p.r.n. medication. Patient has continued taking paliperidone however she has remained very depressed and this past week her passive SI started becoming active, with thoughts to hang herself or to jump off something high; patient started develop a plan but it did not become intent. Patient denies any discrete history of manic type episodes or behaviors however she was once tried on Prozac which quickly resulted in extreme high irritability, impulsivity even to the point of wanting to jump out of a car, which resolved once poked Truong was discontinued. Denies any drug or alcohol use; minimal cannabis and not for months; denies history of trauma. Denies any current AVH Formulation/clinical reasoning: Patient has chronic, debilitating depression which has evolved to include active SI; very limited medication trials, Zoloft 25 mg for a couple of months and then Wellbutrin which she both discontinued at some point. Provisional diagnosis of bipolar disorder: Patient had what sounds like the beginnings of a manic episode when she started Prozac, becoming extremely irritable, impulsive, angry, wanting to jump out of a moving car with symptoms resolving as soon as she stopped taking this medication. Patient's brother has bipolar disorder with significant manic episodes. Discussed medication options and reviewed risks/side effects of lithium which patient understood and would like to try. [facility] chosen since patient has chronic SI, debilitating depression and there remains concern for this being a bipolar depression (MDD with psychotic features as a rule out; schizophrenia seems less likely given that only psychotic symptom was AH and was in the context of depression; thought to harm others seems more of a mood congruent, intrusive thought that was completely dystonic). Of note patient has about an hour of good mood when she takes caffeine and stimulant medication might be helpful as well. -regarding recent psychotic symptoms, it seems very possible that these were mood congruent; patient agrees and for now also agrees to hold [facility] course 02/05 depressed, wishing she would be but no active SI; continue tx 02/06 remains depressed, hopeless; passive SI, wishing she were however no active SI. Hopeless that she will ever get better. However agrees to continue with treatment. Denies any AVH Positive for BV; treated with Flagyl gel 02/07 very depressed; wishing she were and w/ significant psychomotor retardation. Says will continue w/ [facility]. -no AVH and will dc [facility] -will try adderall for considerable psychomotor retardation; will dc intuniv 02/08 did not sleep last night, just laying in bed thinking...she remains very depressed and she says i feel no different from when i came in... However, no SI at all and she says she knows she would never...She does find Adderall helpful for energy and behavioral activation. Discussed lithium; she hopes it will prove helpful and willing to remain on unit, retract 3 day notice.. -technical proposal writer agrees to DC patient on Friday after [facility] labs although pt remains depressed but no active SI and she is overall improved. She agrees to remain on unit for continued stabilizing and labs. Shearer Helper agrees to dc on friday, whether or not [facility] has proven effective, as patient will follow up w/ outpt. 02/09: Patient states that she is a little better today. Requests to discontinue lithium as she has not experienced any changes. She notes that she is a little bit anxious and requests medication for this. Depression has improved with no depression today. She notes that lithium has no influence with her current improved mood. She denies SI/HI/AH/VH. Agrees to continue [facility] after this technical proposal writer informed her that [facility] likely contributed to her improved mood. Buspirone 5 mg twice daily ordered for anxiety; instructed on the risks, benefits, and potential adverse reactions of the medication. 02/10: Patient notes that she woke up with panic attack this morning and vomited. Her symptoms improved shortly after taking buspirone. She recalls that her vomiting precedes feeling anxious and having racing thoughts that are foggy. She denies anxiety or depression at this time. She is worried about her current housing situation - she has been living with strangers for the past year and a half. She currently works part-time and intends to get a full-time job so she can moved to her new place. She states that her anxiety is related to external factors, including not been taught how to go about daily life's activities. She refused lithium last night; she thinks the medication is not effective as she does not have bipolar symptoms and also concerned about severe side effects of lithium, that she learned from other patients; she request for lithium to be discontinued. She will like for buspirone to be increased. She currently denies SI/HI/AH/VH. Her 3-day notice is up on Friday, but notes that she wants to go home tomorrow to resume work. Buspirone increased to 10 mg twice daily. [facility] ER 900 mg q.h.s. discontinued. Continue current treatment regimen 02/11/25: Patient refused Adderall this morning, talking to medical student and this provider. Explained the lithium how it works and indication. She agreed that her mood is declined since the lithium is taken away. She has not having lithium for 2 nights. Seem she is having a lot more anxiety, more depressed, with a lot of racing thoughts. She was unsure what she is doing and worry about the future when she gets out from here. She reports passive SI deny plans or intention. However she reports severe suicidal thoughts to the other disciplines. She said she will have plan to like get herself off the bridge after discharge. Therefore I changed it from 15 minute checks 5. Please racing thoughts, ? If she have any psychotic behavior. Deny HI/AVH/SIB. She reports feeling some kind of sedation on PRNs which is incongruent. She is visible in and out of her room to common areas auto long. Due to severe anxiety with unsafe thoughts and racing thoughts eye increase hydroxyzine up to 50 PRNs and Zyprexa 5 mg every 4 hours. Nursing offer medication at this time with pending effect Hydroxyzine 50 mg q.6 hours as needed for anxiety. Zyprexa started 5 mg q.4 hours as needed for racing thoughts. Restart lithium 600 mg at bedtime. If she tolerates well we can increase up to 900 over the weekends and rechecked the lithium level next week. [facility] level on the 20 is 0.15 very low after too nice not taking. 02/13: Increase [facility] to 900 mg HS. 02/15/25: Resume care. Passive SI. Question about paranoia and racing thoughts. Explained house olanzapine is working and its indication. Lost of education regarding medication compliant inconsistently taking to help with mental health. Patient's go back and for with medication. Hopefully she will taking medication as prescribed tonight and moving forward. Continue with lithium 900 at bedtime for depression and suicidal thoughts. If she consistently taking medication will withdrawal level the end of the week. Schedule Zyprexa 5 mg at bedtime with PRNs for psychosis. Discontinue Adderall which is not helpful. Restart on guanfacine extended release 1 mg daily in the morning. 02/16/25: Slightly improved compared to yesterday in mood and racing thoughts. Compliant with medications. Educate patient on grounding technique for anxiety. Focused on the present moment so she does not get too overwhelmed thinking about for future. Review with patient medication changes made yesterday and confirmed that does nothing change today. Continued to encourage patient to compliant with medication. Denies safety concerns however reports that to the nurse that she has passive SI. 02/17/25: No sleeping or appetite issues. Compliant with medications. Been compliant with lithium. Could be have level checked on Friday. Reports feeling sedated on medications. However be alert and awake visible at times attempted to groups with less racing thoughts, less anxious, moderate to severe depression. She seems less preoccupied. Zyprexa seems helpful. However I could not going higher dose today as she complained about feeling so tired. Blood pressure running in the low end. Encourage fluids p.o. intake. We will continue to monitor. 02/18/25: Slept for 8 hours, improve in appetite, is medication compliant. She agreed not to switching back and forth between medications as the current plans working very well. Less overwhelmed. No anxiety but high on depression. No racing thoughts. Poor ADL. Encouraged to shower daily. Receptive with continue the current plan with lithium level will be scheduled on Friday. Educate on taking medication only at night on Friday to get the accurate blood level. Passive Suicidal thoughts x1. No other safety concerns. She is mildly sedated on medication. We will not increase Zyprexa due to sedation. We will change to 15 minute checks. 02/19: continue current management and treatment plan. 02/20: Educational material about ECT and TMS provided. Continue current management and treatment plan. 02/21: Laying in bed. keeping to self. continues to report feeling depressed. She reports less anxiety with buspar. pt stated, I'm terrified of where to go after the hospital. I want to . I'm not thinking of ways to do it . focused on discharge and how she will function outside of hospital. Refused [facility] and zyprexa. denies HI/VH/AH. Encouraged to leave bed/room. 02/22: Laying in bed. keeping to self. continues to report feeling depressed. Refused [facility] and zyprexa last night; pt reports she does not want to continue taking these d/t making me feel sedated . DC Zyprexa 5mg PO bedtime and [facility] 900mg PO bedtime. Discussed starting Depakote; risks/benefits reviewed. Pt agreed to trial. Start: Depakote ER 500mg PO bedtime. denies HI/VH/AH. Continue to report suicidal ideation. 02/23: Patient notes that she feels normal. Not happy or sad. She reports 3/10 anxiety and 7/10 depression. She states that she felt good after taking her first dose of depakote yesterday. She denies SI at this times and states it is possibly because she just woke up. She notes that she has been experiencing SI daily, during this admission and attributes her SI to worry about surviving in the community. She denies HI/AH/VH. Continue current treatment regimen. 02/24: Patient states that she feels depressed. She reports severe depression and moderate anxiety. She states that Buspirone helps with her anxiety. She notes that she is not looking forward to the future; she thinks that she will be lonely, may not be able to take care of herself, and will ultimately be homeless. She notes SI earlier this morning with plan to jump off a building or cecilio. She currently denies SI/HI/AH/VH. She is willing to trial Wellbutrin, which she was previously on, for her depression. Wellbutrin XL 150 mg daily ordered; advised to take as prescribed; instructed on the risks, benefits, and potential adverse reactions of the medication; verbalized understanding and agreed with the plan. Continue current treatment regimen. 02/25/2025: Does feel that BuSpar is helping with anxiety symptoms. Sleep okay. Intermittently in the milieu. Reported feeling more irritable later in the daytime. Will continue to observe. Just started Wellbutrin yesterday 02/26/2025: We will continue to observe any irritability in context of starting Wellbutrin. Good benefit from partial hospital program as part of disposition planning and open to same Plan: CV. Change to 15 minute checks Continue with lithium 900 at bedtime. [facility] level ordered for Friday Continue with Buspirone 10 mg twice daily for anxiety. Zyprexa take over the extremely anxiety with the racing thoughts and psychosis I plan to take her off from BuSpar. DC Invega 6 mg q.h.s.; AH was momentary and maybe just mood congruent; will monitor Dc intuniv; not helpful; adderall more effective. We discontinued Adderall and put her back Intuniv 1 mg daily. Labs work order yesterday was within normal limit. 02/11/25: [facility] level 0.15 Past med trials: Zoloft 25mg Helped a little Prozac: caused highly irritable agitated state Wellbutrin: felt like in a bubble, which was helpful Regarding [facility], Risks, side-effects and benefits reviewed with pt, including, but not limited to, damage to kidneys and thyroid; pt was educated to stay hydrated, to watch for symptoms of lithium toxicity (also discussed, including but not limited to nausea, tremor, confusion) and the need to stay away from OTC NSAIDs (specifics reviewed) aside from Tylenol. Continued to reinforce education regarding indication and side effects from lithium. Reason for continued inpatient stay Substantial Risk for: harm to self Time Spent With Patient Time: Total time managing care of this patient today ____ minutes.
[2025-02-26 08:00] VITALS: BP 100/62; PULSE 72; RESP 18; TEMP 36.6; O2SAT 96
[2025-02-26] MEDS: buPROPion HCl XL 150 MG TAB.ER.24H PO (08:20)
[2025-02-26] MEDS: Nicotine 21 MG PATCH.TD24 TRANSDERMA (08:21)
[2025-02-26 19:46] VITALS: BP 113/67; PULSE 85; RESP 15; TEMP 37.7; O2SAT 100
[2025-02-26] MEDS: guanFACINE HCl ER 1 MG TAB.ER.24H PO (20:14)
[2025-02-27 08:00] VITALS: BP 100/55; PULSE 71; RESP 18; TEMP 36.9; O2SAT 98
[2025-02-27] MEDS: buPROPion HCl XL 150 MG TAB.ER.24H PO (08:35)
--- NOTE | 2025-02-27 11:05 | HO.PSYCHPN ---
Subjective Subjective Date of Service: 02/27/25 Reason For Visit: SI Interim History: met with patient. Discussed with nursing. Patient still feeling depressed and suicidal, SI if I am discharged I know what I woudl do outside but feeling safe in the hospital. still some hopethat if stable a partial hospital program could be very beneficial. Sleep okay. Intermittently in the milieu. Discussed lower wellbutrin to 100mg as feeling irritable/angry since starting same. Might consider ECT- patient open to same. Sleep okay. Intermittently in the milieu. Medication Compliance: Yes Side effects from medications: No Attending Groups: No Review of Systems Acute medical concerns: No Review of Systems Review of Systems unremarkable Mental Status Exam Mental Status Exam Narrative: Appearance: Casually dressed, adequate hygiene Behavior: Calm and cooperative throughout the interview. Eye contact is appropriate, and there are no signs of psychomotor agitation or retardation Speech: Normal volume and prosody Thought process logical and goal-directed Thought content: Worry about surviving in the community Mood: Depressed Affect: Flat SI:denies not in-hospital setting, but reports things have suicide in context of community and being discharged HI:denies VH/AH: None Delusions: None Insight/judgment: Fair insight and judgment Memory/cog: Alert, oriented x 4. grossly intact to conversational testing Diagnostics Vital Signs (24Hr): Vital Signs - 24 hr 02/26/25 19:46 02/27/25 08:00 Temperature 99.8 F 98.4 F Pulse Rate 85 71 Respiratory Rate 15 18 Blood Pressure 113/67 100/55 L Pulse Oximetry 100 98 Oxygen Delivery Method Room Air BMI result Body Mass Index 50.2 Labs 02/04/25 08:12 02/11/25 07:55 Medications Medications Current Medications Acetaminophen (Acetaminophen 325 Mg Tablet) 650 mg PO Q6H PRN PRN Reason: Headache/Pain, Scale 1-10 Last Admin: 02/21/25 23:23 Dose: 650 mg Al Hydroxide/Mg Hydroxide (Magnesium Hydrox/Alum Hydrox 30 Ml Oral.Susp) 30 ml PO Q6H PRN PRN Reason: Heartburn/Nausea Bupropion HCl (Bupropion Hcl Xl 150 Mg Tab.Er.24h) 150 mg PO DAILY [facility] Last Admin: 02/27/25 08:35 Dose: 150 mg Buspirone HCl (Buspirone Hcl 10 Mg Tablet) 10 mg PO BID [facility] Last Admin: 02/27/25 08:35 Dose: 10 mg Divalproex Sodium (Divalproex Sodium Er 500 Mg Tab.Er.24h) 500 mg PO BEDTIME ETHAN Last Admin: 02/26/25 20:13 Dose: 500 mg Guaifenesin/Dextromethorphan (Guaifenesin Dm 600/30 1 Tab Tab.Er.12h) 1 tab PO BID PRN PRN Reason: Cough, congestion Last Admin: 02/21/25 23:20 Dose: 1 tab Guanfacine HCl (Guanfacine Hcl Er 1 Mg Tab.Er.24h) 1 mg PO BEDTIME ETHAN Last Admin: 02/26/25 20:14 Dose: 1 mg Hydroxyzine HCl (Hydroxyzine Hcl 50 Mg Tablet) 50 mg PO Q6H PRN PRN Reason: mild anxiety Last Admin: 02/23/25 21:46 Dose: 50 mg Magnesium Hydroxide (Milk Of Magnesia 30 Ml Oral.Susp) 30 ml PO DAILY PRN PRN Reason: Constipation Nicotine (Nicotine 21 Mg Patch.Td24) 21 mg TRANSDERMA DAILY PRN PRN Reason: smoking cessation Last Admin: 02/26/25 08:21 Dose: 21 mg Nicotine Polacrilex (Nicotine Polacrilex 2 Mg Gum) 4 mg BUCCAL Q2H PRN PRN Reason: Nicotine Cravings Last Admin: 02/26/25 16:10 Dose: 4 mg Olanzapine (Olanzapine 5 Mg Tablet) 5 mg PO Q4H PRN PRN Reason: racing thougts Last Admin: 02/15/25 14:25 Dose: 5 mg Ondansetron HCl (Ondansetron Odt 4 Mg Tab.Rapdis) 4 mg TRANSLINGU Q4H PRN PRN Reason: Nausea and Vomiting Last Admin: 02/26/25 11:32 Dose: 4 mg Trazodone HCl (Trazodone Hcl 25 Mg Halftab) 25 mg PO BEDTIME MRX1 PRN PRN Reason: insomnia Last Admin: 02/14/25 23:02 Dose: 25 mg Allergies Allergies Allergy/AdvReac Type Severity Reaction Status Date / Time No Known Allergies Allergy Verified 02/02/25 14:07 Assessment & Plan Assessment & Plan (1) Bipolar disorder, unspecified: Status: Acute Code(s): F31.9 - Bipolar disorder, unspecified Plan HPI: Pt is a 24 yo female with hx of depression, anxiety, who presents for worsening depression with SI to hang herself. Patient reports depression since the 8th grade and explains that she has been chronically dysthymic with severe depressive episodes interspersed, that can last for weeks and during which time patient has to force herself out of bed. Patient reports chronic daily wish, wishing she could just escape from her depression and . Past August 2024, during a particularly challenging depressive episode she started intermittently hearing words such as cunt and . get a job.. In September, seemingly out of nowhere she had thoughts to harm other people and was worried she might stab someone while working at [employer]; she denies ever having desire or urges to harming anyone at all and just had this thought but it scared her and so she presented to the hospital so she could get locked up so as not to hurt anyone... Patient was started on Invega; while she was there she had a dystonic reaction to a p.r.n. medication. Patient has continued taking paliperidone however she has remained very depressed and this past week her passive SI started becoming active, with thoughts to hang herself or to jump off something high; patient started develop a plan but it did not become intent. Patient denies any discrete history of manic type episodes or behaviors however she was once tried on Prozac which quickly resulted in extreme high irritability, impulsivity even to the point of wanting to jump out of a car, which resolved once poked Truong was discontinued. Denies any drug or alcohol use; minimal cannabis and not for months; denies history of trauma. Denies any current AVH Formulation/clinical reasoning: Patient has chronic, debilitating depression which has evolved to include active SI; very limited medication trials, Zoloft 25 mg for a couple of months and then Wellbutrin which she both discontinued at some point. Provisional diagnosis of bipolar disorder: Patient had what sounds like the beginnings of a manic episode when she started Prozac, becoming extremely irritable, impulsive, angry, wanting to jump out of a moving car with symptoms resolving as soon as she stopped taking this medication. Patient's brother has bipolar disorder with significant manic episodes. Discussed medication options and reviewed risks/side effects of lithium which patient understood and would like to try. Roberts chosen since patient has chronic SI, debilitating depression and there remains concern for this being a bipolar depression (MDD with psychotic features as a rule out; schizophrenia seems less likely given that only psychotic symptom was AH and was in the context of depression; thought to harm others seems more of a mood congruent, intrusive thought that was completely dystonic). Of note patient has about an hour of good mood when she takes caffeine and stimulant medication might be helpful as well. -regarding recent psychotic symptoms, it seems very possible that these were mood congruent; patient agrees and for now also agrees to hold [facility] course 02/05 depressed, wishing she would be but no active SI; continue tx 02/06 remains depressed, hopeless; passive SI, wishing she were however no active SI. Hopeless that she will ever get better. However agrees to continue with treatment. Denies any AVH Positive for BV; treated with Flagyl gel 02/07 very depressed; wishing she were and w/ significant psychomotor retardation. Says will continue w/ Roberts. -no AVH and will dc [facility] -will try adderall for considerable psychomotor retardation; will dc intuniv 02/08 did not sleep last night, just laying in bed thinking...she remains very depressed and she says i feel no different from when i came in... However, no SI at all and she says she knows she would never...She does find Adderall helpful for energy and behavioral activation. Discussed lithium; she hopes it will prove helpful and willing to remain on unit, retract 3 day notice.. -automobile and property underwriter agrees to DC patient on Friday after Roberts labs although pt remains depressed but no active SI and she is overall improved. She agrees to remain on unit for continued stabilizing and labs. Adjunct Spanish Instructor agrees to dc on friday, whether or not Roberts has proven effective, as patient will follow up w/ outpt. 02/09: Patient states that she is a little better today. Requests to discontinue lithium as she has not experienced any changes. She notes that she is a little bit anxious and requests medication for this. Depression has improved with no depression today. She notes that lithium has no influence with her current improved mood. She denies SI/HI/AH/VH. Agrees to continue Roberts after this automobile and property underwriter informed her that Roberts likely contributed to her improved mood. Buspirone 5 mg twice daily ordered for anxiety; instructed on the risks, benefits, and potential adverse reactions of the medication. 02/10: Patient notes that she woke up with panic attack this morning and vomited. Her symptoms improved shortly after taking buspirone. She recalls that her vomiting precedes feeling anxious and having racing thoughts that are foggy. She denies anxiety or depression at this time. She is worried about her current housing situation - she has been living with strangers for the past year and a half. She currently works part-time and intends to get a full-time job so she can moved to her new place. She states that her anxiety is related to external factors, including not been taught how to go about daily life's activities. She refused lithium last night; she thinks the medication is not effective as she does not have bipolar symptoms and also concerned about severe side effects of lithium, that she learned from other patients; she request for lithium to be discontinued. She will like for buspirone to be increased. She currently denies SI/HI/AH/VH. Her 3-day notice is up on Friday, but notes that she wants to go home tomorrow to resume work. Buspirone increased to 10 mg twice daily. Roberts ER 900 mg q.h.s. discontinued. Continue current treatment regimen 02/11/25: Patient refused Adderall this morning, talking to medical student and this provider. Explained the lithium how it works and indication. She agreed that her mood is declined since the lithium is taken away. She has not having lithium for 2 nights. Seem she is having a lot more anxiety, more depressed, with a lot of racing thoughts. She was unsure what she is doing and worry about the future when she gets out from here. She reports passive SI deny plans or intention. However she reports severe suicidal thoughts to the other disciplines. She said she will have plan to like get herself off the bridge after discharge. Therefore I changed it from 15 minute checks 5. Please racing thoughts, ? If she have any psychotic behavior. Deny HI/AVH/SIB. She reports feeling some kind of sedation on PRNs which is incongruent. She is visible in and out of her room to common areas auto long. Due to severe anxiety with unsafe thoughts and racing thoughts eye increase hydroxyzine up to 50 PRNs and Zyprexa 5 mg every 4 hours. Nursing offer medication at this time with pending effect Hydroxyzine 50 mg q.6 hours as needed for anxiety. Zyprexa started 5 mg q.4 hours as needed for racing thoughts. Restart lithium 600 mg at bedtime. If she tolerates well we can increase up to 900 over the weekends and rechecked the lithium level next week. Roberts level on the 20 is 0.15 very low after too nice not taking. 02/13: Increase Roberts to 900 mg HS. 02/15/25: Resume care. Passive SI. Question about paranoia and racing thoughts. Explained house olanzapine is working and its indication. Lost of education regarding medication compliant inconsistently taking to help with mental health. Patient's go back and for with medication. Hopefully she will taking medication as prescribed tonight and moving forward. Continue with lithium 900 at bedtime for depression and suicidal thoughts. If she consistently taking medication will withdrawal level the end of the week. Schedule Zyprexa 5 mg at bedtime with PRNs for psychosis. Discontinue Adderall which is not helpful. Restart on guanfacine extended release 1 mg daily in the morning. 02/16/25: Slightly improved compared to yesterday in mood and racing thoughts. Compliant with medications. Educate patient on grounding technique for anxiety. Focused on the present moment so she does not get too overwhelmed thinking about for future. Review with patient medication changes made yesterday and confirmed that does nothing change today. Continued to encourage patient to compliant with medication. Denies safety concerns however reports that to the nurse that she has passive SI. 02/17/25: No sleeping or appetite issues. Compliant with medications. Been compliant with lithium. Could be have level checked on Friday. Reports feeling sedated on medications. However be alert and awake visible at times attempted to groups with less racing thoughts, less anxious, moderate to severe depression. She seems less preoccupied. Zyprexa seems helpful. However I could not going higher dose today as she complained about feeling so tired. Blood pressure running in the low end. Encourage fluids p.o. intake. We will continue to monitor. 02/18/25: Slept for 8 hours, improve in appetite, is medication compliant. She agreed not to switching back and forth between medications as the current plans working very well. Less overwhelmed. No anxiety but high on depression. No racing thoughts. Poor ADL. Encouraged to shower daily. Receptive with continue the current plan with lithium level will be scheduled on Friday. Educate on taking medication only at night on Friday to get the accurate blood level. Passive Suicidal thoughts x1. No other safety concerns. She is mildly sedated on medication. We will not increase Zyprexa due to sedation. We will change to 15 minute checks. 02/19: continue current management and treatment plan. 02/20: Educational material about ECT and TMS provided. Continue current management and treatment plan. 02/21: Laying in bed. keeping to self. continues to report feeling depressed. She reports less anxiety with buspar. pt stated, I'm terrified of where to go after the hospital. I want to . I'm not thinking of ways to do it . focused on discharge and how she will function outside of hospital. Refused Roberts and zyprexa. denies HI/VH/AH. Encouraged to leave bed/room. 02/22: Laying in bed. keeping to self. continues to report feeling depressed. Refused Roberts and zyprexa last night; pt reports she does not want to continue taking these d/t making me feel sedated . DC Zyprexa 5mg PO bedtime and Roberts 900mg PO bedtime. Discussed starting Depakote; risks/benefits reviewed. Pt agreed to trial. Start: Depakote ER 500mg PO bedtime. denies HI/VH/AH. Continue to report suicidal ideation. 02/23: Patient notes that she feels normal. Not happy or sad. She reports 3/10 anxiety and 7/10 depression. She states that she felt good after taking her first dose of depakote yesterday. She denies SI at this times and states it is possibly because she just woke up. She notes that she has been experiencing SI daily, during this admission and attributes her SI to worry about surviving in the community. She denies HI/AH/VH. Continue current treatment regimen. 02/24: Patient states that she feels depressed. She reports severe depression and moderate anxiety. She states that Buspirone helps with her anxiety. She notes that she is not looking forward to the future; she thinks that she will be lonely, may not be able to take care of herself, and will ultimately be homeless. She notes SI earlier this morning with plan to jump off a building or cecilio. She currently denies SI/HI/AH/VH. She is willing to trial Wellbutrin, which she was previously on, for her depression. Wellbutrin XL 150 mg daily ordered; advised to take as prescribed; instructed on the risks, benefits, and potential adverse reactions of the medication; verbalized understanding and agreed with the plan. Continue current treatment regimen. 02/25/2025: Does feel that [employer] is helping with anxiety symptoms. Sleep okay. Intermittently in the milieu. Reported feeling more irritable later in the daytime. Will continue to observe. Just started Wellbutrin yesterday 02/26/2025: We will continue to observe any irritability in context of starting Wellbutrin. Good benefit from partial hospital program as part of disposition planning and open to same 02/27: Lower wellbutrin to 100mg as feeling irritable/angry since starting same. Might consider ECT- patient open to same Plan: CV. Change to 15 minute checks Continue with lithium 900 at bedtime. Roberts level ordered for Friday Continue with Buspirone 10 mg twice daily for anxiety. Zyprexa take over the extremely anxiety with the racing thoughts and psychosis I plan to take her off from [place]. DC Invega 6 mg q.h.s.; AH was momentary and maybe just mood congruent; will monitor Dc intuniv; not helpful; adderall more effective. We discontinued Adderall and put her back Intuniv 1 mg daily. Labs work order yesterday was within normal limit. 02/11/25: Roberts level 0.15 Past med trials: Zoloft 25mg Helped a little Prozac: caused highly irritable agitated state Wellbutrin: felt like in a bubble, which was helpful Regarding Roberts, Risks, side-effects and benefits reviewed with pt, including, but not limited to, damage to kidneys and thyroid; pt was educated to stay hydrated, to watch for symptoms of lithium toxicity (also discussed, including but not limited to nausea, tremor, confusion) and the need to stay away from OTC NSAIDs (specifics reviewed) aside from Tylenol. Continued to reinforce education regarding indication and side effects from lithium. Reason for continued inpatient stay Substantial Risk for: harm to self Time Spent With Patient Time: Total time managing care of this patient today ____ minutes.
[2025-02-27] MEDS: Nicotine 21 MG PATCH.TD24 TRANSDERMA (11:15)
[2025-02-27 19:50] VITALS: BP 112/73; PULSE 79; RESP 15; TEMP 36.9; O2SAT 96
[2025-02-28 08:00] VITALS: BP 102/62; PULSE 82; RESP 16; TEMP 36.9; O2SAT 96
[2025-02-28] MEDS: Nicotine 21 MG PATCH.TD24 TRANSDERMA (08:40)
--- NOTE | 2025-02-28 09:42 | HO.PSYCHPN ---
Subjective Subjective Date of Service: 02/28/25 Reason For Visit: SI Interim History: met with patient; discussed with team; reviewed chart Patient reports that though she remains depressed she is not very interested in taking much medication other than continuing with BuSpar and seeing if Zyprexa can remain helpful. To that end she agrees to increasing BuSpar dose; asks for Zyprexa to be lowered some since 5 mg is sedating. She asks for Wellbutrin to be discontinued feeling that it makes her irritable. Discussed other treatment options and patient agrees that therapy will be helpful. Discussed her growing up years, home life, relationships and patient agrees that there is generational mental illness struggles that have affected her. Also discussed other treatment options including TMS which she is very interested in. Patient denies any active SI. She says that her passive SI has been with her so long read a will likely always be around and that it comes and goes throughout the day. She feels that she is getting ready to discharge because she needs to get back to work. She is ambivalent about her living situation, debating whether to stay where she is now or whether to move in with her brother and mother. Patient shared past history: Growing up, she lived with her jackiepa, who owned the house, her scary drug addicted uncle who lived in the basement and with mom and 2 brothers mom Patient says was never allowed to have friends over; she reports that she felt mostly close to her mother and brothers though there was little interaction. one brother ended up being manic; other brother ended up in [employer] Patient reports that throughout adolescence and into adulthood she has had lot's of anxiety, vomiting, scratching self....one time cut hair off; patient struggled with impulsive decisions such as quitting jobs, or quit talking to new acquaintances... Worried that she would be unable to be an adequate worker or inadequate friend Mental Status Exam Mental Status Exam Narrative: Pt is alert and oriented; behavior is cooperative, friendly and calm; patient is not in distress; dressed in casual attire with unkempt hair but adequate hygiene; mood is described as ok and affect congruent, overall brighter; eye contact appropriate; Speech is normal rate, volume and prosody and not pressured; no psychomotor agitation/retardation present; thought process is organized and goal directed; Thought content is on tx and struggling with self-deprecating thoughts; otherwise pertinent to relevant topics and without any delusional content, paranoid ideations or grandiosity; intermittent passive SI; no active SI; no HI. Denies AVH and there is no evidence of perceptual disturbance. Patients insight and judgment are adequate Diagnostics Vital Signs (24Hr): Vital Signs - 24 hr 02/27/25 19:50 02/28/25 08:00 Temperature 98.4 F 98.4 F Pulse Rate 79 82 Respiratory Rate 15 16 Blood Pressure 112/73 102/62 Pulse Oximetry 96 96 Oxygen Delivery Method Room Air BMI result Body Mass Index 50.2 Labs 02/04/25 08:12 02/11/25 07:55 Medications Medications Current Medications Acetaminophen (Acetaminophen 325 Mg Tablet) 650 mg PO Q6H PRN PRN Reason: Headache/Pain, Scale 1-10 Last Admin: 02/21/25 23:23 Dose: 650 mg Al Hydroxide/Mg Hydroxide (Magnesium Hydrox/Alum Hydrox 30 Ml Oral.Susp) 30 ml PO Q6H PRN PRN Reason: Heartburn/Nausea Bupropion HCl (Bupropion Hcl 100 Mg Tablet) 100 mg PO DAILY [facility] Last Admin: 02/28/25 08:40 Dose: 100 mg Buspirone HCl (Buspirone Hcl 10 Mg Tablet) 10 mg PO BID [facility] Last Admin: 02/28/25 08:40 Dose: 10 mg Divalproex Sodium (Divalproex Sodium Er 500 Mg Tab.Er.24h) 500 mg PO BEDTIME [facility] Last Admin: 02/27/25 20:26 Dose: Not Given Guaifenesin/Dextromethorphan (Guaifenesin Dm 600/30 1 Tab Tab.Er.12h) 1 tab PO BID PRN PRN Reason: Cough, congestion Last Admin: 02/21/25 23:20 Dose: 1 tab Guanfacine HCl (Guanfacine Hcl Er 1 Mg Tab.Er.24h) 1 mg PO BEDTIME [facility] Last Admin: 02/27/25 20:26 Dose: Not Given Hydroxyzine HCl (Hydroxyzine Hcl 50 Mg Tablet) 50 mg PO Q6H PRN PRN Reason: mild anxiety Last Admin: 02/27/25 17:43 Dose: 50 mg Magnesium Hydroxide (Milk Of Magnesia 30 Ml Oral.Susp) 30 ml PO DAILY PRN PRN Reason: Constipation Nicotine (Nicotine 21 Mg Patch.Td24) 21 mg TRANSDERMA DAILY PRN PRN Reason: smoking cessation Last Admin: 02/28/25 08:40 Dose: 21 mg Nicotine Polacrilex (Nicotine Polacrilex 2 Mg Gum) 4 mg BUCCAL Q2H PRN PRN Reason: Nicotine Cravings Last Admin: 02/27/25 11:13 Dose: 4 mg Olanzapine (Olanzapine 5 Mg Tablet) 5 mg PO Q4H PRN PRN Reason: racing thougts Last Admin: 02/15/25 14:25 Dose: 5 mg Ondansetron HCl (Ondansetron Odt 4 Mg Tab.Rapdis) 4 mg TRANSLINGU Q4H PRN PRN Reason: Nausea and Vomiting Last Admin: 02/26/25 11:32 Dose: 4 mg Trazodone HCl (Trazodone Hcl 25 Mg Halftab) 25 mg PO BEDTIME MRX1 PRN PRN Reason: insomnia Last Admin: 02/14/25 23:02 Dose: 25 mg Allergies Allergies Allergy/AdvReac Type Severity Reaction Status Date / Time No Known Allergies Allergy Verified 02/02/25 14:07 Assessment & Plan Assessment & Plan (1) MDD (major depressive disorder), recurrent episode, severe: Status: Acute Code(s): F33.2 - Major depressive disorder, recurrent severe without psychotic features (2) Anxiety: Status: Acute Code(s): F41.9 - Anxiety disorder, unspecified Plan HPI: Pt is a 24 yo female with hx of depression, anxiety, who presents for worsening depression with SI to hang herself. Patient reports depression since the 8th grade and explains that she has been chronically dysthymic with severe depressive episodes interspersed, that can last for weeks and during which time patient has to force herself out of bed. Patient reports chronic daily wish, wishing she could just escape from her depression and . Past August 2024, during a particularly challenging depressive episode she started intermittently hearing words such as cunt and . get a job.. In September, seemingly out of nowhere she had thoughts to harm other people and was worried she might stab someone while working at [employer]; she denies ever having desire or urges to harming anyone at all and just had this thought but it scared her and so she presented to the hospital so she could get locked up so as not to hurt anyone... Patient was started on Invega; while she was there she had a dystonic reaction to a p.r.n. medication. Patient has continued taking paliperidone however she has remained very depressed and this past week her passive SI started becoming active, with thoughts to hang herself or to jump off something high; patient started develop a plan but it did not become intent. Patient denies any discrete history of manic type episodes or behaviors however she was once tried on Prozac which quickly resulted in extreme high irritability, impulsivity even to the point of wanting to jump out of a car, which resolved once poked Truong was discontinued. Denies any drug or alcohol use; minimal cannabis and not for months; denies history of trauma. Denies any current AVH Formulation/clinical reasoning: Patient has chronic, debilitating depression which has evolved to include active SI; very limited medication trials, Zoloft 25 mg for a couple of months and then Wellbutrin which she both discontinued at some point. Provisional diagnosis of bipolar disorder: Patient had what sounds like the beginnings of a manic episode when she started Prozac, becoming extremely irritable, impulsive, angry, wanting to jump out of a moving car with symptoms resolving as soon as she stopped taking this medication. Patient's brother has bipolar disorder with significant manic episodes. Discussed medication options and reviewed risks/side effects of lithium which patient understood and would like to try. Half Moon chosen since patient has chronic SI, debilitating depression and there remains concern for this being a bipolar depression (MDD with psychotic features as a rule out; schizophrenia seems less likely given that only psychotic symptom was AH and was in the context of depression; thought to harm others seems more of a mood congruent, intrusive thought that was completely dystonic). Of note patient has about an hour of good mood when she takes caffeine and stimulant medication might be helpful as well. -regarding recent psychotic symptoms, it seems very possible that these were mood congruent; patient agrees and for now also agrees to hold Invega Hospital course 02/05 depressed, wishing she would be but no active SI; continue tx 02/06 remains depressed, hopeless; passive SI, wishing she were however no active SI. Hopeless that she will ever get better. However agrees to continue with treatment. Denies any AVH Positive for BV; treated with Flagyl gel 02/07 very depressed; wishing she were and w/ significant psychomotor retardation. Says will continue w/ Half Moon. -no AVH and will dc Invega -will try adderall for considerable psychomotor retardation; will dc intuniv 02/08 did not sleep last night, just laying in bed thinking...she remains very depressed and she says i feel no different from when i came in... However, no SI at all and she says she knows she would never...She does find Adderall helpful for energy and behavioral activation. Discussed lithium; she hopes it will prove helpful and willing to remain on unit, retract 3 day notice.. -insurance underwriter agrees to DC patient on Friday after Half Moon labs although pt remains depressed but no active SI and she is overall improved. She agrees to remain on unit for continued stabilizing and labs. Quality Assurance/R&D Lab Technician agrees to dc on friday, whether or not Half Moon has proven effective, as patient will follow up w/ outpt. 02/09: Patient states that she is a little better today. Requests to discontinue lithium as she has not experienced any changes. She notes that she is a little bit anxious and requests medication for this. Depression has improved with no depression today. She notes that lithium has no influence with her current improved mood. She denies SI/HI/AH/VH. Agrees to continue Half Moon after this insurance underwriter informed her that Half Moon likely contributed to her improved mood. Buspirone 5 mg twice daily ordered for anxiety; instructed on the risks, benefits, and potential adverse reactions of the medication. 02/10: Patient notes that she woke up with panic attack this morning and vomited. Her symptoms improved shortly after taking buspirone. She recalls that her vomiting precedes feeling anxious and having racing thoughts that are foggy. She denies anxiety or depression at this time. She is worried about her current housing situation - she has been living with strangers for the past year and a half. She currently works part-time and intends to get a full-time job so she can moved to her new place. She states that her anxiety is related to external factors, including not been taught how to go about daily life's activities. She refused lithium last night; she thinks the medication is not effective as she does not have bipolar symptoms and also concerned about severe side effects of lithium, that she learned from other patients; she request for lithium to be discontinued. She will like for buspirone to be increased. She currently denies SI/HI/AH/VH. Her 3-day notice is up on Friday, but notes that she wants to go home tomorrow to resume work. Buspirone increased to 10 mg twice daily. Half Moon ER 900 mg q.h.s. discontinued. Continue current treatment regimen 02/11/25: Patient refused Adderall this morning, talking to medical student and this provider. Explained the lithium how it works and indication. She agreed that her mood is declined since the lithium is taken away. She has not having lithium for 2 nights. Seem she is having a lot more anxiety, more depressed, with a lot of racing thoughts. She was unsure what she is doing and worry about the future when she gets out from here. She reports passive SI deny plans or intention. However she reports severe suicidal thoughts to the other disciplines. She said she will have plan to like get herself off the bridge after discharge. Therefore I changed it from 15 minute checks 5. Please racing thoughts, ? If she have any psychotic behavior. Deny HI/AVH/SIB. She reports feeling some kind of sedation on PRNs which is incongruent. She is visible in and out of her room to common areas auto long. Due to severe anxiety with unsafe thoughts and racing thoughts eye increase hydroxyzine up to 50 PRNs and Zyprexa 5 mg every 4 hours. Nursing offer medication at this time with pending effect Hydroxyzine 50 mg q.6 hours as needed for anxiety. Zyprexa started 5 mg q.4 hours as needed for racing thoughts. Restart lithium 600 mg at bedtime. If she tolerates well we can increase up to 900 over the weekends and rechecked the lithium level next week. Half Moon level on the 20 is 0.15 very low after too nice not taking. 02/13: Increase Half Moon to 900 mg HS. 02/15/25: Resume care. Passive SI. Question about paranoia and racing thoughts. Explained house olanzapine is working and its indication. Lost of education regarding medication compliant inconsistently taking to help with mental health. Patient's go back and for with medication. Hopefully she will taking medication as prescribed tonight and moving forward. Continue with lithium 900 at bedtime for depression and suicidal thoughts. If she consistently taking medication will withdrawal level the end of the week. Schedule Zyprexa 5 mg at bedtime with PRNs for psychosis. Discontinue Adderall which is not helpful. Restart on guanfacine extended release 1 mg daily in the morning. 02/16/25: Slightly improved compared to yesterday in mood and racing thoughts. Compliant with medications. Educate patient on grounding technique for anxiety. Focused on the present moment so she does not get too overwhelmed thinking about for future. Review with patient medication changes made yesterday and confirmed that does nothing change today. Continued to encourage patient to compliant with medication. Denies safety concerns however reports that to the nurse that she has passive SI. 02/17/25: No sleeping or appetite issues. Compliant with medications. Been compliant with lithium. Could be have level checked on Friday. Reports feeling sedated on medications. However be alert and awake visible at times attempted to groups with less racing thoughts, less anxious, moderate to severe depression. She seems less preoccupied. Zyprexa seems helpful. However I could not going higher dose today as she complained about feeling so tired. Blood pressure running in the low end. Encourage fluids p.o. intake. We will continue to monitor. 02/18/25: Slept for 8 hours, improve in appetite, is medication compliant. She agreed not to switching back and forth between medications as the current plans working very well. Less overwhelmed. No anxiety but high on depression. No racing thoughts. Poor ADL. Encouraged to shower daily. Receptive with continue the current plan with lithium level will be scheduled on Friday. Educate on taking medication only at night on Friday to get the accurate blood level. Passive Suicidal thoughts x1. No other safety concerns. She is mildly sedated on medication. We will not increase Zyprexa due to sedation. We will change to 15 minute checks. 02/19:She has passive SI. continue current management and treatment plan. 02/20: refuses lithium; she feels sedated with it Educational material about ECT and TMS provided. Continue current management and treatment plan. 02/21: Laying in bed. keeping to self. continues to report feeling depressed. She reports less anxiety with buspar. pt stated, I'm terrified of where to go after the hospital. I want to . I'm not thinking of ways to do it . focused on discharge and how she will function outside of hospital. Refused Half Moon and zyprexa. denies HI/VH/AH. Encouraged to leave bed/room. 02/22: Laying in bed. keeping to self. continues to report feeling depressed. Refused Half Moon and zyprexa last night; pt reports she does not want to continue taking these d/t making me feel sedated . DC Zyprexa 5mg PO bedtime and Half Moon 900mg PO bedtime. Discussed starting Depakote; risks/benefits reviewed. Pt agreed to trial. Start: Depakote ER 500mg PO bedtime. denies HI/VH/AH. Continue to report suicidal ideation. 02/23: Patient notes that she feels normal. Not happy or sad. She reports 10 anxiety and 03/03 depression. She states that she felt good after taking her first dose of depakote yesterday. She denies SI at this times and states it is possibly because she just woke up. She notes that she has been experiencing SI daily, during this admission and attributes her SI to worry about surviving in the community. She denies HI/AH/VH. Continue current treatment regimen. 02/24: Patient states that she feels depressed. She reports severe depression and moderate anxiety. She states that Buspirone helps with her anxiety. She notes that she is not looking forward to the future; she thinks that she will be lonely, may not be able to take care of herself, and will ultimately be homeless. She notes SI earlier this morning with plan to jump off a building or cecilio. She currently denies SI/HI/AH/VH. She is willing to trial Wellbutrin, which she was previously on, for her depression. Wellbutrin XL 150 mg daily ordered; advised to take as prescribed; instructed on the risks, benefits, and potential adverse reactions of the medication; verbalized understanding and agreed with the plan. Continue current treatment regimen. 02/25/2025: Does feel that BuSpar is helping with anxiety symptoms. Sleep okay. Intermittently in the milieu. Reported feeling more irritable later in the daytime. Will continue to observe. Just started Wellbutrin yesterday 02/26/2025: We will continue to observe any irritability in context of starting Wellbutrin. Good benefit from partial hospital program as part of disposition planning and open to same 02/27: Lower wellbutrin to 100mg as feeling irritable/angry since starting same. Might consider ECT- patient open to same -Patient continues to struggle with depression; characterlogical component making treatment decisions more difficult 02/28 Patient reports that though she remains depressed she is not very interested in taking much medication other than continuing with BuSpar and seeing if Zyprexa can remain helpful. To that end she agrees to increasing BuSpar dose; asks for Zyprexa to be lowered some since 5 mg is sedating. She asks for Wellbutrin to be discontinued feeling that it makes her irritable. Discussed other treatment options and patient agrees that therapy will be helpful. Discussed her growing up years, home life, relationships and patient agrees that there is generational mental illness struggles that have affected her. Also discussed other treatment options including TMS which she is very interested in. Patient denies any active SI. She says that her passive SI has been with her so long read a will likely always be around and that it comes and goes throughout the day. She feels that she is getting ready to discharge because she needs to get back to work. She is ambivalent about her living situation, debating whether to stay where she is now or whether to move in with her brother and mother. Patient shared past history: Growing up, she lived with her grampa, who owned the house, her scary drug addicted uncle who lived in the basement and with mom and 2 brothers mom Patient says was never allowed to have friends over; she reports that she felt mostly close to her mother and brothers though there was little interaction. one brother ended up being manic; other brother ended up in [employer] Patient reports that throughout adolescence and into adulthood she has had lot's of anxiety, vomiting, scratching self....one time cut hair off; patient struggled with impulsive decisions such as quitting jobs, or quit talking to new acquaintances... Worried that she would be unable to be an adequate worker or inadequate friend Impression: Patient remains depressed but she has improved and is with noticeably brighter affect; patient herself acknowledges that she will likely have intermittent suicidal thoughts as she has had them for years and she agrees that a significant portion of her treatment will be best treated by therapy. Though she has intermittent SI, it is passive patient is future oriented and is not in imminent risk for harm to self or others. Currently she feels well enough to discharge and continue treatment as an outpatient. Regarding TMS: -will change working diagnosis to MDD, recurrent, severe with intermittent psychotic symptoms. Initially insurance underwriter gave patient a provisional diagnosis of bipolar disorder due to the fact that she has some biological loading for this diagnosis and had a strong reaction when starting Prozac that could possibly have been the beginning of a manic episode. However, she has never actually had a manic episode and her reaction to Prozac is inconclusive. Patient is also overall wary of medications making it difficult to treat her chronic depression and anxiety. TMS is less an option. The research is inconclusive about the actual risk or even possibility that TMS could trigger a manic episode in someone with bipolar disorder, as several studies have not found a statistically significant increase in this risk (/pmc.ncbi.nlm.nih.gov/articles/PHT9350762); furthermore there is new emerging consideration that TMS could possibly be used to treat bipolar depression. Patient has chronically debilitating depression that significantly impairs her function and enjoyment of life. Risks discussed with patient and patient and insurance underwriter agree that the potential benefit of TMS outweighs the risks Plan: CV. Change to 15 minute checks Increase BuSpar to 10 mg t.i.d. DC Wellbutrin; patient thinks it makes her irritable Continue Zyprexa but lowered to 2.5 mg daily; continue with p.r.n. TMS consult placed outpt services being set up [facility] referral placed dc'dithium (though seemed to help) Dc'd zyprexa 5mg qhs (said felt sedated) Continue with Buspirone 10 mg twice daily for anxiety. Zyprexa take over the extremely anxiety with the racing thoughts and psychosis I plan to take her off from BuSpar. DC Invega 6 mg q.h.s.; AH was momentary and maybe just mood congruent; will monitor Dc intuniv; not helpful; adderall more effective. We discontinued Adderall and put her back Intuniv 1 mg daily. Labs work order yesterday was within normal limit. 02/11/25: Half Moon level 0.15 Past med trials: Zoloft 25mg Helped a little Prozac: caused highly irritable agitated state Wellbutrin: felt like in a bubble, which was helpful Regarding Half Moon, Risks, side-effects and benefits reviewed with pt, including, but not limited to, damage to kidneys and thyroid; pt was educated to stay hydrated, to watch for symptoms of lithium toxicity (also discussed, including but not limited to nausea, tremor, confusion) and the need to stay away from OTC NSAIDs (specifics reviewed) aside from Tylenol. Continued to reinforce education regarding indication and side effects from lithium. Patient educated on: diagnosis, medication risk/benefits, TMS and therapeutic strategies Informed Consent: understands Reason for continued inpatient stay Substantial Risk for: stable for discharge Time Spent With Patient Time: Total time managing care of this patient today ____ minutes.
[2025-02-28 20:00] VITALS: BP 108/57; PULSE 76; RESP 16; TEMP 36.7; O2SAT 99
[2025-02-28] MEDS: guanFACINE HCl ER 1 MG TAB.ER.24H PO (23:07)
[2025-03-01 08:00] VITALS: BP 103/60; PULSE 66; TEMP 36.8; O2SAT 97
[2025-03-01] MEDS: Nicotine 21 MG PATCH.TD24 TRANSDERMA (08:42)
[2025-03-01] MEDS: Amphetamine Mixed Salts 10 MG TABLET 5 MG PO (16:08)
[2025-03-01 20:00] VITALS: BP 120/75; PULSE 101; RESP 18; TEMP 36.6; O2SAT 95
--- NOTE | 2025-03-01 21:32 | P.PNPSI_ITS ---
Subjective Subjective Date of Service: 03/01/25 Reason For Visit: SI Interim History: met with patient; discussed with team Patient reports that she is doing a little better. Would like BuSpar changed to b.i.d.. Patient asked to revisit the topic of Adderall, saying she thought it was helpful and regretted asking for it to be discontinued earlier on in her admission. [employer]ist [employer] agreed to restart it as patient has a history of ADHD and impulsivity. Patient talked more about TMS and like the idea after meeting with consult. She continues to agree with plan for discharge at the end of this week and talked about getting back to work and how even though she struggles at it, finds that it is a welcome distraction. No SI Mental Status Exam Mental Status Exam Narrative: Pt is alert and oriented; behavior is cooperative, friendly and calm; patient is not in distress; dressed in casual attire with unkempt hair but adequate hygiene; mood is described as ok right now and affect congruent, overall brighter; eye contact appropriate; Speech is normal rate, volume and prosody and not pressured; no psychomotor agitation/retardation present; thought process is organized and goal directed; Thought content is on tx and struggling with self- deprecating thoughts; otherwise pertinent to relevant topics and without any delusional content, paranoid ideations or grandiosity; intermittent passive SI; no active SI; no HI. Denies AVH and there is no evidence of perceptual disturbance. Patients insight and judgment are fair Diagnostics Vital Signs (24Hr): Vital Signs - 24 hr 03/01/25 08:00 03/01/25 20:00 Temperature 98.2 F 97.9 F Pulse Rate 66 101 H Respiratory Rate 18 Blood Pressure 103/60 120/75 Pulse Oximetry 97 95 Oxygen Delivery Method Room Air Room Air BMI result Body Mass Index 50.2 Labs 02/04/25 08:12 02/11/25 07:55 Medications Medications Current Medications Acetaminophen (Acetaminophen 325 Mg Tablet) 650 mg PO Q6H PRN PRN Reason: Headache/Pain, Scale 1-10 Last Admin: 02/21/25 23:23 Dose: 650 mg Al Hydroxide/Mg Hydroxide (Magnesium Hydrox/Alum Hydrox 30 Ml Oral.Susp) 30 ml PO Q6H PRN PRN Reason: Heartburn/Nausea Amphetamine/Dextroamphetamine (Dextroamphetamine/Amphetamine Xr 10 Mg Cap.Er.24h) 10 mg PO DAILY [facility] Buspirone HCl (Buspirone Hcl 10 Mg Tablet) 10 mg PO TID ETHAN Stop: 03/01/25 23:00 Last Admin: 03/01/25 19:53 Dose: 10 mg Buspirone HCl (Buspirone Hcl 5 Mg Tablet) 15 mg PO BID [facility] Guaifenesin/Dextromethorphan (Guaifenesin Dm 600/30 1 Tab Tab.Er.12h) 1 tab PO BID PRN PRN Reason: Cough, congestion Last Admin: 02/21/25 23:20 Dose: 1 tab Guanfacine HCl (Guanfacine Hcl Er 1 Mg Tab.Er.24h) 1 mg PO BEDTIME [facility] Last Admin: 03/01/25 19:53 Dose: Not Given Hydroxyzine HCl (Hydroxyzine Hcl 50 Mg Tablet) 50 mg PO Q6H PRN PRN Reason: mild anxiety Last Admin: 02/27/25 17:43 Dose: 50 mg Magnesium Hydroxide (Milk Of Magnesia 30 Ml Oral.Susp) 30 ml PO DAILY PRN PRN Reason: Constipation Nicotine (Nicotine 21 Mg Patch.Td24) 21 mg TRANSDERMA DAILY PRN PRN Reason: smoking cessation Last Admin: 03/01/25 08:42 Dose: 21 mg Nicotine Polacrilex (Nicotine Polacrilex 2 Mg Gum) 4 mg BUCCAL Q2H PRN PRN Reason: Nicotine Cravings Last Admin: 03/01/25 17:31 Dose: 4 mg Olanzapine (Olanzapine 2.5 Mg Tablet) 2.5 mg PO Q4H PRN PRN Reason: racing thougts Olanzapine (Olanzapine 2.5 Mg Tablet) 2.5 mg PO DAILY [facility] Last Admin: 03/01/25 08:44 Dose: 2.5 mg Ondansetron HCl (Ondansetron Odt 4 Mg Tab.Rapdis) 4 mg TRANSLINGU Q4H PRN PRN Reason: Nausea and Vomiting Last Admin: 02/26/25 11:32 Dose: 4 mg Trazodone HCl (Trazodone Hcl 25 Mg Halftab) 25 mg PO BEDTIME MRX1 PRN PRN Reason: insomnia Last Admin: 02/14/25 23:02 Dose: 25 mg Allergies Allergies Allergy/AdvReac Type Severity Reaction Status Date / Time No Known Allergies Allergy Verified 02/02/25 14:07 Assessment & Plan Assessment & Plan (1) MDD (major depressive disorder), recurrent episode, severe: Status: Acute Code(s): F33.2 - Major depressive disorder, recurrent severe without psychotic features (2) Anxiety: Status: Acute Code(s): F41.9 - Anxiety disorder, unspecified Plan HPI: Pt is a 24 yo female with hx of depression, anxiety, who presents for worsening depression with SI to hang herself. Patient reports depression since the 8th grade and explains that she has been chronically dysthymic with severe depressive episodes interspersed, that can last for weeks and during which time patient has to force herself out of bed. Patient reports chronic daily wish, wishing she could just escape from her depression and . Past August 2024, during a particularly challenging depressive episode she started intermittently hearing words such as cunt and . get a job.. In September, seemingly out of nowhere she had thoughts to harm other people and was worried she might stab someone while working at [employer]; she denies ever having desire or urges to harming anyone at all and just had this thought but it scared her and so she presented to the hospital so she could get locked up so as not to hurt anyone... Patient was started on Invega; while she was there she had a dystonic reaction to a p.r.n. medication. Patient has continued taking paliperidone however she has remained very depressed and this past week her passive SI started becoming active, with thoughts to hang herself or to jump off something high; patient started develop a plan but it did not become intent. Patient denies any discrete history of manic type episodes or behaviors however she was once tried on Prozac which quickly resulted in extreme high irritability, impulsivity even to the point of wanting to jump out of a car, which resolved once poked Truong was discontinued. Denies any drug or alcohol use; minimal cannabis and not for months; denies history of trauma. Denies any current AVH Formulation/clinical reasoning: Patient has chronic, debilitating depression which has evolved to include active SI; very limited medication trials, Zoloft 25 mg for a couple of months and then Wellbutrin which she both discontinued at some point. Provisional diagnosis of bipolar disorder: Patient had what sounds like the beginnings of a manic episode when she started Prozac, becoming extremely irritable, impulsive, angry, wanting to jump out of a moving car with symptoms resolving as soon as she stopped taking this medication. Patient's brother has bipolar disorder with significant manic episodes. Discussed medication options and reviewed risks/side effects of lithium which patient understood and would like to try. [employer] chosen since patient has chronic SI, debilitating depression and there remains concern for this being a bipolar depression (MDD with psychotic features as a rule out; schizophrenia seems less likely given that only psychotic symptom was AH and was in the context of depression; thought to harm others seems more of a mood congruent, intrusive thought that was completely dystonic). Of note patient has about an hour of good mood when she takes caffeine and stimulant medication might be helpful as well. -regarding recent psychotic symptoms, it seems very possible that these were mood congruent; patient agrees and for now also agrees to hold [facility] course 02/05 depressed, wishing she would be but no active SI; continue tx 02/06 remains depressed, hopeless; passive SI, wishing she were however no active SI. Hopeless that she will ever get better. However agrees to continue with treatment. Denies any AVH Positive for BV; treated with Flagyl gel 02/07 very depressed; wishing she were and w/ significant psychomotor retardation. Says will continue w/ [employer]. -no AVH and will [facility] -will try adderall for considerable psychomotor retardation; will dc intuniv 02/08 did not sleep last night, just laying in bed thinking...she remains very depressed and she says i feel no different from when i came in... However, no SI at all and she says she knows she would never...She does find Adderall helpful for energy and behavioral activation. Discussed lithium; she hopes it will prove helpful and willing to remain on unit, retract 3 day notice.. -junior technical writer agrees to DC patient on Friday after [facility] labs although pt remains depressed but no active SI and she is overall improved. She agrees to remain on unit for continued stabilizing and labs. [employer] agrees to dc on friday, whether or not [employer] has proven effective, as patient will follow up w/ outpt. 02/09: Patient states that she is a little better today. Requests to discontinue lithium as she has not experienced any changes. She notes that she is a little bit anxious and requests medication for this. Depression has improved with no depression today. She notes that lithium has no influence with her current improved mood. She denies SI/HI/AH/VH. Agrees to continue [employer] after this junior technical writer informed her that [employer] likely contributed to her improved mood. Buspirone 5 mg twice daily ordered for anxiety; instructed on the risks, benefits, and potential adverse reactions of the medication. 02/10: Patient notes that she woke up with panic attack this morning and vomited. Her symptoms improved shortly after taking buspirone. She recalls that her vomiting precedes feeling anxious and having racing thoughts that are foggy. She denies anxiety or depression at this time. She is worried about her current housing situation - she has been living with strangers for the past year and a half. She currently works part-time and intends to get a full-time job so she can moved to her new place. She states that her anxiety is related to external factors, including not been taught how to go about daily life's activities. She refused lithium last night; she thinks the medication is not effective as she does not have bipolar symptoms and also concerned about severe side effects of lithium, that she learned from other patients; she request for lithium to be discontinued. She will like for buspirone to be increased. She currently denies SI/HI/AH/VH. Her 3-day notice is up on Friday, but notes that she wants to go home tomorrow to resume work. Buspirone increased to 10 mg twice daily. [facility] ER 900 mg q.h.s. discontinued. Continue current treatment regimen 02/11/25: Patient refused Adderall this morning, talking to medical student and this provider. Explained the lithium how it works and indication. She agreed that her mood is declined since the lithium is taken away. She has not having lithium for 2 nights. Seem she is having a lot more anxiety, more depressed, with a lot of racing thoughts. She was unsure what she is doing and worry about the future when she gets out from here. She reports passive SI deny plans or intention. However she reports severe suicidal thoughts to the other disciplines. She said she will have plan to like get herself off the bridge after discharge. Therefore I changed it from 15 minute checks 5. Please racing thoughts, ? If she have any psychotic behavior. Deny HI/AVH/SIB. She reports feeling some kind of sedation on PRNs which is incongruent. She is visible in and out of her room to common areas auto long. Due to severe anxiety with unsafe thoughts and racing thoughts eye increase hydroxyzine up to 50 PRNs and Zyprexa 5 mg every 4 hours. Nursing offer medication at this time with pending effect Hydroxyzine 50 mg q.6 hours as needed for anxiety. Zyprexa started 5 mg q.4 hours as needed for racing thoughts. Restart lithium 600 mg at bedtime. If she tolerates well we can increase up to 900 over the weekends and rechecked the lithium level next week. [employer] level on the 20 is 0.15 very low after too nice not taking. 02/13: Increase [employer] to 900 mg HS. 02/15/25: Resume care. Passive SI. Question about paranoia and racing thoughts. Explained house olanzapine is working and its indication. Lost of education regarding medication compliant inconsistently taking to help with mental health. Patient's go back and for with medication. Hopefully she will taking medication as prescribed tonight and moving forward. Continue with lithium 900 at bedtime for depression and suicidal thoughts. If she consistently taking medication will withdrawal level the end of the week. Schedule Zyprexa 5 mg at bedtime with PRNs for psychosis. Discontinue Adderall which is not helpful. Restart on guanfacine extended release 1 mg daily in the morning. 02/16/25: Slightly improved compared to yesterday in mood and racing thoughts. Compliant with medications. Educate patient on grounding technique for anxiety. Focused on the present moment so she does not get too overwhelmed thinking about for future. Review with patient medication changes made yesterday and confirmed that does nothing change today. Continued to encourage patient to compliant with medication. Denies safety concerns however reports that to the nurse that she has passive SI. 02/17/25: No sleeping or appetite issues. Compliant with medications. Been compliant with lithium. Could be have level checked on Friday. Reports feeling sedated on medications. However be alert and awake visible at times attempted to groups with less racing thoughts, less anxious, moderate to severe depression. She seems less preoccupied. Zyprexa seems helpful. However I could not going higher dose today as she complained about feeling so tired. Blood pressure running in the low end. Encourage fluids p.o. intake. We will continue to monitor. 02/18/25: Slept for 8 hours, improve in appetite, is medication compliant. She agreed not to switching back and forth between medications as the current plans working very well. Less overwhelmed. No anxiety but high on depression. No racing thoughts. Poor ADL. Encouraged to shower daily. Receptive with continue the current plan with lithium level will be scheduled on Friday. Educate on taking medication only at night on Friday to get the accurate blood level. Passive Suicidal thoughts x1. No other safety concerns. She is mildly sedated on medication. We will not increase Zyprexa due to sedation. We will change to 15 minute checks. 02/19:She has passive SI. continue current management and treatment plan. 02/20: refuses lithium; she feels sedated with it Educational material about ECT and TMS provided. Continue current management and treatment plan. 02/21: Laying in bed. keeping to self. continues to report feeling depressed. She reports less anxiety with buspar. pt stated, I'm terrified of where to go after the hospital. I want to . I'm not thinking of ways to do it . focused on discharge and how she will function outside of hospital. Refused [employer] and zyprexa. denies HI/VH/AH. Encouraged to leave bed/room. 02/22: Laying in bed. keeping to self. continues to report feeling depressed. Refused [employer] and zyprexa last night; pt reports she does not want to continue taking these d/t making me feel sedated . DC Zyprexa 5mg PO bedtime and [employer] 900mg PO bedtime. Discussed starting Depakote; risks/benefits reviewed. Pt agreed to trial. Start: Depakote ER 500mg PO bedtime. denies HI/VH/AH. Continue to report suicidal ideation. 02/23: Patient notes that she feels normal. Not happy or sad. She reports 3/10 anxiety and 7/10 depression. She states that she felt good after taking her first dose of depakote yesterday. She denies SI at this times and states it is possibly because she just woke up. She notes that she has been experiencing SI daily, during this admission and attributes her SI to worry about surviving in the community. She denies HI/AH/VH. Continue current treatment regimen. 02/24: Patient states that she feels depressed. She reports severe depression and moderate anxiety. She states that Buspirone helps with her anxiety. She notes that she is not looking forward to the future; she thinks that she will be lonely, may not be able to take care of herself, and will ultimately be homeless. She notes SI earlier this morning with plan to jump off a building or cecilio. She currently denies SI/HI/AH/VH. She is willing to trial Wellbutrin, which she was previously on, for her depression. Wellbutrin XL 150 mg daily ordered; advised to take as prescribed; instructed on the risks, benefits, and potential adverse reactions of the medication; verbalized understanding and agreed with the plan. Continue current treatment regimen. 02/25/2025: Does feel that BuSpar is helping with anxiety symptoms. Sleep okay. Intermittently in the milieu. Reported feeling more irritable later in the daytime. Will continue to observe. Just started Wellbutrin yesterday 02/26/2025: We will continue to observe any irritability in context of starting Wellbutrin. Good benefit from partial hospital program as part of disposition planning and open to same 02/27: Lower wellbutrin to 100mg as feeling irritable/angry since starting same. Might consider ECT- patient open to same 02/28 Patient reports that though she remains depressed she is not very interested in taking much medication other than continuing with BuSpar and seeing if Zyprexa can remain helpful. To that end she agrees to increasing BuSpar dose; asks for Zyprexa to be lowered some since 5 mg is sedating. She asks for Wellbutrin to be discontinued feeling that it makes her irritable. Discussed other treatment options and patient agrees that therapy will be helpful. Discussed her growing up years, home life, relationships and patient agrees that there is generational mental illness struggles that have affected her. Also discussed other treatment options including TMS which she is very interested in. Patient denies any active SI. She says that her passive SI has been with her so long read a will likely always be around and that it comes and goes throughout the day. She feels that she is getting ready to discharge because she needs to get back to work. She is ambivalent about her living situation, debating whether to stay where she is now or whether to move in with her brother and mother. Patient shared past history: Growing up, she lived with her grampa, who owned the house, her scary drug addicted uncle who lived in the basement and with mom and 2 brothers mom Patient says was never allowed to have friends over; she reports that she felt mostly close to her mother and brothers though there was little interaction. one brother ended up being manic; other brother ended up in [employer] Patient reports that throughout adolescence and into adulthood she has had lot's of anxiety, vomiting, scratching self....one time cut hair off; patient struggled with impulsive decisions such as quitting jobs, or quit talking to new acquaintances... Worried that she would be unable to be an adequate worker or inadequate friend Impression: Patient remains depressed but she has improved and is with noticeably brighter affect; patient herself acknowledges that she will likely have intermittent suicidal thoughts as she has had them for years and she agrees that a significant portion of her treatment will be best treated by therapy. Though she has intermittent SI, it is passive patient is future oriented and is not in imminent risk for harm to self or others. Currently she feels well enough to discharge and continue treatment as an outpatient. Regarding TMS: -will change working diagnosis to MDD, recurrent, severe with intermittent psychotic symptoms. Initially junior technical writer gave patient a provisional diagnosis of bipolar disorder due to the fact that she has some biological loading for this diagnosis and had a strong reaction when starting Prozac that could possibly have been the beginning of a manic episode. However, she has never actually had a manic episode and her reaction to Prozac is inconclusive. Patient is also overall wary of medications making it difficult to treat her chronic depression and anxiety. TMS is less an option. The research is inconclusive about the actual risk or even possibility that TMS could trigger a manic episode in someone with bipolar disorder, as several studies have not found a statistically significant increase in this risk (/pmc.ncbi.nlm.nih.gov/articles/NVZ4350651); furthermore there is new emerging consideration that TMS could possibly be used to treat bipolar depression. Patient has chronically debilitating depression that significantly impairs her function and enjoyment of life. Risks discussed with patient and patient and junior technical writer agree that the potential benefit of TMS outweighs the risks 7/8 patient remains overall doing better; depressive thoughts come and go but patient agrees that she has been thinking negatively about herself for a long time and understands it will take time and therapy to change her thinking. Remains future oriented; no SI and feels safe for discharge. Plan: CV. Change to 15 minute checks Restart Adderall XL Increase BuSpar to 10 mg t.i.d. DC Wellbutrin; patient thinks it makes her irritable Continue Zyprexa but lowered to 2.5 mg daily; continue with p.r.n. TMS consult placed outpt services being set up [facility] referral placed dc'dithium (though seemed to help) Dc'd zyprexa 5mg qhs (said felt sedated) Continue with Buspirone 10 mg twice daily for anxiety. Zyprexa take over the extremely anxiety with the racing thoughts and psychosis I plan to take her off from BuSpar. DC Invega 6 mg q.h.s.; AH was momentary and maybe just mood congruent; will monitor Dc intuniv; not helpful; adderall more effective. We discontinued Adderall and put her back Intuniv 1 mg daily. Labs work order yesterday was within normal limit. 02/11/25: [employer] level 0.15 Past med trials: Zoloft 25mg Helped a little Prozac: caused highly irritable agitated state Wellbutrin: felt like in a bubble, which was helpful Regarding [employer], Risks, side-effects and benefits reviewed with pt, including, but not limited to, damage to kidneys and thyroid; pt was educated to stay hydrated, to watch for symptoms of lithium toxicity (also discussed, including but not limited to nausea, tremor, confusion) and the need to stay away from OTC NSAIDs (specifics reviewed) aside from Tylenol. Continued to reinforce education regarding indication and side effects from lithium. Patient educated on: diagnosis, medication risk/benefits, TMS and therapeutic strategies Informed Consent: understands Reason for continued inpatient stay Substantial Risk for: stable for discharge Time Spent With Patient Time: Total time managing care of this patient today ____ minutes.
[2025-03-02 08:00] VITALS: BP 109/69; PULSE 93; TEMP 36.4; O2SAT 97
[2025-03-02] MEDS: Nicotine 21 MG PATCH.TD24 TRANSDERMA (08:51)
[2025-03-02] MEDS: Dextroamphetamine/Amphetamine XR 10 MG CAP.ER.24H PO (08:53)
[2025-03-02] MEDS: Dextroamphetamine/Amphetamine XR 5 MG CAP.ER.24H PO (11:23)
--- NOTE | 2025-03-02 15:57 | HO.PSYCHPN ---
Subjective Subjective Date of Service: 03/02/25 Reason For Visit: SI Interim History: Met with patient; discussed with team Patient noticeably brighter today and she feels that the Adderall is quite helpful, saying it is helping her focus more. She also feels that her anxiety is overall lowered either by the Zyprexa or the BuSpar but either way she says that she is more clear headed... Patient says she has about 20 minutes worth of wobbly feelings after taking BuSpar but it wears off and he wants to continue with it, finding it helpful. Patient was talking about whether or not she should remain in her apartment because the landlord do not let her have visitors; she says what if I want to have a boyfriend over or have [facility] visit me... Patient will remain there but says she will start thinking about moving elsewhere. Talked again about work and how it can be helpful and that she does not want to get out of the habit of being able to work. Talked again about T MS which she wants to do. Mental Status Exam Mental Status Exam Narrative: Pt is alert and oriented; behavior is cooperative, friendly and calm; much more engaged with peers in the milieu; patient is not in distress; dressed in casual attire with adequate hygiene and grooming; mood is described as doing ok and affect congruent, brighter, smiling some, even making jokes and laughing; eye contact appropriate; Speech is normal rate, volume and prosody and not pressured; no psychomotor agitation/retardation present; thought process is organized and goal directed; Thought content is on tx and struggling with self-deprecating thoughts; otherwise pertinent to relevant topics and without any delusional content, paranoid ideations or grandiosity; no SI; no HI. Denies AVH and there is no evidence of perceptual disturbance. Patients insight and judgment are fair Diagnostics Vital Signs (24Hr): Vital Signs - 24 hr 03/01/25 20:00 03/02/25 08:00 Temperature 97.9 F 97.6 F Pulse Rate 101 H 93 Respiratory Rate 18 Blood Pressure 120/75 109/69 Pulse Oximetry 95 97 Oxygen Delivery Method Room Air Room Air BMI result Body Mass Index 50.2 Labs 02/04/25 08:12 02/11/25 07:55 Medications Medications Current Medications Acetaminophen (Acetaminophen 325 Mg Tablet) 650 mg PO Q6H PRN PRN Reason: Headache/Pain, Scale 1-10 Last Admin: 02/21/25 23:23 Dose: 650 mg Al Hydroxide/Mg Hydroxide (Magnesium Hydrox/Alum Hydrox 30 Ml Oral.Susp) 30 ml PO Q6H PRN PRN Reason: Heartburn/Nausea Amphetamine/Dextroamphetamine (Dextroamphetamine/Amphetamine Xr 10 Mg Cap.Er.24h) 15 mg PO DAILY [facility] Buspirone HCl (Buspirone Hcl 5 Mg Tablet) 15 mg PO BID [facility] Last Admin: 03/02/25 08:53 Dose: 15 mg Guaifenesin/Dextromethorphan (Guaifenesin Dm 600/30 1 Tab Tab.Er.12h) 1 tab PO BID PRN PRN Reason: Cough, congestion Last Admin: 02/21/25 23:20 Dose: 1 tab Guanfacine HCl (Guanfacine Hcl Er 1 Mg Tab.Er.24h) 1 mg PO BEDTIME [facility] Last Admin: 03/01/25 19:53 Dose: Not Given Hydroxyzine HCl (Hydroxyzine Hcl 50 Mg Tablet) 50 mg PO Q6H PRN PRN Reason: mild anxiety Last Admin: 02/27/25 17:43 Dose: 50 mg Magnesium Hydroxide (Milk Of Magnesia 30 Ml Oral.Susp) 30 ml PO DAILY PRN PRN Reason: Constipation Nicotine (Nicotine 21 Mg Patch.Td24) 21 mg TRANSDERMA DAILY PRN PRN Reason: smoking cessation Last Admin: 03/02/25 08:51 Dose: 21 mg Nicotine Polacrilex (Nicotine Polacrilex 2 Mg Gum) 4 mg BUCCAL Q2H PRN PRN Reason: Nicotine Cravings Last Admin: 03/02/25 13:25 Dose: 4 mg Olanzapine (Olanzapine 2.5 Mg Tablet) 2.5 mg PO Q4H PRN PRN Reason: racing thougts Olanzapine (Olanzapine 2.5 Mg Tablet) 2.5 mg PO DAILY [facility] Last Admin: 03/02/25 08:53 Dose: 2.5 mg Ondansetron HCl (Ondansetron Odt 4 Mg Tab.Rapdis) 4 mg TRANSLINGU Q4H PRN PRN Reason: Nausea and Vomiting Last Admin: 02/26/25 11:32 Dose: 4 mg Trazodone HCl (Trazodone Hcl 25 Mg Halftab) 25 mg PO BEDTIME MRX1 PRN PRN Reason: insomnia Last Admin: 02/14/25 23:02 Dose: 25 mg Allergies Allergies Allergy/AdvReac Type Severity Reaction Status Date / Time No Known Allergies Allergy Verified 02/02/25 14:07 Assessment & Plan Assessment & Plan (1) MDD (major depressive disorder), recurrent episode, severe: Status: Acute Code(s): F33.2 - Major depressive disorder, recurrent severe without psychotic features (2) Anxiety: Status: Acute Code(s): F41.9 - Anxiety disorder, unspecified Plan HPI: Pt is a 24 yo female with hx of depression, anxiety, who presents for worsening depression with SI to hang herself. Patient reports depression since the 8th grade and explains that she has been chronically dysthymic with severe depressive episodes interspersed, that can last for weeks and during which time patient has to force herself out of bed. Patient reports chronic daily wish, wishing she could just escape from her depression and . Past August 2024, during a particularly challenging depressive episode she started intermittently hearing words such as cunt and . get a job.. In September, seemingly out of nowhere she had thoughts to harm other people and was worried she might stab someone while working [place] [employer]; she denies ever having desire or urges to harming anyone at all and just had this thought but it scared her and so she presented to the hospital so she could get locked up so as not to hurt anyone... Patient was started on Invega; while she was there she had a dystonic reaction to a p.r.n. medication. Patient has continued taking paliperidone however she has remained very depressed and this past week her passive SI started becoming active, with thoughts to hang herself or to jump off something high; patient started develop a plan but it did not become intent. Patient denies any discrete history of manic type episodes or behaviors however she was once tried on Prozac which quickly resulted in extreme high irritability, impulsivity even to the point of wanting to jump out of a car, which resolved once poked Truong was discontinued. Denies any drug or alcohol use; minimal cannabis and not for months; denies history of trauma. Denies any current AVH Formulation/clinical reasoning: Patient has chronic, debilitating depression which has evolved to include active SI; very limited medication trials, Zoloft 25 mg for a couple of months and then Wellbutrin which she both discontinued at some point. Provisional diagnosis of bipolar disorder: Patient had what sounds like the beginnings of a manic episode when she started Prozac, becoming extremely irritable, impulsive, angry, wanting to jump out of a moving car with symptoms resolving as soon as she stopped taking this medication. Patient's brother has bipolar disorder with significant manic episodes. Discussed medication options and reviewed risks/side effects of lithium which patient understood and would like to try. Istachatta chosen since patient has chronic SI, debilitating depression and there remains concern for this being a bipolar depression (MDD with psychotic features as a rule out; schizophrenia seems less likely given that only psychotic symptom was AH and was in the context of depression; thought to harm others seems more of a mood congruent, intrusive thought that was completely dystonic). Of note patient has about an hour of good mood when she takes caffeine and stimulant medication might be helpful as well. -regarding recent psychotic symptoms, it seems very possible that these were mood congruent; patient agrees and for now also agrees to hold [facility] course 02/05 depressed, wishing she would be but no active SI; continue tx 02/06 remains depressed, hopeless; passive SI, wishing she were however no active SI. Hopeless that she will ever get better. However agrees to continue with treatment. Denies any AVH Positive for BV; treated with Flagyl gel 02/07 very depressed; wishing she were and w/ significant psychomotor retardation. Says will continue w/ Istachatta. -no [facility]H [facility]will try adderall for considerable psychomotor retardation; will dc intuniv 02/08 did not sleep last night, just laying in bed thinking...she remains very depressed and she says i feel no different from when i came in... However, no SI at all and she says she knows she would never...She does find Adderall helpful for energy and behavioral activation. Discussed lithium; she hopes it will prove helpful and willing to remain on unit, retract 3 day notice.. -staff writer agrees to DC patient on Friday after Istachatta labs although pt remains depressed but no active SI and she is overall improved. She agrees to remain on unit for continued stabilizing and labs. Talent Rep agrees to dc on friday, whether or not Istachatta has proven effective, as patient will follow up w/ outpt. 02/09: Patient states that she is a little better today. Requests to discontinue lithium as she has not experienced any changes. She notes that she is a little bit anxious and requests medication for this. Depression has improved with no depression today. She notes that lithium has no influence with her current improved mood. She denies SI/HI/AH/VH. Agrees to continue Istachatta after this staff writer informed her that Istachatta likely contributed to her improved mood. Buspirone 5 mg twice daily ordered for anxiety; instructed on the risks, benefits, and potential adverse reactions of the medication. 02/10: Patient notes that she woke up with panic attack this morning and vomited. Her symptoms improved shortly after taking buspirone. She recalls that her vomiting precedes feeling anxious and having racing thoughts that are foggy. She denies anxiety or depression at this time. She is worried about her current housing situation - she has been living with strangers for the past year and a half. She currently works part-time and intends to get a full-time job so she can moved to her new place. She states that her anxiety is related to external factors, including not been taught how to go about daily life's activities. She refused lithium last night; she thinks the medication is not effective as she does not have bipolar symptoms and also concerned about severe side effects of lithium, that she learned from other patients; she request for lithium to be discontinued. She will like for buspirone to be increased. She currently denies SI/HI/AH/VH. Her 3-day notice is up on Friday, but notes that she wants to go home tomorrow to resume work. Buspirone increased to 10 mg twice daily. Istachatta ER 900 mg q.h.s. discontinued. Continue current treatment regimen 02/11/25: Patient refused Adderall this morning, talking to medical student and this provider. Explained the lithium how it works and indication. She agreed that her mood is declined since the lithium is taken away. She has not having lithium for 2 nights. Seem she is having a lot more anxiety, more depressed, with a lot of racing thoughts. She was unsure what she is doing and worry about the future when she gets out from here. She reports passive SI deny plans or intention. However she reports severe suicidal thoughts to the other disciplines. She said she will have plan to like get herself off the bridge after discharge. Therefore I changed it from 15 minute checks 5. Please racing thoughts, ? If she have any psychotic behavior. Deny HI/AVH/SIB. She reports feeling some kind of sedation on PRNs which is incongruent. She is visible in and out of her room to common areas auto long. Due to severe anxiety with unsafe thoughts and racing thoughts eye increase hydroxyzine up to 50 PRNs and Zyprexa 5 mg every 4 hours. Nursing offer medication at this time with pending effect Hydroxyzine 50 mg q.6 hours as needed for anxiety. Zyprexa started 5 mg q.4 hours as needed for racing thoughts. Restart lithium 600 mg at bedtime. If she tolerates well we can increase up to 900 over the weekends and rechecked the lithium level next week. Istachatta level on the 20 is 0.15 very low after too nice not taking. 02/13: Increase Istachatta to 900 mg HS. 02/15/25: Resume care. Passive SI. Question about paranoia and racing thoughts. Explained house olanzapine is working and its indication. Lost of education regarding medication compliant inconsistently taking to help with mental health. Patient's go back and for with medication. Hopefully she will taking medication as prescribed tonight and moving forward. Continue with lithium 900 at bedtime for depression and suicidal thoughts. If she consistently taking medication will withdrawal level the end of the week. Schedule Zyprexa 5 mg at bedtime with PRNs for psychosis. Discontinue Adderall which is not helpful. Restart on guanfacine extended release 1 mg daily in the morning. 02/16/25: Slightly improved compared to yesterday in mood and racing thoughts. Compliant with medications. Educate patient on grounding technique for anxiety. Focused on the present moment so she does not get too overwhelmed thinking about for future. Review with patient medication changes made yesterday and confirmed that does nothing change today. Continued to encourage patient to compliant with medication. Denies safety concerns however reports that to the nurse that she has passive SI. 02/17/25: No sleeping or appetite issues. Compliant with medications. Been compliant with lithium. Could be have level checked on Friday. Reports feeling sedated on medications. However be alert and awake visible at times attempted to groups with less racing thoughts, less anxious, moderate to severe depression. She seems less preoccupied. Zyprexa seems helpful. However I could not going higher dose today as she complained about feeling so tired. Blood pressure running in the low end. Encourage fluids p.o. intake. We will continue to monitor. 02/18/25: Slept for 8 hours, improve in appetite, is medication compliant. She agreed not to switching back and forth between medications as the current plans working very well. Less overwhelmed. No anxiety but high on depression. No racing thoughts. Poor ADL. Encouraged to shower daily. Receptive with continue the current plan with lithium level will be scheduled on Friday. Educate on taking medication only at night on Friday to get the accurate blood level. Passive Suicidal thoughts x1. No other safety concerns. She is mildly sedated on medication. We will not increase Zyprexa due to sedation. We will change to 15 minute checks. 02/19:She has passive SI. continue current management and treatment plan. 02/20: refuses lithium; she feels sedated with it Educational material about ECT and TMS provided. Continue current management and treatment plan. 02/21: Laying in bed. keeping to self. continues to report feeling depressed. She reports less anxiety with buspar. pt stated, I'm terrified of where to go after the hospital. I want to . I'm not thinking of ways to do it . focused on discharge and how she will function outside of hospital. Refused Istachatta and zyprexa. denies HI/VH/AH. Encouraged to leave bed/room. 02/22: Laying in bed. keeping to self. continues to report feeling depressed. Refused Istachatta and zyprexa last night; pt reports she does not want to continue taking these d/t making me feel sedated . DC Zyprexa 5mg PO bedtime and Istachatta 900mg PO bedtime. Discussed starting Depakote; risks/benefits reviewed. Pt agreed to trial. Start: Depakote ER 500mg PO bedtime. denies HI/VH/AH. Continue to report suicidal ideation. 02/23: Patient notes that she feels normal. Not happy or sad. She reports 3/10 anxiety and 7/10 depression. She states that she felt good after taking her first dose of depakote yesterday. She denies SI at this times and states it is possibly because she just woke up. She notes that she has been experiencing SI daily, during this admission and attributes her SI to worry about surviving in the community. She denies HI/AH/VH. Continue current treatment regimen. 02/24: Patient states that she feels depressed. She reports severe depression and moderate anxiety. She states that Buspirone helps with her anxiety. She notes that she is not looking forward to the future; she thinks that she will be lonely, may not be able to take care of herself, and will ultimately be homeless. She notes SI earlier this morning with plan to jump off a building or cecilio. She currently denies SI/HI/AH/VH. She is willing to trial Wellbutrin, which she was previously on, for her depression. Wellbutrin XL 150 mg daily ordered; advised to take as prescribed; instructed on the risks, benefits, and potential adverse reactions of the medication; verbalized understanding and agreed with the plan. Continue current treatment regimen. 02/25/2025: Does feel that BuSpar is helping with anxiety symptoms. Sleep okay. Intermittently in the milieu. Reported feeling more irritable later in the daytime. Will continue to observe. Just started Wellbutrin yesterday 02/26/2025: We will continue to observe any irritability in context of starting Wellbutrin. Good benefit from partial hospital program as part of disposition planning and open to same 02/27: Lower wellbutrin to 100mg as feeling irritable/angry since starting same. Might consider ECT- patient open to same 02/28 Patient reports that though she remains depressed she is not very interested in taking much medication other than continuing with BuSpar and seeing if Zyprexa can remain helpful. To that end she agrees to increasing BuSpar dose; asks for Zyprexa to be lowered some since 5 mg is sedating. She asks for Wellbutrin to be discontinued feeling that it makes her irritable. Discussed other treatment options and patient agrees that therapy will be helpful. Discussed her growing up years, home life, relationships and patient agrees that there is generational mental illness struggles that have affected her. Also discussed other treatment options including TMS which she is very interested in. Patient denies any active SI. She says that her passive SI has been with her so long read a will likely always be around and that it comes and goes throughout the day. She feels that she is getting ready to discharge because she needs to get back to work. She is ambivalent about her living situation, debating whether to stay where she is now or whether to move in with her brother and mother. Patient shared past history: Growing up, she lived with her grampa, who owned the house, her scary drug addicted uncle who lived in the basement and with mom and 2 brothers mom Patient says was never allowed to have friends over; she reports that she felt mostly close to her mother and brothers though there was little interaction. one brother ended up being manic; other brother ended up in [employer] Patient reports that throughout adolescence and into adulthood she has had lot's of anxiety, vomiting, scratching self....one time cut hair off; patient struggled with impulsive decisions such as quitting jobs, or quit talking to new acquaintances... Worried that she would be unable to be an adequate worker or inadequate friend Impression: Patient remains depressed but she has improved and is with noticeably brighter affect; patient herself acknowledges that she will likely have intermittent suicidal thoughts as she has had them for years and she agrees that a significant portion of her treatment will be best treated by therapy. Though she has intermittent SI, it is passive patient is future oriented and is not in imminent risk for harm to self or others. Currently she feels well enough to discharge and continue treatment as an outpatient. Regarding TMS: -will change working diagnosis to MDD, recurrent, severe with intermittent psychotic symptoms. Initially staff writer gave patient a provisional diagnosis of bipolar disorder due to the fact that she has some biological loading for this diagnosis and had a strong reaction when starting Prozac that could possibly have been the beginning of a manic episode. However, she has never actually had a manic episode and her reaction to Prozac is inconclusive. Patient is also overall wary of medications making it difficult to treat her chronic depression and anxiety. TMS is less an option. The research is inconclusive about the actual risk or even possibility that TMS could trigger a manic episode in someone with bipolar disorder, as several studies have not found a statistically significant increase in this risk (/pmc.ncbi.nlm.nih.gov/articles/NPT6156795); furthermore there is new emerging consideration that TMS could possibly be used to treat bipolar depression. Patient has chronically debilitating depression that significantly impairs her function and enjoyment of life. Risks discussed with patient and patient and staff writer agree that the potential benefit of TMS outweighs the risks 03/01 patient remains overall doing better; depressive thoughts come and go but patient agrees that she has been thinking negatively about herself for a long time and understands it will take time and therapy to change her thinking. Remains future oriented; no SI and feels safe for discharge. 03/02 Patient noticeably brighter today, smiling, joking and she feels that the Adderall is quite helpful, saying it is helping her focus more. She also feels that her anxiety is overall lowered either by the Zyprexa or the BuSpar but either way she says that she is more clear headed... Patient says she has about 20 minutes worth of wobbly feelings after taking BuSpar but it wears off and he wants to continue with it, finding it helpful. Patient was talking about whether or not she should remain in her apartment because the landlord do not let her have visitors; she says what if I want to have a boyfriend over or have [facility] visit me... Patient will remain there but says she will start thinking about moving elsewhere. Talked again about work and how it can be helpful and that she does not want to get out of the habit of being able to work. Talked again about T MS which she wants to do. No SI Patient remains improved. She is in good behavioral and impulse control on the unit and engaged in treatment, appropriate with peers and staff, future oriented and feeling overall better. Patient is not in imminent risk for harm to self or others and appropriate to continue treatment in the community. Plan: CV. Change to 15 minute checks Restart Adderall XL Increase BuSpar to 10 mg t.i.d. DC Wellbutrin; patient thinks it makes her irritable Continue Zyprexa but lowered to 2.5 mg daily; continue with p.r.n. TMS consult placed outpt services being set up [facility] referral placed dc'dithium (though seemed to help) Dc'd zyprexa 5mg qhs (said felt sedated) Continue with Buspirone 10 mg twice daily for anxiety. Zyprexa take over the extremely anxiety with the racing thoughts and psychosis I plan to take her off from BuSpar. DC Invega 6 mg q.h.s.; AH was momentary and maybe just mood congruent; will monitor Dc intuniv; not helpful; adderall more effective. We discontinued Adderall and put her back Intuniv 1 mg daily. Labs work order yesterday was within normal limit. 02/11/25: Istachatta level 0.15 Past med trials: Zoloft 25mg Helped a little Prozac: caused highly irritable agitated state Wellbutrin: felt like in a bubble, which was helpful Regarding Istachatta, Risks, side-effects and benefits reviewed with pt, including, but not limited to, damage to kidneys and thyroid; pt was educated to stay hydrated, to watch for symptoms of lithium toxicity (also discussed, including but not limited to nausea, tremor, confusion) and the need to stay away from OTC NSAIDs (specifics reviewed) aside from Tylenol. Continued to reinforce education regarding indication and side effects from lithium. Patient educated on: diagnosis, medication risk/benefits, TMS and therapeutic strategies Informed Consent: understands Reason for continued inpatient stay Substantial Risk for: stable for discharge Time Spent With Patient Time: Total time managing care of this patient today ____ minutes.
[2025-03-02 20:00] VITALS: BP 119/68; PULSE 84; RESP 18; TEMP 37.4; O2SAT 95
--- NOTE | 2025-03-03 09:08 | PM.PSYDC ---
DS: Providers Provider Date of Service: 03/03/25 Date of admission: 02/03/25 14:10 Date of discharge: 03/03/25 Primary care physician: Branden Talbert MD Attending physician on admission: Masoud Navas Consults: 02/03/25 18:15 Consult to Hospitalist Stat Comment: Consulting Provider[place] [facility] [place] [facility] [place] For Exam: nausea and vomiting Attending physician on discharge: Masoud Navas DS: Diagnosis Discharge Diagnosis (1) MDD (major depressive disorder), recurrent episode, severe: Status: Acute (2) Anxiety: Status: Acute DS: Medications Discharge Medications Home Medications: Previous Rx's ?Medication ?Instructions ?Recorded buspirone 15 mg tablet 15 mg PO BID 30 days #60 tabs 03/03/25 dextroamphetamine-amphetamine ER 15 mg PO DAILY 30 days #30 caps 03/03/25 15 mg 24hr capsule,extend release (Adderall XR) nicotine 21 mg/24 hr daily 21 mg transdermal DAILY PRN 03/03/25 transdermal patch smoking cessation 28 days #28 ea olanzapine 2.5 mg tablet See Rx Instructions .Route 03/03/25 .COMPLEX racing thougts 30 days #60 tabs ondansetron 4 mg disintegrating 4 mg translingual BID PRN Nausea 03/03/25 tablet And Vomiting 30 days #30 tabs Mental Status Exam Mental Status Exam Narrative: Pt is alert and oriented; behavior is cooperative, friendly and calm; social in milieu; patient is not in distress; dressed in casual attire with adequate hygiene and grooming; mood is described as ok and affect remains much brighter, calm, smiling appropriately; eye contact appropriate; Speech is normal rate, volume and prosody and not pressured; no psychomotor agitation/retardation present; thought process is organized and goal directed; Thought content is on tx, aftercare plans; otherwise pertinent to relevant topics and without any delusional content, paranoid ideations or grandiosity; no SI; no HI. Denies AVH and there is no evidence of perceptual disturbance. Patients insight and judgment are fair DS: Summary Hospital Course Hospital Course: HPI: Pt is a 24 yo female with hx of depression, anxiety, who presents for worsening depression with SI to hang herself. Patient reports depression since the 8th grade and explains that she has been chronically dysthymic with severe depressive episodes interspersed, that can last for weeks and during which time patient has to force herself out of bed. Patient reports chronic daily wish, wishing she could just escape from her depression and . Past August 2024, during a particularly challenging depressive episode she started intermittently hearing words such as cunt and . get a job.. In September, seemingly out of nowhere she had thoughts to harm other people and was worried she might stab someone while working at [employer]; she denies ever having desire or urges to harming anyone at all and just had this thought but it scared her and so she presented to the hospital so she could get locked up so as not to hurt anyone... Patient was started on Invega; while she was there she had a dystonic reaction to a p.r.n. medication. Patient has continued taking paliperidone however she has remained very depressed and this past week her passive SI started becoming active, with thoughts to hang herself or to jump off something high; patient started develop a plan but it did not become intent. Patient denies any discrete history of manic type episodes or behaviors however she was once tried on Prozac which quickly resulted in extreme high irritability, impulsivity even to the point of wanting to jump out of a car, which resolved once poked Truong was discontinued. Denies any drug or alcohol use; minimal cannabis and not for months; denies history of trauma. Denies any current AVH Formulation/clinical reasoning: Patient has chronic, debilitating depression which has evolved to include active SI; very limited medication trials, Zoloft 25 mg for a couple of months and then Wellbutrin which she both discontinued at some point. Provisional diagnosis of bipolar disorder: Patient had what sounds like the beginnings of a manic episode when she started Prozac, becoming extremely irritable, impulsive, angry, wanting to jump out of a moving car with symptoms resolving as soon as she stopped taking this medication. Patient's brother has bipolar disorder with significant manic episodes. Discussed medication options and reviewed risks/side effects of lithium which patient understood and would like to try. Crestone chosen since patient has chronic SI, debilitating depression and there remains concern for this being a bipolar depression (MDD with psychotic features as a rule out; schizophrenia seems less likely given that only psychotic symptom was AH and was in the context of depression; thought to harm others seems more of a mood congruent, intrusive thought that was completely dystonic). Of note patient has about an hour of good mood when she takes caffeine and stimulant medication might be helpful as well. -regarding recent psychotic symptoms, it seems very possible that these were mood congruent; patient agrees and for now also agrees to hold [facility] Hospital course 02/05 depressed, wishing she would be but no active SI; continue tx 02/06 remains depressed, hopeless; passive SI, wishing she were however no active SI. Hopeless that she will ever get better. However agrees to continue with treatment. Denies any AVH Positive for BV; treated with Flagyl gel 02/07 very depressed; wishing she were and w/ significant psychomotor retardation. Says will continue w/ Crestone. -no AVH and will dc Invega -will try adderall for considerable psychomotor retardation; will dc intuniv 02/08 did not sleep last night, just laying in bed thinking...she remains very depressed and she says i feel no different from when i came in... However, no SI at all and she says she knows she would never...She does find Adderall helpful for energy and behavioral activation. Discussed lithium; she hopes it will prove helpful and willing to remain on unit, retract 3 day notice.. -chief underwriter agrees to DC patient on Friday after Crestone labs although pt remains depressed but no active SI and she is overall improved. She agrees to remain on unit for continued stabilizing and labs. Heart Surgeon agrees to dc on friday, whether or not Crestone has proven effective, as patient will follow up w/ outpt. 02/09: Patient states that she is a little better today. Requests to discontinue lithium as she has not experienced any changes. She notes that she is a little bit anxious and requests medication for this. Depression has improved with no depression today. She notes that lithium has no influence with her current improved mood. She denies SI/HI/AH/VH. Agrees to continue Crestone after this chief underwriter informed her that Crestone likely contributed to her improved mood. Buspirone 5 mg twice daily ordered for anxiety; instructed on the risks, benefits, and potential adverse reactions of the medication. 02/10: Patient notes that she woke up with panic attack this morning and vomited. Her symptoms improved shortly after taking buspirone. She recalls that her vomiting precedes feeling anxious and having racing thoughts that are foggy. She denies anxiety or depression at this time. She is worried about her current housing situation - she has been living with strangers for the past year and a half. She currently works part-time and intends to get a full-time job so she can moved to her new place. She states that her anxiety is related to external factors, including not been taught how to go about daily life's activities. She refused lithium last night; she thinks the medication is not effective as she does not have bipolar symptoms and also concerned about severe side effects of lithium, that she learned from other patients; she request for lithium to be discontinued. She will like for buspirone to be increased. She currently denies SI/HI/AH/VH. Her 3-day notice is up on Friday, but notes that she wants to go home tomorrow to resume work. Buspirone increased to 10 mg twice daily. Crestone ER 900 mg q.h.s. discontinued. Continue current treatment regimen 02/11/25: Patient refused Adderall this morning, talking to medical student and this provider. Explained the lithium how it works and indication. She agreed that her mood is declined since the lithium is taken away. She has not having lithium for 2 nights. Seem she is having a lot more anxiety, more depressed, with a lot of racing thoughts. She was unsure what she is doing and worry about the future when she gets out from here. She reports passive SI deny plans or intention. However she reports severe suicidal thoughts to the other disciplines. She said she will have plan to like get herself off the bridge after discharge. Therefore I changed it from 15 minute checks 5. Please racing thoughts, ? If she have any psychotic behavior. Deny HI/AVH/SIB. She reports feeling some kind of sedation on PRNs which is incongruent. She is visible in and out of her room to common areas auto long. Due to severe anxiety with unsafe thoughts and racing thoughts eye increase hydroxyzine up to 50 PRNs and Zyprexa 5 mg every 4 hours. Nursing offer medication at this time with pending effect Hydroxyzine 50 mg q.6 hours as needed for anxiety. Zyprexa started 5 mg q.4 hours as needed for racing thoughts. Restart lithium 600 mg at bedtime. If she tolerates well we can increase up to 900 over the weekends and rechecked the lithium level next week. Crestone level on the 20 is 0.15 very low after too nice not taking. 02/13: Increase Crestone to 900 mg HS. 02/15/25: Resume care. Passive SI. Question about paranoia and racing thoughts. Explained house olanzapine is working and its indication. Lost of education regarding medication compliant inconsistently taking to help with mental health. Patient's go back and for with medication. Hopefully she will taking medication as prescribed tonight and moving forward. Continue with lithium 900 at bedtime for depression and suicidal thoughts. If she consistently taking medication will withdrawal level the end of the week. Schedule Zyprexa 5 mg at bedtime with PRNs for psychosis. Discontinue Adderall which is not helpful. Restart on guanfacine extended release 1 mg daily in the morning. 02/16/25: Slightly improved compared to yesterday in mood and racing thoughts. Compliant with medications. Educate patient on grounding technique for anxiety. Focused on the present moment so she does not get too overwhelmed thinking about for future. Review with patient medication changes made yesterday and confirmed that does nothing change today. Continued to encourage patient to compliant with medication. Denies safety concerns however reports that to the nurse that she has passive SI. 02/17/25: No sleeping or appetite issues. Compliant with medications. Been compliant with lithium. Could be have level checked on Friday. Reports feeling sedated on medications. However be alert and awake visible at times attempted to groups with less racing thoughts, less anxious, moderate to severe depression. She seems less preoccupied. Zyprexa seems helpful. However I could not going higher dose today as she complained about feeling so tired. Blood pressure running in the low end. Encourage fluids p.o. intake. We will continue to monitor. 02/18/25: Slept for 8 hours, improve in appetite, is medication compliant. She agreed not to switching back and forth between medications as the current plans working very well. Less overwhelmed. No anxiety but high on depression. No racing thoughts. Poor ADL. Encouraged to shower daily. Receptive with continue the current plan with lithium level will be scheduled on Friday. Educate on taking medication only at night on Friday to get the accurate blood level. Passive Suicidal thoughts x1. No other safety concerns. She is mildly sedated on medication. We will not increase Zyprexa due to sedation. We will change to 15 minute checks. 02/19:She has passive SI. continue current management and treatment plan. 02/20: refuses lithium; she feels sedated with it Educational material about ECT and TMS provided. Continue current management and treatment plan. 02/21: Laying in bed. keeping to self. continues to report feeling depressed. She reports less anxiety with buspar. pt stated, I'm terrified of where to go after the hospital. I want to . I'm not thinking of ways to do it . focused on discharge and how she will function outside of hospital. Refused Crestone and zyprexa. denies HI/VH/AH. Encouraged to leave bed/room. 02/22: Laying in bed. keeping to self. continues to report feeling depressed. Refused Crestone and zyprexa last night; pt reports she does not want to continue taking these d/t making me feel sedated . DC Zyprexa 5mg PO bedtime and Crestone 900mg PO bedtime. Discussed starting Depakote; risks/benefits reviewed. Pt agreed to trial. Start: Depakote ER 500mg PO bedtime. denies HI/VH/AH. Continue to report suicidal ideation. 02/23: Patient notes that she feels normal. Not happy or sad. She reports 3/10 anxiety and 7/10 depression. She states that she felt good after taking her first dose of depakote yesterday. She denies SI at this times and states it is possibly because she just woke up. She notes that she has been experiencing SI daily, during this admission and attributes her SI to worry about surviving in the community. She denies HI/AH/VH. Continue current treatment regimen. 02/24: Patient states that she feels depressed. She reports severe depression and moderate anxiety. She states that Buspirone helps with her anxiety. She notes that she is not looking forward to the future; she thinks that she will be lonely, may not be able to take care of herself, and will ultimately be homeless. She notes SI earlier this morning with plan to jump off a building or cecilio. She currently denies SI/HI/AH/VH. She is willing to trial Wellbutrin, which she was previously on, for her depression. Wellbutrin XL 150 mg daily ordered; advised to take as prescribed; instructed on the risks, benefits, and potential adverse reactions of the medication; verbalized understanding and agreed with the plan. Continue current treatment regimen. 02/25/2025: Does feel that BuSpar is helping with anxiety symptoms. Sleep okay. Intermittently in the milieu. Reported feeling more irritable later in the daytime. Will continue to observe. Just started Wellbutrin yesterday 02/26/2025: We will continue to observe any irritability in context of starting Wellbutrin. Good benefit from partial hospital program as part of disposition planning and open to same 02/27: Lower wellbutrin to 100mg as feeling irritable/angry since starting same. Might consider ECT- patient open to same 02/28 Patient reports that though she remains depressed she is not very interested in taking much medication other than continuing with BuSpar and seeing if Zyprexa can remain helpful. To that end she agrees to increasing BuSpar dose; asks for Zyprexa to be lowered some since 5 mg is sedating. She asks for Wellbutrin to be discontinued feeling that it makes her irritable. Discussed other treatment options and patient agrees that therapy will be helpful. Discussed her growing up years, home life, relationships and patient agrees that there is generational mental illness struggles that have affected her. Also discussed other treatment options including TMS which she is very interested in. Patient denies any active SI. She says that her passive SI has been with her so long read a will likely always be around and that it comes and goes throughout the day. She feels that she is getting ready to discharge because she needs to get back to work. She is ambivalent about her living situation, debating whether to stay where she is now or whether to move in with her brother and mother. Patient shared past history: Growing up, she lived with her grampa, who owned the house, her scary drug addicted uncle who lived in the basement and with mom and 2 brothers mom Patient says was never allowed to have friends over; she reports that she felt mostly close to her mother and brothers though there was little interaction. one brother ended up being manic; other brother ended up in [employer] Patient reports that throughout adolescence and into adulthood she has had lot's of anxiety, vomiting, scratching self....one time cut hair off; patient struggled with impulsive decisions such as quitting jobs, or quit talking to new acquaintances... Worried that she would be unable to be an adequate worker or inadequate friend Impression: Patient remains depressed but she has improved and is with noticeably brighter affect; patient herself acknowledges that she will likely have intermittent suicidal thoughts as she has had them for years and she agrees that a significant portion of her treatment will be best treated by therapy. Though she has intermittent SI, it is passive patient is future oriented and is not in imminent risk for harm to self or others. Currently she feels well enough to discharge and continue treatment as an outpatient. Regarding TMS: -will change working diagnosis to MDD, recurrent, severe with intermittent psychotic symptoms. Patient has never had a manic episode. Initially chief underwriter gave patient a provisional diagnosis of bipolar disorder due to the fact that she has biological loading for this diagnosis and had a strong reaction when starting Prozac that could possibly have been the beginning of a manic episode. However, as previously stated she has never actually had a manic episode. And the etiology of her reaction to Prozac is inconclusive. Patient is also overall wary of medications making it difficult to treat her chronic depression and anxiety. TMS thus is a viable option. The research is inconclusive about the actual risk that TMS could trigger a manic episode in someone with bipolar disorder, as several studies have not found a statistically significant increase in this risk (/pmc.ncbi.nlm.nih.gov/articles/AKK7446101); furthermore there is new emerging consideration that TMS could possibly be used to treat bipolar depression. Patient has chronically debilitating depression that significantly impairs her function and enjoyment of life. Risks discussed with patient and patient and chief underwriter agree that the potential benefit of TMS outweighs the risks. 03/01 patient remains overall doing better; depressive thoughts come and go but patient agrees that she has been thinking negatively about herself for a long time and understands it will take time and therapy to change her thinking. Remains future oriented; no SI and feels safe for discharge. 03/02 Patient remains noticeably brighter, smiling, joking and she feels that the Adderall is quite helpful, saying it is helping her focus more. She also feels that her anxiety is overall lowered either by the Zyprexa or the BuSpar but either way she says that she is more clear headed... Patient says she has about 20 minutes worth of wobbly feelings after taking BuSpar but it wears off and he wants to continue with it, finding it helpful. Patient was talking about whether or not she should remain in her apartment because the landlord do not let her have visitors; she says what if I want to have a boyfriend over or have [facility] visit me... Patient will remain there but says she will start thinking about moving elsewhere. Talked again about work and how it can be helpful and that she does not want to get out of the habit of being able to work. Talked again about T MS which she wants to do. No SI Patient remains improved. She is in good behavioral and impulse control on the unit and engaged in treatment, appropriate with peers and staff, future oriented and feeling overall better. Patient is not in imminent risk for harm to self or others and appropriate to continue treatment in the community. Medications: BuSpar 15 mg b.i.d. Adderall XL 15 mg daily Zyprexa 2.5 mg daily; also available as p.r.n. for anxiety (Risks/side effects of Zyprexa discussed). Past med trials: Zoloft 25mg Helped a little Prozac: caused highly irritable agitated state Wellbutrin: felt like in a bubble, which was helpful; may cause some agitation Crestone: Seem to be helpful Intuniv: Not clear if helpful Time spent discussing smoking cessation with patient: 3 to 10 minutes Status at Discharge Functional status at discharge: independent ambulation Overall status at discharge: patient is back to baseline Time Spent with Patient Time attestation: Total time managing care of this patient today _40___ minutes. Time spent: Greater than 30 minutes Specific discharge activities: Met with patient; discussed with team; prescriptions; charting Discharge Plan Discharge Anticipated Discharge Date/Time: 03/03/25 11:30 Patient Disposition: Home, Self-Care Discharge Diagnosis: MDD, recurrent, severe with psychotic features, in partial remission Referrals: [facility] [Other] - 1 Week Referral Note: Referred to [facility]. Agency Staff will follow-up with you by telephone after discharge to schedule an appointment Lorraine Rodriguez: [facility] (psychiatry) [Other] - 03/08/25 9:40 am Referral Note: Hospital discharge appointment for psychiatric medication evaluation/management Appointment is by tele-health, provider will reach out to you at time of appointment [facility] [Other] - 1 Week Referral Note: [facility] Crisis Services [Other] - 1 Week Referral Note: Crisis services phone number [facility] [Other] - 1 Week Referral Note: Crisis Services phone number [facility] [Other] - 1 Week Referral Note: guest services assistant agency [facility]: [facility] [Other] - 1 Week Referral Note: You have been referred for [facility] Agency will reach out to you once a worker has been assigned to you. Aidee Barru: [facility] (Therapist) [Other] - 03/07/25 9:30 am Referral Note: Hospital discharge appointment with therapist Appointment is in person at [facility] in [place], [place] Department of Mental Health: Caryn Barnett [Other] - 1 Week Referral Note: Referred to department of mental health Recent needs and means assessment conducted by Caryn Barnett from [facility] office Branden Talbert MD [Primary Care Provider, Internal Medicine] - 1 Week Discharge Medications: New nicotine 21 mg/24 hr Patch 24 Hour 21 mg transdermal DAILY PRN (Reason: smoking cessation) 28 Days Qty: 28 0RF Rx Instructions: remove at bedtime buspirone 15 mg tablet 15 mg PO BID 30 Days Qty: 60 0RF olanzapine 2.5 mg Tablet See Rx Instructions .ROUTE .COMPLEX 30 Days Qty: 60 0RF Rx Instructions: take 1 tab daily in the morning; may take additional tab daily as needed for anxiety/racing thoughts dextroamphetamine-amphetamine [Adderall XR] 15 mg capsule,extended release 24hr 15 mg PO DAILY 30 Days Qty: 30 0RF Rx Instructions: Partial Fill upon patient request. ondansetron 4 mg Tablet,Disintegrating 4 mg translingual BID PRN (Reason: Nausea And Vomiting) 30 Days Qty: 30 0RF Discontinued paliperidone 6 mg tablet extended release 24 hr 6 mg PO BEDTIME Discharge Orders: Discharge Order (Routine); Ordered 03/03/25 Ordered By: Masoud Navas Diet: Regular diet Activity on Discharge: As tolerated Stand Alone Forms: Patient Portal Discharge page Print Language: Afghan Care Plan Goals: Maintain mood and safe behaviors Take medications as prescribed Practice coping skills Continue with outpatient providers and reach out to them as needed Health Concerns: Mood stability and behaviors Plan of Treatment: Follow up with your PCP, psychiatric provider and other outpatient providers regarding above concerns Take medications as prescribed Assessment: Risk assessment at time of discharge:? Patient was interviewed prior to discharge and found to be fully oriented and without any SI or HI. Patient has improved insight and judgment and wants to continue treatment. Patient is not in imminent risk of harm to self or others and has a safety plan that includes presenting to the closest ER or calling 911 if feeling unsafe.? Patient has been observed closely by nursing and unit staff throughout admission; patient has not engaged in any behaviors that suggest dangerousness to self or others and has demonstrated appropriate behaviors and impulse control
[2025-03-03] MEDS: Dextroamphetamine/Amphetamine XR 5 MG CAP.ER.24H 15 MG PO (09:20)
[2025-03-03] MEDS: Nicotine 21 MG PATCH.TD24 TRANSDERMA (09:48)
== END 2025-03-03 11:20 | disposition home or self-care (01) | DRG 885 ==
LOC: HO.ED 02-03 06:56 → HO.PM5 02-03 14:26
PROVIDERS: Clinical Nurse Specialist Psychiatric/Mental Health, Adult; Nurse Practitioner Family; Physician Assistant; Psychiatry & Neurology Psychiatry; Admitting Provider Psychiatry & Neurology Psychiatry; Emergency Provider Internal Medicine; PCP Internal Medicine; Visit Provider Psychiatry & Neurology Psychiatry
DX: F33.3 Major depressive disorder, recurrent, severe with psychotic symptoms (principal); R45.851 Suicidal ideations; Z20.822 Contact with and (suspected) exposure to COVID-19; Z79.899 Other long term (current) drug therapy
CPT/HCPCS: 0241U; 36415; 80048; 80053; 80061; 80178; 80307; 81003; 81025; 81515; 83036; 83690; 84443; 84484; 84702; 85025; 87633; 87651; 93005; 99284; S9485

== ENCOUNTER → 2025-02-02 14:07 | Outpatient (BNV) | payer MEDICAID, SELFPAY | PROVIDERS: Visit Provider Internal Medicine Cardiovascular Disease | DX: R11.10 Vomiting, unspecified (principal); R55 Syncope and collapse | CPT/HCPCS: 93010 ==

== ENCOUNTER → 2025-02-03 14:10 | Outpatient (BNV) | payer OTHER, SELFPAY | PROVIDERS: Admitting Provider Psychiatry & Neurology Psychiatry; Emergency Provider Internal Medicine; PCP Internal Medicine; Visit Provider Psychiatry & Neurology Psychiatry | DX: F31.4 Bipolar disorder, current episode depressed, severe, without psychotic features (principal) | CPT/HCPCS: 90792 ==

== ENCOUNTER → 2025-02-03 14:10 | Outpatient (BNV) | payer MEDICAID, SELFPAY | PROVIDERS: Admitting Provider Psychiatry & Neurology Psychiatry; Emergency Provider Internal Medicine; PCP Internal Medicine; Visit Provider Nurse Practitioner Family | DX: R11.2 Nausea with vomiting, unspecified (principal) | CPT/HCPCS: 99221; 99499 ==

== ENCOUNTER 2025-07-19 11:54 | Emergency (ER) | payer MEDICAID, SELFPAY ==
--- OUTSIDE RECORDS SUMMARY | 2025-06-27 08:30 | XMS_ITS ---
Author Organization [employer] Address [address] [place] [phone] Care Team Providers Care Special Librarian Name Role Phone Mora Shirley Unavailable [phone] NATHAN JUÁREZ Unavailable [phone] REASON FOR VISIT RT BREAST ISSUE Medications Medication SIG (Take, Route, Frequency, Duration) Notes Start Date End Date Status Sertraline HCl 100 MG TAKE 1 TABLET BY MOUTH EVERY DAY Orally Once a day Active Kariva 0.15-0.02/0.01 MG (12/01) 1 tablet Orally Once a day; Duration: 90 days 11/28/2021 Active Inhaler Decongestant as needed Not-Taking Encounters Encounter Location Date Provider Diagnosis [address] [address] 06/27/2025 NATHAN JUÁREZ Unspecified lump in breast [...] weight loss Vit E 1,200IU and/or Evening [place] Oil 3000mg daily x 6 months and reevaluate Plan Of Treatment Treatment Notes Assessment Notes Unspecified lump in breast Refer to [facility] surgeon for further evaluation and treatment. Mastodynia [...] weight loss Vit E 1,200IU and/or Evening [place] Oil 3000mg daily x 6 months and reevaluate Pending Test Test Name Order Date Ultrasound : Breast(s), unilateral or bi lateral 06/27/2025 Diagnostic Digital Breast 3D, Bilateral 06/27/2025 Next Appt Details Provider Name:Mora green, 10/19/2025 02:20:00 PM, [facility], [address], [place], [address], Progress Notes * PREET MAYORGAANDREWOB:2000 (25 yo F)Acc No.[id number]:06/27/2025 PROGRESS NOTES Patient: THERESA COY Provider: Judy JUÁREZ MD :2000 A ge:25 Y S ex:Female Date:06/27/2025 Address:[address] [place], [place] [id number] Subjective: * Chief Complaints: * 1 . [...] weight loss Vit E 1,200IU and/or Evening [place] Oil 3000mg daily x 6 months and reevaluate * Images: Billing Information: * Visit Code: 67512 Office Visit, Est Pt., Level 4. 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
[2025-07-19 12:02] VITALS: BP 124/84; PULSE 91; RESP 18; TEMP 36.7; O2SAT 99; BMI 31.2
--- NOTE | 2025-07-19 12:02 | ED.GENADULT ---
HPI - General Adult General Chief complaint: Dental/Oral Stated complaint: Dental Pain Time Seen by Provider: 07/19/25 12:04 Source: patient, RN notes reviewed and old records reviewed Mode of arrival: ambulatory Limitations: no limitations History of Present Illness ED Provider: Piero HPI narrative: Patient is a 25-year-old female with history of anxiety, depression presenting to the emergency department with complaint of right upper dental pain for the past 1-2 months. States that she has an appointment with her dentist for this tooth to be extracted on 07/25. Complains of associated nausea due to pain. Denies any difficulty breathing, swallowing, opening closing jaw. Denies fever, discharge or drainage. MD complaint: dental pain Onset (ago): month(s) Related Data Previous Rx's ?Medication ?Instructions ?Recorded buspirone 15 mg tablet 15 mg PO BID 30 days #60 tabs 03/03/25 dextroamphetamine-amphetamine ER 15 mg PO DAILY 30 days #30 caps 03/03/25 15 mg 24hr capsule,extend release (Adderall XR) nicotine 21 mg/24 hr daily 21 mg transdermal DAILY PRN 03/03/25 transdermal patch smoking cessation 28 days #28 ea olanzapine 2.5 mg tablet See Rx Instructions .Route 03/03/25 .COMPLEX racing thougts 30 days #60 tabs ondansetron 4 mg disintegrating 4 mg translingual BID PRN Nausea 03/03/25 tablet And Vomiting 30 days #30 tabs amoxicillin 875 mg-potassium 1 tab PO BID #14 tabs 07/19/25 clavulanate 125 mg tablet chlorhexidine gluconate 0.12 % 15 ml buccal BID #118 mL 07/19/25 mouthwash Allergies Allergy/AdvReac Type Severity Reaction Status Date / Time No Known Allergies Allergy Verified 07/19/25 12:04 Review of Systems Review of Systems: As per HPI Yes all other systems are reviewed and are negative Constitutional: Constitutional: Reports as per HPI PMFSH Past Medical History Medical History (Updated 07/19/25 @ 12:06 by Rosalia Harry NP) MDD (major depressive disorder), recurrent episode, severe Lactose intolerance Depression Anxiety Vaginal delivery Surgical History History of laparoscopic appendectomy (09/08/21) No pertinent past surgical history Family History Family History Maternal Grandmother Ovarian cancer Maternal Uncle Throat cancer Family/Other Skin cancer Social History Social History Household Members: Family Housing: House Do you presently have visiting nurse or other home services: No Patient Tobacco Use Status: Current everyday Tobacco user Tobacco use type: Cigarette e-Cigarette/Vaping Use: Currently Using Substance Use Type: Marijuana Advance Directives Date on File: 09/08/21 service: No Current occupational status: unemployed Sexual orientation: Straight/Heterosexual Physical Exam ED Vital Signs: Vital signs have been reviewed and appear to be correct. Blood pressure normal. Heart rate normal. Respiratory rate normal. Temperature normal. Oxygen saturation normal. Const General: cooperative, healthy appearing and no acute distress Orientation/consciousness: oriented to person, oriented to place, oriented to time and patient oriented x3 Limitations: no limitations HENMT Head: Yes normocephalic and Yes atraumatic Ears: external ears normal General nose exam: Normal external nose present Face and sinus: Yes face symmetric Mouth: Normal oral and palatal mucosa present, lip normal, tongue normal, oropharynx normal, moist mucous membranes, no audible dysphonia, no drooling and no trismus Teeth and gingiva: caries and fair dentition Teeth image:  1. large caries, surrounding gingival erythema and tenderness without edema or fluctuance, no drainage Throat: Yes posterior oropharynx normal and Yes uvula midline Eyes Pupils: Equal, round and reactive pupils present Neck Neck: Yes normal visual inspection and Yes supple Resp Effort & Inspection: normal respiratory effort and able to speak in complete sentences Auscultation: clear to auscultation bilaterally Cardio Rate: regular rate Rhythm: regular rhythm Heart sounds: S1 normal heart sound present and S2 normal heart sound present GI Palpation (GI): Soft to palpation and nontender Auscultation: normoactive bowel sounds General: Yes no CVA tenderness Back/Spine/Pelvis Back: no CVA tenderness Skin General skin exam: elasticity normal and turgor normal Neuro General: oriented to person, oriented to place, oriented to time, patient oriented x3, moves all extremities, no focal motor deficits and CN's II-XI intact bilaterally Cranial nerves: Yes Equal, round and reactive pupils present Cognition (Neuro): normal cognition Extrem General: Yes full ROM, Yes no pedal edema and Yes no calf tenderness Psych Mental Status: mental status grossly normal Affect: normal affect Thought process: Normal thought process present Medical Decision Making Medical Decision Making [facility] Narrative: Patient is a 25-year-old female with history of anxiety, depression presenting to the emergency department with complaint of right upper dental pain for the past 1-2 months. On exam patient is awake, A+Ox3, VS WNL, afebrile, normal neurological exam without focal deficits, physical exam findings as above. Given reported symptoms and physical exam findings, initial differential includes but is not limited to dental pain, infection. No evidence of abscess, Quirino's angina. Will treat with course of augmentin and chlorhexidine mouthwash. Return precations discussed. Patient verbalized understanding of and agreement with plan. Differential Diagnosis Differential Diagnoses: The differential diagnosis associated with the presentation includes as per [facility] Admission/Observation Consideration of admission/observation: Escalation of care including admission/observation considered Patient would have been admitted to the hospital and transferred to appropriate facility had their clinical presentation warranted hospital admission. External Record Review External record reviewed: Inpatient record, Office record and Outpatient record Prescription Management I considered prescription management with: Antibiotic Discharge Plan Discharge Clinical Impression: Dental infection Patient Disposition: Home, Self-Care Additional Instructions: You were evaluated in the emergency department today for complaint of dental pain. You are being treated for a dental infection with antibiotics. Please complete the full course of antibiotics as prescribed even if your symptoms improve. You have also been prescribed an antibacterial mouthwash. You can gargle with warm salt water several times daily as well. IT IS IMPORTANT THAT YOU KEEP YOUR FOLLOW UP APPOINTMENT WITH YOUR DENTIST. We recommend that you take 600 mg of ibuprofen or 650 mg Tylenol every 6 hours as needed for pain. If necessary, you can alternate these medications every 3 hours. For example, at 9:00 a.m. take Tylenol, then at noon take ibuprofen, then at 3:00 p.m. take Tylenol, etc.. Return to the emergency department if you develop worsening pain, swelling, difficulty swallowing, difficulty breathing, fever, or any other concerning symptoms. Prescriptions: New amoxicillin-pot clavulanate 875-125 mg tablet 1 tab PO BID Qty: 14 0RF chlorhexidine gluconate 0.12 % mouthwash 15 ml buccal BID Qty: 118 0RF No Action nicotine 21 mg/24 hr Patch 24 Hour 21 mg transdermal DAILY PRN (Reason: smoking cessation) 28 Days Qty: 28 0RF Rx Instructions: remove at bedtime buspirone 15 mg tablet 15 mg PO BID 30 Days Qty: 60 0RF olanzapine 2.5 mg Tablet See Rx Instructions .ROUTE .COMPLEX 30 Days Qty: 60 0RF Rx Instructions: take 1 tab daily in the morning; may take additional tab daily as needed for anxiety/racing thoughts dextroamphetamine-amphetamine [Adderall XR] 15 mg capsule,extended release 24hr 15 mg PO DAILY 30 Days Qty: 30 0RF Rx Instructions: Partial Fill upon patient request. ondansetron 4 mg Tablet,Disintegrating 4 mg translingual BID PRN (Reason: Nausea And Vomiting) 30 Days Qty: 30 0RF Print Language: Moroccan
[2025-07-19 12:22] VITALS: BP 124/84; PULSE 91; RESP 18; TEMP 36.7; O2SAT 99
--- OUTSIDE RECORDS SUMMARY | 2025-07-19 15:52 | XMS_ITS | Patient Health Record ---
Author Organization [facility] Address [address] [place] [address] Care Team Providers Care Insurance Solicitor Name Role Phone Mora Shirley Unavailable [phone] NATHAN JUÁREZ Unavailable [phone] Allergies No Known Allergies Reason For Referral No Information Medications Medication SIG (Take, Route, Frequency, Duration) Notes Start Date End Date Status Sertraline HCl 100 MG TAKE 1 TABLET BY MOUTH EVERY DAY Orally Once a day Active Kariva 0.15-0.02/0.01 MG (12/01) 1 tablet Orally Once a day; Duration: 90 days 11/28/2021 Active Inhaler Decongestant as needed Not-Taking Social History Tobacco Use: Social History Observation [...] Problem Status W/U Status Risk Notes Problem Gynecological examination normal ([id number]) Encounter for gynecological examination (general) (routine) without abnormal findings (Z01.419) Active confirmed Problem Cholelithiasis without obstruction (10694709) Calculus of gallbladder without cholecystitis without obstruction (K80.20) Active confirmed Problem Dyspareunia (83373152) Other specified dyspareunia (N94.19) Active confirmed Plan Of Treatment Pending Test Test Name Order Date Urinalysis 11/28/2021 Urinalysis 12/20/2021 PELVIC ULTRASOUND W/TRANSVAGINAL 022 Next Appt Details Provider Name:Mora Rodriguez norma, 10/19/2025 02:20:00 PM, [address], [address], [place], [address], Medical (General) History Medical History History ICD Code Stomach problems Other asthma J45.998 Anxiety disorder, unspecified F41.9 Amenorrhea, unspecified N91.2 Other specified dyspareunia N94.19 Calculus of gallbladder without cholecys titis without obstruction K80.20 Surgical History Surgery Date(Month/Year) Hospitalization History Reason Date(Month/Year) 02/2018
--- OUTSIDE RECORDS SUMMARY | 2025-07-19 15:52 | XMS_ITS | Encounter Summary ---
Author Organization [facility] Address [email or web address] [place] [phone] Phone Care Team Providers Care Photogrammetric Tech Name Role Phone Branden Talbert MD Primary Care Provider [phone] Mora Shirley MD Unavailable [phone] Leann Moreno MD Unavailable Reason for Visit * Reason Comments Medication Refill Encounter Details Date Type Department Care Team (Late st Contact Info) Description 05/29/2025 Refill [facility] [place] [facility] [address] [place], [place] [id number] Branden Talbert MD [address] [place] [address] [email or web address] Medication Refill Social History Tobacco Use Types Packs/Day Years Used Date Smoking Tobacco: Some Days Cigarettes 0.3 1 Started: 02/2022; Last attempted to quit: 03/08/2023 Smokeless Tobacco: Never Comments:4 cigarettes daily Alcohol Use Standard Drinks/Week Comments Yes 0 (1 standard drink = 0.6 oz pur e alcohol) rarely Child or Family Care Answer Date Record ed Do you have problems with on e of the following making it difficult for you to work, study, or receive health care? No 01/27/2024 Education Answer Date Recorded Are you interested in help w ith more adult education (for example, completing high school, GED, job training, learning the Ukrainian language, technical skills, or developing parenting skills)? [...] as food, clothing, or medical care? No 01/21/2025 In the past 12 months have y ou been in a relationship with a person who hurts, threatens, or tries to control you? No 01/21/2025 Are you denied basic needs s uch as food, clothing, or medical care? No 01/21/2025 In the past 12 months have y ou been in a relationship with a person who hurts, threatens, or tries to control you? No 01/21/2025 Comments Unknown Sex and Gender Information Value Date Recorded Sex Assigned at Female 02/01/2022 11:03 AM EDT Legal Sex Female 4:47 PM EDT Gender Identity Female 02/01/2022 11:03 AM EDT Sexual Orientation Straight 02/01/2022 11 :03 AM EDT documented as of this encounter Progress Notes * Juana Sweet RN - 05/31/2025 5:03 PM EDT Spoke to Nikki. She had this filled by her psychiatrist earlier today. She is unsure why the refillrequest came here. * Junie Mcmanus MA - 05/30/2025 7:54 AM EDT IMPORTANT - At least one Rx mismatch identified. Original(s) may be discontinued, , or different strength/form. Review required. Rx Care Gap Status - Instructions for Clinical Staff (prescriber discretion applies): > Mismatch review guide > N/a - No action needed Visit Info Last visit: 03/25/2025 Branden Talbert MD - Internal Medicine [facility] > Requested f/u: Return in about 6 months (around 09/25/2025) for Recheck. Upcoming visit: 09/26/2025 Branden Talbert MD - Internal Medicine [facility] ACTIONS TAKEN BY Junie Mcmanus MA - Criteria met. Antidepressant / Anxiolytics (Non-Benzodiazepine) Rx Protocol - sertraline HCl Rx mismatch - Original discontinued, , or different strength/form. Criteria for reference: Visit in the past 14 months: Yes documented in this encounter Plan of Treatment Upcoming Encounters Date Type Department Care Team (Late st Contact Info) Description 09/26/2025 4:15 PM EST Office Visit [facility] Internal Medicine [address] [place] [id number] Branden Talbert MD [address] [place] [phone] [email or web address] documented as of this encounter Visit Diagnoses Not on filedocumented in this encounter Additional Health Concerns Assessment Noted Time PHQ-9 Depression Total Score: 15 03/18/ 025 1:57 PM EDT PHQ-2 Depression Total Score: 3 03/18/20 25 1:57 PM EDT documented as of this encounter Care Teams Photogrammetric Tech Relationship Specialty Start Date End Date Branden Talbert MD [address] [place] [address] [email or web address] PCP - General Internal Medicine 09/21/21 Mora Shirley MD [address] [address] Gynecology 12/18/21 Leann Moreno MD [address] [place] [address] [email or web address] Insurance Assigned Provider 07/09/25 documented as of this encounter Additional Source Comments The information contained in this document represents components of the legal health record. It is not the complete legal health record.[facility]
--- OUTSIDE RECORDS SUMMARY | 2025-07-19 15:52 | XMS_ITS | Encounter Summary ---
Author Organization [facility] Address [address] [place] [address] Phone Care Team Providers Care Rn Hematology Name Role Phone Jessica Kathleen NP Primary Care Provider [phone] Encounter Details Date Type Department Care Team (Late st Contact Info) Description 04/17/2011 Conversion Encounter [facility] [address] [place] [address] Social History Tobacco Use Types Packs/Day Years [...] on filedocumented in this encounter Care Teams Rn Hematology Relationship Specialty Start Date End Date Jessica Kathleen NP [address] [address] PCP - General Pediatrics 12/08/20 documented as of this encounter
--- OUTSIDE RECORDS SUMMARY | 2025-07-19 15:52 | XMS_ITS | Encounter Summary ---
Author Organization [facility] Address [address] [place] [address] Phone Care Team Providers Care High School Math Tutor Name Role Phone FloJessica arias KING Primary Care Provider [phone] Reason for Visit * Reason Comments Med Refill Encounter Details Date Type Department Care Team (Late st Contact Info) Description 05/03/2020 Refill [facility] [address] [place] [address] Lorraine Sanchez, DO Anxiety Social History Tobacco [...] unspecified documented in this encounter Care Teams High School Math Tutor Relationship Specialty Start Date End Date Jessica Kathleen NP [facility] [place] [address] PCP - General Pediatrics 12/08/20 documented as of this encounter
--- OUTSIDE RECORDS SUMMARY | 2025-07-19 15:52 | XMS_ITS | Encounter Summary ---
Author Organization [facility] Address [address] [place] [address] Phone Care Team Providers Care Fish Egg Packer Name Role Phone FloJessica arias KING Primary Care Provider [phone] Reason for Visit * Reason Comments Med Refill Encounter Details Date Type Department Care Team (Late st Contact Info) Description 12/25/2019 Refill [facility] [address] [place] [address] Lorraine Sanchez, DO Anxiety Social History Tobacco [...] unspecified documented in this encounter Care Teams Fish Egg Packer Relationship Specialty Start Date End Date Jessica Kathleen NP [address] [place] [address] PCP - General Pediatrics 12/08/20 documented as of this encounter
--- OUTSIDE RECORDS SUMMARY | 2025-07-19 15:53 | XMS_ITS | Clinical Summary ---
Author Organization [facility] Address [address] [place] [address] Phone Care Team Providers Care Stainless Steel Finisher Name Role Phone Jessica Kathleen NP Primary Care Provider [phone] Allergies No known active allergies Medications Multiple [...] PM EST): Discussed concerns regarding weight Reviewed halfway potential health risks associated with obesity Discussed [...] resuming counseling She will reach out to [facility] Will also connect her with Medical Home for housing concerns Assessment & Plan (10/15/2020 4:57 PM EST): Worsening symptoms of anxiety and depression along with overwhelming feeling of not sure what to do with her life. She is also having trouble with focusing and concentration. Our medical home housekeeper met with patient to help her with [...] 74 12/04/2021 9:41 AM EDT Temperature 37.1 C (98.8 F) 12/04/2021 9:41 AM EDT Respiratory Rate - - Oxygen Saturation 99% 07/24/2015 11:59 AM EST Inhaled Oxygen Concentration - - Weight 74.9 kg (165 lb 3.2 oz) 12/04/2021 9:41 A M EDT Height 157.3 cm (5' 1.91 ) 08/08/2021 11:[address] Body Mass Index 30.3 08/08/2021 11:35 AM EST Plan of Treatment Health Maintenance Due Date Last Done Comments Influenza Vaccines (#1) 2025 08/08/20 21, 08/07/2020, 06/02/2019, Additional history exists COVID-19 Vaccine (2 - season) 2025 12/29/2021, 10/24/2021 DTaP,Tdap,and Td Vaccines (9 - [...] with anywhere. MQ Procedures * Due to [facility] law, this organization might not be sharing sensitive test results. Procedure Name Priority Date/Time Associated Diagnosis Comments CHLAMYDIA GC AMP PROBE Routine 08/07/2020 10:07 AM EST Well adult exam from Last 3 Months or Most Recently Relevant to Health Maintenance Results * Due to [facility] law, this organization might not be sharing sensitive test results. * CHLAMYDIA GC AMP PROBE (08/07/2020 10:07 AM EST) Chlamydia Trachomatis, Amplified NEGATIVE (NEG) [facility] Comment: No Chlamydia Trachomatis RNA detected in this patient's sample (REFERENCE RANGE/NORMAL VALUE: NOT DETECTED) Note: This test uses information strategist- mediated amplification method to detect rRNA from C. Trachomatis N.GONORRHOEAE AMP PROBE NEGATIVE (NEG) [facility] Comment: No Neisseria Gonorrhoeae RNA detected in this patient's sample (REFERENCE RANGE/NORMAL VALUE: NOT DETECTED) NOTE: This test uses information strategist-mediated amplification method to detect rRNA from N.Gonorrhoeae. [...] without risk of sexual abuse. Consult the [facility] if needed. Contact phone number . Therapeutic failure or success cannot be determined with the Aptima Combo2 assay since nucleic acid may persist following appropriate antimicrobial therapy. The Centers for Disease Control and Prevention (CDC) recommends confirmatory retesting using culture or a different nucleic acid amplification test when positive results occur, if indicated. CHLAM/GC AMP PROBE SPEC TYPE VAGINAL SPECIMEN [facility] Comment: Testing performed or reported by [facility], a Service of [facility], [facility] [place] [address] Tevin Bernard MD, Field Test Engineer Swab (Vagina) 08/07/2020 10: 07 AM EST 08/07/2020 9:10 PM EST Lorraine Sanchez DO LAB MICROBIOLOGY - GENERAL ORDRaghu CONSTANTINO Final Result [facility] from Last 3 Months or Most Recently Relevant to Health Maintenance Additional Health Concerns Active Problems Noted Date Diagnosed Date Housing is not appropriate for patient/caregiver 10/08/2021 Insurance [facility] [id number] [facility] [employer] [place] [phone] Care Teams Stainless Steel Finisher Relationship Specialty Start Date End Date Jessica Kathleen NP [facility] [place] [address] PCP - General Pediatrics 12/08/20
--- OUTSIDE RECORDS SUMMARY | 2025-07-19 15:53 | XMS_ITS | Clinical Summary ---
Author Organization [facility] Address [address] [place] [address] Phone Care Team Providers Care Supervisor Operations Name Role Phone Branden Talbert MD Primary Care Provider [phone] Mora Shirley MD Unavailable Leann Moreno MD Unavailable [phone] Allergies No known active allergies Medications ondansetron (ZOFRAN-ODT) 4 MG disintegrating tablet Take 4 mg by mouth every 8 (eight) hours as needed for nausea. Active ARIPiprazole (ABILIFY) 5 MG tablet Take 2 tablets (10 mg total) by mouth daily. 5 Active sertraline (ZOLOFT) 50 MG tablet Take 2 tablets (100 mg total) by mouth daily. Active omeprazole (PRILOSEC) 20 MG capsuleIndications: Gastroesophageal reflux disease, unspecified whether esophagitis present Take 1 capsule (20 mg total) by mouth daily. 84 capsule 5 Active Active Problems Problem Noted Date Diagnosed Date Gastroesophageal reflux disease 06/07/2025 Assessment & Plan (06/07/2025 3:45 PM EDT): She reports nausea, heartburn, and vomiting triggered in the morning, coffee drinking, eating too much food, and greasy foods. She denies any associated abdominal pain. Symptoms have been present since August 2024. Given the symptoms, will treat with omeprazole 20 mg daily x 2 weeks. Will follow-up in 2 weeks to reassess and if symptoms are still present we will refer to GI for further evaluation. It appears that she was also evaluated by her PCP for this with similar recommendations previously. Advised against marijuana and alcohol intake as marijuana can cause hyperemesis. Suicidal ideations 11/19/2024 Assessment & Plan (12/03/2024 5:07 PM EDT): Patient presented to the [facility] ER with suicidal ideation and was ultimately admitted inpatient at [facility]. No formal diagnosis was made but she was ultimately started on Invega which improved her symptoms. However, she did have a dystonic reaction to the Invega so Cogentin was initiated with positive improvement of symptoms. She notes clarity of her mind since being on the Invega and feels as though her mind has quieted down. She was ultimately discharged on 12/01/2024 to her home. She had an intake appointment with [facility] on 12/02/24 and is planning on continuing therapy through them. She also has an appointment with them in February for psychiatry. This office will take over her Invega and Cogentin prescriptions until she establishes with psychiatry. She was questioning whether she should look at the department of mental health for additional resources, I agreed that it would be beneficial in the online source was given to the patient. She is encouraged to maintain her deep breathing exercises which she found beneficial. She denies any current suicidal ideation or homicidal ideation. She does still feel overwhelmed and depressed. Discussed her living situation which she feels like she is safe in, however she does find her living situation difficult due to the layout with her son. She does have an MRI coming up on 12/14/2024 of her brain to assess any medical reasons for her abnormalities. There was 1 note in the [facility] documentation that stated that it would be beneficial for the patient to transition to weekly IM injections of the Invega which I do agree would be beneficial for her when she establishes with psychiatry. She does have a annual physical exam with her PCP on 01/28/2025. I do think that overall her symptoms do correlate with schizophrenia versus bipolar with psychotic features. After an extensive chart review, there is a note that she has a strong family history of both bipolar disorder as well as schizophrenia. Labile mood 10/27/2024 Assessment & Plan (10/27/2024 3:42 PM EST): She notes recent onset of labile mood that was very distressing for her yesterday. She noted that her symptoms switched from anxious to depressed to irritable to happy. She is concerned that it was possibly a manic episode. She denies any other history of millicent, denies any hospitalization for mental health. Mental health history overall consists of anxiety for which she uses propranolol as needed and lorazepam as needed. She notes negative effects of the lorazepam including feelings of confusion and unaware of her surroundings. Advised that lorazepam is a as needed medication and she does not need to take this. Especially if she is having negative effects of the lorazepam, I recommended against the use of it. At this point, based off of her history that she gave me as well as her psychiatric exam, I do not think that she is actively in a manic episode. She was well- appearing, her speech was normal pace and nontangential. Her mood was appropriate and so was her affect. While she could have had a previous manic episode, I do not think that this is the current situation. However, I do think it is appropriate for her to be further evaluated by a psychiatrist. She also would like to reinitiate therapy which I do agree is beneficial. She is to go to [facility] and would like to go there again, referral placed. Other than the discontinuation of the lorazepam, I do not think that any medications are indicated at this time. I am cautious about adding an additional antidepressant until she is evaluated by a psychiatrist in case there is underlying bipolar disorder as I do not want to put her into a manic episode. Patient is in agreement with overall plan. Nausea 10/18/2024 Assessment & Plan (10/18/2024 7:22 PM EST): Nausea and vomiting should be further assessed, will obtain hCG and urine for rule out , and also upper GI series to assess for gastritis or stomach ulcers. Consider starting PPI based on findings. Palpitations 04/23/2023 Assessment & Plan (10/18/2024 7:23 PM EST): Panic attack with some matization, with the tachycardia, trial of 10 mg propranolol p.o. 3 times daily as needed anxiety and if this fails may take sublingual Ativan 0.5 mg, please do not drive under the influence of the Ativan. We can raise the propranolol dose, if needed. Assessment & Plan (04/23/2023 11:51 AM EDT): [...] Routine general medical exam ination at a [facility] care facility 02/01/2022 Assessment & Plan (03/25/2025 2:41 PM EDT): Physically she is doing fairly well, will do some regular labs including a CBC Chem-12 and a lipid profile. The last time we had checked her white cell count was a little bit elevated so we will continue to follow. Exam was unremarkable. The patient appears to be stable. Will see her back in 6 months regarding the sertraline that we are writing so she will probably by then have seen a psychiatrist. Regardless though we will see her back in 6 months to see how she is doing. Assessment & Plan (01/27/2024 10:37 AM EDT): [...] more than this mood swings, referral to [facility] psychiatry to assess for bipolar disorder. This could just be reactive to the patient's parental, monetary situation. Assessment & Plan (12/31/2021 9:34 PM EDT): This is a 15-minute visit taking 17 minutes in total of qqat-or-wroe time to evaluate for depression anxiety and [...] Encounters Date Type Department Care Team Description 06/27/2025 MGP RISK SCORES SYSTEM GENERATED External System Generated Encounter [address] [place] [address] Unknown, Unknown, 06/08/2025 Telephone [facility] [employer] [facility] [address] [place] [address] Butler, Sae Medication Prior Authorization (Omeprazole 20mg) 06/07/2025 3:20 PM EDT Telemedicine [facility] Internal Medicine [address] [place] [address] Sarah Fox PA-C Gastroesophageal reflux disease, unspecified whether esophagitis present (Primary Dx) 06/02/2025 Telephone [facility] Internal Medicine [address] [place] [address] Branden Talbert MD Emesis; Altered Mental Status 05/29/2025 Refill [facility] Internal Medicine [address] [place] [address] Branden Talbert MD Medication Refill from Last 3 Months Immunizations Immunization Administration Dates Next Due Dtap, 5 Pertussis Antigens 03/10/2003,,1998,07/11,1998 HPV,quadrivalent 09/22/2009,06/06/2009, 9 Hepatitis A, Adult 07/21/2017 Hepatitis A, ped/adol, 2 dose 07/13/2015 Hepatitis B 1998,1998,1998 Hib,PRP-T 06/13/1999, 9,1998,05/09 INFLUENZA, SPLIT VIRUS, TRIVALENT PF 06/06/2012 INFLUENZA, SPLIT VIRUS, TRIV ALENT W/ PRESERVATIVE IM 06/02/2019,04/18/2011,04/09/2010,05/17 IPV 03/10/2003, 0,1998,05/09 Influenza Quadrivalent Intranasal 07/13/2014,08/2012 Influenza Quadrivalent Prese rvative Free IM 06/02/2023,08/08/2021,08/07/2020,05/25,05/18/2018,07/21/2017,06/16/2015 MMR 03/10/2003,03/12/1999 Meningococcal MCV4P 07/13/2014,04/06/2009 Pneumococcal conjugate, [...] attempted to quit: 03/08/2023 Smokeless Tobacco: Never Tobacco Cessation:Ready to Q uit: Not Asked; Counseling Given: Not Answered Comments:4 cigarettes daily Alcohol Use Standard Drinks/Week [...] high school, GED, job training, learning the Russian language, technical skills, or developing parenting skills)? [...] your housing situation today? I have joseph shannon 01/27/2024 How many times have you moved [...] Sign Reading Time Taken Comments Blood Pressure 114/64 03/25/2025 2:02 PM EDT Pulse 93 03/25/2025 2:02 PM EDT Temperature 36.6 C (97.8 F) 12/03/2024 2:39 PM EDT Respiratory Rate 17 03/25/2025 2:02 PM EDT Oxygen Saturation 98% 03/25/2025 2:02 PM EDT Inhaled Oxygen Concentration - - Weight 76.5 kg (168 lb 9.6 oz) 03/25/2025 2:02 P M EDT Height 158 cm (5' 2.21 ) 03/25/2025 2:02 PM EDT Body Mass Index 30.63 03/25/2025 2:02 PM EDT Plan of Treatment Upcoming Encounters Date Type Department Care Team (Late st Contact Info) Description 09/26/2025 4:15 PM EST Office Visit [facility] Internal Medicine [address] [place] [address] Branden Talbert MD [address] [facility] [place] [address] [email or web address] Health Maintenance Due Date Last Done Comments PNEUMOCOCCAL VACCINES (0-49 years) (1 of 2 - PCV) 2017 09/12/2006 PAP SMEAR 12/20/2024 12/20/2021 INFLUENZA VACCINE (#1) 2025 , 08/08/2021, 08/07/2020, Additional history exists REPEAT PHQ 04/18/2025 03/18/2025, 03/18/2025 COVID-19 VACCINE ( season) 2025 12/29/2021, 10/24/2021 DEPRESSION SCREENING 03/18/2026 03/18/2025, 03/18/20 SMOKING Hx and SMOKELESS TOBACCO SCREENING 03/25/2026 03/25/2025 Adult Td,Tdap Booster 05/03/2029 05/03/2019 , 03/25/2019, 04/06/2009 HIB VACCINES Completed 06/13/1999, 08/25, 1998, Additional history exists MENINGOCOCCAL VACCINES (ACWY) Completed 07/13/2014, 04/06/2009 HEPATITIS A VACCINES Completed 07/21/2017, 07/13/20 15 HIV ONE-TIME SCREENING (18-65 YEARS) Completed 12/31/2018 HEPATITIS C SCREENING Completed 12/18/2021 MENINGOCOCCAL VACCINES (B) Aged Out N o longer eligible based on patient's age to complete this topic Medical Devices Not on file Procedures Procedure Name Priority Date/Time Associated Diagnosis Comments PAP SMEAR FOR RESULT ENTRY ONLY Routine 12/20/2021 HEPATITIS C ANTIBODY, QUALITATIVE Routine 12/18/2021 3:32 PM EDT Need for hepatitis C screening test OUTSIDE HIV Routine 12/31/2018 from Last 3 Months or Most Recently Relevant to Health Maintenance Results * PAP SMEAR FOR RESULT ENTRY ONLY (12/20/2021) HM Pap smear NILM Historical Provider HEALTH MAINTENANCE Final Result * Hepatitis C antibody, qualitative (12/18/2021 3:32 PM EDT) HCV NON-REACTIV E NON-REACTI VE [facility] Blood 12/18/2021 3:32 PM EDT 12/18/2021 3:34 PM EDT us Branden Talbert MD LAB BLOOD BKR ORDERABLES Final R esult [facility] [address] [place] [address] * OUTSIDE HIV TEST (12/31/2018) HIV - External Neg Historical Provider LAB BLOOD ORDERABLES Dionne l Result from Last 3 Months or Most Recently Relevant to Health Maintenance Insurance [facility] [place] [id number] [facility] Care Teams Supervisor Operations Relationship Specialty Start Date End Date Branden Talbert MD [address] [place] [address] [email or web address] PCP - General Internal Medicine 09/21/21 Mora Shirley MD [address] [place] [address] Gynecology 12/18/21 Leann Moreno MD [address] [place] [address] [email or web address] Insurance Assigned Provider 07/09/25 Additional Source Comments The information contained in this document represents components of the legal health record. It is not the complete legal health record.[facility]
--- OUTSIDE RECORDS SUMMARY | 2025-07-19 15:53 | XMS_ITS | Encounter Summary ---
Author Organization [facility] Address [address] [place] [address] Phone Care Team Providers Care Grain Wafer Machine Operator Name Role Phone Jessica Kathleen NP Primary Care Provider [phone] Reason for Visit * Reason Comments Med Refill Encounter Details Date Type Department Care Team (Late st Contact Info) Description 10/28/2020 Refill [facility] [address] [facility] [place] [address] Lorraine Sanchez, DO Anxiety Social History Tobacco [...] unspecified documented in this encounter Care Teams Grain Wafer Machine Operator Relationship Specialty Start Date End Date Jessica Kathleen NP [facility] [facility] [place] [address] PCP - General Pediatrics 12/08/20 documented as of this encounter
--- OUTSIDE RECORDS SUMMARY | 2025-07-19 15:53 | XMS_ITS | Encounter Summary ---
Author Organization [facility] Address [address] [place] [address] Phone Care Team Providers Care Form Tamping Machine Operator Name Role Phone Branden Talbert MD Primary Care Provider [phone] Mora Shirley MD Unavailable Leann Moreno MD Unavailable [phone] Encounter Details Date Type Department Care Team (Late st Contact Info) Description 10/29/2024 Procedure Pass [facility], [address] [address] Social History Tobacco Use Types Packs/Day Years Used Date Smoking Tobacco: Some Days Cigarettes 0.3 1 Started: 02/2022; Last attempted to quit: 03/08/2023 Smokeless Tobacco: Never Comments:4 cigarettes daily Alcohol Use Standard Drinks/Week Comments Not Currently 0 (1 standard drink = 0.6 oz [...] or tries to control you? No 09/29/2024 Comments Unknown Sex and Gender Information Value [...] Description 09/26/2025 4:15 PM EST Office Visit [facility] Internal Medicine [address] [place] [address] Branden Talbert MD [address] [place] [address] [email or web address] documented as of this encounter Visit Diagnoses Not on filedocumented in this encounter Additional Health Concerns Assessment Noted Time PHQ-9 Depression Total Score: 15 022 2:49 PM EDT PHQ-2 Depression Total Score: 0 01/27/20 24 9:24 AM EDT documented as of this encounter Care Teams Form Tamping Machine Operator Relationship Specialty Start Date End Date Branden Talbert MD [address] [place] [address] [email or web address] PCP - General Internal Medicine 09/21/21 Mora Shirley MD [address] [address] Gynecology 12/18/21 Leann Moreno MD [address] [place] [address] [email or web address] Insurance Assigned Provider 07/09/25 documented as of this encounter Additional Source Comments The information contained in this document represents components of the legal health record. It is not the complete legal health record.[facility]
--- OUTSIDE RECORDS SUMMARY | 2025-07-19 15:53 | XMS_ITS | Encounter Summary ---
Author Organization [facility] Address [address] [place] [address] Phone Care Team Providers Care Ribbon Hanking Machine Operator Name Role Phone Jessica Kathleen NP Primary Care Provider [phone] Reason for Visit * Reason Comments Med Refill Encounter Details Date Type Department Care Team (Late st Contact Info) Description 11/14/2020 Refill [facility] [address] [facility] [place] [address] Lorraine Sanchez, DO Anxiety Social History Tobacco [...] [place] - 11/14/2020 2:48 PM EDT Last [facility] 08/07/2020 Last med ck 10/11/20 documented in this encounter Plan of Treatment Not on file documented as of this encounter Visit Diagnoses Diagnosis Anxiety Anxiety state, unspecified documented in this encounter Care Teams Ribbon Hanking Machine Operator Relationship Specialty Start Date End Date Jessica Kathleen NP [address] [place] [address] PCP - General Pediatrics 12/08/20 documented as of this encounter
== END 2025-07-19 12:26 | disposition home or self-care (01) ==
PROVIDERS: Emergency Provider Emergency Medicine; PCP Internal Medicine
DX: K04.7 Periapical abscess without sinus (principal); K08.89 Other specified disorders of teeth and supporting structures; R11.0 Nausea
CPT/HCPCS: 99282; 99283

== ENCOUNTER 2025-07-24 17:08 | Emergency (ER) | payer MEDICAID, SELFPAY ==
--- OUTSIDE RECORDS SUMMARY | 2025-06-27 08:30 | XMS_ITS ---
Author Organization [facility] Address [address] [place] [address] Care Team Providers Care Fund Accounting Manager Name Role Phone Mora Shirley Unavailable [phone] NATHAN JUÁREZ Unavailable [phone] REASON FOR VISIT RT BREAST ISSUE Medications Medication SIG (Take, Route, Frequency, Duration) Notes Start Date End Date Status Sertraline HCl 100 MG TAKE 1 TABLET BY MOUTH EVERY DAY Orally Once a day Active Kariva 0.15-0.02/0.01 MG (12/01) 1 tablet Orally Once a day; Duration: 90 days 11/28/2021 Active Inhaler Decongestant as needed Not-Taking Encounters Encounter Location Date Provider Diagnosis [address] [address] 06/27/2025 NATHAN JUÁREZ Unspecified lump in breast N63 and Mastodynia N64.4 Assessments Encounter Date Diagnosis (ICD Code) Assessment Notes Treatment Notes Treatment Clinical Notes Section Notes 06/27/2025 Unspecified lump in breast (ICD-10 - N63) Refer to breast surgeon for further evaluation and treatment. 06/27/2025 Mastodynia (ICD-10 - N64.4) Rule out Discussed causes of breast tenderness including normal physiological changes related to hormonal fluctuation and muscle strain. Reviewed relief measures including analgesics, rest and local heat as needed. Discussed importance of supportive bra. Encouraged to see a bra fitting specialist to be sure of the proper fit and support. Breast self-exam is taught and encouraged Reduce caffeine intake Counseled on weight loss Vit E 1,200IU and/or Evening [place] Oil 3000mg daily x 6 months and reevaluate Plan Of Treatment Treatment Notes Assessment Notes Unspecified lump in breast Refer to [facility] surgeon for further evaluation and treatment. Mastodynia Rule out Discussed causes of breast tenderness including normal physiological changes related to hormonal fluctuation and muscle strain. Reviewed relief measures including analgesics, rest and local heat as needed. Discussed importance of supportive bra. Encouraged to see a bra fitting specialist to be sure of the proper fit and support. Breast self-exam is taught and encouraged Reduce caffeine intake Counseled on weight loss Vit E 1,200IU and/or Evening [place] Oil 3000mg daily x 6 months and reevaluate Pending Test Test Name Order Date Ultrasound : Breast(s), unilateral or bi lateral 06/27/2025 Diagnostic Digital Breast 3D, Bilateral 06/27/2025 Next Appt Details Provider Name:Mora green, 10/19/2025 02:20:00 PM, [facility], [address], [place], [address], Progress Notes * PREET MAYORGAANDREWOB:2000 (25 yo F)Acc No.[id number]:06/27/2025 PROGRESS NOTES Patient: THERESA COY Provider: Judy JUÁREZ MD :2000 A ge:25 Y S ex:Female Date:06/27/2025 Address:[address] [place], [place] [id number] Subjective: * Chief Complaints: * 1 . RT BREAST ISSUE. * HPI: G YN (Problems): Theresa is a 25 yo G0 with LMP who usually sees Dr Shirley at this practice, is here today to see me for an urgent concern. Breast Pain/Mass: D ate of onset: _ _ H ow did the problem start: _ _ L ocation: _ _ P ain: _ _ S everity of pain: _ _ R adiates: _ _ D oes problem include breast mass: _ _ O nset and progress of pain or mass: _ _ P roblem is associated with: _ _ A ny recent trauma to the breast? _ _ A ny personal history of breast biopsy? _ _ F amily history of breast cancer? _ _ D ate of last mammogram _ _ * ROS: G eneral/Constitutional: Patient denies f ever, weight gain, weight loss. B reast: Patient complaining of . ... * Medical History: * Medications: T oneil Sertraline HCl 100 MG Tablet TAKE 1 TABLET BY MOUTH EVERY DAY Orally Once a day , Taking Kariva 0.15-0.02/0.01 MG (/) Tablet 1 tablet Orally Once a day , Not-Taking Inhaler Decongestant , Notes to Pharmacist: as needed Objective: * Vitals: * Examination: G eneral Exam: CONSTITUTIONAL: G eneral Appearance: a lert, in no acute distress, normal, well nourished EXAMINED IN UPRIGHT AND SUPINE POSITIONS BREAST, Right: I nspection/Palpation: n o discharge, no masses present, no nipple retraction, no skin dimpling, no tenderness, no supra/infraclavicular adenopathy, no axillary adenopathy BREAST, Left: I nspection/Palpation: n o discharge, no masses present, no nipple retraction, no skin dimpling, no tenderness, no supra/infraclavicular adenopathy, no axillary adenopathy SKIN: S kin: n ormal B reast: FINDING #1: .... N ipple: DISCHARGE: none. RETRACTION: none. ULCERATION: none. MASS: none. TENDERNESS: none. SWELLING: none. SCALING, FLAKING SKIN: none. P sychiatry: AFFECT: appropriate. ATTITUDE: cooperative. SPEECH: clear. Assessment: * Assessment: 1. U nspecified lump in breast - N63 (Primary) 2 . M astodynia - N64.4 Plan: * Treatment: 2. M astodynia Notes: Rule out Discussed causes of breast tenderness including normal physiological changes related to hormonal fluctuation and muscle strain. Reviewed relief measures including analgesics, rest and local heat as needed. Discussed importance of supportive bra. Encouraged to see a bra fitting specialist to be sure of the proper fit and support. Breast self-exam is taught and encouraged Reduce caffeine intake Counseled on weight loss Vit E 1,200IU and/or Evening [place] Oil 3000mg daily x 6 months and reevaluate * Images: Billing Information: * Visit Code: 74260 Office Visit, Est Pt., Level 4. 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) Breast Pain/Mass: Date of onset:: __ How did the problem start:: __ Location:: __ Pain:: __ Severity of pain:: __ Radiates:: __ Does problem include breast mass:: __ Onset and progress of pain or mass:: __ Problem is associated with:: __ Any recent trauma to the breast?: __ Any personal history of breast biopsy?: __ Family history of breast cancer?: __ Date of last mammogram: __ Examination Category Sub-Category Detail Notes Category Not es Psychiatry ATTITUDE: cooperative AFFECT: appropriate SPEECH: clear Nipple DISCHARGE: none RETRACTION: none ULCERATION: none MASS: none TENDERNESS: none SWELLING: none SCALING, FLAKING SKIN: none Breast FINDING #1: ... General Exam CONSTITUTIONAL: General Appearan ce:: alert, in no acute distress, normal, well nourished EXAMINED IN UPRIGHT AND SUPINE POSITIONS SKIN: Skin:: normal BREAST, Right: Inspection/Palpation :: no discharge, no masses present, no nipple retraction, no skin dimpling, no tenderness, no supra/infraclavicular adenopathy, no axillary adenopathy BREAST, Left: Inspection/Palpation :: no discharge, no masses present, no nipple retraction, no skin dimpling, no tenderness, no supra/infraclavicular adenopathy, no axillary adenopathy
--- NOTE | ~2025-07-24 | XR_ITS ---
CLINICAL HISTORY: sob 2 view chest x-ray Comparison: None provided Findings: No consolidation or effusion. Heart size is normal. No acute fracture. IMPRESSION: 1. No acute findings. This document has been electronically signed by: Angel Guy MD on 07/24/2025 19:44:32
[2025-07-24 17:20] VITALS: BP 118/80; PULSE 79; RESP 16; TEMP 36.8; O2SAT 96; BMI 31.4
--- NOTE | 2025-07-24 17:20 | ED.GENADULT ---
HPI - General Adult General Chief complaint: Dizziness Stated complaint: Confusion, Shortness Of Breath Time Seen by Provider: 07/24/25 22:28 Source: patient Mode of arrival: ambulatory Limitations: no limitations History of Present Illness ED Provider: Dr. Kassy Hawk HPI narrative: Patient comes in the emergency room complaining of confusion for 11 months and also complaining of intermittent palpitations. Patient denies any chest pain or shortness of breath. Earlier today patient had nausea but it self resolved. At this time, patient is asymptomatic. Patient states that in the last few months, she has had multiple changes in her psychiatric medications. Related Data Previous Rx's ?Medication ?Instructions ?Recorded buspirone 15 mg tablet 15 mg PO BID 30 days #60 tabs 03/03/25 dextroamphetamine-amphetamine ER 15 mg PO DAILY 30 days #30 caps 03/03/25 15 mg 24hr capsule,extend release (Adderall XR) nicotine 21 mg/24 hr daily 21 mg transdermal DAILY PRN 03/03/25 transdermal patch smoking cessation 28 days #28 ea olanzapine 2.5 mg tablet See Rx Instructions .Route 03/03/25 .COMPLEX racing thougts 30 days #60 tabs ondansetron 4 mg disintegrating 4 mg translingual BID PRN Nausea 03/03/25 tablet And Vomiting 30 days #30 tabs amoxicillin 875 mg-potassium 1 tab PO BID #14 tabs 07/19/25 clavulanate 125 mg tablet chlorhexidine gluconate 0.12 % 15 ml buccal BID #118 mL 07/19/25 mouthwash Allergies Allergy/AdvReac Type Severity Reaction Status Date / Time No Known Allergies Allergy Verified 07/24/25 17:23 Review of Systems Review of Systems: Constitutional : No Weight loss, No Fever, No Chills, No Night Sweats, No Fatigue, No Malaise ENT/Mouth : No Hearing loss, No Ear Pain, No Nasal Congestion, No Sinus Pain, No Hoarseness, No sore throat, No Rhinorrhea, No Swallowing Difficulty Eyes: No Eye Pain, No Swelling, No Redness, No Foreign Body, No Discharge, No Vision Changes Cardiovascular : No Chest Pain, No SOB, No Dyspnea on Exertion, No Orthopnea, No Edema, complaining of intermittent Palpitations Respiratory : No Cough, No Sputum, No Wheezing, No Smoke Exposure, No Dyspnea Gastrointestinal : No Nausea, No Vomiting, No Diarrhea, No Constipation, No abdominal Pain, No Hematochezia, No Melena Genitourinary : no irregular bleeding, No Dysuria, No Urinary Frequency, No Hematuria, No Urinary Incontinence, No Urgency, No Flank Pain, No Urinary Flow Changes, No Hesitancy Musculoskeletal : No joint pain, No Myalgias, No Joint Swelling Skin : No Skin Lesions, No rash Neuro : No Weakness, No Numbness, No Paresthesias, No Loss of Consciousness, No Dizziness, No Headache, complaining of intermittent confusion for 11 months Psych : No Anxiety/Panic, No Depression, No SI/HI/AH/VH, No Social Issues, Heme/Lymph: No Bruising, No Bleeding,No Lymphadenopathy Endocrine : No Polyuria, No Polydipsia, No Temperature Intolerance PMFSH Past Medical History Medical History MDD (major depressive disorder), recurrent episode, severe Lactose intolerance Depression Anxiety Vaginal delivery Surgical History History of laparoscopic appendectomy (09/08/21) No pertinent past surgical history Family History Family History Maternal Grandmother Ovarian cancer Maternal Uncle Throat cancer Family/Other Skin cancer Social History Social History Household Members: Family Housing: House Do you presently have visiting nurse or other home services: No Patient Tobacco Use Status: Current everyday Tobacco user Tobacco use type: Cigarette Smoked in Last 30 Days: No e-Cigarette/Vaping Use: Currently Using Use of substances other than those prescribed or required for medical reasons: No Substance Use Type: Marijuana Advance Directives: Yes Advance Directives on File: Yes Advance Directives Date on File: 09/14/21 Do you have a plan to hurt others: No Plan Patient : No service: No Current occupational status: unemployed Sexual orientation: Straight/Heterosexual Physical Exam ED Exam Exam: Appearance: Alert. Oriented X3. No acute distress. Eyes: Pupils equal, round and reactive to light. bilateral mydriasis ENT: Pharynx normal. Neck: Normal inspection. Neck supple. No lymph nodes noted. No crepitus CVS: Normal heart rate and rhythm. Pulses normal. Normal S1 and S2 Respiratory: No respiratory distress. Breath sounds normal. No Wheezing. No rales Abdomen: Soft and nontender. No rigidity. No distention. Skin: Skin warm and dry. Normal skin color. Normal skin turgor. Extremities: No lower extremity edema. No Lacerations. No Rash Neuro: Oriented X 3. No motor deficit. No sensory deficit. Moving all extremities. No slurred speech. CN 2 through 12 grossly intact Psych: calm, cooperative, normal affect Vital Signs: Vital Signs - 24 hr 07/24/25 17:20 07/24/25 21:50 07/24/25 22:46 Temperature 98.3 F 98.5 F 98.5 F Pulse Rate 79 72 72 Respiratory Rate 16 16 16 Blood Pressure 118/80 110/75 110/75 Pulse Oximetry 96 100 100 Oxygen Delivery Method Room Air Room Air Room Air BMI result Body Mass Index 31.4 Course Course Course Narrative: Medical screening exam performed. Please refer to detailed history, exam, evaluation, and management by primary provider. Confusion, weakness, palpitation. Seen PCP in the past. Recent dental infection, completed course of antibiotics. Medical Decision Making Medical Decision Making [facility] Narrative: My interpretation of EKG: My interpretation of EKG: Normal sinus rhythm, heart rate 85, no ST segment depression or elevation, no T-wave inversion, QTC 402 My interpretation of labs: No abnormality patient's hematology chemistry, lipase within normal limits, LFTs normal, hCG negative, THC positive Chest x-ray negative for any acute pathology Patient has been couple of hours in the monitor, no arrhythmias have been detected. According the confusion, it has been going on for 11 months. Seems to be medication changes related. Patient states that she has an appointment pending with her psychiatrist who prescribes all her mental health meds I discussed with the patient that if she continues having intermittent palpitations, she may be a good candidate for a Holter monitor. Patient agrees with plan Differential Diagnosis Differential Diagnoses: The differential diagnosis associated with the presentation includes (Medication side-effect, UTI,) Lab Data [facility] Lab Attestation statement: I reviewed the patient's lab results. 07/24/25 17:44 07/24/25 17:44 Labs: Lab Results 07/24/25 07/24/25 Range/Units 17:44 21:57 WBC 9.9 (4.8-10.8) X10*3/uL RBC 4.70 (4.20-5.50) X10*6/uL Hgb 14.0 (12.0-16.0) g/dl Hct 42.2 (37.0-47.0) % MCV 89.8 (80.0-98.0) fL MCH 29.8 (27.0-33.0) pg MCHC 33.2 (31.0-35.0) g/dl RDW 12.8 (11.0-16.0) % Plt Count 360 (160-400) X10*3/uL MPV 9.7 (9.4-12.3) fL Immature Gran % (Auto) 0.4 (0.0-0.4) % Neut % (Auto) 65.6 (45-73) % Lymph % (Auto) 26.0 (20-40) % [place] % (Auto) 6.5 (2-11) % Eos % (Auto) 1.0 (0-4) % Baso % (Auto) 0.5 (0-2) % Lymph # (Auto) 2.6 (1.2-4.9) X10*3/uL [place] # (Auto) 0.6 (0.1-1.2) X10*3/uL Eos # (Auto) 0.1 (0.0-0.4) X10*3/uL Baso # (Auto) 0.1 (0.0-0.2) X10*3/uL Abs Immat Gran (auto) 0.04 H (0.00-0.03) X10*3/uL Absolute Neuts (auto) 6.5 (2.0-8.3) x10*3/uL Absolute Nucleated RBC 0.000 (0.0-0.012) X10*3/uL Nucleated RBC % (auto) 0.0 (0.0-0.2) /100WBC Sodium 140 (135-145) mmol/L Potassium 4.2 (3.3-5.1) mmol/L Chloride 109 H (96-108) mmol/L Carbon Dioxide 22 (22-29) mmol/L Anion Gap 13 (12-20) BUN 13 (9-16) mg/dL Creatinine 0.74 (0.5-1.4) mg/dL Estim Creat Clear Calc 110.3 Estimated GFR > 60 Random Glucose 87 (60-115) mg/dL Calcium 9.1 (8.4-10.2) mg/dL Total Bilirubin 0.2 (0.0-1.0) mg/dL AST 38 H (5-31) U/L ALT 69 H (0-31) U/L Alkaline Phosphatase 103 (39-117) U/L Total Protein 7.7 (6.5-8.0) g/dL Albumin 4.5 (3.5-5.0) g/dL Lipase 29 (8-78) U/L Beta HCG, Quant < 2 mIU/mL Urine Color Yellow Urine Appearance Cloudy Urine pH 5.5 (5.0-9.0) Ur Specific [place] >= 1.030 H (1.005-1.025) Urine Protein Negative (Neg-Trace) mg/dL Urine Glucose (UA) Negative (Negative) mg/dL Urine Ketones Negative (Negative) mg/dL Urine Blood Negative (Negative) Urine Nitrite Negative (Negative) Ur Leukocyte Esterase Negative (Negative) Urine Opiates Screen Not Detected (Not Detect) Ur Buprenorphine Scrn Not Detected (Not Detect) ng/mL Ur Oxycodone Screen Not Detected (Not Detect) ng/mL Urine Methadone Screen Not Detected (Not Detect) ng/mL Urine Fentanyl Screen Not Detected (Not Detect) Ur Barbiturates Screen Not Detected (Not Detect) Ur Phencyclidine Scrn Not Detected (Not Detect) Ur Amphetamines Screen Not Detected (Not Detect) U Benzodiazepines Scrn Not Detected (Not Detect) Urine Cocaine Screen Not Detected (Not Detect) U Marijuana (THC) Screen POSITIVE H (Not Detect) Independent Interpretation I performed an independent interpretation of an: Plain X-Ray Radiology Impression Discussion of test interpretation with radiology: I have reviewed the radiologist's reading. Radiologist Impression: No consolidation or effusion. Heart size is normal. No acute fracture. IMPRESSION: 1. No acute findings. Discharge Plan Discharge Clinical Impression: Palpitations Patient Disposition: Home, Self-Care Additional Instructions: Please follow-up with your primary care physician tomorrow. If you have any worsening or new symptoms, please return to the emergency room or call 911 Prescriptions: No Action nicotine 21 mg/24 hr Patch 24 Hour 21 mg transdermal DAILY PRN (Reason: smoking cessation) 28 Days Qty: 28 0RF Rx Instructions: remove at bedtime buspirone 15 mg tablet 15 mg PO BID 30 Days Qty: 60 0RF olanzapine 2.5 mg Tablet See Rx Instructions .ROUTE .COMPLEX 30 Days Qty: 60 0RF Rx Instructions: take 1 tab daily in the morning; may take additional tab daily as needed for anxiety/racing thoughts dextroamphetamine-amphetamine [Adderall XR] 15 mg capsule,extended release 24hr 15 mg PO DAILY 30 Days Qty: 30 0RF Rx Instructions: Partial Fill upon patient request. ondansetron 4 mg Tablet,Disintegrating 4 mg translingual BID PRN (Reason: Nausea And Vomiting) 30 Days Qty: 30 0RF amoxicillin-pot clavulanate 875-125 mg tablet 1 tab PO BID Qty: 14 0RF chlorhexidine gluconate 0.12 % mouthwash 15 ml buccal BID Qty: 118 0RF Interventions: ED Discharge Assessment Last Done: 07/24/25 22:46 Discharge Date/Time: 07/24/25 22:49 Print Language: Sami
--- NOTE | 2025-07-24 17:21 | ECG_ITS ---
Test Reason : ams Blood Pressure : */* mmHG Vent. Rate : 85 BPM Atrial Rate : 85 BPM P-R Int : 126 ms QRS Dur : 84 ms QT Int : 338 ms P-R-T Axes : 42 54 43 degrees QTcB Int : 402 ms Normal sinus rhythm Normal ECG When compared with ECG of 02-Feb-2025 14:24, No significant change was found Referred By: Simba Marques Electronically Signed By: ANDREW LANDIS
[2025-07-24 17:50] LABS: MANUAL DIFF FLAG NO
[2025-07-24 17:53] LABS: Hematocrit 42.2 % (37.0-47.0); Hemoglobin 14.0 g/dl (12.0-16.0); Imm Gran Abs Auto 0.04 X10*3/uL (0.00-0.03); Imm Gran Pct Auto 0.4 % (0.0-0.4); Lymphocytes Absolute Auto 2.6 X10*3/uL (1.2-4.9); Mean Corpuscular HGB Conc 33.2 g/dl (31.0-35.0); Mean Corpuscular Hemoglobin 29.8 pg (27.0-33.0); Mean Corpuscular Volume 89.8 fL (80.0-98.0); NRBC Abs Auto 0.000 X10*3/uL (0.0-0.012); NRBC Pct Auto 0.0 /100WBC (0.0-0.2); Platelet Count 360 X10*3/uL (160-400); Red Blood Count 4.70 X10*6/uL (4.20-5.50); White Blood Count 9.9 X10*3/uL (4.8-10.8)
[2025-07-24 18:42] LABS: Alanine Aminotransferase 69 U/L (0-31); Albumin Level 4.5 g/dL (3.5-5.0); Alkaline Phosphatase 103 U/L (39-117); Anion Gap 13 (12-20); Aspartate Amino Transferase 38 U/L (5-31); Blood Urea Nitrogen 13 mg/dL (9-16); Calcium 9.1 mg/dL (8.4-10.2); Carbon Dioxide 22 mmol/L (22-29); Chloride 109 mmol/L (96-108); Creatinine Clr Calc Pharmacy 110.3; Estimated Glomerular Filt Rate > 60; Potassium 4.2 mmol/L (3.3-5.1); Sodium 140 mmol/L (135-145); Total Protein 7.7 g/dL (6.5-8.0)
[2025-07-24 18:55] LABS: Lipase 29 U/L (8-78)
[2025-07-24 21:50] VITALS: BP 110/75; PULSE 72; RESP 16; TEMP 36.9; O2SAT 100
--- NOTE | 2025-07-24 21:53 | PC.NURSE ---
Pt awake and alert, oriented. Presents to ED for x1 week of confusion episodes , palpitations and general weakness. Pt states stopped Abilify abruptly x2 weeks ago due to weight gain. At this time, denies any symptoms. Breathing equal and unlabored. Vitals stable. On playground monitor. Ambulates with steady gait to bathroom. Friend at bedside
[2025-07-24 22:12] LABS: Appearance Urine Cloudy; Glucose Urine UA Negative (Negative); PH 5.5 (5.0-9.0); Specific Gravity - Urine >= 1.030 (1.005-1.025)
[2025-07-24 22:15] LABS: Cannabinoid Screen Urine POSITIVE (Not Detect)
--- OUTSIDE RECORDS SUMMARY | 2025-07-24 22:16 | XMS_ITS | Patient Health Record ---
Author Organization [facility] Address [address] [place] [address] Care Team Providers Care Medical Collections Representative Name Role Phone Mora Shirley Unavailable [phone] NATHAN JUÁREZ Unavailable [phone] Allergies No Known Allergies Reason For Referral [...] Problem Status W/U Status Risk Notes Problem Information temporarily unavailable Encounter for gynecological examination (general) (routine) without abnormal findings (Z01.419) Active confirmed Problem Information temporarily unavailable Calculus of gallbladder without cholecystitis without obstruction (K80.20) Active confirmed Problem Information temporarily unavailable Other specified dyspareunia (N94.19) Active confirmed Plan Of Treatment Pending Test Test Name Order Date Urinalysis 11/28/2021 Urinalysis 12/20/2021 PELVIC ULTRASOUND W/TRANSVAGINAL 022 Next Appt Details Provider Name:Mora green, 10/19/2025 02:20:00 PM, [address], [address], [place], [address], Medical (General) History Medical History History ICD Code Stomach problems Other asthma J45.998 Anxiety disorder, unspecified F41.9 Amenorrhea, unspecified N91.2 Other specified dyspareunia N94.19 Calculus of gallbladder without cholecys titis without obstruction K80.20 Surgical History Surgery Date(Month/Year) Hospitalization History Reason Date(Month/Year) 02/2018
--- OUTSIDE RECORDS SUMMARY | 2025-07-24 22:17 | XMS_ITS | Encounter Summary ---
Author Organization [facility] Address [address] [place] [address] Phone Care Team Providers Care Inspector Penetrant Name Role Phone Jessica Kathleen NP Primary Care Provider [phone] Reason for Visit * Reason Comments Med Refill Encounter Details Date Type Department Care Team (Late st Contact Info) Description 11/14/2020 Refill [facility] [address] [place] [address] Lorraine Sanchez, DO Anxiety Social History Tobacco [...] [place] - 11/14/2020 2:48 PM EDT Last [facility] 08/07/2020 Last med ck 10/11/20 documented in this encounter Plan of Treatment Not on file documented as of this encounter Visit Diagnoses Diagnosis Anxiety Anxiety state, unspecified documented in this encounter Care Teams Inspector Penetrant Relationship Specialty Start Date End Date Jessica Kathleen NP [address] [place] [address] PCP - General Pediatrics 12/08/20 documented as of this encounter
--- OUTSIDE RECORDS SUMMARY | 2025-07-24 22:17 | XMS_ITS | Clinical Summary ---
Author Organization [facility] Address [address] [place] [address] Phone Care Team Providers Care Psych Arnp Name Role Phone Jessica Kathleen NP Primary Care Provider [phone] Allergies No known active allergies Medications Multiple [...] PM EST): Discussed concerns regarding weight Reviewed retirement potential health risks associated with obesity Discussed [...] resuming counseling She will reach out to [place] Will also connect her with Medical Home for housing concerns Assessment & Plan (10/15/2020 4:57 PM EST): Worsening symptoms of anxiety and depression along with overwhelming feeling of not sure what to do with her life. She is also having trouble with focusing and concentration. Our medical home care nurse met with patient to help her with [...] Administration Dates Next Due COVID-19 Pfizer, edmar-sucros rahgu, 12+ years 10/24/2021 DTaP 5 03/10/2003, 0,1998,07/11,1998 [...] with anywhere. MQ Procedures * Due to [facility] law, this organization might not be sharing sensitive test results. Procedure Name Priority Date/Time Associated Diagnosis Comments CHLAMYDIA GC AMP PROBE Routine 08/07/2020 10:07 AM EST Well adult exam from Last 3 Months or Most Recently Relevant to Health Maintenance Results * Due to [facility] law, this organization might not be sharing sensitive test results. * CHLAMYDIA GC AMP PROBE (08/07/2020 10:07 AM EST) Chlamydia Trachomatis, Amplified NEGATIVE (NEG) [facility] Comment: No Chlamydia Trachomatis RNA detected in this patient's sample (REFERENCE RANGE/NORMAL VALUE: NOT DETECTED) Note: This test uses recreation facility attendant- mediated amplification method to detect rRNA from C. Trachomatis N.GONORRHOEAE AMP PROBE NEGATIVE (NEG) [facility] Comment: No Neisseria Gonorrhoeae RNA detected in this patient's sample (REFERENCE RANGE/NORMAL VALUE: NOT DETECTED) NOTE: This test uses recreation facility attendant-mediated amplification method to detect rRNA from N.Gonorrhoeae. [...] without risk of sexual abuse. Consult the [facility] if needed. Contact phone number . Therapeutic failure or success cannot be determined with the Aptima Combo2 assay since nucleic acid may persist following appropriate antimicrobial therapy. The Centers for Disease Control and Prevention (CDC) recommends confirmatory retesting using culture or a different nucleic acid amplification test when positive results occur, if indicated. CHLAM/GC AMP PROBE SPEC TYPE VAGINAL SPECIMEN [facility] Comment: Testing performed or reported by [facility], a Service of [facility], [facility] [place] [address] Tevin Bernard MD, Research Associate Swab (Vagina) 08/07/2020 10: 07 AM EST 08/07/2020 9:10 PM EST Lorraine Sanchez DO LAB MICROBIOLOGY - GENERAL ORDRaghu CONSTANTINO Final Result [facility] from Last 3 Months or Most Recently Relevant to Health Maintenance Additional Health Concerns Active Problems Noted Date Diagnosed Date Housing is not appropriate for patient/caregiver 10/08/2021 Insurance [facility] [place] [phone] [facility] [place]ERCIAL [place]ARKER [phone] Care Teams Psych Arnp Relationship Specialty Start Date End Date Jessica Kathleen NP [facility] [facility] [place] [address] PCP - General Pediatrics 12/08/20
--- OUTSIDE RECORDS SUMMARY | 2025-07-24 22:17 | XMS_ITS | Encounter Summary ---
Author Organization [facility] Address [address] [place] [address] Phone Care Team Providers Care Miller Head Wet Process Name Role Phone Branden Talbert MD Primary Care Provider [phone] Mora Shirley MD Unavailable [phone] Leann Moreno MD Unavailable Encounter Details Date Type Department Care Team (Late st Contact Info) Description 07/19/2025 [facility] GENERATED External System Generated Encounter [address] [place] [address] Unknown, Unknown, Social History Tobacco Use Types Packs/Day Years [...] high school, GED, job training, learning the Chadian language, technical skills, or developing parenting skills)? [...] Description 09/26/2025 4:15 PM EST Office Visit [facility] Internal Medicine [address] [place] [address] Branden Talbert MD [address] [place] [address] [email or web address] documented as of this encounter Visit Diagnoses Not on filedocumented in this encounter Additional Health Concerns Assessment Noted Time PHQ-9 Depression Total Score: 15 025 1:57 PM EDT PHQ-2 Depression Total Score: 3 03/18/20 25 1:57 PM EDT documented as of this encounter Care Teams Miller Head Wet Process Relationship Specialty Start Date End Date Branden Talbert MD [address] [place] [address] [email or web address] PCP - General Internal Medicine 09/21/21 Mora Shirley MD [address] [place] [address] [address] Gynecology 12/18/21 Leann Moreno MD [address] [place] [address] [email or web address] Insurance Assigned Provider 07/09/25 documented as of this encounter Additional Source Comments The information contained in this document represents components of the legal health record. It is not the complete legal health record.[facility]
--- OUTSIDE RECORDS SUMMARY | 2025-07-24 22:17 | XMS_ITS | Encounter Summary ---
Author Organization [facility] Address [address] [place] [address] Phone Care Team Providers Care Hatchery Manager Name Role Phone Jessica Kathleen NP Primary Care Provider [phone] Reason for Visit * Reason Comments Med Refill Encounter Details Date Type Department Care Team (Late st Contact Info) Description 10/28/2020 Refill [facility] [address] [place] [address] Lorraine Sanchez, DO Anxiety Social History Tobacco [...] unspecified documented in this encounter Care Teams Hatchery Manager Relationship Specialty Start Date End Date Jessica Kathleen NP [facility] [place] [address] PCP - General Pediatrics 12/08/20 documented as of this encounter
--- OUTSIDE RECORDS SUMMARY | 2025-07-24 22:17 | XMS_ITS | Encounter Summary ---
Author Organization [facility] Address [address] [place] [address] Phone Care Team Providers Care Deburring Machine Operator Name Role Phone Branden Talbert MD Primary Care Provider [phone] Mora Shirley MD Unavailable Leann Moreno MD Unavailable [phone] Encounter Details Date Type Department Care Team (Late st Contact Info) Description 10/29/2024 Procedure [facility], [address] [address] Social History Tobacco Use Types Packs/Day Years [...] high school, GED, job training, learning the Estonian language, technical skills, or developing parenting skills)? [...] Description 09/26/2025 4:15 PM EST Office Visit [facility] Internal Medicine [address] [place] [address] Branden Talbert MD [address] [place] [address] [email or web address] documented as of this encounter Visit Diagnoses Not on filedocumented in this encounter Additional Health Concerns Assessment Noted Time PHQ-9 Depression Total Score: 15 022 2:49 PM EDT PHQ-2 Depression Total Score: 0 01/27/20 24 9:24 AM EDT documented as of this encounter Care Teams Deburring Machine Operator Relationship Specialty Start Date End Date Branden Talbert MD [address] [place] [address] [email or web address] PCP - General Internal Medicine 09/21/21 Mora Shirlye MD [address] [place] [address] [address] Gynecology 12/18/21 Leann Moreno MD [address] [place] [address] [email or web address] Insurance Assigned Provider 07/09/25 documented as of this encounter Additional Source Comments The information contained in this document represents components of the legal health record. It is not the complete legal health record.[facility]
--- OUTSIDE RECORDS SUMMARY | 2025-07-24 22:17 | XMS_ITS | Encounter Summary ---
Author Organization [facility] Address [address] [place] [address] Phone Care Team Providers Care Bobbin Marker Name Role Phone FloJessica arias KING Primary Care Provider [phone] Reason for Visit * Reason Comments Med Refill Encounter Details Date Type Department Care Team (Late st Contact Info) Description 05/03/2020 Refill [facility] [address] [place] [address] Lorraine Sanchez, DO Anxiety Social History Tobacco [...] unspecified documented in this encounter Care Teams Bobbin Marker Relationship Specialty Start Date End Date Jessica Kathleen NP [facility] [facility] [place] [address] PCP - General Pediatrics 12/08/20 documented as of this encounter
--- OUTSIDE RECORDS SUMMARY | 2025-07-24 22:17 | XMS_ITS | Encounter Summary ---
Author Organization [facility] Address [address] [place] [address] Phone Care Team Providers Care Orchid Worker Name Role Phone Jessica Kathleen NP Primary Care Provider [phone] Encounter Details Date Type Department Care Team (Late st Contact Info) Description 04/17/2011 Conversion Encounter [facility] [address] [place] [address] Social History Tobacco Use Types Packs/Day Years [...] on filedocumented in this encounter Care Teams Orchid Worker Relationship Specialty Start Date End Date Jessica Kathleen NP [address] [place] [address] PCP - General Pediatrics 12/08/20 documented as of this encounter
--- OUTSIDE RECORDS SUMMARY | 2025-07-24 22:17 | XMS_ITS | Encounter Summary ---
Author Organization [facility] Address [address] [place] [address] Phone Care Team Providers Care Shirt Trimmer Name Role Phone Branden Talbert MD Primary Care Provider [phone] Mora Shirley MD Unavailable [phone] Leann Moreno MD Unavailable [phone] Reason for Visit * Reason Comments Medication Refill Encounter Details Date Type Department Care Team (Late st Contact Info) Description 05/29/2025 Refill [facility] [place] [facility] [address] [place], [place] [id number] Branden Talbert MD [address] [place] [address] [email or web address] Medication Refill Social History [...] high school, GED, job training, learning the Kyrgyz language, technical skills, or developing parenting skills)? [...] 03/25/2025 Branden Talbert MD - Internal Medicine [facility] > Requested f/u: Return in about 6 months (around 09/25/2025) for Recheck. Upcoming visit: 09/26/2025 Branden Talbert MD - Internal Medicine [facility] ACTIONS TAKEN BY Junie Mcmanus MA - Criteria met. Antidepressant / Anxiolytics (Non-Benzodiazepine) Rx Protocol - sertraline HCl Rx mismatch - Original discontinued, , or different strength/form. Criteria for reference: Visit in the past 14 months: Yes documented in this encounter Plan of Treatment Upcoming Encounters Date Type Department Care Team (Late st Contact Info) Description 09/26/2025 4:15 PM EST Office Visit [facility] Internal Medicine [address] [place] [phone] Branden Talbert MD [address] [place] [phone] [email or web address] documented as of this encounter Visit Diagnoses Not on filedocumented in this encounter Additional Health Concerns Assessment Noted Time PHQ-9 Depression Total Score: 15 03/18/ 025 1:57 PM EDT PHQ-2 Depression Total Score: 3 03/18/20 25 1:57 PM EDT documented as of this encounter Care Teams Shirt Trimmer Relationship Specialty Start Date End Date Branden Talbert MD [address] [place] [address] [email or web address] PCP - General Internal Medicine 09/21/21 Mora Shirley MD [address] [address] Gynecology 12/18/21 Leann Moreno MD [address] [place] [address] [email or web address] Insurance Assigned Provider 07/09/25 documented as of this encounter Additional Source Comments The information contained in this document represents components of the legal health record. It is not the complete legal health record.[facility]
--- OUTSIDE RECORDS SUMMARY | 2025-07-24 22:17 | XMS_ITS | Encounter Summary ---
Author Organization [facility] Address [address] [place] [address] Phone Care Team Providers Care Lan Administrator Name Role Phone FloJessica arias KING Primary Care Provider Reason for Visit * Reason Comments Med Refill Encounter Details Date Type Department Care Team (Late st Contact Info) Description 12/25/2019 Refill [facility] [address] [facility] [place] [address] Lorraine Sanchez, DO Anxiety Social History Tobacco [...] unspecified documented in this encounter Care Teams Lan Administrator Relationship Specialty Start Date End Date Jessica Kathleen NP [address] [facility] [place] [address] PCP - General Pediatrics 12/08/20 documented as of this encounter
--- OUTSIDE RECORDS SUMMARY | 2025-07-24 22:17 | XMS_ITS | Clinical Summary ---
Author Organization [facility] Address [address] [place] [phone] Phone Care Team Providers Care Assistant Designer Name Role Phone Branden Talbert MD Primary Care Provider [phone] Mora Shirley MD Unavailable Leann Moreno MD Unavailable [phone] Allergies No known active allergies Medications ondansetron [...] 5:07 PM EDT): Patient presented to the [facility] ER with suicidal ideation and was ultimately admitted inpatient at [facility]. No formal diagnosis was made but she [...] home. She had an intake appointment with [facility] on 12/02/24 and is planning on continuing [...] abnormalities. There was 1 note in the [facility] documentation that stated that it would be [...] is beneficial. She is to go to [facility] and would like to go there again, [...] more than this mood swings, referral to [facility] psychiatry to assess for bipolar disorder. This could just be reactive to the patient's parental, monetary situation. Assessment & Plan (12/31/2021 9:34 PM EDT): This is a 15-minute visit taking 17 minutes in total of [id number] time to evaluate for depression anxiety and [...] Encounters Date Type Department Care Team Description 07/19/2025 [facility] RISK SCORES SYSTEM GENERATED External System Generated Encounter [address] [place] [address] Unknown, Unknown, 06/27/2025 [facility] RISK SCORES SYSTEM GENERATED External System Generated Encounter [address] [place] [address] Unknown, UnknownMD 06/08/2025 Telephone [facility] Internal Medicine [address] [place] [address] [place], Sae Medication Prior Authorization (Omeprazole 20mg) 06/07/2025 3:20 PM EDT Telemedicine [facility] Internal Medicine [address] [place] [address] Sarah Fox PA-C Gastroesophageal reflux disease, unspecified whether esophagitis present (Primary Dx) 06/02/2025 Telephone [facility] Internal Medicine [address] [place] [address] Branden Talbert MD Emesis; Altered Mental Status 05/29/2025 Refill [facility] [address] [place] [address] Branden Talbert MD Medication Refill from Last [...] high school, GED, job training, learning the Spanish language, technical skills, or developing parenting skills)? [...] Description 09/26/2025 4:15 PM EST Office Visit [facility] [place] Internal [facility] [address] [facility] [place] [address] Branden Talbert MD [address] [facility] [place] [address] [email or web address] Health Maintenance Due Date Last Done Comments PNEUMOCOCCAL VACCINES (0-49 years) (1 of 2 - PCV) 2017 09/12/2006 PAP SMEAR 12/20/2024 12/20/2021 INFLUENZA VACCINE (#1) 2025 , 08/08/2021, 08/07/2020, Additional history exists REPEAT PHQ 04/18/2025 03/18/2025, 03/18/2025 COVID-19 VACCINE ( season) 2025 12/29/2021, 10/24/2021 DEPRESSION SCREENING 03/18/2026 03/18/2025, 03/18/20 25 SMOKING Hx and SMOKELESS TOBACCO SCREENING 03/25/2026 [...] Procedure Name Priority Date/Time Associated Diagnosis Comments HM PAP SMEAR FOR RESULT ENTRY ONLY [...] PM EDT) HCV NON-REACTIV E NON-REACTI VE [facility] Blood 12/18/2021 3:32 PM EDT 12/18/2021 3:34 PM EDT Branden Talbert MD LAB BLOOD BKR ORDERABLES Final R esult [facility] [address] [place] [address] * OUTSIDE HIV TEST (12/31/2018) HIV - External Neg Historical Provider LAB BLOOD ORDERABLES Dionne l Result from Last 3 Months or Most Recently Relevant to Health Maintenance Insurance [facility] [place] [id number] [employer] [facility] ACO [facility] ACO [facility] Care Teams Assistant Designer Relationship Specialty Start Date End Date Branden Talbert MD [address] [place] [address] [email or web address] PCP - General Internal Medicine 09/21/21 Mora Shirley MD [address] [address] Gynecology 12/18/21 Leann Moreno MD [address] [place] [address] [email or web address] Insurance Assigned Provider 07/09/25 Additional Source Comments The information contained in this document represents components of the legal health record. It is not the complete legal health record.[facility]
[2025-07-24 22:46] VITALS: BP 110/75; PULSE 72; RESP 16; TEMP 36.9; O2SAT 100
== END 2025-07-24 22:49 | disposition home or self-care (01) ==
PROVIDERS: Physician Assistant; Emergency Provider Emergency Medicine; PCP Internal Medicine
DX: R00.2 Palpitations (principal); R42 Dizziness and giddiness; R06.02 Shortness of breath; R41.82 Altered mental status, unspecified; F41.9 Anxiety disorder, unspecified; Z79.899 Other long term (current) drug therapy; F17.200 Nicotine dependence, unspecified, uncomplicated; Z71.6 Tobacco abuse counseling
CPT/HCPCS: 36415; 71046; 80053; 80307; 81003; 83690; 84702; 85025; 93005; 99283; 99284

== ENCOUNTER → 2025-07-24 17:21 | Outpatient (BNV) | payer MEDICAID, SELFPAY | PROVIDERS: Emergency Provider Emergency Medicine; PCP Internal Medicine; Visit Provider Internal Medicine | DX: R41.82 Altered mental status, unspecified (principal) | CPT/HCPCS: 93010 ==

== ENCOUNTER → 2025-07-24 17:22 | Outpatient (BNV) | payer MEDICAID, SELFPAY | PROVIDERS: PCP Internal Medicine; Visit Provider Radiology Diagnostic Radiology | DX: R06.02 Shortness of breath (principal) | CPT/HCPCS: 71046 ==